=== PATIENT | male | born 1975 | race Caucasian/White ===

== ENCOUNTER 2020-12-29 18:45 | Inpatient (IN) | payer MEDICAID, SELFPAY ==
[2020-12-29 18:46] VITALS: BP 142/94; PULSE 93; RESP 18; TEMP 36.3; O2SAT 100; BMI 36.1
--- NOTE | 2020-12-29 20:24 | CT_ITS ---
INDICATION: abdominal pain, inguinal hernias EXAMINATION: CT ABDOMEN AND PELVIS WITH CONTRAST - CT Abdomen And Pelvis W/ Contrast Injection TECHNIQUE: Helically acquired images were obtained of the abdomen and pelvis following IV contrast. A radiation dose optimization technique was used for this scan. IV Contrast dosage and agent: 100 cc of [id number] Oral contrast: None. COMPARISON: Chest x-ray 07/30/2014. FINDINGS: LOWER CHEST: Several scattered focal pulmonary lucencies roughly 1 cm in size or smaller. There is mild bibasilar atelectasis. No pleural effusion. No nodule or mass. No cardiomegaly or pericardial effusion. LIVER: Microlobulated contour of the liver, significant intraabdominal ascites and splenomegaly suggesting cirrhosis. No visible mass lesion exemplified. GALLBLADDER AND BILIARY TREE: No calcified gallstones. No gallbladder distension or wall edema. No intra- or extrahepatic biliary ductal dilation. PANCREAS: No focal cystic or solid mass. SPLEEN: Enlarged. ADRENAL GLANDS: No nodules. KIDNEYS AND URETERS: Normal renal size and position. No hydronephrosis. PERITONEUM: Significant volume of intra-abdominal ascites with bilateral inguinal hernias distended with fluid. There is moderate subcutaneous edema also consistent with anasarca. BOWEL: No evidence of acute appendicitis. No stomach or bowel distension. No focal inflammatory change. LYMPH NODES: No enlarged mesenteric or retroperitoneal lymph nodes. VESSELS: Aorta is non-dilated. URINARY BLADDER: Unremarkable. REPRODUCTIVE ORGANS: No pelvic masses. ABDOMINAL WALL: No discrete abdominal or pelvic wall hernia. BONES: No lytic or blastic abnormality. Degenerative endplate changes lower lumbar spine, most notably involving the L4 endplates. CT/Abdomen/Pelvis W IV Cont ONLY IMPRESSION: Significant intra-abdominal ascites, splenomegaly and micronodular contour of the liver suggestive of cirrhosis. Multiple, scattered subcentimeter pulmonary lucencies of uncertain etiology. Paraseptal emphysema is considered. Electronically Signed: Raul Saravia DO at 21:51 EDT Tel , Service support ,
--- NOTE | 2020-12-29 20:34 | EX.ED.DYSGE1 ---
HPI History of Present Illness Chief Complaint: Complaint Informant: patient and parent Narrative Narrative: Patient is a 45-year-old male with history of alcohol abuse, alcoholic liver disease, jaundice and cirrhosis of the liver presenting with increased abdominal distention, swelling of his testicles and difficulty urinating. Patient states he currently drinks 6-8 beers a day. For the past 2 weeks has had increased swelling of his abdomen and his testicles. Has had a hard time urinating. He is intermittently had blood in his urine describes it as either dark or light pink. He notes he did draw blood about 3 days ago. Patient states he was supposed to have a hernia surgery about 2 weeks [address] performed [address] Dr. Amor but it was not done because he needed to have clearance for his heart and his liver. He has an appointment in a month to see GI through [facility]. He states he is having worsening pain difficulty urinating attributed to his hernias which is why he came to the emergency room. Denies any history of paracentesis. No other complaints at this time. [facility] Medical History Alcohol abuse Anxiety HTN (hypertension) Liver disease Substance abuse Home Medications atenolol 50 mg PO DAILY 07/30/14 [History Last Taken Unknown] lisinopril 20 mg PO DAILY 07/30/14 [History Last Taken Unknown] paroxetine HCl [Paxil] 40 mg PO DAILY 07/30/14 [History Last Taken Unknown] lorazepam 1 mg PO Q4H PRN PRN #20 tablet 07/31/14 [Rx Last Taken Unknown] cyclobenzaprine [Flexeril] 5 mg PO QHS PRN 12/29/20 [History Last Taken Unknown] Allergy/AdvReac Type Severity Reaction Status Date / Time Sulfa (Sulfonamide Allergy Unknown Verified 12/29/20 18:45 Antibiotics) Social History Smoking Status: Current every day smoker tobacco type: cigarettes ROS ROS ED Constitutional Constitutional ED: Denies chills or fever(s) Eyes Eyes: Reports other Details: Scleral icterus ; Denies change in vision ENT ENT ED: Denies ear pain or rhinorrhea Cardiovascular Cardiovascular: Denies chest pain Respiratory/Chest Respiratory/Chest: Denies cough or dyspnea Gastrointestinal Gastrointestinal: Reports abdominal pain and constipation; Denies melena, nausea or vomiting Genitourinary Genitourinary ED: Reports hematuria and other Details: Difficulty urinating Musculoskeletal Musculoskeletal: Denies arthralgias or myalgias Integumentary Reports other Details: Jaundice ; Denies rash Neurologic Neurologic: Denies headache(s), paresthesias or weakness Psychiatric Psychiatric: Reports anxiety; Denies depression EXAM Physical Exam Const Vital Signs: 12/29/20 18:46 12/29/20 22:42 Temperature 97.4 F L 98.0 F Temperature Source Temporal Temporal Pulse Rate 93 78 Respiratory Rate 18 18 Blood Pressure 142/94 H 139/89 H Blood Pressure Mean 110 105 Pulse Ox 100 99 Oxygen Delivery Method Room Air Room Air General Appearance ED: NAD and other Chronically ill-appearing HEENT Reports moist mucous membranes Eyes PERRL and EOMs intact bilaterally General Eye ED: Yes scleral icterus Neck supple and no JVD Chest Wall inspection of chest normal Resp clear to auscultation bilaterally Resp Narrative: Mild increased respiratory effort in the room Auscultation: Negative for rhonchi or wheezes Cardio regular rate, regular rhythm and no murmurs GI GI Narrative: Pitting to the abdominal wall as well as a questionable fluid wave of the abdomen. Diffuse tenderness to palpation most pronounced in the periumbilical and suprapubic region. Significantly distended abdomen. Inspection: abdominal distention Palpation: guarding Narrative: Significant edema of the bilateral scrotum, painful to palpation Extremity General Extremety ED: Yes edema; Negative for tenderness General Extremity: edema Neuro oriented x3 and CN's II-XII intact bilaterally Sensorium / Orientation: alert Psych mental status grossly normal Skin no rashes or lesions noted General Skin Exam: jaundice MDM MDM MDM Narrative Medical decision making narrative: Patient evaluate for increased abdominal swelling, difficulty urinating and testicular pain. He is concerned he has a hernia that is causing his problems. On exam patient of appears jaundiced, has anasarca and ascites. He is never really had a full GI work-up for his presumed liver failure. He states he had one televisit about a year and a half ago with Dr. Sadler who is no longer with the [facility]. His work-up shows an elevated lactate, urinary tract infection and is consistent with liver failure. CT does not show any incarcerated hernia but does show significant ascites. Patient is quite tender in his abdomen in the differential does also include SBP. Patient will be started on Rocephin. Discussed with GI on-call who feels that patient would benefit from admission for paracentesis tomorrow and further evaluation. Lab Data Labs: Laboratory Results - last 24 hr 12/29/20 12/29/20 12/29/20 19:45 19:45 19:45 WBC 5.0 RBC 3.41 L Hgb 12.3 L Hct 35.5 L MCV 104.1 H MCH 36.1 H MCHC 34.6 RDW Std Deviation 56.0 H RDW Coeff of Andrei 14.6 Plt Count 88 L MPV 10.0 Immature Gran % (Auto) 0.200 Neut % (Auto) 52.3 Lymph % (Auto) 28.3 [place] % (Auto) 16.4 H Eos % (Auto) 2.2 Baso % (Auto) 0.6 Absolute Neuts (auto) 2.6 Absolute Lymphs (auto) 1.40 Nucleated RBC % 0 Differential Comment SCANNED PT INR Sodium 133 L Potassium 3.3 L Chloride 101 Carbon Dioxide 27.0 Anion Gap 5 BUN 12 Creatinine 0.66 L Estim Creat Clear Calc 139.85 Est GFR (MDRD) Af Amer 165 Est GFR (MDRD) Non-Af 136 BUN/Creatinine Ratio 18.0 Glucose 95 Lactic Acid Calcium 8.1 L Total Bilirubin 4.90 H Direct Bilirubin 2.33 H AST 52 H ALT 22 Alkaline Phosphatase 177 H B-Natriuretic Peptide Total Protein 7.6 Albumin 2.0 L Globulin 5.6 H Urine Color Brenda Urine Clarity Clear Urine pH 6.0 Ur Specific [place] 1.025 Urine Protein 30 H Urine Glucose (UA) Normal Urine Ketones 15 H Urine Occult Blood 10 H Urine Nitrite Positive H Urine Bilirubin 3 H Urine Urobilinogen 12 H Ur Leukocyte Esterase 100 H Urine RBC 0 SEEN Urine WBC 0-5 SEEN Ur Squamous Epith Cells 0-5 SEEN Calcium Oxalate Crystal 2+ Urine Bacteria 0 SEEN Urine Mucus 0 SEEN 12/29/20 12/29/20 12/29/20 19:45 19:45 20:30 WBC RBC Hgb Hct MCV MCH MCHC RDW Std Deviation RDW Coeff of Andrei Plt Count MPV Immature Gran % (Auto) Neut % (Auto) Lymph % (Auto) [place] % (Auto) Eos % (Auto) Baso % (Auto) Absolute Neuts (auto) Absolute Lymphs (auto) Nucleated RBC % Differential Comment PT 19.8 H INR 1.8 Sodium Potassium Chloride Carbon Dioxide Anion Gap BUN Creatinine Estim Creat Clear Calc Est GFR (MDRD) Af Amer Est GFR (MDRD) Non-Af BUN/Creatinine Ratio Glucose Lactic Acid 2.0 Calcium Total Bilirubin Direct Bilirubin AST ALT Alkaline Phosphatase B-Natriuretic Peptide 127.4 H Total Protein Albumin Globulin Urine Color Urine Clarity Urine pH Ur Specific [place] Urine Protein Urine Glucose (UA) Urine Ketones Urine Occult Blood Urine Nitrite Urine Bilirubin Urine Urobilinogen Ur Leukocyte Esterase Urine RBC Urine WBC Ur Squamous Epith Cells Calcium Oxalate Crystal Urine Bacteria Urine Mucus Radiography Diagnostic Testing: Clinical Impression(s) from Imaging Studies Abdomen/Pelvis CT 12/29/20 20:24 IMPRESSION: Significant intra-abdominal ascites, splenomegaly and micronodular contour of the liver suggestive of cirrhosis. Multiple, scattered subcentimeter pulmonary lucencies of uncertain etiology. Paraseptal emphysema is considered. Electronically Signed: Raul Saravia DO at 21:51 EDT Tel , Service support , Discharge Plan Triage Chief Complaint: Complaint ED Provider: Joselin Baldwin Dx/Rx/DC Orders Clinical Impression: Alcohol abuse, Ascites, Anasarca, Cirrhosis of liver Prescriptions: No Action lisinopril 20 MG tablet 20 mg PO DAILY RF: 0 paroxetine HCl [Paxil] 40 MG tablet 40 mg PO DAILY RF: 0 atenolol 50 MG tablet 50 mg PO DAILY RF: 0 lorazepam 1 MG tablet 1 mg PO Q4H PRN PRN (Reason: ANXIETY) Qty: 20 RF: 0 cyclobenzaprine [Flexeril] 5 mg Tablet 5 mg PO QHS PRN (Reason: Pain) RF: 0 Primary Care Provider: Elio Ojeda Referrals: Elio Ojeda MD [Primary Care Provider] - Disposition Disposition: Acute Care Hospital [facility]
[2020-12-29 20:36] LABS: Bacteria 0 SEEN /hpf (None Seen); Mucous, Urine 0 SEEN /hpf (<or=2+); Red Blood Cells-Urine 0 SEEN /hpf (0-5)
[2020-12-29 20:40] LABS: Color, Urine Amber (Yellow); Glucose, Dipstick Normal (Normal); Ketone-Dipstick 15 mg/dl (Negative); Leukocyte Esterase-Dipstick 100 /ul (Negative); Nitrite-Dipstick Positive (Negative); Occult Blood-Urine 10 /ul (Negative); Protein-Dipstick 30 mg/dl (Negative); Specific Gravity, Urine 1.025 (1.002-1.030); Urine Clarity Clear (Clear); Urine Urobilinogen 12 mg/dl (Normal)
[2020-12-29 20:41] LABS: Urine Bilirubin Dipstick 3 mg/dL (Negative)
[2020-12-29 20:42] LABS: Absolute Neutrophil Count 2.6 X10^3/uL (2.0-7.7); Basophil# 0.03 X10^3/uL; Basophil% 0.6 % (0-1); Eosinophil# 0.11 X10^3/uL; Eosinophils% 2.2 % (0-5); Hematocrit 35.5 % (40-54); Hemoglobin 12.3 g/dL (13.0-16.5); Lymphocyte % 28.3 % (19-41); Mean Corp Hgb Conc 34.6 g/dL (32-36); Mean Corpuscular Hgb 36.1 pg (27.0-32.0); Mean Corpuscular Volume 104.1 fL (80-94); Monocyte# 0.81 X10^3/uL; Monocyte% 16.4 % (0-10); NRBC Flagged by Analyzer 0 % (0-5); Neutrophil # 2.59 X10^3/uL (2.7-7.7); Neutrophil % 52.3 % (47-70); POSITIVE COUNT YES; Platelet Count 88 K/mm3 (150-450); RBC Distribution Width CV 14.6 % (11.6-14.6); Red Blood Count 3.41 M/mm3 (4.6-6.2)
[2020-12-29] MEDS: fentaNYL 100 MCG/2 ML Ampul 50 MCG IV (20:45)
[2020-12-29 20:50] LABS: Calcium Oxalate Crystals Ur 2+ /hpf (<or=2+)
[2020-12-29 20:53] LABS: Squamous Epithelial Cells - UA 0-5 SEEN /hpf (0-5); White Blood Cells 0-5 SEEN /hpf (0-5)
[2020-12-29 20:58] LABS: Differential Indicated SCAN CRITERIA MET
[2020-12-29 21:04] LABS: International Normalized Ratio 1.8; Prothrombin Time (Protime)PT. 19.8 SECONDS (11.7-14.9)
[2020-12-29 21:07] LABS: AST(SGOT) 52 U/L (15-37); Alanine Aminotransfer ALT/SGPT 22 U/L (16-61); Alkaline Phosphatase 177 U/L (45-117); Anion Gap 5 (5-15); BUN 12 mg/dL (7-18); Bilirubin, Direct 2.33 mg/dL (0.00-0.30); Calcium,Total 8.1 mg/dL (8.5-10.1); Chloride 101 mmol/L (98-107); Creatinine, Serum 0.66 mg/dL (0.70-1.30); EST Glomerular Filtration Rate 136 mL/min (>60); Est Glom Filt Rate - Afr Amer 165 mL/min (>60); Estimated Creatinine Clearance 139.85 ml/min; Globulin 5.6 g/dL (2.2-4.2); Glucose 95 mg/dL (74-106); Potassium 3.3 mmol/L (3.5-5.1); Protein, Total 7.6 g/dL (6.4-8.2); Sodium Level 133 mmol/L (136-145)
[2020-12-29 21:14] LABS: Differential Comment SCANNED
[2020-12-29] MEDS: Ceftriaxone 1 GM/50 ML BAG IV (22:40)
[2020-12-29 22:42] VITALS: BP 139/89; PULSE 78; RESP 18; TEMP 36.7; O2SAT 99
[2020-12-29 22:42] LABS: BNP,B-Type NATRIURETIC PEPTIDE 127.4 pg/mL (0-100)
--- NOTE | 2020-12-29 23:17 | HP.PCM.HOS_ITS ---
HPI - General General Date of Admission: 12/29/20 Date of Service: 12/29/20 Chief Complaint: abdominal pain HPI Narrative MAX ODONNELL, is a 45 M who presents worsening abdominal pain. Patient has known history of cirrhosis and 2 years ago was told that he had 6 months to a year to live. He has had abdominal distention for a long period of time but has progressively gotten worse. He presented to the emergency room with a distended abdomen. CAT scan performed in the emergency room showed massive ascites and liver contour suggestive of cirrhosis. He received fentanyl for pain and ceftriaxone from the ER is interpretation of him having a urinary tract infection. He does endorse that he has difficulty urinating because of his massive swelling as well as scrotal edema. [facility] Medical History Alcohol abuse Anxiety Cirrhosis, alcoholic HTN (hypertension) Liver disease Substance abuse Home Medications atenolol 50 mg PO DAILY 07/30/14 [History Last Taken Unknown] lisinopril 20 mg PO DAILY 07/30/14 [History Last Taken Unknown] paroxetine HCl [Paxil] 40 mg PO DAILY 07/30/14 [History Last Taken Unknown] lorazepam 1 mg PO Q4H PRN PRN #20 tablet 07/31/14 [Rx Last Taken Unknown] cyclobenzaprine [Flexeril] 5 mg PO QHS PRN 12/29/20 [History Last Taken Unknown] Allergy/AdvReac Type Severity Reaction Status Date / Time Sulfa (Sulfonamide Allergy Unknown Verified 12/29/20 18:45 Antibiotics) Social History (Updated 12/29/20 @ 23:[address] Edwin Medina DO) Smoking Status: Heavy Smoker (>10/day) alcohol intake: current alcohol intake frequency: 3 or more drinks per day Alcohol type: beer substance use type: amphetamines ROS ROS Narrative Lower extremity edema. All review of systems were negative except as mentioned above in the history of present illness and the other review of systems. Vital Signs Vital Signs Vital Signs: 12/29/20 18:46 12/29/20 22:42 Temperature 36.3 C L 36.7 C Temperature Source Temporal Temporal Pulse Rate 93 78 Respiratory Rate 18 18 Blood Pressure 142/94 H 139/89 H Blood Pressure Mean 110 105 Pulse Ox 100 99 Oxygen Delivery Method Room Air Room Air Weight Weight: 111.13 kg Body Mass Index (BMI) 36.1 Physical Exam Const alert General Appearance: cooperative HEENT normocephalic Eyes Eyes Narrative: Icterus Neck no lymphadenopathy Resp normal respiratory effort, no retractions, no use of accessory muscles and clear to auscultation bilaterally Cardio regular rate, regular rhythm, S1 normal heart sound and S2 normal heart sound GI GI Narrative: Distended. Mild tenderness throughout. Taut. Scrotal edema Extremity Extremity Narrative: Bilateral lower extremity edema Neuro no focal motor deficits Sensorium / Orientation: awake and alert Results Lab / Micro Data Attestation: I reviewed the patient's lab results. Result Diagrams: 12/29/20 19:45 12/29/20 19:45 Labs: Laboratory Results - last 24 hr 12/29/20 19:45: WBC 5.0, RBC 3.41 L, Hgb 12.3 L, Hct 35.5 L, MCV 104.1 H, MCH 36.1 H, MCHC 34.6, RDW Std Deviation 56.0 H, RDW Coeff of Andrei 14.6, Plt Count 88 L, MPV 10.0, Immature Gran % (Auto) 0.200, Neut % (Auto) 52.3, Lymph % (Auto) 28.3, [place] % (Auto) 16.4 H, Eos % (Auto) 2.2, Baso % (Auto) 0.6, Absolute Neuts (auto) 2.6, Absolute Lymphs (auto) 1.40, Nucleated RBC % 0, Differential Comment SCANNED 12/29/20 19:45: Sodium 133 L, Potassium 3.3 L, Chloride 101, Carbon Dioxide 27.0, Anion Gap 5, BUN 12, Creatinine 0.66 L, Estim Creat Clear Calc 139.85, Est GFR (MDRD) Af Amer 165, Est GFR (MDRD) Non-Af 136, BUN/Creatinine Ratio 18.0, Glucose 95, Calcium 8.1 L, Total Bilirubin 4.90 H, Direct Bilirubin 2.33 H, AST 52 H, ALT 22, Alkaline Phosphatase 177 H, Total Protein 7.6, Albumin 2.0 L, Globulin 5.6 H 12/29/20 19:45: Urine Color Brenda, Urine Clarity Clear, Urine pH 6.0, Ur Specific [place] 1.025, Urine Protein 30 H, Urine Glucose (UA) Normal, Urine Ketones 15 H, Urine Occult Blood 10 H, Urine Nitrite Positive H, Urine Bilirubin 3 H, Urine Urobilinogen 12 H, Ur Leukocyte Esterase 100 H, Urine RBC 0 SEEN, U rine WBC 0-5 SEEN, Ur Squamous Epith Cells 0-5 SEEN, Calcium Oxalate Crystal 2+, Urine Bacteria 0 SEEN, Urine Mucus 0 SEEN 12/29/20 19:45: PT 19.8 H, INR 1.8 12/29/20 19:45: B-Natriuretic Peptide 127.4 H 12/29/20 20:30: Lactic Acid 2.0 Radiology Impression Abdomen/Pelvis CT 12/29/20 20:24 IMPRESSION: Significant intra-abdominal ascites, splenomegaly and micronodular contour of the liver suggestive of cirrhosis. Multiple, scattered subcentimeter pulmonary lucencies of uncertain etiology. Paraseptal emphysema is considered. Electronically Signed: Raul Saravia DO at 21:51 EDT Tel , Service support , Assessment & Plan Assessment/Plan (1) Ascites: QUALIFIERS: Ascites type: due to alcoholic cirrhosis Qualified Code(s): K70.31 - Alcoholic cirrhosis of liver with ascites (2) Alcohol abuse: (3) Anasarca: PLAN: 1. Massive ascites * Secondary to cirrhosis from alcohol * Has progressively gotten worse over period of time to the point where it is intolerable * ER discussed with gastroenterology who recommend paracentesis * Plan is for paracentesis the fourth. INR is 1.8 so we will give him vitamin K. * Ascites albumin labs not available so cannot check SAAG * If patient has removed more than 5 L and he will need albumin replacement * Will start the patient on furosemide as well spironolactone 2. Cirrhosis, secondary to alcohol * This is been known for period time patient given poor prognosis a couple years ago * He still continues to drink which complicates the situation * Gastroenterology consult for further recommendations * Patient not a candidate for transplant as he is still actively drinking 3. Alcohol abuse * Ongoing * Drinks 6-8 beers per day * Has never been through alcohol withdrawal or delirium tremens but states that he has quit before when he was incarcerated. He stated his symptoms began about 3 days. * He is not interested in speaking with anyone but he would be interested in receiving some information to follow-up * Start thiamine and folate * This provider is concerned that the patient will not abstain from alcohol when he is discharged. 4. Anasarca * Secondary to cirrhosis * Diuretics * Fluid restriction 5. Coagulopathy * INR 1.8 * Secondary to cirrhosis * Will give 5 mg of vitamin K 6. VTE prophylaxis: Avoiding chemical prophylaxis given his coagulopathy. We will add SCDs. Discussed with the patient's mother at bedside Charges/Coding Visit Charges Inpatient E&M: 17553 Init Hosp L3
[2020-12-29 23:53] VITALS: BMI 35.9
[2020-12-29 23:58] VITALS: BP 126/85; PULSE 78; RESP 18; TEMP 36.8; O2SAT 98
[2020-12-30] VITALS (10 sets, daily range): BP systolic 106–139; BP diastolic 56–89; PULSE 64–89; RESP 16–20; TEMP 36.5–36.7; O2SAT 95–99; BMI 37.4
--- NOTE | 2020-12-30 | FLU_PTH ---
PATIENT: MAX ODONNELL III LOC: MS2 U#:[id number] AGE/SX: 45/M ROOM: [id number] RE12/29/[address]: Dr. Herminia Tipton MD : 1975 BED: 1 DIS: 01/01/2021 SPEC #: [id number] RECD: 12/31/20 09:00 STATUS: FRANCES ALONSO #: [id number] ALCIRA: 12/30/20 00:[address]: Herminia Tipton DEPT: CYTOLOGY RECD BY: Shahid Davis ENTERED: 12/31/20 09:01 SP TYPE: Fluid OTHR DR: DO Dr. Elio Cao MD Tissues: PARACENTESIS FLUID Procedures: Special Stain Group II Surgery Specimen Level IV Cytospin Fluid HEADER OPERATION: Paracentesis PRE-OP DIAGNOSIS: Ascites TISSUE SUBMITTED: Paracentesis fluid for cytology DIAGNOSIS CYTOLOGY Paracentesis fluid for cytology (cytospin and cell block): Negative for malignant cells. See comment. SJ:chintan 01/03/2021 COMMENT Clinical correlation and appropriate follow up are necessary. CYTOLOGY STUDY Slides are reviewed. CYTOLOGY GROSS Received is 80 ml of yellow cloudy fluid labeled with the patient's name and and designated per the requisition as paracentesis. Submitted for cytology preparation including cell block. / chintan 12/31/2020 TC:5 CPT: 29014, 71438
[2020-12-30 00:36] LABS: Reflex Lactate? Y
[2020-12-30] MEDS: Furosemide 40 MG Tablet PO ×2 (00:50→17:00)
[2020-12-30] MEDS: Spironolactone 50 MG Tablet PO ×2 (00:50→16:59)
[2020-12-30] MEDS: oxyCODONE 5 MG Tablet 10 MG PO (00:51)
--- NOTE | 2020-12-30 01:10 | PCS.PANDOC ---
PANDEMIC DOCUMENTATION INITIATED: Date: 12/30/20 Time: 29
[2020-12-30 01:13] LABS: Lactic Acid 1.1 mmol/L (0.4-1.9)
[2020-12-30] MEDS: Phytonadione (Vit K1) 5 MG TABLET PO (01:44)
[2020-12-30 06:12] LABS: International Normalized Ratio 1.7; Prothrombin Time (Protime)PT. 19.2 SECONDS (11.7-14.9)
[2020-12-30 06:23] LABS: ALB/GLOB Ratio 0.4 RATIO (0.9-2.4); AST(SGOT) 52 U/L (15-37); Alanine Aminotransfer ALT/SGPT 23 U/L (16-61); Albumin, Serum 1.8 g/dL (3.2-5.0); Alkaline Phosphatase 147 U/L (45-117); Anion Gap 7 (5-15); BUN 10 mg/dL (7-18); BUN/Creat Ratio 18.7 RATIO (10-20); Calcium,Total 7.8 mg/dL (8.5-10.1); Chloride 102 mmol/L (98-107); Creatinine, Serum 0.53 mg/dL (0.70-1.30); EST Glomerular Filtration Rate 176 mL/min (>60); Est Glom Filt Rate - Afr Amer 213 mL/min (>60); Estimated Creatinine Clearance 168.49 ml/min; Globulin 5.1 g/dL (2.2-4.2); Glucose 90 mg/dL (74-106); Potassium 2.9 mmol/L (3.5-5.1); Protein, Total 6.9 g/dL (6.4-8.2); Sodium Level 135 mmol/L (136-145)
--- NOTE | 2020-12-30 11:00 | CASEMGMT ---
RN MARIO INDUSTRIAL TECH INSTRUCTOR CM to room to meet with patient for initial transition planning/care coordination assessment. RN MARIO introduced self and role at [facility]. Pt voices understanding and consents to assessment at this time. Pt resting in bed in no distress at this time. Pt's mother, aCroline, @ bedside and pt agreeable to her being present during assessment. Pt is A/O at this time and answers all questions appropriately. Care providers, pharmacy, and demographics verified/updated at this time. PCP: Dr Ojeda Specialists: Dr Amor-surgeon, Homemaking Rehabilitation Consultant @ either [facility] or [place] (pt unsure). Pt to see assistant professor of music @ [facility] in February as a new pt. Preferred Pharmacy: [facility] Insurance: [employer] Prescription Benefit: Yes Living Will/HPOA: Pt does not currently have LW/HCPOA and declines info at this time. He states his sister is taking care of all of that for me. Pt made aware that he can contact as an out-pt and make appt in the future if he decides he would like to talk with someone about this or would like to utilize [facility] social work for advanced directive completion. LNOK: Mother, Caroline. Niece, Dianelys Lucia. Pt states he has 4 adult children. Living Arrangements: Lives w/his niece, Dianelys Lucia, and her family ( and 3 children) in a downstairs studio apartment in their home. Pt is independent w/ADL's and IADL's. Transportation: Mom or niece DME: Denies using any DME and denies needs. HHC/SNF: No history of either. Denies need for HHC. Pt wishes to return home and states has no concerns with going home at time of discharge. CM to follow for any discharge planning/needs. Pt voices no concerns/needs at this time. Advised pt to ask for CM if any questions/concerns/needs arise. Voices understanding. PLAN: Home w/family support and discharge plans in place. Dave MANZO RN, CM
--- NOTE | 2020-12-30 11:17 | EKG12_ITS ---
Test Reason : PRE-PROCEDURE Blood Pressure : / mmHG Vent. Rate : 070 BPM Atrial Rate : 070 BPM P-R Int : 196 ms QRS Dur : 114 ms QT Int : 444 ms P-R-T Axes : -03 -32 -02 degrees QTc Int : 479 ms Normal sinus rhythm Left axis deviation Abnormal ECG Confirmed by ALVIN SILVERMAN, JONES ([id number]), online editor JERRI VAZQUEZ ([id number]) on 01/04/2021 8:28:09 AM Referred By: FRANCY Confirmed By:JONES ESQUIVEL MD
--- NOTE | 2020-12-30 11:50 | PN.HOSP_ITS ---
Subjective Subjective Patient seen and examined. He complains of abdominal pain and distension. He has no other complaints. He is due for paracentesis today. He has remained hemodynamically stable. Objective Data Objective Data Vital Signs: Vital Signs Temp Pulse Resp BP Pulse Ox 97.8 F 74 20 H 122/84 H 95 12/30/20 10:00 12/30/20 10:00 12/30/20 10:00 12/30/20 10:00 12/30/20 10:00 Oxygen Delivery Method Room Air Weight: 242 lb 8.136 oz Body Mass Index (BMI) 35.9 Intake & Output: Intake and Output for Last 24 Hours 12/28/20 12/29/20 12/30/20 23:59 23:59 23:59 Intake Total 50 / 50 50 / 50 Output Total 2200 / 2200 Balance 50 / 50 -2150 / -2150 Lab / Micro Data Result Diagrams: 12/29/20 19:45 12/30/20 05:30 Labs: Laboratory Results - last 24 hr 12/29/20 19:45: WBC 5.0, RBC 3.41 L, Hgb 12.3 L, Hct 35.5 L, MCV 104.1 H, MCH 36.1 H, MCHC 34.6, RDW Std Deviation 56.0 H, RDW Coeff of Andrei 14.6, Plt Count 88 L, MPV 10.0, Immature Gran % (Auto) 0.200, Neut % (Auto) 52.3, Lymph % (Auto) 28.3, [place] % (Auto) 16.4 H, Eos % (Auto) 2.2, Baso % (Auto) 0.6, Absolute Neuts (auto) 2.6, Absolute Lymphs (auto) 1.40, Nucleated RBC % 0, Differential Comment SCANNED 12/29/20 19:45: Sodium 133 L, Potassium 3.3 L, Chloride 101, Carbon Dioxide 27.0, Anion Gap 5, BUN 12, Creatinine 0.66 L, Estim Creat Clear Calc 139.85, Est GFR (MDRD) Af Amer 165, Est GFR (MDRD) Non-Af 136, BUN/Creatinine Ratio 18.0, Glucose 95, Calcium 8.1 L, Total Bilirubin 4.90 H, Direct Bilirubin 2.33 H, AST 52 H, ALT 22, Alkaline Phosphatase 177 H, Total Protein 7.6, Albumin 2.0 L, Globulin 5.6 H 12/29/20 19:45: Urine Color Brenda, Urine Clarity Clear, Urine pH 6.0, Ur Specific [place] 1.025, Urine Protein 30 H, Urine Glucose (UA) Normal, Urine Ketones 15 H, Urine Occult Blood 10 H, Urine Nitrite Positive H, Urine Bilirubin 3 H, Urine Urobilinogen 12 H, Ur Leukocyte Esterase 100 H, Urine RBC 0 SEEN, Urine WBC 0-5 SEEN, Ur Squamous Epith Cells 0-5 SEEN, Calcium Oxalate Crystal 2+, Urine Bacteria 0 SEEN, Urine Mucus 0 SEEN 12/29/20 19:45: PT 19.8 H, INR 1.8 12/29/20 19:45: B-Natriuretic Peptide 127.4 H 12/29/20 20:30: Lactic Acid 2.0 12/30/20 00:42: Lactic Acid 1.1 12/30/20 05:30: PT 19.2 H, INR 1.7 12/30/20 05:30: Sodium 135 L, Potassium 2.9 L, Chloride 102, Carbon Dioxide 26.0, Anion Gap 7, BUN 10, Creatinine 0.53 L, Estim Creat Clear Calc 168.49, Est GFR (MDRD) Af Amer 213, Est GFR (MDRD) Non-Af 176, BUN/Creatinine Ratio 18.7, Glucose 90, Calcium 7.8 L, Total Bilirubin 5.20 H, AST 52 H, ALT 23, Alkaline Phosphatase 147 H, Total Protein 6.9, Albumin 1.8 L, Globulin 5.1 H, Albumin/Globulin Ratio 0.4 L Radiography Diagnostic Testing: Radiology Impression Abdomen/Pelvis CT 12/29/20 20:24 IMPRESSION: Significant intra-abdominal ascites, splenomegaly and micronodular contour of the liver suggestive of cirrhosis. Multiple, scattered subcentimeter pulmonary lucencies of uncertain etiology. Paraseptal emphysema is considered. Electronically Signed: Raul Saravia DO at 21:51 EDT Tel , Service support , Physical Exam Const alert, oriented x3 and no apparent distress Exam Limitations: no limitations HEENT moist oral mucous membranes Head and Scalp: normocephalic Eyes EOMs intact bilaterally and conjunctivae normal Neck no lymphadenopathy Resp normal respiratory effort, no retractions, no use of accessory muscles and clear to auscultation bilaterally Cardio regular rate, regular rhythm, S1 normal heart sound, S2 normal heart sound and no murmurs GI GI Narrative: abdomen markedly distended, mild generalised tenderness. No guarding or rebound tenderness. positive fluid thrill. Extremity Extremity Narrative: moderate LE edema bilaterally, no tenderness. Peripheral Pulses: Yes pulses 2+ throughout Skin no rashes or lesions noted Neuro oriented x3, CN's II-XII intact bilaterally and moves all extremities Sensorium / Orientation: awake Psych affect normal Assessment & Plan Assessment/Plan (1) Alcoholic liver disease: (2) Ascites: QUALIFIERS: Ascites type: due to alcoholic cirrhosis Qualified Code(s): K70.31 - Alcoholic cirrhosis of liver with ascites (3) Cirrhosis of liver: (4) Anasarca: PLAN: #Massive ascites due to alcoholic liver cirrhosis * for paracentesis today. * INR was 1.8, so was given vitamin K * started on furosemide and spironolactone. * will need albumin if he has large amounts of ascites removed. * #Alcoholic liver cirrhosis * diagnosed ~ 2 years ago. Continues to drink * GI consulted. * not a candidate for transplant as he continues to drink. * #ALcohol abuse * drinks ~ 6-8 beers daily. * denies ever going into alcohol withdrawal or delirium tremens. * on thiamine and multivites as well as folate. * #THrombocytopenia * platelets are 88. Likely due to chronic alcohol abuse. WIll monitor * #Coagulopathy, due to alcoholic liver cirrhosis * INR was 1.8 on admission. INR is now 1.7, after he was given vitamin K * #Hypokalemia: K is 2.9. Will replace and trend. * DVT prophylaxis: SCDs Charges/Coding Visit Charges Inpatient E&M: 55367 Subs Hosp L3
--- NOTE | 2020-12-30 12:00 | US_ITS ---
PROCEDURE: Ultrasound guided paracentesis. DATE OF EXAMINATION: 12/30/2020. INDICATION: Male, 45 years old. Ascites. PHYSICIAN: Raciel Wills M.D. TECHNIQUE: The risks, benefits, and alternatives to the procedure were explained to the patient. The specific risks of bleeding, infection, and damage to bowel were detailed and accepted. Witnessed informed consent was obtained. The abdomen was ultrasonographically surveyed. An appropriate pocket of fluid was identified at the right lower quadrant. The skin were cleaned and prepped in the usual sterile fashion. Using ultrasound guidance, the peritoneal cavity was accessed with a 5-Jamaican paracentesis needle/catheter system. The trocar was removed. A total of 8200 ml of casie color fluid were removed from the peritoneal cavity. A 100 mL sample was sent to the laboratory. The catheter was removed and a sterile dressing was applied. The procedure was well tolerated. US/Paracentesis with US IMPRESSION: Ultrasound guided paracentesis. Electronically Signed: Raciel Wills MD at 14:52 EDT , Service support ,
--- NOTE | 2020-12-30 12:22 | CASEMGMT ---
DAVID MARTIN NOTE: Pt qualifies for a Palliative referral per the [facility] palliative screening tool at this time. Dr Tipton aware but is not agreeable to Palliative referral at this time. Dave MANZO RN CM
[2020-12-30] MEDS: Lidocaine 2% (20 ml mdv) 20 ML Vial INFILT (13:45)
--- NOTE | 2020-12-30 14:13 | NURSING ---
pt off unit at 1300
[2020-12-30 14:58] LABS: Body Fluid Mononuclear WBC # 0.116 10^3/uL; Body Fluid Mononuclear WBC % 87.8 %; Body Fluid Polynuclear WBC # 0.016 10^3/uL; Body Fluid Polynuclear WBC % 12.2 %; Body Fluid Total Cells Counted 0.162 10^3/ul; White Blood Count/Body Fluid 0.132 10^3/uL
[2020-12-30 15:10] LABS: Glucose, Body Fluid 97 mg/dL (40-70)
[2020-12-30 15:33] LABS: Appearance/Body Fluid CLEAR; Auto B Fluid Analyzer BKGD Ct COUNTS W/IN LIMITS (W/IN LIMITS); Color/Body Fluid YELLOW; Source- Body Fluid OTHER
[2020-12-30 15:34] LABS: Red Cell Count/Body Fluid < 0 /mm3
[2020-12-30 15:52] LABS: Lymphocytes 62 %; Macrophages 26 %; Monocytes 6 %; Neutrophil (Segs) 6 %
[2020-12-30 15:57] LABS: Body Fluid QC Type(s) BF1Q,BF2Q
[2020-12-30] MEDS: Paroxetine 20 MG Tablet 40 MG PO (17:00)
[2020-12-30] MEDS: Atenolol 50 MG Tablet PO (17:00)
[2020-12-30] MEDS: Lisinopril 20 MG Tablet PO (17:01)
[2020-12-30] MEDS: Albumin Human 25% (100 mL) 25 GM/100 ML BAG IV (17:01)
--- NOTE | 2020-12-30 19:02 | CON.PCM.GI_ITS ---
HPI Consult Data Date of Consult: 12/30/20 HPI Narrative HPI Narrative: MAX ODONNELL, 45 M with history of alcohol abuse, alcoholic cirrhosis of the liver presenting with increased abdominal distention, swelling of his testicles and diffic He also has a history of possible chronic hepatitis C. he drinks approximately 60 to 80 g of alcohol per day and has been knowing that the last 20 years. He presents to the emergency room after inability to drink for 24 hours secondary to worsening abdominal distention. His labs were consistent with alcoholic hepatitis and a MADRE score of 32. He was not given steroids due to the fact did not have any encephalopathy. His INR was 1.7 , platelet count 88 and hemoglobin of 12.6. There is no problem with his kidney function as his BUN/creatinine ratio was 20/1. 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 The CT scan of his abdomen and pelvis had shown a microlobulated contour of the liver, significant intraabdominal ascites and splenomegaly suggesting cirrhosis. No visible mass lesion exemplified. [facility] Medical History (Updated 12/30/20 @ 19:[address] Leland Back, DO) Alcohol abuse Anxiety Cirrhosis, alcoholic Depression HTN (hypertension) Irregular heart beat Liver disease Smoker Substance abuse Thrombocytopenia Home Medications atenolol 50 mg PO DAILY 07/30/14 [History Last Taken Unknown] lisinopril 20 mg PO DAILY 07/30/14 [History Last Taken Unknown] paroxetine HCl [Paxil] 40 mg PO DAILY 07/30/14 [History Last Taken Unknown] cyclobenzaprine [Flexeril] 5 mg PO TID 12/29/20 [History Last Taken Unknown] Allergy/AdvReac Type Severity Reaction Status Date / Time Sulfa (Sulfonamide Allergy Unknown Verified 12/29/20 18:45 Antibiotics) Social History (Updated 12/29/20 @ 23:[address] Edwin Medina, DO) Smoking Status: Heavy Smoker (>10/day) alcohol intake: current alcohol intake frequency: 3 or more drinks per day Alcohol type: beer substance use type: amphetamines ROS Review of Systems ROS Unobtainable: other Constitutional Constitutional: Denies fatigue, fever(s), poor appetite, weight gain or weight loss ENT HEENT: Denies mouth lesions Cardiovascular Cardiovascular: Denies abdominal bloating, abdominal edema or abdominal pain Respiratory/Chest Respiratory/Chest: Denies change in mental status, change in phlegm color, chest congestion or chest tightness Gastrointestinal Gastrointestinal: Denies belching, bloating, change in bowel habits, change in stool character, chewing difficulty, coffee ground emesis, constipation, cramping, diarrhea, dyspepsia, dysphagia, early satiety, excessive flatus, fecal incontinence, heartburn, hematemesis, hematochezia, hemorrhoids, loose stools, melena, nausea, odynophagia, rectal bleeding, tenesmus, vomiting or weight changes Genitourinary Genitourinary: Denies abdominal discomfort, burning urination or itching Musculoskeletal Musculoskeletal: Reports as per HPI; Denies muscle weakness or myalgias Integumentary Integumentary: Denies jaundice Neurologic Neurologic: Denies lack of coordination or weakness Psychiatric Psychiatric: Denies confusion, depression, memory loss, mood swings, paranoia or suicidal ideation Endocrine Endocrinology: Denies systems reviewed and no addt'l complaints, except as documented Hematologic/Lymphatic Hematologic/Lymphatic: Denies anemia, easy bleeding, easy bruising or lymp hadenopathy Allergic/Immunologic Allergic/Immunologic: Denies systems reviewed and no addt'l complaints, except as documented Physical Exam Const alert General Appearance: cooperative Orientation / Consciousness: oriented to person HEENT hearing grossly normal bilaterally Head and Scalp: normal to inspection Face and Sinus: face symmetric Nose: external nose normal Mouth: oral and palatal mucosa normal Eyes conjunctivae normal General Eye: normal appearance of both eyes Neck full ROM General: normal visual inspection Lymph Lymphatic: no lymphadenopathy noted Chest inspection of chest normal and palpation of chest normal Chest: symmetrical chest wall rise Resp normal respiratory effort Effort and Inspection: able to speak in complete sentences Cardio regular rate GI non-distended Percussion: normal to percussion Rectal Exam: deferred Neuro Speech: speech normal Gait (Neuro): normal gait Lab / Micro Data Result Diagrams: 12/29/20 19:45 12/30/20 05:30 Labs: Laboratory Results - last 24 hr 12/29/20 19:45: WBC 5.0, RBC 3.41 L, Hgb 12.3 L, Hct 35.5 L, MCV 104.1 H, MCH 36.1 H, MCHC 34.6, RDW Std Deviation 56.0 H, RDW Coeff of Andrei 14.6, Plt Count 88 L, MPV 10.0, Immature Gran % (Auto) 0.200, Neut % (Auto) 52.3, Lymph % (Auto) 28.3, [place] % (Auto) 16.4 H, Eos % (Auto) 2.2, Baso % (Auto) 0.6, Absolute Neuts (auto) 2.6, Absolute Lymphs (auto) 1.40, Nucleated RBC % 0, Differential Comment SCANNED 12/29/20 19:45: Sodium 133 L, Potassium 3.3 L, Chloride 101, Carbon Dioxide 27.0, Anion Gap 5, BUN 12, Creatinine 0.66 L, Estim Creat Clear Calc 139.85, Est GFR (MDRD) Af Amer 165, Est GFR (MDRD) Non-Af 136, BUN/Creatinine Ratio 18.0, Glucose 95, Calcium 8.1 L, Total Bilirubin 4.90 H, Direct Bilirubin 2.33 H, AST 52 H, ALT 22, Alkaline Phosphatase 177 H, Total Protein 7.6, Albumin 2.0 L, Globulin 5.6 H 12/29/20 19:45: Urine Color Brenda, Urine Clarity Clear, Urine pH 6.0, Ur Specific [place] 1.025, Urine Protein 30 H, Urine Glucose (UA) Normal, Urine Ketones 15 H, Urine Occult Blood 10 H, Urine Nitrite Positive H, Urine Bilirubin 3 H, Urine Urobilinogen 12 H, Ur Leukocyte Esterase 100 H, Urine RBC 0 SEEN, Urine WBC 0-5 SEEN, Ur Squamous Epith Cells 0-5 SEEN, Calcium Oxalate Crystal 2+, Urine Bacteria 0 SEEN, Urine Mucus 0 SEEN 12/29/20 19:45: PT 19.8 H, INR 1.8 12/29/20 19:45: B-Natriuretic Peptide 127.4 H 12/29/20 20:30: Lactic Acid 2.0 12/30/20 00:42: Lactic Acid 1.1 12/30/20 05:30: PT 19.2 H, INR 1.7 12/30/20 05:30: Sodium 135 L, Potassium 2.9 L, Chloride 102, Carbon Dioxide 26.0, Anion Gap 7, BUN 10, Creatinine 0.53 L, Estim Creat Clear Calc 168.49, Est GFR (MDRD) Af Amer 213, Est GFR (MDRD) Non-Af 176, BUN/Creatinine Ratio 18.7, Glucose 90, Calcium 7.8 L, Total Bilirubin 5.20 H, AST 52 H, ALT 23, Alkaline Phosphatase 147 H, Total Protein 6.9, Albumin 1.8 L, Globulin 5.1 H, Albumin/Globulin Ratio 0.4 L 12/30/20 13:40: Fluid Glucose 97 H 12/30/20 13:40: Fluid Source OTHER, Fluid Color YELLOW, Fluid Appearance CLEAR, Fluid WBC 0.132, Fluid RBC < 0, Fluid Tot Cell Count 0.162, Fld Polynuclear WBCs # 0.016, Fld Polynuclear WBCs % 12.2, Fluid Mononuclear WBCs 0.116, Fld Mononuclear WBCs % 87.8, Fluid Neutrophils 6, Fluid Lymphocytes 62, Fluid Monocytes 6, Fluid Macrophages 26, Fl Pathologist Comment May follow, Fluid Comment 2 Not Reportable Radiology Impression Abdomen/Pelvis CT 12/29/20 20:24 IMPRESSION: Significant intra-abdominal ascites, splenomegaly and micronodular contour of the liver suggestive of cirrhosis. Multiple, scattered subcentimeter pulmonary lucencies of uncertain etiology. Paraseptal emphysema is considered. Electronically Signed: Raul Saravia DO at 21:51 EDT Tel , Service support , Paracentesis Ultrasound 12/30/20 12:00 IMPRESSION: Ultrasound guided paracentesis. Electronically Signed: Raciel Wills MD at 14:52 EDT , Service support , Assessment & Plan Assessment/Plan (1) Cirrhosis of liver: PLAN: He has alcoholic cirrhosis of the liver. I will order a biochemical work-up including AFP, LDH, CA 19-9, CEA, work-up for chronic viral hepatitis, autoimmune hepatitis, B12, folic acid. His meld at this time is 18 and currently he would be a candidate for liver transplant if he did not currently drink alcohol. At this time he is an alcoholic hepatitis but is not exhibiting any signs of encephalopathy. (2) Ascites: QUALIFIERS: Ascites type: due to alcoholic cirrhosis Qualified Code(s): K70.31 - Alcoholic cirrhosis of liver with ascites PLAN: He underwent large-volume paracentesis of 8 L and received 25 g albumin. He will need to have a SAAG gradient, echocardiogram and he needs to be on at least Lasix 40 mg twice daily and Aldactone 50 to 100 g daily. Patient will be scheduled to get weekly paracentesis. He is not a candidate for TIPS at this time. (3) Thrombocytopenia: PLAN: Secondary to cirrhosis. Charges/Coding Visit Charges Inpatient E&M: 94496 Init Hosp L3
[2020-12-30] MEDS: LORazepam 1 MG Tablet PO ×2 (19:18→23:01)
[2020-12-31 03:00] VITALS: BP 105/62; PULSE 62; RESP 16; TEMP 36.6; O2SAT 95
[2020-12-31] MEDS: LORazepam 1 MG Tablet PO ×3 (03:04→21:59)
[2020-12-31 05:44] LABS: Absolute Lymphocyte Count 1.09 X10^3/uL (0.83-4.51); Absolute Neutrophil Count 2.1 X10^3/uL (2.0-7.7); Basophil# 0.02 X10^3/uL; Basophil% 0.5 % (0-1); Eosinophil# 0.09 X10^3/uL; Eosinophils% 2.3 % (0-5); Hematocrit 31.1 % (40-54); Lymphocyte # 1.09 X10^3/ul (0.83-4.51); Lymphocyte % 28.4 % (19-41); Mean Corp Hgb Conc 35.4 g/dL (32-36); Mean Corpuscular Hgb 36.1 pg (27.0-32.0); Mean Platelet Vol. 10.2 fl (6.2-12.0); Monocyte# 0.51 X10^3/uL; Monocyte% 13.3 % (0-10); NRBC Flagged by Analyzer 0 % (0-5); Neutrophil # 2.12 X10^3/uL (2.7-7.7); Neutrophil % 55.2 % (47-70); POSITIVE COUNT YES; Platelet Count 71 K/mm3 (150-450); RBC Distribution Width CV 14.4 % (11.6-14.6); RBC Distribution Width SD 53.6 fl (35.1-43.9); Red Blood Count 3.05 M/mm3 (4.6-6.2); White Blood Count 3.8 K/mm3 (4.4-11.0)
[2020-12-31 06:11] LABS: ALB/GLOB Ratio 0.4 RATIO (0.9-2.4); AST(SGOT) 35 U/L (15-37); Alanine Aminotransfer ALT/SGPT 17 U/L (16-61); Albumin, Serum 1.6 g/dL (3.2-5.0); Alkaline Phosphatase 107 U/L (45-117); Anion Gap 4 (5-15); BUN 9 mg/dL (7-18); BUN/Creat Ratio 17.6 RATIO (10-20); Calcium,Total 7.9 mg/dL (8.5-10.1); Chloride 104 mmol/L (98-107); Creatinine, Serum 0.51 mg/dL (0.70-1.30); EST Glomerular Filtration Rate 185 mL/min (>60); Est Glom Filt Rate - Afr Amer 224 mL/min (>60); Estimated Creatinine Clearance 180.99 ml/min; Globulin 4.1 g/dL (2.2-4.2); Glucose 80 mg/dL (74-106); Potassium 3.1 mmol/L (3.5-5.1); Protein, Total 5.7 g/dL (6.4-8.2); Sodium Level 138 mmol/L (136-145)
[2020-12-31 08:50] VITALS: BP 108/60; PULSE 68; RESP 18; TEMP 36.5; O2SAT 95
[2020-12-31] MEDS: Thiamine Hydrochloride 100 MG Tablet PO (09:00)
[2020-12-31] MEDS: Folic Acid 1 MG Tablet PO (09:00)
[2020-12-31] MEDS: Furosemide 40 MG Tablet PO (09:00)
[2020-12-31] MEDS: Paroxetine 20 MG Tablet 40 MG PO (09:01)
[2020-12-31] MEDS: Lisinopril 20 MG Tablet PO (09:01)
[2020-12-31] MEDS: Atenolol 50 MG Tablet PO (09:01)
[2020-12-31] MEDS: Potassium Chloride Oral Tablet 20 MEQ 60 MEQ PO (09:05)
--- NOTE | 2020-12-31 10:08 | CASEMGMT ---
Addendum entered by Brii South 12/31/20 13:44: Spoke w/Ghazala in Radiology. Pt is scheduled for paracentesis w/Dr Wills SundayJanuary 04 @ 9:30 AM. Pt to arrive @ 9:15. Appt added to Discharge plan. DAVID MARTIN to room to notify pt and pt's mom who is at bedside. Pt in bed w/eyes closed. Groggy. Opens eyes briefly but then closes them again. Pt's mom provided w/paracentesis appt information and reviewed w/her. She states, I'll make sure he gets there. Original Note: DAVID MARTIN NOTE: Dr Tipton made aware pt is interested in Palliative referral. Order received for same at this time. TC to Palliative Care to inform them of referral. Palliative screening tool and demographics page faxed to Palliative Care at this time. Standing order for OP weekly paracentesis from Dr Back faxed to radiology department at this time. TC to DAVID Vivar, re: pt needing scheduled for OP paracentesis. Dave MANZO RN CM
--- NOTE | 2020-12-31 11:55 | DS.PCM_ITS ---
Providers Date of Admission: 12/29/20 Primary Care Physician: Dr. Elio Ojeda MD Consultations 12/29/20 23:53 Consult: Gastroenterology Routine Consulting Provider: [facility] Reason for Consult: ascites. cirrhosis EMERGENT Consult: No MD Notified: Yes Date Notified: 12/29/20 Time Notified: 23:16 Method of Notification: Verbal Reason For Visit: ASCITIES, ABDOMINAL PAIN Diagnosis Discharge Diagnosis (1) Cirrhosis of liver: Status: Acute Code(s): K74.60 - Unspecified cirrhosis of liver (2) Ascites: Status: Acute Code(s): R18.8 - Other ascites Qualifiers: Ascites type: due to alcoholic cirrhosis Qualified Code(s): K70.31 - Alcoholic cirrhosis of liver with ascites (3) Thrombocytopenia: Status: Acute Code(s): D69.6 - Thrombocytopenia, unspecified Medications at Discharge Home Medications atenolol 50 mg PO DAILY 07/30/14 lisinopril 20 mg PO DAILY 07/30/14 paroxetine HCl [Paxil] 40 mg PO DAILY 07/30/14 cyclobenzaprine 5 mg PO TID 12/29/20 furosemide 40 mg PO DAILY #30 tab 12/31/20 spironolactone 50 mg PO DAILY #30 tab 12/31/20 Hospital Course Operations None Procedures Paracentesis Summary of Care Provided Minutes Spent on Discharge: 45 Hospital Course: Lasix 40 mg twice daily and Aldactone onHe was started on and was recommended to have weeklyPatient is a 45 y/o male with an extensive PMH as outlined including alcoholic liver cirrhosis, hypertension, substance abuse and polysubstance abuse as well as anxiety. He was diagnosed with cirrhosis about 2 years ago. He has had abdominal distension which had progressively worsened. CT of the abdomen done showed massive ascites and cirrhosis of the liver. Urinalysis also showed evidence of UTI. He was admitted and managed for ascites due to liver cirrhosis. Gastroenterology was consulted. He was started on IV ceftriaxone for UTI. He had paracentesis on 12/30/2020 with removal of 8.2L of fluid. Per gastroenterology, He had a MADDREY score of 32. INR was 1.7, so he was given vitamin K. URine cultured mixed gram positive organisms. He received albumin after fluid was removed. Patient remained stable after and was dischar [facility] home on 12/31/2020. He is to follow up with gastroenterology on outpatient basis, and he was counseled to quit drinking. He was discharged on PO lasix 40mg daily and PO spironolactone 50mg daily. 2D echo was ordered and results were pending at time of discharge. Patient seen and examined prior to discharge. He felt well and had no complaints. He was ready to be discharged. Review of systems otherwise negative. Labs and vitals reviewed. Medication reviewed and reconciled. Physical Exam Const alert, oriented x3 and no apparent distress General Appearance: cooperative and comfortable Exam Limitations: no limitations HEENT normocephalic and moist oral mucous membranes Eyes PERRL, EOMs intact bilaterally and conjunctivae normal Eyes Narrative: Icterus Neck no lymphadenopathy Resp normal respiratory effort, no retractions, no use of accessory muscles and clear to auscultation bilaterally Cardio regular rate, regular rhythm, S1 normal heart sound, S2 normal heart sound and no murmurs GI GI Narrative: abdominal distension has improved significantly. Non tender, no organomegaly. Still has some shifting dullness. Extremity Extremity Narrative: moderate LE edema bilaterally, no tenderness. Skin no rashes or lesions noted Neuro oriented x3, CN's II-XII intact bilaterally, moves all extremities and no focal motor deficits Sensorium / Orientation: awake and alert Psych affect normal Weight / BMI Weight Weight: 252 lb 3.341 oz Body Mass Index (BMI) 37.4 ABG / Lab / Microbiology Data Result Diagrams: 12/31/20 05:28 12/31/20 05:28 Laboratory: Laboratory Results - last 24 hr 12/30/20 13:40: Fluid Glucose 97 H 12/30/20 13:40: Fluid Source OTHER, Fluid Color YELLOW, Fluid Appearance CLEAR, Fluid WBC 0.132, Fluid RBC < 0, Fluid Tot Cell Count 0.162, Fld Polynuclear WBCs # 0.016, Fld Polynuclear WBCs % 12.2, Fluid Mononuclear WBCs 0.116, Fld Mononuclear WBCs % 87.8, Fluid Neutrophils 6, Fluid Lymphocytes 62, Fluid Monocytes 6, Fluid Macrophages 26, Fl Pathologist Comment May follow, Fluid Comment 2 Not Reportable 12/31/20 05:28: WBC 3.8 L, RBC 3.05 L, Hgb 11.0 L, Hct 31.1 L, MCV 102.0 H, MCH 36.1 H, MCHC 35.4, RDW Std Deviation 53.6 H, RDW Coeff of Andrei 14.4, Plt Count 71 L, MPV 10.2, Immature Gran % (Auto) 0.300, Neut % (Auto) 55.2, Lymph % (Auto) 28.4, [place] % (Auto) 13.3 H, Eos % (Auto) 2.3, Baso % (Auto) 0.5, Absolute Neuts (auto) 2.1, Absolute Lymphs (auto) 1.09, Nucleated RBC % 0 12/31/20 05:28: Sodium 138, Potassium 3.1 L, Chloride 104, Carbon Dioxide 30.0, Anion Gap 4 L, BUN 9, Creatinine 0.51 L, Estim Creat Clear Calc 180.99, Est GFR (MDRD) Af Amer 224, Est GFR (MDRD) Non-Af 185, BUN/Creatinine Ratio 17.6, Glucose 80, Calcium 7.9 L, Total Bilirubin 4.70 H, AST 35, ALT 17, Alkaline Phosphatase 107, Total Protein 5.7 L, Albumin 1.6 L, Globulin 4.1, Albumin/Globulin Ratio 0.4 L Microbiology: Microbiology 12/29/20 19:45 Urine, Clean Catch Urine Culture - Final Mixed Gram Positive Organisms Radiography Diagnostic Testing: Radiology Impression Paracentesis Ultrasound 12/30/20 12:00 IMPRESSION: Ultrasound guided paracentesis. Electronically Signed: Raciel Wills MD at 14:52 EDT , Service support , D/C Instructions Discharge Diet: Low fat / Low cholesterol and 2000 mg Sodium Diet Discharge Activity: Return to Normal Activity Weight Bearing Status: Weight bearing as tolerated Call your doctor if you observe: Fever of 101 or Higher, Shortness of breath, Dizziness and Swelling in the ankles Meaningful Use Info Meaningful Use Diagnoses (Choose all that apply): None applicable Discharge Plan Admission Admit Date/Time: 12/29/20 23:13 Primary Reason for Your Visit: ascites due to alcoholic liver disease Attending Provider: Herminia Tipton Primary Care Provider: Elio Ojeda Instructions Patient Instructions: Paracentesis Discharge Orders/Prescriptions Prescriptions: New furosemide 40 mg tablet 40 mg PO DAILY Qty: 30 RF: 1 spironolactone 50 mg tablet 50 mg PO DAILY Qty: 30 RF: 1 Continued lisinopril 20 MG tablet 20 mg PO DAILY RF: 0 paroxetine HCl [Paxil] 40 MG tablet 40 mg PO DAILY RF: 0 atenolol 50 MG tablet 50 mg PO DAILY RF: 0 cyclobenzaprine 5 mg Tablet 5 mg PO TID RF: 0 Referrals / Follow Up: Elio Ojeda MD [Primary Care Provider] - Within 2 Weeks Leland Back DO [STAFF PHYSICIAN] - Within 2 Weeks Disposition Disposition (needs filled in before D/C Order can be placed): Home, Self Care Charges/Coding Visit Charges Inpatient E&M: 11608 Disch Hosp
--- NOTE | 2020-12-31 12:07 | ECHOD_ITS ---
Reason For Study: other Procedure This was a 2D Doppler, Color Flow transthoracic echocardiogram. Technically difficult study, patient scanned supine. I attempted to wake the patient many times but he would not wake enough to follow commands, only toss and turn like he was agitated. The study was technically difficult. Exam performed portable in patient room. Left Ventricle Normal LV size. Moderate concentric left ventricular hypertrophy. Left ventricular systolic function is normal. The estimated ejection fraction is 70 %. Diastolic function is indeterminate. No regional wall motion abnormalities noted. Right Ventricle Normal RV size. Normal systolic function. Atria Normal left atrium. Normal right atrium. No doppler evidence for ASD. Mitral Valve There is mild mitral annular calcification. Mild diffuse mitral valve thickening. Chordal systolic anterior motion of the mitral valve. Mild (1+) eccentric mitral valve insufficiency. Tricuspid Valve Normal tricuspid valve. Mild tricuspid valve insufficiency. Unable to estimate RV systolic pressure/pulmonary artery pressure due to technically difficult study. Aortic Valve Trisinus/trileaflet aortic valve. Normal aortic valve. Pulmonic Valve The pulmonic valve is not well visualized. Great Vessels Normal sized aortic root. Pericardium/Pleural No pericardial effusion. Echo lucency compatible with a pleural effusion. MMode/2D Measurements & Calculations LVIDd: 4.0 cm IVSd: 1.8 cm LA dimension: 5.1 cm LVIDs: 2.6 cm LVPWd: 1.5 cm FS: 36.2 % Time Measurements MV dec time: 0.33 sec Doppler Measurements & Calculations MV E max yvon: 69.5 cm/sec Lat Peak E' Yvon: 7.5 cm/sec Med Peak E' Yvon: 4.7 cm/sec MV A max yvon: 94.9 cm/sec E/E' lat: 9.3 E/E' med: 14.7 MV E/A: 0.73 ECHO/Echo Complete Interpretation Summary The study was technically difficult. Left ventricular systolic function is normal. The estimated ejection fraction is 70 %. Moderate concentric left ventricular hypertrophy. There is mild mitral annular calcification. Mild diffuse mitral valve thickening. Chordal systolic anterior motion of the mitral valve. Mild (1+) eccentric mitral valve insufficiency. Mild tricuspid valve insufficiency. Echo lucency compatible with a pleural effusion Echo lucency compatible with ascites Unable to estimate RV systolic pressure/pulmonary artery pressure due to techni corey difficult study. Diastolic function is indeterminate. Ordering Physician: Herminia Tipton Referring Physician: MD Lynette Elio Performed By: Omar Zacarias RCS
[2020-12-31] MEDS: Spironolactone 50 MG Tablet PO (12:17)
--- NOTE | 2020-12-31 12:25 | CASEMGMT ---
Social Work SW met with pt to discuss alcohol use and desire for treatment. Pt stating that he realizes that he needs to stop drinking or that he will and states he will not drink when he returns home. VIVIENNE discussed treatment options with pt including inpatient rehabilitation, outpt counseling at [facility] or at other organizations. Pt denies all help with alcohol cessation. Pt stating that he has the will power to stop SW inquired if the alcohol has been removed for his neices home, where pt plans to discharge to, and pt states he will not ask them to remove the alcohol as it is their right to drink if they want to. SW reiterated the importance of cessation due to health issues and need for help to stop an addiction. Pt again states he is aware on need to stop and again denies any inpatient facilities or counselors or programs of any type. Pt mother in the room and with pt permission, discussion was with mother present. Pt mother reinforces that pt does not need a program to stop drinking. Pt accepted no resources. VIVIENNE then spoke with pt regarding advance directives and pt requesting to complete. VIVIENNE assisted pt in completing Living will and health care POA which he named his mother Caroline Tobar and his sister Shayla Shields. Copy placed on the chart and orginals given to pt. VIVIENNE will remain available should other needs arise. YASMINE Huggins
[2020-12-31 13:33] LABS: Pathologist Comment/Body Fluid Reviewed
--- NOTE | 2020-12-31 15:03 | CON.PCM.PA_ITS ---
Assessment & Plan Assessment/Plan (1) Ascites: QUALIFIERS: Ascites type: due to alcoholic cirrhosis Qualified Code(s): K70.31 - Alcoholic cirrhosis of liver with ascites (2) Alcohol abuse: (3) Cirrhosis of liver: QUALIFIERS: Ascites presence: with ascites Hepatic cirrhosis type: alcoholic cirrhosis Qualified Code(s): K70.31 - Alcoholic cirrhosis of liver with ascites (4) Thrombocytopenia: (5) Hypertension: QUALIFIERS: Hypertension type: unspecified Qualified Code(s): I10 - Essential (primary) hypertension (6) Alcoholic liver disease: (7) Anasarca: (8) Depression: QUALIFIERS: Depression Type: unspecified Qualified Code(s): F32.A - Depression, unspecified (9) Anxiety: PLAN: 45-year-old male with history of alcohol and polysubstance abuse, admitted to [facility] for management of progressive ascites, requiring paracentesis. Seen today for palliative consultation for supportive management when he is discharged home. 1. Weakness and debility: Related to his alcoholism and liver cirrhosis/anasarca. He is currently lethargic. Unable to get up to the bathroom. I suspect his discharge will be on hold. We will follow-up as an outpatient 2. Alcoholic cirrhosis/polysubstance abuse/ascites: Patient has stated he will quit on his own. History of DTs. He has declined any assistance with programs as an outpatient. He has been placed on Lasix and Aldactone to assist with fluid management. He will also have routine paracentesis. He was advised that if he fails to quit drinking completely, his disease process will progress and his prognosis is very poor. 3. Depression and anxiety: Currently on Paxil 40 mg daily and lorazepam 2 mg every 4 hours scheduled (withdrawal protocol). He is somewhat lethargic, nurse has held all doses of lorazepam since 0900. He is going to be potentially discharged later this afternoon after his echocardiogram, pending if he is still lethargic. I would avoid any benzodiazepines as an outpatient, patient has a history of overdose on them, as well as several other medications and substances. 4. Anasarca/hypertension/thrombocytopenia: Complicates overall care management. He is to follow-up with GI as an outpatient. Upcoming cardiology consult at [facility]? However, his mother reports he is going to be seeing Dr. Herr here in [place]. Thank you for the opportunity to participate in this patient's care, please do not hesitate to contact [facility] with any further questions or concerns. Palliative direct line is [phone]. We will follow up after discharge and will discuss palliative services further at that time. Greater than 50% of F2F visit dedicated to education and counseling of palliative care services, medications, comorbid conditions and potential assistance with management, and plan of care moving forward. I did also speak with patient's sister, Shayla while in the patient's room and updated her with the plan of care. Start time: 1455 End time: 1555 HPI Consult Data Date of Consult: 12/31/20 HPI Narrative HPI Narrative: MAX ODONNELL, is a 45 M who presented to [facility] 12/29/2020 with increased abdominal distention and pain, testicle edema, and difficulties urinating over the past 2 weeks. Also some intermittent hematuria. Patient has a history of alcohol abuse and alcoholic liver disease. Reported current alcohol intake 6-8 beers a day. Also history of polysubstance abuse and multiple overdoses. Patient supposed to have hernia surgery a few weeks ago by Dr. Amor, however this was put on hold as he needed clear cardiac and hepatology clearance. Apparently has an appointment with [facility] in about a month. He was admitted for evaluation and management of his ascites. Palliative consulted for supportive care when discharged home. Patient was started on Lasix 40 mg twice daily and Aldactone to help control the swelling. He was seen by Dr. Back, gastroenterology, who recommended the diuretics and obtaining an echocardiogram. Noted patient was not a candidate for TIPS procedure. Patient did receive some albumin and vitamin K. Patient had a paracentesis 12/30 with 8.2 L of fluid removed. He has another paracentesis scheduled for January 04. He does have a standing order for paracenteses. Nursing reports patient is somewhat lethargic today. He has a history of DTs and has been receiving Ativan routinely. It is unclear if he is becoming encephalopathic or if his lethargy is related to medications. He has refused treatment for his alcoholism and declines assistance by [facility] or any other organization. Lives with his niece, Dianelys Lucia and her family (, 3 children) in a studio apartment. Patient has 4 children, but apparently they are estranged. His sister Shayla Shields assist with general management as well as taking to appointments, etc. He uses [facility] entry for pharmacy. He also has a consult with a blood bank laboratory professional at [facility] in February. Patient is lethargic and not able to answer most questions. Patient states he has some pain in the abdomen, mild at this time. He is still having difficulty urinating. Anasarca/edema extends to feet. Denies any shortness of breath or chest pain. No fever or chills. We did discuss palliative services and limitations. His mother, Caroline is at the bedside during my evaluation. She voices concern about his discharge home today, however if the patient remains lethargic, that will likely not happen. Caroline is very tearful throughout my visit. She understands the severity of his disease and potential outcomes if he continues to drink. States he has never been completely sober, if he cuts back, it is typically 2-3 beers a day. Patient's mother is interested in palliative services at this time, we will arrange for consent signing as an outpatient. [facility] Medical History (Updated 12/31/20 @ 15:15 by SALEEM Richardson) Alcohol abuse Anxiety Cirrhosis, alcoholic Depression HTN (hypertension) Irregular heart beat Liver disease Smoker Substance abuse Thrombocytopenia Home Medications atenolol 50 mg PO DAILY 07/30/14 [History Last Taken Unknown] lisinopril 20 mg PO DAILY 07/30/14 [History Last Taken Unknown] paroxetine HCl [Paxil] 40 mg PO DAILY 07/30/14 [History Last Taken Unknown] cyclobenzaprine 5 mg PO TID 12/29/20 [History Last Taken Unknown] furosemide 40 mg PO DAILY #30 tab 12/31/20 [Rx Last Taken Unknown] spironolactone 50 mg PO DAILY #30 tab 12/31/20 [Rx Last Taken Unknown] Allergy/AdvReac Type Severity Reaction Status Date / Time Sulfa (Sulfonamide Allergy Unknown Verified 12/29/20 18:45 Antibiotics) Social History Smoking Status: Heavy Smoker (>10/day) alcohol intake: current alcohol intake frequency: 3 or more drinks per day Alcohol type: beer substance use type: amphetamines ROS ROS Narrative Review of systems otherwise negative from a constitutional, HEENT, respiratory, cardiovascular, GI, genitourinary, musculoskeletal, skin, neurologic, psychiatric and hematologic system unless stated above.
[2020-12-31 15:50] VITALS: BP 100/53; PULSE 66; RESP 18; TEMP 36.6; O2SAT 95
--- NOTE | 2020-12-31 16:17 | PN.HOSP_ITS ---
Subjective Subjective Patient seen and examined. He had no complaints and felt well this morning. Plan was to discharge patient today. However, he became more lethargic during the day, so discharge was cancelled. Ammonia was checked and it is elevated at 40. Objective Data Objective Data Vital Signs: Vital Signs Temp Pulse Resp BP Pulse Ox 97.9 F 66 18 100/53 L 95 12/31/20 15:50 12/31/20 15:50 12/31/20 15:50 12/31/20 15:50 12/31/20 15:50 Oxygen Delivery Method [4] Room Air Oxygen Delivery Method [3] Room Air Oxygen Delivery Method [2] Room Air Oxygen Delivery Method [1 ( Room Air Initial Baseline)] Oxygen Delivery Method Room Air Weight: 252 lb 3.341 oz Body Mass Index (BMI) 37.4 Intake & Output: Intake and Output for Last 24 Hours 12/29/20 12/30/20 12/31/20 23:59 23:59 23:59 Intake Total 50 / 50 550 / 550 Output Total 25020 / 92567 Balance 50 / 50 -65464 / -77270 Lab / Micro Data Result Diagrams: 12/31/20 05:28 12/31/20 05:28 Labs: Laboratory Results - last 24 hr 12/30/20 13:40: Fl Pathologist Comment Reviewed 12/31/20 05:28: WBC 3.8 L, RBC 3.05 L, Hgb 11.0 L, Hct 31.1 L, MCV 102.0 H, MCH 36.1 H, MCHC 35.4, RDW Std Deviation 53.6 H, RDW Coeff of Andrei 14.4, Plt Count 71 L, MPV 10.2, Immature Gran % (Auto) 0.300, Neut % (Auto) 55.2, Lymph % (Auto) 28.4, [place] % (Auto) 13.3 H, Eos % (Auto) 2.3, Baso % (Auto) 0.5, Absolute Neuts (auto) 2.1, Absolute Lymphs (auto) 1.09, Nucleated RBC % 0 12/31/20 05:28: Sodium 138, Potassium 3.1 L, Chloride 104, Carbon Dioxide 30.0, Anion Gap 4 L, BUN 9, Creatinine 0.51 L, Estim Creat Clear Calc 180.99, Est GFR (MDRD) Af Amer 224, Est GFR (MDRD) Non-Af 185, BUN/Creatinine Ratio 17.6, Glucose 80, Calcium 7.9 L, Total Bilirubin 4.70 H, AST 35, ALT 17, Alkaline Phosphatase 107, Total Protein 5.7 L, Albumin 1.6 L, Globulin 4.1, Albumin/Globulin Ratio 0.4 L 12/31/20 13:55: Ammonia 40.0 H Micro: Microbiology 12/29/20 19:45 Urine, Clean Catch Urine Culture - Final Mixed Gram Positive Organisms Physical Exam Const alert, oriented x3 and no apparent distress General Appearance: cooperative and comfortable Exam Limitations: no limitations HEENT normocephalic, head/scalp atraumatic and moist oral mucous membranes Head and Scalp: normocephalic Eyes PERRL, EOMs intact bilaterally and conjunctivae normal Eyes Narrative: Icterus Neck no lymphadenopathy Resp normal respiratory effort, no retractions, no use of accessory muscles and clear to auscultation bilaterally Cardio regular rate, regular rhythm, S1 normal heart sound, S2 normal heart sound and n o murmurs GI normal to inspection, nondistended, normoactive bowel sounds GI Narrative: abdominal distension has improved significantly. Non tender, no organomegaly. Still has some shifting dullness. Extremity Extremity Narrative: moderate LE edema bilaterally, no tenderness. Peripheral Pulses: Yes pulses 2+ throughout Skin no rashes or lesions noted Neuro Neuro Narrative: Patient initially alert and responsive, but subsequently became lethargic. Assessment & Plan Assessment/Plan (1) Cirrhosis of liver: QUALIFIERS: Hepatic cirrhosis type: alcoholic cirrhosis Ascites presence: with ascites Qualified Code(s): K70.31 - Alcoholic cirrhosis of liver with ascites (2) Ascites: QUALIFIERS: Ascites type: due to alcoholic cirrhosis Qualified Code(s): K70.31 - Alcoholic cirrhosis of liver with ascites (3) Thrombocytopenia: PLAN: #Massive ascites due to alcoholic liver cirrhosis * s/p paracentesis with removal of 8.2L of fluid. * received albumin after removal of fluid * on furosemide and spironolactone * gastroenterology on board * will need weekly paracentesis * #Acute hepatic encephalopathy * patient became much more drowsy later in the day * ammonia is elevated at 40 * will start on lactulose, to aim for 2-3 loose stools daily * #Alcoholic liver cirrhosis * diagnosed ~ 2 years ago. Continues to drink * GI on board * not a candidate for transplant as he continues to drink. * #ALcohol abuse * drinks ~ 6-8 beers daily. * denies ever going into alcohol withdrawal or delirium tremens. * on thiamine and multivites as well as folate. * #THrombocytopenia * platelets are down to 71 today. Likely due to chronic alcohol abuse. WIll monitor * #Coagulopathy, due to alcoholic liver cirrhosis * INR was 1.8 on admission. INR came down to 1.7 after he was given vitamin K * #Hypokalemia: K is 3.1 today. Will replace and trend. * DVT prophylaxis: SCDs Charges/Coding Visit Charges Inpatient E&M: 28103 Subs Hosp L3
[2020-12-31] MEDS: Lactulose 20 GM/30 ML UDC PO ×2 (16:55→21:59)
[2020-12-31 21:00] VITALS: BP 109/60; PULSE 62; RESP 15; TEMP 36.7; O2SAT 94
[2021-01-01 02:00] VITALS: RESP 15
[2021-01-01] MEDS: LORazepam 1 MG Tablet PO ×3 (03:02→10:41)
[2021-01-01 05:00] VITALS: BP 115/70; PULSE 68; PULSE 70; RESP 16; TEMP 36.6; O2SAT 93; O2SAT 95
[2021-01-01] MEDS: Lactulose 20 GM/30 ML UDC PO (06:39)
[2021-01-01 07:42] LABS: Absolute Lymphocyte Count 1.37 X10^3/uL (0.83-4.51); Absolute Neutrophil Count 2.2 X10^3/uL (2.0-7.7); Basophil# 0.03 X10^3/uL; Basophil% 0.7 % (0-1); Eosinophil# 0.13 X10^3/uL; Eosinophils% 2.9 % (0-5); Hematocrit 31.2 % (40-54); Lymphocyte # 1.37 X10^3/ul (0.83-4.51); Lymphocyte % 31.1 % (19-41); Mean Corp Hgb Conc 35.3 g/dL (32-36); Mean Corpuscular Hgb 36.8 pg (27.0-32.0); Mean Corpuscular Volume 104.3 fL (80-94); Mean Platelet Vol. 9.9 fl (6.2-12.0); Monocyte# 0.64 X10^3/uL; Monocyte% 14.5 % (0-10); NRBC Flagged by Analyzer 0 % (0-5); Neutrophil # 2.23 X10^3/uL (2.7-7.7); Neutrophil % 50.6 % (47-70); POSITIVE COUNT YES; Platelet Count 81 K/mm3 (150-450); RBC Distribution Width CV 14.8 % (11.6-14.6); RBC Distribution Width SD 56.2 fl (35.1-43.9); Red Blood Count 2.99 M/mm3 (4.6-6.2); White Blood Count 4.4 K/mm3 (4.4-11.0)
[2021-01-01 08:00] VITALS: RESP 18
[2021-01-01 08:13] LABS: ALB/GLOB Ratio 0.4 RATIO (0.9-2.4); AST(SGOT) 34 U/L (15-37); Alanine Aminotransfer ALT/SGPT 18 U/L (16-61); Albumin, Serum 1.7 g/dL (3.2-5.0); Alkaline Phosphatase 132 U/L (45-117); Anion Gap 5 (5-15); BUN 12 mg/dL (7-18); BUN/Creat Ratio 22.1 RATIO (10-20); Calcium,Total 7.6 mg/dL (8.5-10.1); Chloride 105 mmol/L (98-107); Creatinine, Serum 0.54 mg/dL (0.70-1.30); EST Glomerular Filtration Rate 172 mL/min (>60); Est Glom Filt Rate - Afr Amer 208 mL/min (>60); Estimated Creatinine Clearance 170.93 ml/min; Globulin 4.2 g/dL (2.2-4.2); Glucose 95 mg/dL (74-106); Potassium 3.4 mmol/L (3.5-5.1); Protein, Total 5.9 g/dL (6.4-8.2); Sodium Level 137 mmol/L (136-145)
[2021-01-01] MEDS: Furosemide 40 MG Tablet PO (09:35)
[2021-01-01] MEDS: Folic Acid 1 MG Tablet PO (09:35)
[2021-01-01] MEDS: Atenolol 50 MG Tablet PO (09:36)
[2021-01-01] MEDS: Lisinopril 20 MG Tablet PO (09:36)
[2021-01-01] MEDS: Spironolactone 50 MG Tablet PO (09:36)
[2021-01-01] MEDS: Paroxetine 20 MG Tablet 40 MG PO (09:37)
[2021-01-01] MEDS: Thiamine Hydrochloride 100 MG Tablet PO (09:38)
--- NOTE | 2021-01-01 10:25 | PCM.DC.SUM ---
Providers Date of Admission: 12/29/20 Primary Care Physician: Dr. Elio Ojeda MD Consultations 12/29/20 23:53 Consult: Gastroenterology Routine Consulting Provider: Vernon Segal Reason for Consult: ascites. cirrhosis EMERGENT Consult: No MD Notified: Yes Date Notified: 12/29/20 Time Notified: 23:16 Method of Notification: Verbal Reason For Visit: ASCITIES, ABDOMINAL PAIN Diagnosis Discharge Diagnosis (1) Cirrhosis of liver: Status: Acute Code(s): K74.60 - Unspecified cirrhosis of liver Qualifiers: Hepatic cirrhosis type: alcoholic cirrhosis Ascites presence: with ascites Qualified Code(s): K70.31 - Alcoholic cirrhosis of liver with ascites (2) Ascites: Status: Acute Code(s): R18.8 - Other ascites Qualifiers: Ascites type: due to alcoholic cirrhosis Qualified Code(s): K70.31 - Alcoholic cirrhosis of liver with ascites (3) Thrombocytopenia: Status: Acute Code(s): D69.6 - Thrombocytopenia, unspecified Medications at Discharge Home Medications atenolol 50 mg PO DAILY 07/30/14 lisinopril 20 mg PO DAILY 07/30/14 paroxetine HCl [Paxil] 40 mg PO DAILY 07/30/14 cyclobenzaprine 5 mg PO TID 12/29/20 furosemide 40 mg PO DAILY #30 tab 12/31/20 spironolactone 50 mg PO DAILY #30 tab 12/31/20 lactulose 20 g PO TID #1500 ml 01/01/21 Hospital Course Operations None Procedures Paracentesis Summary of Care Provided Minutes Spent on Discharge: 45 Hospital Course: Patient is a 45 y/o male with an extensive PMH as outlined including alcoholic liver cirrhosis, hypertension, substance abuse and polysubstance abuse as well as anxiety. He was diagnosed with cirrhosis about 2 years ago. He has had abdominal distension which had progressively worsened. CT of the abdomen done showed massive ascites and cirrhosis of the liver. Urinalysis also showed evidence of UTI. He was admitted and managed for ascites due to liver cirrhosis. Gastroenterology was consulted. He was started on IV ceftriaxone for UTI. He had paracentesis on 12/30/2020 with removal of 8.2L of fluid. Per gastroenterology, He had a MADDREY score of 32. INR was 1.7, so he was given vitamin K. URine cultured mixed gram positive organisms. He received albumin after fluid was removed. Patient remained stable after and was discharged home on 01/01/2021. Plan was to discharge patient home on 12/31/2020, but he became encephalopathic and so discharge was canceled. Ammonia level was elevated at 40, and so he was started on lactulose. Encephalopathy subsequently resolved and he felt much better. He was dicharged home on 01/01/2021. He is to follow up with gastroenterology on outpatient basis, and he was counseled to quit drinking. He was discharged on PO lasix 40mg daily and PO spironolactone 50mg daily as well as lactulose, to aim for 2-3 loose stools daily. 2D echo done showed EF of 70%, and moderate LV concentric hypertrophy, as well as normal LVSF. He had echolucency compatible with ascites and pleural effusion and diastolic function was indeterminate. Patient seen and examined prior to discharge. He felt well and had no complaints. He was ready to be discharged. Review of systems otherwise negative. Labs and vitals reviewed. Medication reviewed and reconciled. Physical Exam Const alert, oriented x3 and no apparent distress General Appearance: cooperative and comfortable Orientation / Consciousness: awake Exam Limitations: no limitations HEENT normocephalic, head/scalp atraumatic and moist oral mucous membranes Eyes PERRL, EOMs intact bilaterally and conjunctivae normal Eyes Narrative: Icterus Neck no lymphadenopathy Resp normal respiratory effort, no retractions, no use of accessory muscles and clear to auscultation bilaterally Cardio regular rate, regular rhythm, S1 normal heart sound, S2 normal heart sound and no murmurs GI normal to inspection, nondistended, normoactive bowel sounds GI Narrative: abdominal distension has improved significantly, though he still has significant distension. Non tender, no organomegaly. Still has some shifting dullness. Extremity Extremity Narrative: moderate LE edema bilaterally, no tenderness. Skin no rashes or lesions noted Neuro oriented x3, CN's II-XII intact bilaterally, moves all extremities and no focal motor deficits Sensorium / Orientation: awake and alert Psych affect normal Weight / BMI Weight Weight: 251 lb 1.704 oz Body Mass Index (BMI) 37.4 ABG / Lab / Microbiology Data Result Diagrams: 01/01/21 07:23 01/01/21 07:23 Laboratory: Laboratory Results - last 24 hr 12/30/20 13:40: Fl Pathologist Comment Reviewed 12/31/20 13:55: Ammonia 40.0 H 01/01/21 07:23: WBC 4.4, RBC 2.99 L, Hgb 11.0 L, Hct 31.2 L, MCV 104.3 H, MCH 36.8 H, MCHC 35.3, RDW Std Deviation 56.2 H, RDW Coeff of Andrei 14.8 H, Plt Count 81 L, MPV 9.9, Immature Gran % (Auto) 0.200, Neut % (Auto) 50.6, Lymph % (Auto) 31.1, [place] % (Auto) 14.5 H, Eos % (Auto) 2.9, Baso % (Auto) 0.7, Absolute Neuts (auto) 2.2, Absolute Lymphs (auto) 1.37, Nucleated RBC % 0 01/01/21 07:23: Sodium 137, Potassium 3.4 L, Chloride 105, Carbon Dioxide 27.0, Anion Gap 5, BUN 12, Creatinine 0.54 L, Estim Creat Clear Calc 170.93, Est GFR (MDRD) Af Amer 208, Est GFR (MDRD) Non-Af 172, BUN/Creatinine Ratio 22.1 H, Glucose 95, Calcium 7.6 L, Total Bilirubin 3.60 H, AST 34, ALT 18, Alkaline Phosphatase 132 H, Total Protein 5.9 L, Albumin 1.7 L, Globulin 4.2, Albumin/Globulin Ratio 0.4 L Microbiology: Microbiology 12/29/20 19:45 Urine, Clean Catch Urine Culture - Final Mixed Gram Positive Organisms Radiography Diagnostic Testing: Radiology Impression Echocardiogram 12/31/20 12:07 Interpretation Summary The study was technically difficult. Left ventricular systolic function is normal. The estimated ejection fraction is 70 %. Moderate concentric left ventricular hypertrophy. There is mild mitral annular calcification. Mild diffuse mitral valve thickening. Chordal systolic anterior motion of the mitral valve. Mild (1+) eccentric mitral valve insufficiency. Mild tricuspid valve insufficiency. Echo lucency compatible with a pleural effusion Echo lucency compatible with ascites Unable to estimate RV systolic pressure/pulmonary artery pressure due to technically difficult study. Diastolic function is indeterminate. Ordering Physician: Herminia Tipton Referring Physician: MD Elio Ojeda Performed By: Omar Zacarias RCS D/C Instructions Discharge Diet: Low fat / Low cholesterol and 2000 mg Sodium Diet Weight Bearing Status: Weight bearing as tolerated Call your doctor if you observe: Fever of 101 or Higher, Shortness of breath, Dizziness and Swelling in the ankles Meaningful Use Info Meaningful Use Diagnoses (Choose all that apply): None applicable Discharge Plan Admission Admit Date/Time: 12/29/20 23:13 Primary Reason for Your Visit: ascites due to alcoholic liver disease Attending Provider: Herminia Tipton Primary Care Provider: Elio Ojeda Instructions Patient Instructions: Paracentesis Discharge Orders/Prescriptions Prescriptions: New furosemide 40 mg tablet 40 mg PO DAILY Qty: 30 RF: 1 spironolactone 50 mg tablet 50 mg PO DAILY Qty: 30 RF: 1 lactulose 20 gram/30 mL solution 20 g PO TID Qty: 1500 RF: 1 Continued lisinopril 20 MG tablet 20 mg PO DAILY RF: 0 paroxetine HCl [Paxil] 40 MG tablet 40 mg PO DAILY RF: 0 atenolol 50 MG tablet 50 mg PO DAILY RF: 0 cyclobenzaprine 5 mg Tablet 5 mg PO TID RF: 0 Referrals / Follow Up: Raciel Wills MD [STAFF PHYSICIAN] - (Paracentesis @ [facility] w/Dr Wills jay January 04 @ 9:30 AM. Please arrive @ 9:15 @ [facility] to check-in. ) Elio Ojeda MD [Primary Care Provider] - Within 2 Weeks FriendLeland DO [STAFF PHYSICIAN] - Within 2 Weeks Disposition Disposition (needs filled in before D/C Order can be placed): Home, Self Care Charges/Coding Visit Charges Inpatient E&M: 13480 Disch Hosp
[2021-01-01 13:19] VITALS: BP 93/55; PULSE 65; RESP 18; TEMP 37.2; O2SAT 95
== END 2021-01-01 13:05 | disposition home or self-care (01) | DRG 280 ==
LOC: ED 22:48 → MS2 23:22
PROVIDERS: Emergency Provider Emergency Medicine; PCP Family Medicine; Visit Provider Student in an Organized Health Care Education/Training Program
DX: K70.31 Alcoholic cirrhosis of liver with ascites (principal); K70.11 Alcoholic hepatitis with ascites; F10.10 Alcohol abuse, uncomplicated; Y90.9 Presence of alcohol in blood, level not specified; E87.6 Hypokalemia; D68.4 Acquired coagulation factor deficiency; D69.59 Other secondary thrombocytopenia; K72.00 Acute and subacute hepatic failure without coma; I10 Essential (primary) hypertension; N39.0 Urinary tract infection, site not specified; F32.A Depression, unspecified; F41.9 Anxiety disorder, unspecified; Z23 Encounter for immunization; Z79.899 Other long term (current) drug therapy; F17.210 Nicotine dependence, cigarettes, uncomplicated
CPT/HCPCS: 36415; 49083; 74177; 80048; 80053; 80076; 81001; 82140; 82945; 83605; 83880; 85025; 85610; 87086; 87088; 88108; 88305; 88313; 89050; 93005; 93306; 99285; 99406; J7050; P9047; Q9957; Q9967; 90686; A4216; J3490

== ENCOUNTER 2021-01-01 19:43 | Inpatient (IN) | payer MEDICAID, SELFPAY ==
[2021-01-01 19:44] VITALS: BP 102/63; PULSE 76; RESP 18; TEMP 36.4; O2SAT 99; BMI 34.6
--- NOTE | 2021-01-01 19:57 | EDS_ITS ---
HPI History of Present Illness Chief Complaint: General Illness Detail of Chief Complaint: Decreased level of consciousness, shortness of breath Informant: patient and other Limited: other Onset/Context/Timing Onset: Today Context: - (Unknown) Timing: Continuous (Presumed) Quality: Sister called Dr. Back because of decreased level consciousness Location: Per nursing staff sister stated he was not to be discharged Current Severity: Per HPI Maximum Severity: Unknown Worsened by: Unknown Relieved by: Nothing Associated Symptoms Associated Symptoms: Limited history because of decreased level consciousness Narrative Narrative: Patient is a middle-age male who with liver failure due to alcohol abuse. He has ascites and jaundice. Review of prior records indicates he has thrombocytopenia and coagulopathy with an elevated PT/INR. Patient endorses cough. He attributes it to smoking. He states he is not have an alcoholic beverage for 3 days. He denies headache, blurred vision, change in vision or double vision. He denies ringing his ears decreased hearing. He denies rhinorrhea, congestion or postnasal drainage. He denies sore throat. He does endorse nonproductive cough. He does acknowledge that he is short of breath. He denies chest discomfort. Denies abdominal pain. He states his abdomen is no bigger than it was a day or 2 ago. He does endorse dark-colored urine. He states he has been told he is has jaundice. He denies paresthesia, anesthesia or motor weakness. Prior similar symptoms: Yes Recent Illness/Hospitalization: Yes [facility] Medical History Alcohol abuse Anxiety Cirrhosis, alcoholic Depression HTN (hypertension) Irregular heart beat Liver disease Smoker Substance abuse Thrombocytopenia Home Medications atenolol 50 mg PO DAILY 07/30/14 [History Last Taken Unknown] lisinopril 20 mg PO DAILY 07/30/14 [History Last Taken Unknown] paroxetine HCl [Paxil] 40 mg PO DAILY 07/30/14 [History Last Taken Unknown] cyclobenzaprine 5 mg PO TID 12/29/20 [History Last Taken Unknown] furosemide 40 mg PO DAILY #30 tab 12/31/20 [Rx Last Taken Unknown] spironolactone 50 mg PO DAILY #30 tab 12/31/20 [Rx Last Taken Unknown] lactulose 20 g PO TID #1500 ml 01/01/21 [Rx Last Taken Unknown] Allergy/AdvReac Type Severity Reaction Status Date / Time Sulfa (Sulfonamide Allergy Unknown Verified 01/01/21 19:50 Antibiotics) Social History (Updated 01/01/21 @ 20:[address] Blake Melchor MD) Smoking Status: Heavy Smoker (>10/day) alcohol intake: former details: Patient states has not had a drink in 3 days substance use type: amphetamines ROS ROS ED Constitutional Constitutional ED: Denies chills, fever(s), subjective, sweats or weight loss Eyes Eyes: Denies blurry vision, change in vision or diplopia ENT ENT ED: Denies ear pain, rhinorrhea or sore throat Cardiovascular Cardiovascular: Denies chest pain, orthopnea, palpitations, paroxysmal nocturnal dyspnea or racing heartbeat Respiratory/Chest Respiratory/Chest: Reports cough, dyspnea and dyspnea on exertion; Denies orthopnea, paroxysmal nocturnal dyspnea or sputum Gastrointestinal Gastrointestinal: Denies abdominal pain, diarrhea, melena, nausea or vomiting Genitourinary Genitourinary ED: Denies dysuria, hematuria or urinary frequency Musculoskeletal Musculoskeletal: Denies arthralgias, myalgias or neck pain Integumentary Denies rash Neurologic Neurologic: Reports weakness; Denies headache(s) or paresthesias Psychiatric Psychiatric: Reports depression; Denies anxiety Hematologic/Lymphatic Hematologic/Lymphatic: Reports easy bruising EXAM Physical Exam Const Vital Signs: 01/01/21 19:44 Temperature 97.6 F L Temperature Source Temporal Pulse Rate 76 Respiratory Rate 18 Blood Pressure 102/63 Blood Pressure Mean 76 Pulse Ox 99 Oxygen Delivery Method Room Air Positive well developed; Negative for well nourished General Appearance ED: well developed and other Patient appears mottled. He does not appear well. Slow psychomotor skills. ; Negative for cyanotic, diaphoretic or pallor HEENT Reports TM's clear and dry mucous membranes Negative for trauma or tenderness Tympanic Membrane ED: Yes TM's clear Mouth ED: Yes dry mucous membranes Mouth: dry mucous membranes Eyes PERRL and EOMs intact bilaterally General Eye ED: Yes pale conjunctiva and scleral icterus Neck no lymphadenopathy, supple and no JVD Chest Wall palpation of chest normal Resp No normal respiratory effort and No clear to auscultation bilaterally Effort and Inspection: other Adventitial breath sounds bilaterally Auscultation: diminished lung sounds Cardio regular rate, regular rhythm, S1 normal heart sound, S2 normal heart sound and no murmurs GI non-tender and no masses; Negative for non-distended GI Narrative: Patient has a fluid wave. Inspection: abdominal distention Auscultation: hypoactive bowel sounds Palpation: soft; Negative for tender, guarding or rebound tenderness present Back/Spine no CVA tenderness Extremity Negative for normal to inspection General Extremety ED: Yes edema; Negative for tenderness General Extremity: edema Neuro oriented x3 and CN's II-XII intact bilaterally Sensorium / Orientation: Negative for alert Motor Exam: strength 5/5 throughout Psych Psych Narrative: Patient is slow. Skin no wounds Skin Narrative: Lenticular rash with delayed capillary refill of 4 to 5 seconds General Skin Exam: jaundice; Negative for pallor MDM MDM MDM Narrative Medical decision making narrative: Patient with altered mental status. Need to rule out infectious versus metabolic cause and specifically hepatic encephalopathy. Patient's urine was positive for leukoesterase and nitrites however there was no bacteria noted. He did have white cells noted and was a good specimen. Clinically there is no evidence of spontaneous bacterial peritonitis. With depressed level conscious mottling VBG was obtained assess acid-base status and specifically CO2 since he has longstanding history of smoking. Chest x-ray was obtained because of the cough and adventitial breath sounds rule out pneumonia. Lab Data Attestation: I reviewed the patient's lab results. Lab results narrative: CBC and differential are normal. Comprehensive metabolic panel is unremarkable. Ammonia is normal. Hypoalbuminemia noted. Urine is positive for ketones. And patient does have jaundice. Labs: Laboratory Results - last 24 hr 01/01/21 01/01/21 01/01/21 20:03 20:03 20:03 WBC 5.0 RBC 3.51 L Hgb 12.6 L Hct 37.1 L MCV 105.7 H MCH 35.9 H MCHC 34.0 RDW Std Deviation 58.2 H RDW Coeff of Andrei 15.0 H Plt Count 99 L MPV 9.9 Immature Gran % (Auto) 0.400 Neut % (Auto) 51.7 Lymph % (Auto) 29.4 [place] % (Auto) 15.1 H Eos % (Auto) 2.8 Baso % (Auto) 0.6 Absolute Neuts (auto) 2.6 Absolute Lymphs (auto) 1.48 Nucleated RBC % 0 Sodium 138 Potassium 3.3 L Chloride 104 Carbon Dioxide 28.0 Anion Gap 6 BUN 12 Creatinine 0.71 Estim Creat Clear Calc 130.00 Est GFR (MDRD) Af Amer 153 Est GFR (MDRD) Non-Af 127 BUN/Creatinine Ratio 16.9 Glucose 116 H Lactic Acid Calcium 8.1 L Total Bilirubin 3.80 H AST 39 H ALT 21 Alkaline Phosphatase 149 H Ammonia 20.0 Total Protein 6.9 Albumin 1.9 L Globulin 5.0 H Albumin/Globulin Ratio 0.4 L Urine Color Urine Clarity Urine pH Ur Specific [place] Urine Protein Urine Glucose (UA) Urine Ketones Urine Occult Blood Urine Nitrite Urine Bilirubin Urine Urobilinogen Ur Leukocyte Esterase Urine RBC Urine WBC Ur Squamous Epith Cells Urine Bacteria Urine Mucus POC Glucose 01/01/21 01/01/21 01/01/21 20:03 20:16 20:20 WBC RBC Hgb Hct MCV MCH MCHC RDW Std Deviation RDW Coeff of Andrei Plt Count MPV Immature Gran % (Auto) Neut % (Auto) Lymph % (Auto) [place] % (Auto) Eos % (Auto) Baso % (Auto) Absolute Neuts (auto) Absolute Lymphs (auto) Nucleated RBC % Sodium Potassium Chloride Carbon Dioxide Anion Gap BUN Creatinine Estim Creat Clear Calc Est GFR (MDRD) Af Amer Est GFR (MDRD) Non-Af BUN/Creatinine Ratio Glucose Lactic Acid 1.6 Calcium Total Bilirubin AST ALT Alkaline Phosphatase Ammonia Total Protein Albumin Globulin Albumin/Globulin Ratio Urine Color Brenda Urine Clarity Clear Urine pH 6.0 Ur Specific [place] 1.020 Urine Protein 30 H Urine Glucose (UA) Normal Urine Ketones 15 H Urine Occult Blood 10 H Urine Nitrite Negative Urine Bilirubin 3 H Urine Urobilinogen 8 H Ur Leukocyte Esterase 25 H Urine RBC 0-5 SEEN Urine WBC 0 SEEN Ur Squamous Epith Cells 0-5 SEEN Urine Bacteria 0 SEEN Urine Mucus 1+ POC Glucose 110 ABG Data ABG results: ABG 01/01/21 20:39 Specimen Type ART Sample Site L Radial pH 7.44 Bicarbonate Actual 23.4 Total CO2 24 Base Excess -1 O2 Saturation 96 O2 % 21 ABG pCO2 34.7 L ABG pO2 75 Reuben Test Positive O2 Delivery Device Room Air Radiography Chest X-Ray - ED: 1 View, Read by ED Physician (Interpreted by me at 2027.), Unchanged, Heart, Lungs (There is elevation of the right hemidiaphragm. Limited inspiratory volume.), Mediastinum, Bony Structures and No Acute Disease Diagnostic Testing: Clinical Impression(s) from Imaging Studies Chest X-Ray 01/01/21 20:15 IMPRESSION: Low pulmonary volumes. Artifact of imaging versus minimal pulmonary edema. Consider definitive imaging with CT chest. Electronically Signed: Jacky Dee MD at 20:37 EDT Tel , Service support , Discharge Plan Triage Chief Complaint: General Illness ED Provider: Blake Melchor Dx/Rx/DC Orders Clinical Impression: Adult failure to thrive, Alcoholic liver disease, Ascites, Anasarca, Thrombocytopenia, Jaundice Prescriptions: No Action lisinopril 20 MG tablet 20 mg PO DAILY RF: 0 paroxetine HCl [Paxil] 40 MG tablet 40 mg PO DAILY RF: 0 atenolol 50 MG tablet 50 mg PO DAILY RF: 0 cyclobenzaprine 5 mg Tablet 5 mg PO TID RF: 0 furosemide 40 mg tablet 40 mg PO DAILY Qty: 30 RF: 1 spironolactone 50 mg tablet 50 mg PO DAILY Qty: 30 RF: 1 lactulose 20 gram/30 mL solution 20 g PO TID Qty: 1500 RF: 1 Primary Care Provider: Leland Back Referrals: Leland Back DO [Primary Care Provider] - Disposition Disposition: Acute Care Hospital [facility]
--- NOTE | 2021-01-01 20:15 | RAD_ITS ---
STUDY: X-RAY CHEST REASON FOR EXAM: Male, 45 years old. Dyspnea and tachypnea TECHNIQUE: Frontal portable view of the chest COMPARISON: 30 July 2014 FINDINGS: Inspiratory volumes are low. There is possibly mild pulmonary edema versus atelectatic appearance of the lung interstitium. There is no pneumothorax, cardiomegaly or pleural effusions. RAD/Chest 1 View (Portable) IMPRESSION: Low pulmonary volumes. Artifact of imaging versus minimal pulmonary edema. Consider definitive imaging with CT chest. Electronically Signed: Jacky Dee MD at 20:37 EDT Tel , Service support ,
[2021-01-01 20:16] LABS: Absolute Lymphocyte Count 1.48 X10^3/uL (0.83-4.51); Absolute Neutrophil Count 2.6 X10^3/uL (2.0-7.7); Basophil# 0.03 X10^3/uL; Basophil% 0.6 % (0-1); Eosinophil# 0.14 X10^3/uL; Eosinophils% 2.8 % (0-5); Hematocrit 37.1 % (40-54); Hemoglobin 12.6 g/dL (13.0-16.5); Lymphocyte # 1.48 X10^3/ul (0.83-4.51); Lymphocyte % 29.4 % (19-41); Mean Corpuscular Hgb 35.9 pg (27.0-32.0); Mean Corpuscular Volume 105.7 fL (80-94); Mean Platelet Vol. 9.9 fl (6.2-12.0); Monocyte# 0.76 X10^3/uL; Monocyte% 15.1 % (0-10); NRBC Flagged by Analyzer 0 % (0-5); Neutrophil # 2.61 X10^3/uL (2.7-7.7); Neutrophil % 51.7 % (47-70); POSITIVE COUNT YES; Platelet Count 99 K/mm3 (150-450); RBC Distribution Width SD 58.2 fl (35.1-43.9); Red Blood Count 3.51 M/mm3 (4.6-6.2)
[2021-01-01 20:20] LABS: Bacteria 0 SEEN /hpf (None Seen); White Blood Cells 0 SEEN /hpf (0-5)
[2021-01-01 20:21] LABS: Color, Urine Amber (Yellow); Glucose, Dipstick Normal (Normal); Ketone-Dipstick 15 mg/dl (Negative); Leukocyte Esterase-Dipstick 25 /ul (Negative); Nitrite-Dipstick Negative (Negative); Occult Blood-Urine 10 /ul (Negative); Protein-Dipstick 30 mg/dl (Negative); Urine Bilirubin Dipstick 3 mg/dL (Negative); Urine Clarity Clear (Clear); Urine Urobilinogen 8 mg/dl (Normal)
[2021-01-01 20:26] LABS: Bedside Glucose 110 mg/dL (70-110)
[2021-01-01 20:34] LABS: ALB/GLOB Ratio 0.4 RATIO (0.9-2.4); AST(SGOT) 39 U/L (15-37); Alanine Aminotransfer ALT/SGPT 21 U/L (16-61); Albumin, Serum 1.9 g/dL (3.2-5.0); Alkaline Phosphatase 149 U/L (45-117); Anion Gap 6 (5-15); BUN 12 mg/dL (7-18); BUN/Creat Ratio 16.9 RATIO (10-20); Calcium,Total 8.1 mg/dL (8.5-10.1); Chloride 104 mmol/L (98-107); Creatinine, Serum 0.71 mg/dL (0.70-1.30); EST Glomerular Filtration Rate 127 mL/min (>60); Est Glom Filt Rate - Afr Amer 153 mL/min (>60); Glucose 116 mg/dL (74-106); Potassium 3.3 mmol/L (3.5-5.1); Protein, Total 6.9 g/dL (6.4-8.2); Sodium Level 138 mmol/L (136-145)
[2021-01-01 20:37] LABS: Mucous, Urine 1+ /hpf (<or=2+); Squamous Epithelial Cells - UA 0-5 SEEN /hpf (0-5)
[2021-01-01 20:38] LABS: Red Blood Cells-Urine 0-5 SEEN /hpf (0-5)
[2021-01-01 20:40] LABS: Lactic Acid 1.6 mmol/L (0.4-1.9)
[2021-01-01 20:45] LABS: Allen Test Positive; Base Excess -1 mmol/L (-2 to +2); Bicarbonate 23.4 mmol/L (22-26); Blood Gas Specimen Type ART; FI02 21; O2 Delivery Device Room Air; PO2 75 mmHG (75-100); SITE L Radial; SO2 96 % (95-99); Total Carbon Dioxide 24 mmol/L; pCO2 34.7 mmHg (35-45); pH 7.44 (7.35-7.45)
[2021-01-01 22:07] VITALS: BP 120/75; PULSE 71; RESP 20; TEMP 36.6; O2SAT 98
--- NOTE | 2021-01-01 22:26 | HP.PCM.HOS_ITS ---
HPI - General General Date of Admission: 01/01/21 Date of Service: 01/01/21 Chief Complaint: confusion HPI Narrative MAX ODONNELL, is a 45 M who presents with confusion. Patient was just discharged today with being treated for ascites. After returning home, patient was just notably more confused. Family reached out to his primary care doctor as well as the brake repairer bus advised patient come into the emergency room. Patient ammonia level was only 20. Patient is confused. History is obtained through the emergency room physician as well as the patient's sister who is at bedside. Patient is too confused to provide any history. Patient's last drink was anywhere from 3 to 5 days ago. [facility] Medical History Alcohol abuse Anxiety Cirrhosis, alcoholic Depression HTN (hypertension) Irregular heart beat Liver disease Smoker Substance abuse Thrombocytopenia Home Medications atenolol 50 mg PO DAILY 07/30/14 [History Last Taken Unknown] lisinopril 20 mg PO DAILY 07/30/14 [History Last Taken Unknown] paroxetine HCl [Paxil] 40 mg PO DAILY 07/30/14 [History Last Taken Unknown] cyclobenzaprine 5 mg PO TID 12/29/20 [History Last Taken Unknown] furosemide 40 mg PO DAILY #30 tab 12/31/20 [Rx Last Taken Unknown] spironolactone 50 mg PO DAILY #30 tab 12/31/20 [Rx Last Taken Unknown] lactulose 20 g PO TID #1500 ml 01/01/21 [Rx Last Taken Unknown] Allergy/AdvReac Type Severity Reaction Status Date / Time Sulfa (Sulfonamide Allergy Unknown Verified 01/01/21 19:50 Antibiotics) Social History Smoking Status: Heavy Smoker (>10/day) alcohol intake: former details: Patient states has not had a drink in 3 days substance use type: amphetamines ROS Review of Systems ROS Unobtainable: due to encephalopathy Vital Signs Vital Signs Vital Signs: 01/01/21 19:44 01/01/21 22:07 Temperature 36.4 C L 36.6 C Temperature Source Temporal Temporal Pulse Rate 76 71 Respiratory Rate 18 20 H Blood Pressure 102/63 120/75 Blood Pressure Mean 76 90 Pulse Ox 99 98 Oxygen Delivery Method Room Air Room Air Weight Weight: 106.3 kg Body Mass Index (BMI) 34.6 Physical Exam Const no apparent distress Orientation / Consciousness: confused HEENT normocephalic Resp normal respiratory effort, no retractions, no use of accessory muscles and clear to auscultation bilaterally Cardio regular rate, regular rhythm, S1 normal heart sound and S2 normal heart sound GI non-tender GI Narrative: Distended but softer than it was before the paracentesis. Extremity Extremity Narrative: Bilateral lower extremity edema Skin Skin Narrative: No palmar erythema Neuro moves all extremities Neuro Narrative: No asterixis Results Lab / Micro Data Attestation: I reviewed the patient's lab results. Result Diagrams: 01/01/21 20:03 01/01/21 20:03 Labs: Laboratory Results - last 24 hr 01/01/21 20:03: WBC 5.0, RBC 3.51 L, Hgb 12.6 L, Hct 37.1 L, MCV 105.7 H, MCH 35.9 H, MCHC 34.0, RDW Std Deviation 58.2 H, RDW Coeff of Andrei 15.0 H, Plt Count 99 L, MPV 9.9, Immature Gran % (Auto) 0.400, Neut % (Auto) 51.7, Lymph % (Auto) 29.4, [place] % (Auto) 15.1 H, Eos % (Auto) 2.8, Baso % (Auto) 0.6, Absolute Neuts (auto) 2.6, Absolute Lymphs (auto) 1.48, Nucleated RBC % 0 01/01/21 20:03: Sodium 138, Potassium 3.3 L, Chloride 104, Carbon Dioxide 28.0, Anion Gap 6, BUN 12, Creatinine 0.71, Estim Creat Clear Calc 130.00, Est GFR (MDRD) Af Amer 153, Est GFR (MDRD) Non-Af 127, BUN/Creatinine Ratio 16.9, Glucose 116 H, Calcium 8.1 L, Total Bilirubin 3.80 H, AST 39 H, ALT 21, Alkaline Phosphatase 149 H, Total Protein 6.9, Albumin 1.9 L, Globulin 5.0 H, Albumin/Annetta bulin Ratio 0.4 L 01/01/21 20:03: Ammonia 20.0 01/01/21 20:03: Lactic Acid 1.6 01/01/21 20:16: Urine Color Brenda, Urine Clarity Clear, Urine pH 6.0, Ur Specific [place] 1.020, Urine Protein 30 H, Urine Glucose (UA) Normal, Urine Ketones 15 H, Urine Occult Blood 10 H, Urine Nitrite Negative, Urine Bilirubin 3 H, Urine Urobilinogen 8 H, Ur Leukocyte Esterase 25 H, Urine RBC 0-5 SEEN, Urine WBC 0 SEEN, Ur Squamous Epith Cells 0-5 SEEN, Urine Bacteria 0 SEEN, Urine Mucus 1+ 01/01/21 20:20: POC Glucose 110 ABG Data ABG results: ABG 01/01/21 20:39 Specimen Type ART Sample Site L Radial pH 7.44 Bicarbonate Actual 23.4 Total CO2 24 Base Excess -1 O2 Saturation 96 O2 % 21 ABG pCO2 34.7 L ABG pO2 75 Reuben Test Positive O2 Delivery Device Room Air Radiology Impression Chest X-Ray 01/01/21 20:15 IMPRESSION: Low pulmonary volumes. Artifact of imaging versus minimal pulmonary edema. Consider definitive imaging with CT chest. Electronically Signed: Jacky Dee MD at 20:37 EDT Tel , Service support , Assessment & Plan Assessment/Plan (1) Encephalopathy, metabolic: (2) Alcohol withdrawal: QUALIFIERS: Complication of substance-induced condition: with delirium Qualified Code(s): F10.231 - Alcohol dependence with withdrawal delirium (3) Adult failure to thrive: PLAN: 1. Acute metabolic encephalopathy * Given his. Normal ammonia level, I do not feel that this is hepatic encephalopathy. Patient had a higher ammonia level yesterday. * Continue with the lactulose but I feel the main thing for this is patient may likely be going through acute alcohol withdrawal. 2. Acute alcohol withdrawal with delirium * Last drink was anywhere from 3 to 5 days ago * Cannot use phenobarbital given his cirrhosis so we will use an Ativan taper * Given his confusion we will hold off on gabapentin * Thiamine and folate * Previously patient expressed no desire to speak with anyone from addiction 3. Failure to thrive: * Secondary to his underlying medical disease but also his confusion * Consider PT OT evaluate and treat when patient is more alert 4. Cirrhosis * Secondary to alcohol * Follow-up with gastroenterology as outpatient 5. Ascites * Secondary to cirrhosis * Patient had 8 L removed last admission * Continue with furosemide and spironolactone 6. VTE prophylaxis with SCDs Charges/Coding Visit Charges Inpatient E&M: 29698 Init Hosp L3
--- NOTE | 2021-01-01 22:51 | PCS.PANDOC ---
PANDEMIC DOCUMENTATION INITIATED: Date: 01/01/2021 Time: 2300
[2021-01-01 23:09] VITALS: BMI 30.9
[2021-01-01 23:10] VITALS: BP 117/71; PULSE 69; RESP 16; TEMP 36.4; O2SAT 97
[2021-01-01] MEDS: LORazepam 1 MG Tablet PO (23:32)
--- NOTE | 2021-01-02 00:05 | CT_ITS ---
STUDY: CT BRAIN WITHOUT CONTRAST REASON FOR EXAM: Male, 45 years old. confusion RADIATION DOSAGE (If Supplied By Facility): CTDIvol = ( 44.99 ) mGy, DLP = ( 829.85 ) mGycm TECHNIQUE: Transaxial CT imaging of the brain was performed without administration of intravenous contrast material. Individualized dose optimization techniques were used for this CT. COMPARISON: 07/30/2014. FINDINGS: Normal soft tissue structures. Normal calvarium. Normal size ventricles and extra-axial spaces for the patient''s age. Normal white matter tracts of the cerebral hemispheres. Normal basal ganglia and thalami. Normal brainstem. Normal cerebellum. There is no intracranial hemorrhage. There are no findings of an acute ischemic infarction. Mild mucosal thickening involving the right maxillary sinus, remainder of the paranasal sinuses and mastoids are clear. CT/Brain/Head without Contrast IMPRESSION: Normal CT brain for age. Electronically Signed: Cindy Ross MD at 0:40 EDT , Service support ,
[2021-01-02] MEDS: LORazepam 1 MG Tablet PO ×5 (03:27→20:30)
[2021-01-02] MEDS: Lactulose 20 GM/30 ML UDC PO ×3 (06:45→22:09)
[2021-01-02] MEDS: Thiamine Hydrochloride 100 MG Tablet PO (08:44)
[2021-01-02] MEDS: Paroxetine 20 MG Tablet 40 MG PO (08:44)
[2021-01-02] MEDS: Spironolactone 50 MG Tablet PO (08:44)
[2021-01-02] MEDS: Folic Acid 1 MG Tablet PO (08:44)
[2021-01-02] MEDS: Furosemide 40 MG Tablet PO (08:45)
[2021-01-02] MEDS: Atenolol 50 MG Tablet PO (08:45)
[2021-01-02 08:57] VITALS: BP 112/77; PULSE 76; RESP 20; TEMP 36.7; O2SAT 97
--- NOTE | 2021-01-02 12:43 | PN.HOSP_ITS ---
Subjective Subjective Patient seen and examined. Patient was discharged just yesterday after being admitted and managed for ascites due to alcoholic liver cirrhosis for which he required paracentesis. Post paracentesis course was complicated by hepatic encephalopathy which resolved after he was started on lactulose. Patient was discharged yesterday in the morning in good health, completely alert and oriented. Apparently when patient went home he became more confused so he was brought back and is being managed for acute alcohol withdrawal. Patient tells me today that he is not exactly clear why he is here as he does not remember being confused and feels completely fine. He denies any symptoms of withdrawal and denies any tremors, increased sweating or any confusion. According to his nurse, patient has been completely alert and oriented since he was admitted yesterday. He has remained hemodynamically stable. Objective Data Objective Data Vital Signs: Vital Signs Temp Pulse Resp BP Pulse Ox 98.1 F 76 20 H 112/77 97 01/02/21 08:57 01/02/21 08:57 01/02/21 08:57 01/02/21 08:57 01/02/21 08:57 Oxygen Delivery Method Room Air Weight: 209 lb 3 oz Body Mass Index (BMI) 30.9 Intake & Output: Intake and Output for Last 24 Hours 12/31/20 01/01/21 01/02/21 23:59 23:59 22:59 Intake Total 500 / 500 Balance 500 / 500 Lab / Micro Data Result Diagrams: 01/01/21 20:03 01/01/21 20:03 Labs: Laboratory Results - last 24 hr 01/01/21 20:03: WBC 5.0, RBC 3.51 L, Hgb 12.6 L, Hct 37.1 L, MCV 105.7 H, MCH 35.9 H, MCHC 34.0, RDW Std Deviation 58.2 H, RDW Coeff of Andrei 15.0 H, Plt Count 99 L, MPV 9.9, Immature Gran % (Auto) 0.400, Neut % (Auto) 51.7, Lymph % (Auto) 29.4, [place] % (Auto) 15.1 H, Eos % (Auto) 2.8, Baso % (Auto) 0.6, Absolute Neuts (auto) 2.6, Absolute Lymphs (auto) 1.48, Nucleated RBC % 0 01/01/21 20:03: Sodium 138, Potassium 3.3 L, Chloride 104, Carbon Dioxide 28.0, Anion Gap 6, BUN 12, Creatinine 0.71, Estim Creat Clear Calc 130.00, Est GFR (MDRD) Af Amer 153, Est GFR (MDRD) Non-Af 127, BUN/Creatinine Ratio 16.9, Glucose 116 H, Calcium 8.1 L, Total Bilirubin 3.80 H, AST 39 H, ALT 21, Alkaline Phosphatase 149 H, Total Protein 6.9, Albumin 1.9 L, Globulin 5.0 H, Albumin/Globulin Ratio 0.4 L 01/01/21 20:03: Ammonia 20.0 01/01/21 20:03: Lactic Acid 1.6 01/01/21 20:16: Urine Color Brenda, Urine Clarity Clear, Urine pH 6.0, Ur Specific [place] 1.020, Urine Protein 30 H, Urine Glucose (UA) Normal, Urine Ket ones 15 H, Urine Occult Blood 10 H, Urine Nitrite Negative, Urine Bilirubin 3 H, Urine Urobilinogen 8 H, Ur Leukocyte Esterase 25 H, Urine RBC 0-5 SEEN, Urine WBC 0 SEEN, Ur Squamous Epith Cells 0-5 SEEN, Urine Bacteria 0 SEEN, Urine Mucus 1+ 01/01/21 20:20: POC Glucose 110 ABG Data ABG results: ABG 01/01/21 20:39 Specimen Type ART Sample Site L Radial pH 7.44 Bicarbonate Actual 23.4 Total CO2 24 Base Excess -1 O2 Saturation 96 O2 % 21 ABG pCO2 34.7 L ABG pO2 75 Reuben Test Positive O2 Delivery Device Room Air Radiography Diagnostic Testing: Radiology Impression Chest X-Ray 01/01/21 20:15 IMPRESSION: Low pulmonary volumes. Artifact of imaging versus minimal pulmonary edema. Consider definitive imaging with CT chest. Electronically Signed: Jacky Dee MD at 20:37 EDT Tel , Service support , Brain CT 01/02/21 00:05 IMPRESSION: Normal CT brain for age. Electronically Signed: Cindy Ross MD at 0:40 EDT , Service support , Physical Exam Const alert, oriented x3 and no apparent distress Orientation / Consciousness: confused Exam Limitations: no limitations HEENT normocephalic, head/scalp atraumatic and moist oral mucous membranes Head and Scalp: normocephalic Eyes PERRL and EOMs intact bilaterally Neck no lymphadenopathy Resp normal respiratory effort, no retractions, no use of accessory muscles and clear to auscultation bilaterally Cardio regular rate, regular rhythm, S1 normal heart sound and S2 normal heart sound GI non-tender GI Narrative: moderate distension. Extremity Extremity Narrative: Bilateral lower extremity edema Peripheral Pulses: Yes pulses 2+ throughout Skin no rashes or lesions noted Skin Narrative: No palmar erythema Neuro oriented x3, CN's II-XII intact bilaterally and moves all extremities Neuro Narrative: No asterixis Sensorium / Orientation: awake and alert Psych affect normal Assessment & Plan Assessment/Plan (1) Encephalopathy, metabolic: (2) Alcohol withdrawal: QUALIFIERS: Complication of substance-induced condition: with delirium Qualified Code(s): F10.231 - Alcohol dependence with withdrawal delirium (3) Adult failure to thrive: PLAN: #Acute metabolic encephalopathy * patient is very alert today, and is alert and oriented. * on lactulose. Patient says he is unclear why he was here himself as he felt fine when he went home * will continue lactulose. * on alcohol withdrawal protocol with ativan; unable to use phenobarbital in light of his liver disease * monitor CIWA score. * #Hypokalemia: K is 3.3. Replaced. Will trend. #Acute alcohol withdrawal: as above #Alcoholic liver cirrhosis with ascites * Was recently admitted and discharged just yesterday for ascites and had paracentesis with removal of 8.2 L of fluid. * Received albumin afterwards. * On Lasix and spironolactone * to follow up with GI on outpatient basis * #Failure to thrive due to chronic alcohol abuse * consult nutrition for recommendations about dietary support. * PT/OT consult. DVT prophylaxis: SCDs Charges/Coding Visit Charges Inpatient E&M: 35773 Subs Hosp L2
[2021-01-02 15:00] VITALS: BP 123/72; PULSE 81; RESP 16; TEMP 36.6; O2SAT 97
[2021-01-02 21:00] VITALS: BP 102/56; PULSE 65; RESP 18; TEMP 36.8; O2SAT 96
[2021-01-03] MEDS: LORazepam 1 MG Tablet PO ×6 (00:20→22:58)
[2021-01-03 03:00] VITALS: BP 105/59; PULSE 65; RESP 14; TEMP 36.8; O2SAT 94
[2021-01-03] MEDS: Lactulose 20 GM/30 ML UDC PO ×2 (06:01→21:46)
[2021-01-03 06:13] LABS: Absolute Lymphocyte Count 1.45 X10^3/uL (0.83-4.51); Absolute Neutrophil Count 2.4 X10^3/uL (2.0-7.7); Basophil# 0.03 X10^3/uL; Basophil% 0.6 % (0-1); Eosinophil# 0.19 X10^3/uL; Hematocrit 33.3 % (40-54); Hemoglobin 11.6 g/dL (13.0-16.5); Lymphocyte # 1.45 X10^3/ul (0.83-4.51); Lymphocyte % 30.2 % (19-41); Mean Corp Hgb Conc 34.8 g/dL (32-36); Mean Corpuscular Hgb 36.8 pg (27.0-32.0); Mean Corpuscular Volume 105.7 fL (80-94); Monocyte# 0.69 X10^3/uL; Monocyte% 14.4 % (0-10); NRBC Flagged by Analyzer 0 % (0-5); Neutrophil # 2.43 X10^3/uL (2.7-7.7); Neutrophil % 50.6 % (47-70); POSITIVE COUNT YES; Platelet Count 83 K/mm3 (150-450); RBC Distribution Width CV 14.7 % (11.6-14.6); RBC Distribution Width SD 57.1 fl (35.1-43.9); Red Blood Count 3.15 M/mm3 (4.6-6.2); White Blood Count 4.8 K/mm3 (4.4-11.0)
[2021-01-03 06:40] LABS: ALB/GLOB Ratio 0.3 RATIO (0.9-2.4); AST(SGOT) 40 U/L (15-37); Alanine Aminotransfer ALT/SGPT 20 U/L (16-61); Albumin, Serum 1.5 g/dL (3.2-5.0); Alkaline Phosphatase 115 U/L (45-117); Anion Gap 4 (5-15); BUN 15 mg/dL (7-18); BUN/Creat Ratio 29.2 RATIO (10-20); Calcium,Total 7.7 mg/dL (8.5-10.1); Chloride 106 mmol/L (98-107); Creatinine, Serum 0.51 mg/dL (0.70-1.30); EST Glomerular Filtration Rate 184 mL/min (>60); Est Glom Filt Rate - Afr Amer 222 mL/min (>60); Estimated Creatinine Clearance 180.99 ml/min; Globulin 4.5 g/dL (2.2-4.2); Glucose 73 mg/dL (74-106); Sodium Level 137 mmol/L (136-145)
[2021-01-03] MEDS: Thiamine Hydrochloride 100 MG Tablet PO (07:35)
[2021-01-03] MEDS: Folic Acid 1 MG Tablet PO (07:36)
[2021-01-03 09:00] VITALS: BP 119/85; PULSE 79; RESP 16; TEMP 36.6; O2SAT 97
[2021-01-03] MEDS: Furosemide 40 MG Tablet PO (09:12)
[2021-01-03] MEDS: Paroxetine 20 MG Tablet 40 MG PO (09:12)
[2021-01-03] MEDS: Atenolol 50 MG Tablet PO (09:12)
[2021-01-03] MEDS: Spironolactone 50 MG Tablet PO (09:13)
[2021-01-03] MEDS: hydrOXYzine PAM 25 MG Capsule 50 MG PO (14:19)
[2021-01-03 15:00] VITALS: BP 106/67; PULSE 60; RESP 16; TEMP 36.6; O2SAT 97
--- NOTE | 2021-01-03 15:27 | PN.HOSP_ITS ---
Subjective Subjective Patient is sleeping upon my arrival but awakens and although slightly groggy was alert and oriented x3. Does not remember coming in. States his last drink was last Sunday and he did not drink at all upon discharge. Objective Data Objective Data Vital Signs: Vital Signs Temp Pulse Resp BP Pulse Ox 97.9 F 79 16 119/85 H 97 01/03/21 09:00 01/03/21 09:00 01/03/21 09:00 01/03/21 09:00 01/03/21 09:00 Oxygen Delivery Method Room Air Weight: 94.886 kg Body Mass Index (BMI) 30.9 Intake & Output: Intake and Output for Last 24 Hours 01/02/21 01/02/21 01/03/21 00:59 23:59 23:59 Intake Total 425 / 425 Output Total 0 / 0 Balance 425 / 425 Lab / Micro Data Result Diagrams: 01/03/21 05:50 01/03/21 05:50 Labs: Laboratory Results - last 24 hr 01/03/21 05:50: WBC 4.8, RBC 3.15 L, Hgb 11.6 L, Hct 33.3 L, MCV 105.7 H, MCH 36.8 H, MCHC 34.8, RDW Std Deviation 57.1 H, RDW Coeff of Andrei 14.7 H, Plt Count 83 L, MPV 10.0, Immature Gran % (Auto) 0.200, Neut % (Auto) 50.6, Lymph % (Auto) 30.2, [place] % (Auto) 14.4 H, Eos % (Auto) 4.0, Baso % (Auto) 0.6, Absolute Neuts (auto) 2.4, Absolute Lymphs (auto) 1.45, Nucleated RBC % 0 01/03/21 05:50: Sodium 137, Potassium 4.0, Chloride 106, Carbon Dioxide 27.0, Anion Gap 4 L, BUN 15, Creatinine 0.51 L, Estim Creat Clear Calc 180.99, Est GFR (MDRD) Af Amer 222, Est GFR (MDRD) Non-Af 184, BUN/Creatinine Ratio 29.2 H, Glucose 73 L, Calcium 7.7 L, Total Bilirubin 3.40 H, AST 40 H, ALT 20, Alkaline Phosphatase 115, Total Protein 6.0 L, Albumin 1.5 L, Globulin 4.5 H, Albumin/Globulin Ratio 0.3 L Physical Exam Const alert, oriented x3 and no apparent distress Constitutional Narrative: Overweight white male lying in bed sleeping, slightly groggy when he wakes but is alert and oriented x3 Exam Limitations: no limitations HEENT head/scalp atraumatic, moist oral mucous membranes and oropharynx normal HEENT Narrative: Poor dentition, Mallampati 2, no thrush Head and Scalp: normocephalic Eyes PERRL, EOMs intact bilaterally and conjunctivae normal Eyes Narrative: Slight scleral icterus Neck no lymphadenopathy, supple and no JVD Neck Narrative: Trachea midline, no thyroid enlargement Resp normal respiratory effort, no retractions and no use of accessory muscles Resp Narrative: Diminished at bilateral bases but no adventitious sounds Auscultation: Negative for crackles, rales, rhonchi or wheezes Cardio regular rate, regular rhythm, S1 normal heart sound, S2 normal heart sound, no murmurs, no rub, no gallops, no clicks and no JVD GI soft to palpation, non-tender and non-distended GI Narrative: Marked ascites with positive fluid wave Extremity no clubbing, cyanosis or edema Peripheral Pulses: Yes pulses 2+ throughout Skin no wounds, skin turgor normal, no petechiae and no mottling Skin Narrative: Mild jaundice, scattered telangiectasias Neuro oriented x3, CN's II-XII intact bilaterally, moves all extremities and no focal motor deficits Sensorium / Orientation: awake and alert Speech: speech normal Psych Psych Narrative: Affect is flat and mood seems depressed Assessment & Plan Assessment/Plan (1) Encephalopathy, metabolic: (2) Adult failure to thrive: (3) Alcoholic liver disease: (4) Ascites: QUALIFIERS: Ascites type: due to alcoholic cirrhosis Qualified Code(s): K70.31 - Alcoholic cirrhosis of liver with ascites PLAN: Acute metabolic encephalopathy -It appears that the patient has improved -He remains alert and oriented x3 -Continue home lactulose dose -It was felt that he possibly is withdrawing from alcohol although his last dose of alcohol was a week ago so I doubt that this was related to acute alcohol withdrawal -We will consult GI given his liver cirrhosis with ascite to see if they feel that he needs any further work-up or lactulose -Ammonia on admission was 20 Hypokalemia -Resolved Acute alcohol withdrawal -Doubt this is the etiology of his confusion -Last drink was a week ago tomorrow -She has no signs of withdrawal at this time -We will discontinue Ativan taper and place him on Ativan 1 mg 3 times daily to avoid acute Ativan withdrawal -Taper slowly -Continue thiamine and folate Alcoholic liver cirrhosis and ascites -Paracentesis was to be performed as an outpatient tomorrow -Ordered for tomorrow here -Suspect will be large volume and will need post procedure albumin -Continue Lasix and Aldactone -Continue lactulose as above -Continue beta-carol -Consult GI as I do not believe that his acute metabolic encephalopathy was related to alcohol withdrawal Failure to thrive -Continue PT OT Chronic macrocytic anemia secondary to liver disease -Counts are stable -Continue to monitor Chronic thrombocytopenia -Secondary to liver disease -Counts are stable -Continue to monitor Hyperbilirubinemia -Appears to be chronically elevated -Related to his chronic liver disease -GI consulted Hypertension -Continue lisinopril -Continue atenolol Depression -Continue paroxetine 40 mg daily DVT prophylaxis -SCDs while in bed Charges/Coding Visit Charges Inpatient E&M: 58482 Subs Hosp L2
[2021-01-03 21:30] VITALS: BP 103/65; PULSE 65; RESP 16; TEMP 36.6; O2SAT 98
[2021-01-04 04:00] VITALS: BP 113/65; PULSE 65; RESP 18; TEMP 36.4; O2SAT 96
[2021-01-04 05:26] LABS: Absolute Lymphocyte Count 1.38 X10^3/uL (0.83-4.51); Absolute Neutrophil Count 2.1 X10^3/uL (2.0-7.7); Basophil# 0.03 X10^3/uL; Basophil% 0.7 % (0-1); Eosinophil# 0.21 X10^3/uL; Eosinophils% 4.8 % (0-5); Hematocrit 34.2 % (40-54); Hemoglobin 11.7 g/dL (13.0-16.5); Lymphocyte # 1.38 X10^3/ul (0.83-4.51); Lymphocyte % 31.4 % (19-41); Mean Corp Hgb Conc 34.2 g/dL (32-36); Mean Corpuscular Hgb 36.3 pg (27.0-32.0); Mean Corpuscular Volume 106.2 fL (80-94); Mean Platelet Vol. 9.8 fl (6.2-12.0); Monocyte# 0.63 X10^3/uL; Monocyte% 14.3 % (0-10); NRBC Flagged by Analyzer 0 % (0-5); Neutrophil # 2.14 X10^3/uL (2.7-7.7); Neutrophil % 48.6 % (47-70); POSITIVE COUNT YES; Platelet Count 84 K/mm3 (150-450); RBC Distribution Width CV 14.6 % (11.6-14.6); RBC Distribution Width SD 56.6 fl (35.1-43.9); Red Blood Count 3.22 M/mm3 (4.6-6.2); White Blood Count 4.4 K/mm3 (4.4-11.0)
[2021-01-04 05:48] LABS: Anion Gap 3 (5-15); BUN 15 mg/dL (7-18); BUN/Creat Ratio 22.5 RATIO (10-20); Chloride 103 mmol/L (98-107); Creatinine, Serum 0.67 mg/dL (0.70-1.30); EST Glomerular Filtration Rate 136 mL/min (>60); Est Glom Filt Rate - Afr Amer 164 mL/min (>60); Estimated Creatinine Clearance 137.77 ml/min; Glucose 73 mg/dL (74-106); Potassium 4.3 mmol/L (3.5-5.1); Sodium Level 135 mmol/L (136-145)
[2021-01-04] MEDS: Lactulose 20 GM/30 ML UDC PO ×3 (06:07→21:48)
[2021-01-04] MEDS: LORazepam 1 MG Tablet PO ×2 (06:55→21:47)
[2021-01-04] MEDS: Lidocaine 2% (20 ml mdv) 20 ML Vial INFILT (09:30)
--- NOTE | 2021-01-04 09:30 | US_ITS ---
PROCEDURE: Ultrasound guided paracentesis. DATE OF EXAMINATION: 01/04/2021. INDICATION: Male, 45 years old. Ascites. PHYSICIAN: Raciel Wills M.D. TECHNIQUE: The risks, benefits, and alternatives to the procedure were explained to the patient. The specific risks of bleeding, infection, and damage to bowel were detailed and accepted. Witnessed informed consent was obtained. The abdomen was ultrasonographically surveyed. An appropriate pocket of fluid was identified at the right lower quadrant. The skin were cleaned and prepped in the usual sterile fashion. Using ultrasound guidance, the peritoneal cavity was accessed with a 5-Swiss paracentesis needle/catheter system. The trocar was removed. A total of 8950 ml of casie-colored fluid were removed from the peritoneal cavity. The catheter was removed and a sterile dressing was applied. The procedure was well tolerated. US/Paracentesis with US IMPRESSION: Ultrasound guided paracentesis. Electronically Signed: Raciel Wills MD at 10:42 EST , Service support ,
[2021-01-04 09:46] VITALS: BP 102/64; BP 118/72; PULSE 72; PULSE 73; RESP 16; RESP 18; TEMP 36.2; O2SAT 95; O2SAT 97
--- NOTE | 2021-01-04 10:49 | CASEMGMT ---
SW informed by physician that pt may need [place] [facility] [place] placement. SW met w/pt's mother in the room, pt is sleeping at present. SW spoke w/pt's mother. She is in agreement with pt going to a [place] [facility] [place] facility, she states pt may not agree. She states he is very weak, and she cannot help him. Pt will want to go to the niece's home, but states that they will drink if he goes there. SW explained that therapy has been ordered, so we can see how pt is moving, and this may help pt understand that [place] [facility] [place] for rehab is needed. SW provided a list of halfway facilities to pt's mother, complete with quality and resource use data, in pt's insurance network, and in pt's preferred geographic area. SW let pt's mother know when pt wakes up to let us know, SW will come back in to speak w/pt. SW also spoke w/pt's mother about palliative care, educated her on the difference between palliative and hospice. Pt's mother states is familiar w/hospice as her was on hospice 5 years ago. SW will continue to follow, will speak w/pt once he wakes up. WILLIE Landeros
[2021-01-04] MEDS: Folic Acid 1 MG Tablet PO (11:03)
[2021-01-04] MEDS: Paroxetine 20 MG Tablet 40 MG PO (11:04)
[2021-01-04] MEDS: Spironolactone 50 MG Tablet PO (11:04)
[2021-01-04] MEDS: Atenolol 50 MG Tablet PO (11:04)
[2021-01-04] MEDS: Furosemide 40 MG Tablet PO (11:04)
[2021-01-04] MEDS: Thiamine Hydrochloride 100 MG Tablet PO (11:05)
--- NOTE | 2021-01-04 13:13 | PN.HOSP_ITS ---
Subjective Subjective Patient's mother is at the bedside. She indicates that he may be a little bit more confused but it seems to ebb and flow. He is feeding himself and eating breakfast independently and appears to be very disinterested in our conversation. He is somewhat agreeable to placement prior to going home for some rehab. We did make it very evident that if he does not quit drinking he will very likely end up dying from his liver disease. Objective Data Objective Data Vital Signs: Vital Signs Temp Pulse Resp BP Pulse Ox 97.1 F L 72 16 118/72 96 01/04/21 09:46 01/04/21 09:46 01/04/21 09:46 01/04/21 09:46 01/04/21 04:00 Oxygen Delivery Method [3] Room Air Oxygen Delivery Method [2] Room Air Oxygen Delivery Method [1 ( Room Air Initial Baseline)] Oxygen Delivery Method Room Air Weight: 94.886 kg Body Mass Index (BMI) 30.9 Intake & Output: Intake and Output for Last 24 Hours 01/02/21 01/03/21 01/04/21 23:59 23:59 23:59 Intake Total 425 / 825 500 / 500 Output Total 0 / 0 8950 / 8950 Balance 425 / 825 -8450 / -8450 Lab / Micro Data Result Diagrams: 01/04/21 05:12 01/04/21 05:12 Labs: Laboratory Results - last 24 hr 01/04/21 05:12: WBC 4.4, RBC 3.22 L, Hgb 11.7 L, Hct 34.2 L, MCV 106.2 H, MCH 36.3 H, MCHC 34.2, RDW Std Deviation 56.6 H, RDW Coeff of Andrei 14.6, Plt Count 84 L, MPV 9.8, Immature Gran % (Auto) 0.200, Neut % (Auto) 48.6, Lymph % (Auto) 31.4, [place] % (Auto) 14.3 H, Eos % (Auto) 4.8, Baso % (Auto) 0.7, Absolute Neuts (auto) 2.1, Absolute Lymphs (auto) 1.38, Nucleated RBC % 0 01/04/21 05:12: Sodium 135 L, Potassium 4.3, Chloride 103, Carbon Dioxide 29.0, Anion Gap 3 L, BUN 15, Creatinine 0.67 L, Estim Creat Clear Calc 137.77, Est GFR (MDRD) Af Amer 164, Est GFR (MDRD) Non-Af 136, BUN/Creatinine Ratio 22.5 H, Glucose 73 L, Calcium 8.0 L 01/04/21 12:28: Ammonia 81.0 H Radiography Diagnostic Testing: Radiology Impression Paracentesis Ultrasound 01/04/21 09:30 IMPRESSION: Ultrasound guided paracentesis. Electronically Signed: Raciel Wills MD at 10:42 EST , Service support , Physical Exam Const alert, oriented x3 and no apparent distress Constitutional Narrative: Overweight white male lying in bed eating breakfast, mother at the bedside, more awake today but remains confused Orientation / Consciousness: confused Exam Limitations: no limitations HEENT normocephalic, head/scalp atraumatic, moist oral mucous membranes and oropharynx normal Head and Scalp: normocephalic Eyes PERRL, EOMs intact bilaterally and conjunctivae normal Eyes Narrative: Slight scleral icterus Resp normal respiratory effort, no retractions, no use of accessory muscles and clear to auscultation bilaterally Resp Narrative: Diminished at bilateral bases but no adventitious sounds Auscultation: Negative for crackles, rales, rhonchi or wheezes Cardio regular rate, regular rhythm, S1 normal heart sound, S2 normal heart sound, no murmurs, no rub, no gallops, no clicks and no JVD GI soft to palpation, non-tender and non-distended GI Narrative: Marked ascites with positive fluid wave Extremity no clubbing, cyanosis or edema Extremity Narrative: Bilateral lower extremity edema Peripheral Pulses: Yes pulses 2+ throughout Skin no rashes or lesions noted, no wounds, skin turgor normal, no petechiae and no mottling Skin Narrative: Mild jaundice, scattered telangiectasias Neuro CN's II-XII intact bilaterally, moves all extremities and no focal motor deficits Neuro Narrative: No asterixis, confused Sensorium / Orientation: awake and alert Assessment & Plan Assessment/Plan (1) Encephalopathy, metabolic: (2) Adult failure to thrive: (3) Alcoholic liver disease: (4) Ascites: QUALIFIERS: Ascites type: due to alcoholic cirrhosis Qualified Code(s): K70.31 - Alcoholic cirrhosis of liver with ascites (5) Hyperammonemia: PLAN: Acute metabolic encephalopathy secondary to hyperammonemia -Ammonia on admission was 20 but is now 81 -Continue home lactulose dose but increase to 20 mg 4 times a day -Was held by nursing for diarrhea--> discussed with nursing the importance of ED having diarrhea and 2-4 stools daily -Rifaximin added -It was felt that he possibly is withdrawing from alcohol although his last dose of alcohol was a week ago so I doubt that this was related to acute alcohol withdrawal -GI is following and I discussed the case with him -Doubt acute alcohol withdrawal and therefore Ativan taper was discontinued -Wean Ativan Alcoholic liver cirrhosis and ascites -Paracentesis done today for approximately 9 L -Albumin given 25 g post procedure -Monitor renal function -Continue Lasix and Aldactone -Continue lactulose as above -Continue beta-carol -GI following Failure to thrive -Continue PT OT Chronic macrocytic anemia secondary to liver disease -Counts are stable -Continue to monitor Chronic thrombocytopenia -Secondary to liver disease -Counts are stable -Continue to monitor Hyperbilirubinemia -Appears to be chronically elevated -Related to his chronic liver disease -GI consulted Hypertension -Continue lisinopril -Continue atenolol Depression -Continue paroxetine 40 mg daily DVT prophylaxis -SCDs while in bed Disposition--> patient is somewhat willing to go to of facility for rehab prior to discharge home Charges/Coding Visit Charges Inpatient E&M: 35635 Subs Hosp L2
[2021-01-04 14:07] VITALS: BP 132/75; PULSE 80; RESP 18; TEMP 36.6; O2SAT 94
--- NOTE | 2021-01-04 15:12 | CASEMGMT ---
Addendum entered by Nora Boles 01/04/21 16:30: Bambi from [facility] called, she states they may not take pt due to alcohol abuse history, but she will let SW know for certain tomorrow. WILLIE Landeros Addendum entered by Nora Boles 01/04/21 16:15: SW spoke w/pt's mother again, pt is sleeping. SW let her know the initial referral was sent to [facility], and SW will follow up w/Jonathan Pelayo tomorrow. Pt's mother said that if [facility] cannot take pt, [facility] would be her second choice. SW will continue to follow. WILLIE Landeros Original Note: Pt is awake now, and just participated in therapy. SW spoke w/pt and pt's mother in the room again in regard to long-term placement. SW asked pt how it went with therapy, he states okay. We spoke about pt going for rehab in a long-term short term to get stronger. SW explained that his mother may not be able to care for him right now, as he needs more help than she can give him. Pt asked, where would I have to go? Pt's mother had suggested [facility] as his sister Shayla Shields works there. SW explained will make a referral and let them know about availability. SW let pt and mother know that if [facility] cannot take pt, they will need to pick a second choice. VIVIENNE called [facility], message left, and initial referral faxed. SW will fax PT/OT once completed. SW will continue to follow. WILLIE Landeros
[2021-01-04] MEDS: 0.9% Saline Lock 10 ML Syringe IV (15:19)
[2021-01-04] MEDS: Albumin Human 25% (100 mL) 25 GM/100 ML BAG IV (15:19)
--- NOTE | 2021-01-04 15:28 | CASEMGMT ---
DAVID MARTIN chart review: Patient was admitted 12/29-01/01/21 for ascites and abdominal pain. Patient had paracentesis on 12/30/20 with 8200ml removed. See DAVID CM assessment completed 12/30/20. Patient had palliative consult on 12/31/20 and was to follow-up with palliative after discharge. Patient had outpatient paracentesis scheduled for 01/04/21. Patient returned to [facility] ED on 01/01/21 for increased confusion. Family requesting SNF placement, SW assisting. CM to continue to follow patient and plan for a safe discharge.
--- NOTE | 2021-01-04 17:03 | EX.PCM.CON.G ---
HPI Consult Data Date of Consult: 01/04/21 HPI Narrative HPI Narrative: MAX ODONNELL, is a 45 M who presents back to the hospital after being discharged with fatigue weakness and altered mental status. As per his mother he did not have any more drinks when he went home. However he was found to be hypotensive and very lethargic. When he came to the ED, he was found to be mildly encephalopathic. He was started on lactulose therapy. When he left the hospital he was feeling fine and eating well. As per his mother he did not take any street drugs and did not drink any alcohol. Today he was discovered to have elevated ammonia level of 81. He is not having any signs of bleeding at this time. He has been afebrile. His labs are still consistent with alcoholic hepatitis, transaminitis, jaundice, bicytopenia and hypoalbuminemia secondary to cirrhotic liver disease. [facility] Medical History Alcohol abuse Anxiety Cirrhosis, alcoholic Depression HTN (hypertension) Irregular heart beat Liver disease Smoker Substance abuse Thrombocytopenia Home Medications atenolol 50 mg PO DAILY 07/30/14 [History Last Taken Unknown] lisinopril 20 mg PO DAILY 07/30/14 [History Last Taken Unknown] paroxetine HCl [Paxil] 40 mg PO DAILY 07/30/14 [History Last Taken Unknown] cyclobenzaprine 5 mg PO TID 12/29/20 [History Last Taken Unknown] furosemide 40 mg PO DAILY #30 tab 12/31/20 [Rx Last Taken Unknown] spironolactone 50 mg PO DAILY #30 tab 12/31/20 [Rx Last Taken Unknown] lactulose 20 g PO TID #1500 ml 01/01/21 [Rx Last Taken Unknown] Allergy/AdvReac Type Severity Reaction Status Date / Time Sulfa (Sulfonamide Allergy Unknown Verified 01/01/21 19:50 Antibiotics) Social History Smoking Status: Heavy Smoker (>10/day) alcohol intake: former details: Patient states has not had a drink in 3 days substance use type: amphetamines ROS Review of Systems ROS Unobtainable: other Constitutional Constitutional: Denies fatigue, fever(s), poor appetite, weight gain or weight loss ENT HEENT: Denies mouth lesions Cardiovascular Cardiovascular: Denies abdominal bloating, abdominal edema or abdominal pain Respiratory/Chest Respiratory/Chest: Denies change in mental status, change in phlegm color, chest congestion or chest tightness Gastrointestinal Gastrointestinal: Denies belching, bloating, change in bowel habits, change in stool character, chewing difficulty, coffee ground emesis, constipation, cramping, diarrhea, dyspepsia, dysphagia, early satiety, excessive flatus, fecal incontinence, heartburn, hematemesis, hematochezia, hemorrhoids, loose stools, melena, nausea, odynophagia, rectal bleeding, tenesmus, vomiting or weight changes Genitourinary Genitourinary: Denies abdominal discomfort, burning urination or itching Musculoskeletal Musculoskeletal: Reports as per HPI; Denies muscle weakness or myalgias Integumentary Integumentary: Denies jaundice Neurologic Neurologic: Denies lack of coordination or weakness Psychiatric Psychiatric: Denies confusion, depression, memory loss, mood swings, paranoia or suicidal ideation Endocrine Endocrinology: Denies systems reviewed and no addt'l complaints, except as documented Hematologic/Lymphatic Hematologic/Lymphatic: Denies anemia, easy bleeding, easy bruising or lymphadenopathy Allergic/Immunologic Allergic/Immunologic: Denies systems reviewed and no addt'l complaints, except as documented Physical Exam Const alert General Appearance: cooperative Orientation / Consciousness: oriented to person HEENT hearing grossly normal bilaterally Head and Scalp: normal to inspection Face and Sinus: face symmetric Nose: external nose normal Mouth: oral and palatal mucosa normal Eyes conjunctivae normal General Eye: normal appearance of both eyes Neck full ROM General: normal visual inspection Lymph Lymphatic: no lymphadenopathy noted Chest inspection of chest normal and palpation of chest normal Chest: symmetrical chest wall rise Resp normal respiratory effort Effort and Inspection: able to speak in complete sentences Cardio regular rate GI non-distended Percussion: normal to percussion Rectal Exam: deferred Neuro Speech: speech normal Gait (Neuro): normal gait Lab / Micro Data Result Diagrams: 01/04/21 05:12 01/04/21 05:12 Labs: Laboratory Results - last 24 hr 01/04/21 05:12: WBC 4.4, RBC 3.22 L, Hgb 11.7 L, Hct 34.2 L, MCV 106.2 H, MCH 36.3 H, MCHC 34.2, RDW Std Deviation 56.6 H, RDW Coeff of Andrei 14.6, Plt Count 84 L, MPV 9.8, Immature Gran % (Auto) 0.200, Neut % (Auto) 48.6, Lymph % (Auto) 31.4, [place] % (Auto) 14.3 H, Eos % (Auto) 4.8, Baso % (Auto) 0.7, Absolute Neuts (auto) 2.1, Absolute Lymphs (auto) 1.38, Nucleated RBC % 0 01/04/21 05:12: Sodium 135 L, Potassium 4.3, Chloride 103, Carbon Dioxide 29.0, Anion Gap 3 L, BUN 15, Creatinine 0.67 L, Estim Creat Clear Calc 137.77, Est GFR (MDRD) Af Amer 164, Est GFR (MDRD) Non-Af 136, BUN/Creatinine Ratio 22.5 H, Glucose 73 L, Calcium 8.0 L 01/04/21 12:28: Ammonia 81.0 H Radiology Impression Paracentesis Ultrasound 01/04/21 09:30 IMPRESSION: Ultrasound guided paracentesis. Electronically Signed: Raciel Wills MD at 10:42 EST , Service support , Assessment & Plan Assessment/Plan (1) Hyperammonemia: PLAN: Patient should be on 20 to 30 mL of lactulose every 4 hours. Titrate to 3-4 bowel movements per day. He is also on Xifaxan. Recommend to check magnesium and phosphate. I do not see any signs of GI bleeding at this time however he should get an EGD to screen for varices due to his thrombocytopenia and coagulopathy from cirrhosis. If he does not improve with having his lactulose at 20 to 30 mL every 4 hours plus Xifaxan then we will have to add neomycin 500 mg twice a day. (2) Jaundice: PLAN: His jaundice is secondary to cirrhosis in setting of alcoholic hepatitis. I would not start him on steroids or pentoxifylline at this time. If he does become more encephalopathic and his Madre score changes from 28, then I may consider steroids. (3) Alcoholic liver disease: PLAN: Patient knows that he is not eligible for transplant until he is not had any alcohol for 6 months. His current meld is 18+2 more for his ascites, which makes 20. He will be listed at 14 however because of his alcohol usage and the fact that he is not getting significantly worse he is not a candidate for transplant. (4) Cirrhosis of liver: QUALIFIERS: Hepatic cirrhosis type: alcoholic cirrhosis Ascites presence: with ascites Qualified Code(s): K70.31 - Alcoholic cirrhosis of liver with ascites PLAN: Cirrhosis secondary to alcohol. He will need other biochemical work-up for chronic viral hepatitis and other autoimmune disease that may affect the liver. Charges/Coding Visit Charges Inpatient E&M: 78516 Init Hosp L3
[2021-01-04 17:29] VITALS: BP 129/69; PULSE 66; RESP 16; TEMP 36.5; O2SAT 94
[2021-01-04 20:00] VITALS: BP 103/50; PULSE 70; RESP 18; TEMP 36.5; O2SAT 97
[2021-01-04] MEDS: rifAXIMin 550 MG Tablet PO (21:47)
[2021-01-05] VITALS (7 sets, daily range): BP systolic 99–112; BP diastolic 58–67; PULSE 67–73; RESP 16–18; TEMP 36.2–36.7; O2SAT 95–99
[2021-01-05 07:16] LABS: Absolute Lymphocyte Count 1.38 X10^3/uL (0.83-4.51); Absolute Neutrophil Count 2.2 X10^3/uL (2.0-7.7); Basophil# 0.02 X10^3/uL; Basophil% 0.5 % (0-1); Eosinophil# 0.15 X10^3/uL; Eosinophils% 3.5 % (0-5); Hematocrit 34.6 % (40-54); Hemoglobin 11.8 g/dL (13.0-16.5); Lymphocyte # 1.38 X10^3/ul (0.83-4.51); Lymphocyte % 32.4 % (19-41); Mean Corp Hgb Conc 34.1 g/dL (32-36); Mean Corpuscular Hgb 35.8 pg (27.0-32.0); Mean Corpuscular Volume 104.8 fL (80-94); Mean Platelet Vol. 9.9 fl (6.2-12.0); Monocyte# 0.54 X10^3/uL; Monocyte% 12.7 % (0-10); NRBC Flagged by Analyzer 0 % (0-5); Neutrophil # 2.15 X10^3/uL (2.7-7.7); Neutrophil % 50.4 % (47-70); POSITIVE COUNT YES; Platelet Count 77 K/mm3 (150-450); RBC Distribution Width CV 14.3 % (11.6-14.6); RBC Distribution Width SD 55.8 fl (35.1-43.9); White Blood Count 4.3 K/mm3 (4.4-11.0)
[2021-01-05 07:41] LABS: Anion Gap 3 (5-15); BUN 13 mg/dL (7-18); BUN/Creat Ratio 27.5 RATIO (10-20); Calcium,Total 7.7 mg/dL (8.5-10.1); Chloride 109 mmol/L (98-107); Creatinine, Serum 0.47 mg/dL (0.70-1.30); EST Glomerular Filtration Rate 203 mL/min (>60); Est Glom Filt Rate - Afr Amer 245 mL/min (>60); Estimated Creatinine Clearance 196.39 ml/min; Glucose 68 mg/dL (74-106); Potassium 4.1 mmol/L (3.5-5.1); Sodium Level 136 mmol/L (136-145)
[2021-01-05] MEDS: Folic Acid 1 MG Tablet PO (09:44)
[2021-01-05] MEDS: Thiamine Hydrochloride 100 MG Tablet PO (09:44)
[2021-01-05] MEDS: Spironolactone 50 MG Tablet PO (09:45)
[2021-01-05] MEDS: Furosemide 40 MG Tablet PO (09:45)
[2021-01-05] MEDS: Atenolol 50 MG Tablet PO (09:45)
[2021-01-05] MEDS: Lactulose 20 GM/30 ML UDC PO ×4 (09:45→21:08)
[2021-01-05] MEDS: Paroxetine 20 MG Tablet 40 MG PO (09:45)
[2021-01-05] MEDS: rifAXIMin 550 MG Tablet PO ×2 (09:46→21:08)
[2021-01-05] MEDS: LORazepam 1 MG Tablet PO ×3 (09:50→22:23)
--- NOTE | 2021-01-05 09:59 | CASEMGMT ---
SW received a message from [facility], they are not able to accept this pt. WILLIE Landeros
--- NOTE | 2021-01-05 11:07 | CASEMGMT ---
Social Work SW met with pt and mother in room. Pt sleeping soundly and did not wake for conversation. SW informed pt mother that [facility] is not able to accept pt. Mother now requesting [facility]. Phone call to Nena at [facility] and they do have beds available. Referral faxed, SW will await determination if they can accept pt. YASMINE Huggins
--- NOTE | 2021-01-05 11:32 | CASEMGMT ---
RN MARIO NOTE: TC received from Mercedes, Nurse CM from [facility]. She was notified current d/c plan is SNF. She states, if any issues arise w/discharge planning, to contact her @ [phone]. Dave MANZO RN CM
--- NOTE | 2021-01-05 14:35 | CASEMGMT ---
Social Work SW spoke with [facility] and they are able to accept pt tomorrow. However, they cannot provide transportation for paracentesis. SW spoke with pt and mother in room and informed that [facility] if pt mother can provide transportation. Mother states she can do this. SW spoke with pt and pt very groggy but does open eyes and agrees to go to SNF. SW then spoke with [facility] who states pt will be in quarantine for 14 days and pt mother cannot visit other than for transportation and window visits. Phone call to pt mother and informed of this. She is concerned and does not think pt will agree to this. SW inquired about d/c plan if he does not go to SNF and pt mother states she can take him home and care for him. SW met with pt in room and woke pt up. Pt is alert and is willing to talk to SW. SW informed of visitation restrictions and pt stating he is not sure he will go to SNF now. Pt feels he can care for himself at home and his mother will not have to assist. Pt states he will speak with his mother and make a decision regarding home vs. SNF. SW will followup. Plan: [facility] vs. home YASMINE Huggins
--- NOTE | 2021-01-05 15:02 | PCM.PN.HOSP ---
Subjective Subjective Patient is much more alert and oriented today. Is still willing to go to rehab facility upon my evaluation but apparently per the notes there is concern now as he will require quarantine for 14 days due to Covid. He will discuss this with his mother and then they will come up with a solution whether will be admission or discharge home. Objective Data Objective Data Vital Signs: Vital Signs Temp Pulse Resp BP Pulse Ox 97.2 F L 69 18 112/67 97 01/05/21 14:47 01/05/21 14:47 01/05/21 14:47 01/05/21 14:47 01/05/21 14:47 Oxygen Delivery Method [3] Room Air Oxygen Delivery Method [2] Room Air Oxygen Delivery Method [1 ( Room Air Initial Baseline)] Oxygen Delivery Method Room Air Weight: 94.886 kg Body Mass Index (BMI) 30.9 Intake & Output: Intake and Output for Last 24 Hours 01/03/21 01/04/21 01/05/21 23:59 23:59 23:59 Intake Total 425 / 825 800 / 800 100 / 100 Output Total 0 / 0 03137 / 49201 0 / 0 Balance 425 / 825 -52446 / -36107 100 / 100 Lab / Micro Data Result Diagrams: 01/05/21 06:36 01/05/21 06:36 Labs: Laboratory Results - last 24 hr 01/05/21 06:36: WBC 4.3 L, RBC 3.30 L, Hgb 11.8 L, Hct 34.6 L, MCV 104.8 H, MCH 35.8 H, MCHC 34.1, RDW Std Deviation 55.8 H, RDW Coeff of Andrei 14.3, Plt Count 77 L, MPV 9.9, Immature Gran % (Auto) 0.500, Neut % (Auto) 50.4, Lymph % (Auto) 32.4, [place] % (Auto) 12.7 H, Eos % (Auto) 3.5, Baso % (Auto) 0.5, Absolute Neuts (auto) 2.2, Absolute Lymphs (auto) 1.38, Nucleated RBC % 0 01/05/21 06:36: Sodium 136, Potassium 4.1, Chloride 109 H, Carbon Dioxide 24.0, Anion Gap 3 L, BUN 13, Creatinine 0.47 L, Estim Creat Clear Calc 196.39, Est GFR (MDRD) Af Amer 245, Est GFR (MDRD) Non-Af 203, BUN/Creatinine Ratio 27.5 H, Glucose 68 L, Calcium 7.7 L Physical Exam Const alert, oriented x3 and no apparent distress Constitutional Narrative: Overweight white male lying in bed but awakens easily, appears comfortable, nontoxic, alert and oriented x3 today Orientation / Consciousness: confused Exam Limitations: no limitations Nutritional Appearance: overweight HEENT normocephalic, head/scalp atraumatic, moist oral mucous membranes and oropharynx normal Head and Scalp: normocephalic Resp normal respiratory effort, no retractions, no use of accessory muscles and clear to auscultation bilaterally Resp Narrative: Diminished at bilateral bases but no adventitious sounds Auscultation: Negative for crackles, rales, rhonchi or wheezes Cardio regular rate, regular rhythm, S1 normal heart sound, S2 normal heart sound, no murmurs, no rub, no gallops, no clicks and no JVD GI soft to palpation, non-tender and non-distended GI Narrative: Marked ascites with positive fluid wave-improved since thoracentesis was performed yesterday for 9 L Extremity no clubbing, cyanosis or edema Extremity Narrative: Bilateral lower extremity edema Peripheral Pulses: Yes pulses 2+ throughout Skin no wounds, skin turgor normal, no petechiae and no mottling Skin Narrative: Mild jaundice, scattered telangiectasias Neuro CN's II-XII intact bilaterally, moves all extremities and no focal motor deficits Neuro Narrative: No asterixis, confused Sensorium / Orientation: awake and alert Speech: speech normal Assessment & Plan Assessment/Plan (1) Encephalopathy, metabolic: (2) Adult failure to thrive: (3) Alcoholic liver disease: (4) Ascites: QUALIFIERS: Ascites type: due to alcoholic cirrhosis Qualified Code(s): K70.31 - Alcoholic cirrhosis of liver with ascites (5) Hyperammonemia: PLAN: Acute metabolic encephalopathy secondary to hyperammonemia -Ammonia on admission was 20 but increased to 81 on 01/04/2021 -Patient is much improved today -Continue home lactulose dose but increase to 20 mg 4 times a day -Was held by nursing for diarrhea--> discussed with nursing the importance of ED having diarrhea and 2-4 stools daily -Patient with stools x2 yesterday -Continue rifaximin -It was felt that he possibly is withdrawing from alcohol although his last dose of alcohol was a week ago so I doubt that this was related to acute alcohol withdrawal -Appreciate GI input -Doubt acute alcohol withdrawal and therefore Ativan taper was discontinued -Wean Ativan Alcoholic liver cirrhosis and ascites -Paracentesis done 01/04/2021 for approximately 9 L -Albumin given after paracentesis 01/04/2021 and renal function is stable -Continue Lasix and Aldactone -Continue lactulose as above -Continue beta-carol -GI following-appreciate input Failure to thrive -Continue PT OT Chronic macrocytic anemia secondary to liver disease -Counts are stable -Continue to monitor Chronic thrombocytopenia -Secondary to liver disease -Counts are stable -Continue to monitor Hyperbilirubinemia -Appears to be chronically elevated -Related to his chronic liver disease -GI consulted Hypertension -Continue lisinopril -Continue atenolol Depression -Continue paroxetine 40 mg daily DVT prophylaxis -SCDs while in bed Disposition--> home versus a facility depending on decisions made by family and patient today--> discharge likely tomorrow -Overall prognosis is poor as I do not anticipate the patient will be able to stop drinking without assistance and he is refusing any type of alcohol rehab or programming at this point--> I discussed with him that his continued drinking will likely result in and he voices understanding(mother is at the bedside for this conversation) Charges/Coding Visit Charges Inpatient E&M: 25619 Subs Hosp L2
[2021-01-06 03:42] VITALS: BP 88/58; PULSE 71; RESP 18; TEMP 36.4; O2SAT 99
[2021-01-06 05:45] LABS: Absolute Lymphocyte Count 1.16 X10^3/uL (0.83-4.51); Absolute Neutrophil Count 2.8 X10^3/uL (2.0-7.7); Basophil# 0.02 X10^3/uL; Basophil% 0.4 % (0-1); Eosinophil# 0.15 X10^3/uL; Hematocrit 34.3 % (40-54); Hemoglobin 11.8 g/dL (13.0-16.5); Lymphocyte # 1.16 X10^3/ul (0.83-4.51); Lymphocyte % 23.5 % (19-41); Mean Corp Hgb Conc 34.4 g/dL (32-36); Mean Corpuscular Hgb 35.9 pg (27.0-32.0); Mean Corpuscular Volume 104.3 fL (80-94); Mean Platelet Vol. 10.1 fl (6.2-12.0); Monocyte# 0.78 X10^3/uL; Monocyte% 15.8 % (0-10); NRBC Flagged by Analyzer 0 % (0-5); Neutrophil # 2.82 X10^3/uL (2.7-7.7); Neutrophil % 57.1 % (47-70); POSITIVE COUNT YES; Platelet Count 80 K/mm3 (150-450); RBC Distribution Width CV 14.1 % (11.6-14.6); RBC Distribution Width SD 54.8 fl (35.1-43.9); Red Blood Count 3.29 M/mm3 (4.6-6.2); White Blood Count 4.9 K/mm3 (4.4-11.0)
[2021-01-06 05:57] LABS: Anion Gap 4 (5-15); BUN 14 mg/dL (7-18); BUN/Creat Ratio 29.4 RATIO (10-20); Chloride 112 mmol/L (98-107); Creatinine, Serum 0.48 mg/dL (0.70-1.30); EST Glomerular Filtration Rate 201 mL/min (>60); Est Glom Filt Rate - Afr Amer 243 mL/min (>60); Glucose 96 mg/dL (74-106); Potassium 4.2 mmol/L (3.5-5.1); Sodium Level 138 mmol/L (136-145)
[2021-01-06] MEDS: LORazepam 1 MG Tablet PO (05:59)
[2021-01-06 08:43] VITALS: BP 123/64; PULSE 78; RESP 14; TEMP 36.7; O2SAT 96
[2021-01-06] MEDS: Folic Acid 1 MG Tablet PO (08:54)
[2021-01-06] MEDS: Thiamine Hydrochloride 100 MG Tablet PO (08:55)
[2021-01-06] MEDS: Spironolactone 50 MG Tablet PO (08:55)
[2021-01-06] MEDS: Furosemide 40 MG Tablet PO (08:56)
[2021-01-06] MEDS: Lactulose 20 GM/30 ML UDC PO (08:56)
[2021-01-06] MEDS: rifAXIMin 550 MG Tablet PO (08:57)
[2021-01-06] MEDS: Atenolol 50 MG Tablet PO (08:57)
[2021-01-06] MEDS: Paroxetine 20 MG Tablet 40 MG PO (08:57)
--- NOTE | 2021-01-06 09:57 | CASEMGMT ---
DAVID MARTIN called imagining services here at [facility] for outpatient paracentesis appts. Patient is scheduled for outpatient paracentesis on 01/13/21 @ 1230, 01/19/21 @ 1000, and 01/25/21 @1230. DAVID MARTIN updated discharge plan and included appts.
--- NOTE | 2021-01-06 10:58 | CASEMGMT ---
Social Work SW met with pt and with his mother Caroline to discuss discharge plans. SW presented options of [facility] vs. home. Pt is frustrated with SW, angry over information that has been provided by physician and nursing that pt is hospice appropriate if he does not want to comply with medical directives as he will not get better. SW spoke with pt regarding hospice vs palliative options and pt goals of care. Pt not making eye contact with SW and only answering questions when prodded. Pts mother states pt cannot go to his nieces home upon discharge as there is alcohol and drinking there, but pt can come to her home. there is no first floor bathroom, pt and mother agreeable to order 3 in 1 commode and wheeled walker and would like to use [employer]. SW spoke about [facility] services and pt and mother agreeable to have a sales representative livestock from [facility] meet with them at home to discuss palliative vs hospice options. SW explained home health services and provided a list of home health companies including quality and resource use data. Pt is agreeable to home health SN/PT/OT and mother states preferred provider is the one with the most stars. Pt and mother informed paracentesis appointments have been made and will be listed on discharge instructions. Phone call to [facility] and 3 in 1 commode and walker referral made with request to deliver to mother's home. Orders faxed to [email or web address]. VIVIENNE spoke with KAYLEE Rosado with [facility] and discussed pt. She will ask office staff to reach out to pt mother to make an appointment to meet later this afternoon. ARNEL Bass updated on pt wish for home health and requested services arranged. Phone call to [facility] and referral cancelled. Plan: Home with mother, home health referral and palliative referral YASMINE Huggins
--- NOTE | 2021-01-06 12:08 | PCM.DC.SUM ---
Providers Date of Admission: 01/01/21 Primary Care Physician: Dr. Ha Friend, DO Consultations 01/03/21 15:25 Consult: Gastroenterology Routine Consulting Provider: [facility] Reason for Consult: encephlopathy/Cirrhosis EMERGENT Consult: No MD Notified: Yes Date Notified: 01/03/21 Time Notified: 18:51 Method of Notification: Text Reason For Visit: ENCEPHALOPATHY Diagnosis Discharge Diagnosis (1) Encephalopathy, metabolic: Status: Acute Code(s): G93.41 - Metabolic encephalopathy (2) Adult failure to thrive: Status: Acute Code(s): R62.7 - Adult failure to thrive (3) Alcoholic liver disease: Status: Chronic Code(s): K70.9 - Alcoholic liver disease, unspecified (4) Ascites: Status: Acute Code(s): R18.8 - Other ascites Qualifiers: Ascites type: due to alcoholic cirrhosis Qualified Code(s): K70.31 - Alcoholic cirrhosis of liver with ascites (5) Hyperammonemia: Status: Acute Code(s): E72.20 - Disorder of urea cycle metabolism, unspecified Medications at Discharge Home Medications atenolol 50 mg PO DAILY 07/30/14 lisinopril 20 mg PO DAILY 07/30/14 paroxetine HCl [Paxil] 40 mg PO DAILY 07/30/14 cyclobenzaprine 5 mg PO TID 12/29/20 furosemide 40 mg PO DAILY #30 tab 12/31/20 spironolactone 50 mg PO DAILY #30 tab 12/31/20 lactulose 20 g PO TID #1500 ml 01/01/21 rifaximin [Xifaxan] 550 mg PO BID #60 tab 01/06/21 Hospital Course Operations None Procedures Paracentesis Summary of Care Provided Minutes Spent on Discharge: 41 Hospital Course: Mr. Tobar is a 45-year-old white male who presented to the emergency department at [facility] on 01/01/2021 with increased confusion. The patient had been discharged earlier that day after neuro hospitalization for alcoholic induced liver disease. Upon returning home after that admission he was found to be more confused and the family reached out to his primary care doctor as well as the video systems engineer and they advised him to come the emergency department. Upon presentation and ammonia level was obtained and it was only found to be 20. And the patient was too confused to provide any history at that time. The patient's last drink prior to presentation was 12/28/2020. Placing him at 5 days since his last drink upon presentation. Initially there was some concern that he might be going through alcohol withdrawal and he was placed on an Ativan taper given his liver disease and phenobarbital was not used for this reason. He was maintained on his home lactulose, Lasix, and Aldactone throughout his course. His confusion seem to worsen and we did find that his lactulose had been held secondary to diarrhea. A repeat ammonia level was obtained and found to be elevated at 81. His lactulose was reinitiated with instructions not to hold for diarrhea and increase to 4 times daily. The patient has indicated multiple times that he does not like the way it tastes and we discussed the ramifications of not regularly taking his lactulose prior to discharge. He states he will try to be compliant. By the day of discharge 01/06/2021 the patient's mentation and function was back to his baseline. We did recommend skilled placement at discharge given his instability and his medical issues but he refused placement. I did discuss with him that my concerns were that he would return to the hospital very shortly after being discharged if he was discharged home and not to a facility but he felt he had everything under control and wanted to go home. He is going to be discharged home to live with his mother. Prescriptions for a walker and a bedside commode were given. We also started him on rifaximin during his hospitalization and if it is affordable he is to initiate this at home. Again, we discussed the very very important role of his lactulose and maintaining normal mentation. We did mention hospice to him and he was dismissive of that at this time and wanted to proceed with the current plan. We had multiple discussions with regards to his alcohol intake and he denied the need for any evaluation by addiction medicine and states that he will quit and plans on drinking no further. I am hesitant to believe this as his support system seems to be somewhat lacking and his interest seems to be somewhat lacking as well. He was discharged with normal mentation and in stable condition on 01/06/2021. He is set up for periodic paracentesis on a weekly basis. He was to have a paracentesis on 01/04/2021 as an outpatient but given the fact that he was here as an inpatient it was performed while he was in the hospital. Approximately 9 L was removed and he was repleted with albumin at 8 g/L removal. He was also evaluated by GI during his course and outpatient follow-up will be pursued after discharge. He is at high risk for readmission. Discharge diagnoses: Hepatic encephalopathy Hyperammonemia Alcoholic liver cirrhosis Chronic ascites Failure to thrive Chronic macrocytic anemia secondary to liver disease Chronic thrombocytopenia secondary to liver disease Hyperbilirubinemia Hypertension Depression Alcohol abuse Tobacco abuse Physical Exam Const alert, oriented x3 and no apparent distress Constitutional Narrative: Overweight white male lying in bed but awakens easily, appears comfortable, nontoxic, alert and oriented x3 General Appearance: cooperative, comfortable, well kempt and well developed Orientation / Consciousness: awake and confused Exam Limitations: no limitations Nutritional Appearance: overweight HEENT normocephalic, head/scalp atraumatic, hearing grossly normal bilaterally, moist oral mucous membranes and oropharynx normal HEENT Narrative: Dentition is fair, Mallampati is 2 Eyes PERRL, EOMs intact bilaterally and conjunctivae normal Eyes Narrative: Slight scleral icterus Neck no lymphadenopathy, supple and no JVD Neck Narrative: Trachea midline, no thyroid enlargement Resp normal respiratory effort, no retractions, no use of accessory muscles and clear to auscultation bilaterally Resp Narrative: Diminished at bilateral bases but no adventitious sounds Auscultation: Negative for crackles, rales, rhonchi or wheezes Cardio regular rate, regular rhythm, S1 normal heart sound, S2 normal heart sound, no murmurs, no rub, no gallops, no clicks and no JVD GI soft to palpation, non-tender and non-distended GI Narrative: ascites with positive fluid wave-improved since admission with paracentesis being performed during hospitalization Extremity Extremity Narrative: Bilateral lower extremity edema-trace to 1+, no cyanosis or clubbing Skin no wounds, skin turgor normal, no petechiae and no mottling Skin Narrative: Mild jaundice, scattered telangiectasias Neuro oriented x3, CN's II-XII intact bilaterally, moves all extremities and no focal motor deficits Neuro Narrative: No asterixis, alertness and attentiveness has improved and patient with appropriate conversation Sensorium / Orientation: awake and alert Speech: speech normal Psych affect normal Psych Narrative: Affect is flat and mood seems depressed Weight / BMI Weight Weight: 94.886 kg Body Mass Index (BMI) 30.9 ABG / Lab / Microbiology Data Result Diagrams: 01/06/21 05:30 01/06/21 05:30 Laboratory: Laboratory Results - last 24 hr 01/06/21 05:30: WBC 4.9, RBC 3.29 L, Hgb 11.8 L, Hct 34.3 L, MCV 104.3 H, MCH 35.9 H, MCHC 34.4, RDW Std Deviation 54.8 H, RDW Coeff of Andrei 14.1, Plt Count 80 L, MPV 10.1, Immature Gran % (Auto) 0.200, Neut % (Auto) 57.1, Lymph % (Auto) 23.5, [place] % (Auto) 15.8 H, Eos % (Auto) 3.0, Baso % (Auto) 0.4, Absolute Neuts (auto) 2.8, Absolute Lymphs (auto) 1.16, Nucleated RBC % 0 01/06/21 05:30: Sodium 138, Potassium 4.2, Chloride 112 H, Carbon Dioxide 22.0, Anion Gap 4 L, BUN 14, Creatinine 0.48 L, Estim Creat Clear Calc 192.30, Est GFR (MDRD) Af Amer 243, Est GFR (MDRD) Non-Af 201, BUN/Creatinine Ratio 29.4 H, Glucose 96, Calcium 8.0 L D/C Instructions Discharge Diet: 8 Cup Fluid Restriction and 2000 mg Sodium Diet Discharge Activity: Return to Normal Activity Meaningful Use Info Meaningful Use Diagnoses (Choose all that apply): None applicable Discharge Plan Admission Admit Date/Time: 01/01/21 22:22 Primary Reason for Your Visit: Hepatic encephalopathy Attending Provider: Fany Nelson Primary Care Provider: Leland Back Discharge Orders/Prescriptions Prescriptions: New Xifaxan 550 mg Tablet 550 mg PO BID Qty: 60 RF: 0 Continued lisinopril 20 MG tablet 20 mg PO DAILY RF: 0 paroxetine HCl [Paxil] 40 MG tablet 40 mg PO DAILY RF: 0 atenolol 50 MG tablet 50 mg PO DAILY RF: 0 cyclobenzaprine 5 mg Tablet 5 mg PO TID RF: 0 furosemide 40 mg tablet 40 mg PO DAILY Qty: 30 RF: 1 spironolactone 50 mg tablet 50 mg PO DAILY Qty: 30 RF: 1 lactulose 20 gram/30 mL solution 20 g PO TID Qty: 1500 RF: 1 Referrals / Follow Up: Outpatient Radiology at [facility] [Other] - 01/13/21 12:30 pm (Paracentesis) Outpatient Radiology at [facility] [Other] - 01/19/21 10:00 am (Paracentesis) Outpatient Radiology [Other] - 01/25/21 12:30 pm (Paracentesis) Friend,DO Leland [Primary Care Provider] - Within 2 Weeks Disposition Disposition (needs filled in before D/C Order can be placed): Home, Self Care Charges/Coding Visit Charges Inpatient E&M: 23323 Disch Hosp
[2021-01-06 12:10] VITALS: BP 123/64; PULSE 78; RESP 14; TEMP 36.7; O2SAT 96
--- NOTE | 2021-01-06 12:15 | CASEMGMT ---
DAVID MARTIN updated that patient and mother would like [facility]. Referrals made to [facility], [facility], [facility], [facility], [facility], and [facility] and they were not able to accept patient due to either not taking insurance or no staffing. Referral sent to [facility] and they are reviewing referral. CM will continue to work on setting up C for patient.
--- NOTE | 2021-01-06 15:04 | CASEMGMT ---
Addendum entered by Shelia Duarte 01/07/21 09:09: Received message from [facility] and they are not able to accept the patient. RN CM called [facility] and they could possibly take patient but only for usp. RN CM sent referral to [facility] awaiting call back for acceptance. CM will continue to follow this patient and plan for a safe discharge. Addendum entered by Shelia Duarte 01/06/21 15:07: RN MARIO received call back that [facility] is unable to accept patient due to staffing. RN CM called [facility] and they do not service the patient's area. RN MARIO called [facility] again to inquire when they might have an opening for patient, awaiting call back. Original Note: RN CM called and left message with [facility] to inquire if they are able to accept the patient. CM will continue to setup HHC for patient.
--- NOTE | 2021-01-07 19:06 | CASEMGMT ---
DAVID MARTIN NOTE: Discharge Date: 01/06/21 Adm Dx: Encephalopathy TC received from pt's mom, Caroline, stating she has not been able to pepper picker new prescription for rifaximin d/t prior auth is required. TC to [facility] department @ and spoke w/Jocelin. PA received for rifaximin. Jocelin states it will be approved for one month and then provider will need to f/u for further authorization. Jocelin provided w/Dr Ojeda and Dr Back contact info. PA #: [id number]. TC placed to [facility] pharmacy and notified PA received. She ran medication again and confirmed it went through and states she will fill script now and it will be ready any time for pepper picker. TC placed back to pt's mom, Caroline. She was notified PA obtained and medication will be ready for pepper picker now. She voices appreciation. Caroline states she has not received a call from Palliative yet and was inquiring when she may hear from them. TC placed to Ruma @ [facility] and she was made aware pt is home and mom inquiring about them. She states she will contact Caroline this evening. Caroline states BSC from [employer] was delivered yesterday but Walker has not arrived yet. She states thinks it will still be coming today. Caroline provided w/Sandip's contact info. Caroline denies having any questions about the discharge instructions. She is aware of the next 3 scheduled paracentesis. She has not made f/u appts w/Dr Back or Dr Ojeda, but she is aware to do so. She denies having questions about the discharge instructions or medications. She states, I think I'm on top of things. She thanked DAVID MARTIN for assistance. Dave BANSAL CM
== END 2021-01-06 12:25 | disposition home or self-care (01) | DRG 280 ==
LOC: ED 22:11 → MS2 23:06
PROVIDERS: Nurse Practitioner Family; Student in an Organized Health Care Education/Training Program; Emergency Provider Emergency Medicine; PCP Internal Medicine Gastroenterology; Visit Provider Internal Medicine
DX: K70.31 Alcoholic cirrhosis of liver with ascites (principal); G93.41 Metabolic encephalopathy; K70.40 Alcoholic hepatic failure without coma; K70.11 Alcoholic hepatitis with ascites; Y90.9 Presence of alcohol in blood, level not specified; F10.231 Alcohol dependence with withdrawal delirium; E87.6 Hypokalemia; F32.A Depression, unspecified; F41.9 Anxiety disorder, unspecified; E72.20 Disorder of urea cycle metabolism, unspecified; D69.59 Other secondary thrombocytopenia; I10 Essential (primary) hypertension; D53.9 Nutritional anemia, unspecified; E88.09 Other disorders of plasma-protein metabolism, not elsewhere classified; E66.3 Overweight; R62.7 Adult failure to thrive; Z68.34 Body mass index [BMI] 34.0-34.9, adult; Z79.899 Other long term (current) drug therapy; F17.200 Nicotine dependence, unspecified, uncomplicated
CPT/HCPCS: 36415; 36600; 49083; 70450; 71045; 80048; 80053; 81001; 82140; 82803; 82962; 83605; 85025; 97162; 97166; 97530; 97535; 97802; 99285; J7030; P9047; A4216

== ENCOUNTER → 2021-01-04 15:21 | Outpatient (CLI) | payer MEDICAID, SELFPAY | PROVIDERS: PCP Internal Medicine Gastroenterology | DX: K74.60 Unspecified cirrhosis of liver (principal) ==

== ENCOUNTER → 2021-01-13 12:42 | Outpatient (CLI) | payer MEDICAID, SELFPAY ==
--- NOTE | 2021-01-13 12:44 | US_ITS ---
PROCEDURE: Ultrasound guided paracentesis. DATE OF EXAMINATION: 01/13/2021. INDICATION: Male, 45 years old. Ascites. PHYSICIAN: Raciel Wills M.D. TECHNIQUE: The risks, benefits, and alternatives to the procedure were explained to the patient. The specific risks of bleeding, infection, and damage to bowel were detailed and accepted. Witnessed informed consent was obtained. The abdomen was ultrasonographically surveyed. An appropriate pocket of fluid was identified at the right lower quadrant. The skin were cleaned and prepped in the usual sterile fashion. Using ultrasound guidance, the peritoneal cavity was accessed with a 5-Vietnamese paracentesis needle/catheter system. The trocar was removed. A total of 5450 ml of casie-colored fluid were removed from the peritoneal cavity. The catheter was removed and a sterile dressing was applied. The procedure was well tolerated. US/Paracentesis with US IMPRESSION: Ultrasound guided paracentesis. Electronically Signed: Raciel Wills MD at 14:02 EST , Service support ,
[2021-01-13] MEDS: Lidocaine 2% (20 ml mdv) 20 ML Vial INFILT (12:50)
[2021-01-13 12:55] VITALS: BP 104/58; BP 92/50; BP 96/49; PULSE 70; PULSE 81; PULSE 83; PULSE 84; RESP 16; RESP 18; O2SAT 100; O2SAT 99
[2021-01-13 13:41] VITALS: BP 97/51; PULSE 72; RESP 16; TEMP 35.9; O2SAT 100
[2021-01-13] MEDS: Albumin Human 25% (100 mL) 25 GM/100 ML BAG IV (14:06)
[2021-01-13] MEDS: Albumin Human 25% (50 mL) 12.5 GM/50 ML IV.SOLN IV (15:29)
[2021-01-13 16:27] VITALS: BP 109/45; PULSE 68; RESP 16; TEMP 36.3
== END ==
PROVIDERS: PCP Internal Medicine Gastroenterology; Referring Provider Internal Medicine Gastroenterology; Visit Provider Internal Medicine Gastroenterology
DX: K74.60 Unspecified cirrhosis of liver (principal)
CPT/HCPCS: 96365; 96366 ×2; 49083; P9047

== ENCOUNTER → 2021-01-19 09:58 | Outpatient (CLI) | payer MEDICAID, SELFPAY ==
--- NOTE | 2021-01-19 10:02 | US_ITS ---
PROCEDURE: Ultrasound guided paracentesis. DATE OF EXAMINATION: 01/13/2021. INDICATION: Male, 45 years old. Ascites. PHYSICIAN: Zeke Valencia DO TECHNIQUE: The risks, benefits, and alternatives to the procedure were explained to the patient. The specific risks of bleeding, infection, and damage to bowel were detailed and accepted. Witnessed informed consent was obtained. The abdomen was ultrasonographically surveyed. An appropriate pocket of fluid was identified at the right lower quadrant. The skin were cleaned and prepped in the usual sterile fashion. Using ultrasound guidance, the peritoneal cavity was accessed with a 5-Peruvian paracentesis needle/catheter system. The trocar was removed. A total of 1800 ml of clear yellow ascites fluid were removed from the peritoneal cavity. The catheter was removed and a sterile dressing was applied. The procedure was well tolerated. US/Paracentesis with US IMPRESSION: Ultrasound guided paracentesis with removal of 1800 cc of clear yellow ascites fluid. Electronically Signed: Zeke Valencia MD at 12:25 EST Tel , Service support ,
[2021-01-19 10:10] VITALS: BP 109/60; BP 124/72; PULSE 71; PULSE 75; PULSE 76; RESP 16; O2SAT 97; O2SAT 98; O2SAT 99
[2021-01-19] MEDS: Lidocaine 2% (20 ml mdv) 20 ML Vial INFILT (10:15)
== END ==
PROVIDERS: PCP Internal Medicine Gastroenterology; Referring Provider Internal Medicine Gastroenterology; Visit Provider Internal Medicine Gastroenterology
DX: K74.60 Unspecified cirrhosis of liver (principal)
CPT/HCPCS: 49083; A4216

== ENCOUNTER → 2021-01-25 12:32 | Outpatient (CLI) | payer MEDICAID, SELFPAY ==
--- NOTE | 2021-01-25 12:37 | US_ITS ---
PROCEDURE: Ultrasound guided paracentesis. DATE OF EXAMINATION: 01/25/2021.. INDICATION: Male, 45 years old. Ascites. PHYSICIAN: Raciel Wills M.D. TECHNIQUE: The risks, benefits, and alternatives to the procedure were explained to the patient. The specific risks of bleeding, infection, and damage to bowel were detailed and accepted. Witnessed informed consent was obtained. The abdomen was ultrasonographically surveyed. An appropriate pocket of fluid was identified at the right lower quadrant. The skin were cleaned and prepped in the usual sterile fashion. Using ultrasound guidance, the peritoneal cavity was accessed with a 5-Upper Sor[place] paracentesis needle/catheter system. The trocar was removed. A total of 4000 ml of casie-colored fluid were removed from the peritoneal cavity. The catheter was removed and a sterile dressing was applied. The procedure was well tolerated. US/Paracentesis with US IMPRESSION: Ultrasound guided paracentesis. Electronically Signed: Raciel Wills MD at 13:33 EST , Service support ,
[2021-01-25 12:41] VITALS: BP 102/54; BP 106/59; BP 89/56; PULSE 79; PULSE 83; PULSE 84; RESP 16; TEMP 36.6; O2SAT 100
[2021-01-25] MEDS: Lidocaine 2% (20 ml mdv) 20 ML Vial INFILT (12:45)
== END ==
PROVIDERS: PCP Internal Medicine Gastroenterology; Referring Provider Internal Medicine Gastroenterology; Visit Provider Internal Medicine Gastroenterology
DX: K74.60 Unspecified cirrhosis of liver (principal)
CPT/HCPCS: 49083

== ENCOUNTER 2021-02-01 19:52 | Emergency (ER) | payer MEDICAID, SELFPAY ==
[2021-02-01 19:57] VITALS: BP 88/54; PULSE 83; RESP 15; TEMP 36.4; O2SAT 100; BMI 27.1
[2021-02-01 20:01] VITALS: BP 88/54; PULSE 83; RESP 15; TEMP 36.4; O2SAT 100
--- NOTE | 2021-02-01 20:05 | RAD_ITS ---
STUDY: X-RAY CHEST REASON FOR EXAM: Male, 45 years old. SOB TECHNIQUE: Frontal view COMPARISON: None. FINDINGS: The lungs are expanded. Bilateral basilar infiltrates are noted. Normal size heart. Normal mediastinum and arturo. Normal visualized pulmonary arteries. Normal visualized aortic arch and descending thoracic aorta. Normal visualized thoracic spine. Normal visualized ribs, clavicles, and shoulders. There is no demonstrated abnormality of the visualized soft tissue structures of the upper abdomen. RAD/Chest 1 View IMPRESSION: Bilateral basilar infiltrates. Electronically Signed: Ronnie Maya DO at 20:44 EST Tel [phone], Service support ,
[2021-02-01 21:01] VITALS: BP 88/55; PULSE 67
[2021-02-01 21:35] LABS: Basophil# 0.04 X10^3/uL; Basophil% 0.5 % (0-1); Eosinophil# 0.29 X10^3/uL; Eosinophils% 3.3 % (0-5); Hematocrit 30.7 % (40-54); Hemoglobin 10.7 g/dL (13.0-16.5); Lymphocyte % 16.1 % (19-41); Mean Corp Hgb Conc 34.9 g/dL (32-36); Mean Corpuscular Hgb 36.9 pg (27.0-32.0); Mean Corpuscular Volume 105.9 fL (80-94); Mean Platelet Vol. 9.7 fl (6.2-12.0); Monocyte# 0.98 X10^3/uL; Monocyte% 11.3 % (0-10); NRBC Flagged by Analyzer 0 % (0-5); Neutrophil # 5.96 X10^3/uL (2.7-7.7); Neutrophil % 68.5 % (47-70); POSITIVE COUNT YES; Platelet Count 89 K/mm3 (150-450); RBC Distribution Width CV 15.7 % (11.6-14.6); RBC Distribution Width SD 60.4 fl (35.1-43.9); White Blood Count 8.7 K/mm3 (4.4-11.0)
[2021-02-01 21:36] LABS: Differential Indicated SCAN CRITERIA MET
[2021-02-01 21:52] LABS: ALB/GLOB Ratio 0.4 RATIO (0.9-2.4); AST(SGOT) 35 U/L (15-37); Alanine Aminotransfer ALT/SGPT 18 U/L (16-61); Albumin, Serum 1.9 g/dL (3.2-5.0); Alkaline Phosphatase 197 U/L (45-117); Anion Gap 5 (5-15); BUN 12 mg/dL (7-18); BUN/Creat Ratio 16.7 RATIO (10-20); Calcium,Total 8.2 mg/dL (8.5-10.1); Chloride 103 mmol/L (98-107); Creatinine, Serum 0.72 mg/dL (0.70-1.30); EST Glomerular Filtration Rate 125 mL/min (>60); Est Glom Filt Rate - Afr Amer 151 mL/min (>60); Estimated Creatinine Clearance 132.37 ml/min; Globulin 5.1 g/dL (2.2-4.2); Glucose 114 mg/dL (74-106); Potassium 3.4 mmol/L (3.5-5.1); Sodium Level 136 mmol/L (136-145)
--- NOTE | 2021-02-01 21:55 | EX.ED.DYSGE1 ---
HPI History of Present Illness Chief Complaint: Weakness Informant: patient Onset/Context/Timing Onset: Days (3 days) Context: Gradual Onset Narrative Narrative: Patient presents secondary to weakness and lightheadedness over the past 3 days, much worse today. He states his blood pressure was low tonight. They called Dr. Back, his GI doctor who requested he come in for evaluation to ensure he does not have infection or is bleeding internally. Patient has a history of cirrhosis and undergoes paracentesis approximately every 10 days. His last tap was on January 19. He does report chills but no fever. He denies chest pain or shortness of breath. He reports some abdominal pain but nothing out of the ordinary for him. [facility] Medical History Alcohol abuse Alcoholic liver disease Anasarca Anxiety Ascites Cirrhosis of liver Cirrhosis, alcoholic Depression HTN (hypertension) Irregular heart beat Liver disease Smoker Substance abuse Thrombocytopenia Home Medications atenolol 50 mg PO DAILY 07/30/14 [History Last Taken Unknown] lisinopril 20 mg PO DAILY 07/30/14 [History Last Taken Unknown] paroxetine HCl [Paxil] 40 mg PO DAILY 07/30/14 [History Last Taken Unknown] cyclobenzaprine 5 mg PO TID 12/29/20 [History Last Taken Unknown] furosemide 40 mg PO DAILY #30 tab 12/31/20 [Rx Last Taken Unknown] spironolactone 50 mg PO DAILY #30 tab 12/31/20 [Rx Last Taken Unknown] lactulose 20 g PO TID #1500 ml 01/01/21 [Rx Last Taken Unknown] rifaximin [Xifaxan] 550 mg PO BID #60 tab 01/06/21 [Rx Last Taken Unknown] furosemide 40 mg tablet 40 mg PO BID #60 tab 01/13/21 [Rx Last Taken Unknown] spironolactone 50 mg tablet 50 mg PO BID #60 tab 01/13/21 [Rx Last Taken Unknown] midodrine 5 mg tablet See Rx Instructions .ROUTE .COMPLEX #90 tab 01/26/21 [Rx Last Taken Unknown] Allergy/AdvReac Type Severity Reaction Status Date / Time Sulfa (Sulfonamide Allergy Unknown Verified 01/01/21 19:50 Antibiotics) Social History Smoking Status: Heavy Smoker (>10/day) alcohol intake: former details: Patient states has not had a drink in 3 days substance use type: amphetamines ROS ROS ED Constitutional Constitutional ED: Reports chills; Denies fever(s) Eyes Eyes: Denies change in vision ENT ENT ED: Denies sore throat Cardiovascular Cardiovascular: Denies chest pain Respiratory/Chest Respiratory/Chest: Denies cough or dyspnea Gastrointestinal Gastrointestinal: Reports abdominal pain; Denies diarrhea, nausea or vomiting Genitourinary Genitourinary ED: Denies dysuria Musculoskeletal Musculoskeletal: Denies back pain Integumentary Denies rash Neurologic Neurologic: Reports weakness; Denies headache(s) Allergic/Immunologic Allergic/Immunologic ED: Denies urticaria EXAM Physical Exam Const Vital Signs: 02/01/21 19:57 02/01/21 20:01 02/01/21 21:01 Temperature 97.6 F L 97.6 F L Temperature Source Temporal Temporal Pulse Rate 83 83 Pulse Rate [Lying] 67 Pulse Rate [Sitting] Pulse Rate [Standing] Respiratory Rate 15 15 Respiratory Effort Respiratory Pattern Blood Pressure 88/54 L 88/54 L Blood Pressure [Lying] 88/55 L Blood Pressure [Sitting] Blood Pressure [Standing] Blood Pressure Mean 65 65 Blood Pressure Mean [Lying] 66 Blood Pressure Mean [Sitting] Blood Pressure Mean [Standing] Pulse Ox 100 100 Oxygen Delivery Method Room Air Room Air 02/01/21 21:31 02/02/21 00:00 02/02/21 00:21 Temperature Temperature Source Pulse Rate 70 Pulse Rate [Lying] 67 Pulse Rate [Sitting] 69 Pulse Rate [Standing] 72 Respiratory Rate 16 Respiratory Effort Normal Non-Labored Respiratory Pattern Normal Blood Pressure 100/60 Blood Pressure [Lying] 88/55 L Blood Pressure [Sitting] 92/60 Blood Pressure [Standing] 83/60 L Blood Pressure Mean 73 Blood Pressure Mean [Lying] 66 Blood Pressure Mean [Sitting] 70 Blood Pressure Mean [Standing] 67 Pulse Ox 98 Oxygen Delivery Method Room Air Positive well nourished and well developed General Appearance ED: well developed HEENT Reports normocephalic and head/scalp atraumatic Eyes PERRL and EOMs intact bilaterally Neck supple Chest Wall inspection of chest normal and palpation of chest normal Resp normal respiratory effort and clear to auscultation bilaterally Cardio regular rate and regular rhythm Heart Sounds: murmur GI non-tender Auscultation: hypoactive bowel sounds Palpation: soft Extremity normal to inspection Neuro oriented x3 Neuro Narrative: No focal neurologic deficits. Sensorium / Orientation: alert Psych mental status grossly normal Skin no rashes or lesions noted MDM MDM MDM Narrative Medical decision making narrative: Lab work obtained. Patient given a liter IV fluids. Lab Data Labs: Laboratory Results - last 24 hr 02/01/21 02/01/21 02/01/21 21:25 21:25 21:50 WBC 8.7 RBC 2.90 L Hgb 10.7 L Hct 30.7 L MCV 105.9 H MCH 36.9 H MCHC 34.9 RDW Std Deviation 60.4 H RDW Coeff of Andrei 15.7 H Plt Count 89 L MPV 9.7 Immature Gran % (Auto) 0.300 Neut % (Auto) 68.5 Lymph % (Auto) 16.1 L [place] % (Auto) 11.3 H Eos % (Auto) 3.3 Baso % (Auto) 0.5 Absolute Neuts (auto) 6.0 Absolute Lymphs (auto) 1.40 Nucleated RBC % 0 Differential Comment SCANNED PT 21.0 H INR 1.9 APTT 37.4 H Sodium 136 Potassium 3.4 L Chloride 103 Carbon Dioxide 28.0 Anion Gap 5 BUN 12 Creatinine 0.72 Estim Creat Clear Calc 132.37 Est GFR (MDRD) Af Amer 151 Est GFR (MDRD) Non-Af 125 BUN/Creatinine Ratio 16.7 Glucose 114 H Calcium 8.2 L Total Bilirubin 4.00 H AST 35 ALT 18 Alkaline Phosphatase 197 H Total Protein 7.0 Albumin 1.9 L Globulin 5.1 H Albumin/Globulin Ratio 0.4 L Radiography Chest X-Ray - ED: 1 View, Read by ED Physician and Chronic Changes Diagnostic Testing: Clinical Impression(s) from Imaging Studies Chest X-Ray 02/01/21 20:05 IMPRESSION: Bilateral basilar infiltrates. Electronically Signed: Ronnie aMya DO at 20:44 EST Tel [phone], Service support , Abdomen/Pelvis CT 02/01/21 22:57 IMPRESSION: Cirrhosis. Splenomegaly. Significant ascites. Bilateral inguinal hernias containing fluid. Small containing ventral hernia. Small left renal cyst. Mild small bowel ileus. Electronically Signed: Ronnie Maya DO at 23:39 EST Tel [phone], Service support , Treatment and Re-Evaluation Comments:: After 1 L IV fluids blood pressure still in the upper 80s systolic. Second liter of IV fluid given. Patient sent for CT abdomen pelvis. This does reveal cirrhosis with ascites. No acute findings. No evidence of bleed. At this time patient has had 2 L of IV fluid. Orthostatic vital signs did show a slight drop in blood pressure, but heart rate did not significant change. When I discussed this with the patient he stated he did not have significant symptoms. We did review his medication list. He was recently started on midodrine, 5 mg 3 times daily. He did not take his evening dose tonight. I will give him 10 mg p.o. now. Patient is also currently on 50 mg of atenolol. I asked him to cut this in half and keep track of his blood pressures at home. I do want him to stay on his furosemide and spironolactone. Although lisinopril is on his medication list he states he stopped this several weeks ago. Return instructions are provided. Patient is to follow-up closely with his primary care physician as well as his GI doctor. Discharge Plan Triage Chief Complaint: Weakness ED Provider: Ruma Gates Dx/Rx/DC Orders Clinical Impression: Hypotension Instructions: ED Low Blood Pressure, All Causes Prescriptions: No Action spironolactone 50 mg tablet 50 mg PO BID Qty: 60 RF: 0 furosemide 40 mg tablet 40 mg PO BID Qty: 60 RF: 0 lisinopril 20 MG tablet 20 mg PO DAILY RF: 0 paroxetine HCl [Paxil] 40 MG tablet 40 mg PO DAILY RF: 0 atenolol 50 MG tablet 50 mg PO DAILY RF: 0 cyclobenzaprine 5 mg Tablet 5 mg PO TID RF: 0 furosemide 40 mg tablet 40 mg PO DAILY Qty: 30 RF: 1 spironolactone 50 mg tablet 50 mg PO DAILY Qty: 30 RF: 1 lactulose 20 gram/30 mL solution 20 g PO TID Qty: 1500 RF: 1 Xifaxan 550 mg Tablet 550 mg PO BID Qty: 60 RF: 0 midodrine 5 mg tablet See Rx Instructions .ROUTE .COMPLEX Qty: 90 RF: 3 Primary Care Provider: Elio Ojeda Referrals: Elio Ojeda MD [Primary Care Provider] - 1 Week if not improving Activity Restrictions/Additional Instructions: As discussed, please be sure to take your midodrine 3 times a day. Please cut your atenolol dose in half to 25 mg daily. Keep track of your blood pressures at home and follow-up with your physician within 1 week. Disposition Disposition: Home, Self Care
[2021-02-01 22:09] LABS: Differential Comment SCANNED
[2021-02-01 22:12] LABS: International Normalized Ratio 1.9; Partial Thromboplast Time 37.4 Seconds (24.1-36.2)
--- NOTE | 2021-02-01 22:57 | CT_ITS ---
STUDY: CT ABDOMEN AND PELVIS WITH CONTRAST REASON FOR EXAM: Male, 45 years old. Abd pain RADIATION DOSAGE (If Supplied By Facility): CTDIvol = ( 17.22 ) mGy, DLP = ( 1274.37 ) mGycm TECHNIQUE: Transaxial images were obtained from the dome of the diaphragm to the symphysis pubis without oral contrast. IV 100mL Isovue-300 was administered. Sagittal and coronal images were reconstructed. Individualized dose optimization techniques were used for this CT. COMPARISON: 12/29/2020. FINDINGS: The visualized lung bases are unremarkable. The visualized portions of the heart are within normal limits. Cirrhotic changes of the liver. Normal gallbladder and extrahepatic biliary system. Enlarged spleen. Normal pancreas. Significant ascites with mesenteric thickening. Normal bilateral adrenal glands. Normal right kidney. 1.8 cm lower pole cyst in the left kidney. Normal visualized stomach. Ileus of the small intestine. Normal colon. The appendix is visualized and appears normal. Normal abdominal aorta. Normal inferior vena cava. Normal retroperitoneum. Normal urinary bladder. Bilateral inguinal hernias containing fluid. Small fluid containing ventral hernia. Normal osseous structures. CT/Abdomen/Pelvis W IV Cont ONLY IMPRESSION: Cirrhosis. Splenomegaly. Significant ascites. Bilateral inguinal hernias containing fluid. Small containing ventral hernia. Small left renal cyst. Mild small bowel ileus. Electronically Signed: Ronnie Maya DO at 23:39 EST Tel [phone], Service support ,
[2021-02-01] MEDS: 0.9% Normal Saline 1,000 ML 999 ML IV (23:02)
[2021-02-02] VITALS: BP 100/60; PULSE 70; RESP 16; O2SAT 98
[2021-02-02 00:21] VITALS: BP 83/60; BP 88/55; BP 92/60; PULSE 67; PULSE 69; PULSE 72
[2021-02-02 00:43] VITALS: BP 94/57; PULSE 62; RESP 15; O2SAT 97
== END 2021-02-02 00:43 | disposition home or self-care (01) ==
PROVIDERS: Emergency Provider Emergency Medicine; PCP Family Medicine
DX: I95.9 Hypotension, unspecified (principal); K70.31 Alcoholic cirrhosis of liver with ascites; I10 Essential (primary) hypertension; F32.A Depression, unspecified; F41.9 Anxiety disorder, unspecified; Z86.2 Personal history of diseases of the blood and blood-forming organs and certain disorders involving the immune mechanism; Z79.899 Other long term (current) drug therapy; F17.200 Nicotine dependence, unspecified, uncomplicated
CPT/HCPCS: 71045; 74177; 80053; 85025; 85610; 85730; 96360; 96361; 99284; J7030; Q9967; A4216

== ENCOUNTER → 2021-02-04 08:29 | Outpatient (CLI) | payer MEDICAID, SELFPAY ==
--- NOTE | 2021-02-04 08:32 | US_ITS ---
PROCEDURE: Ultrasound guided paracentesis. DATE OF EXAMINATION: 02/04/2021. INDICATION: Male, 45 years old. Ascites. PHYSICIAN: Raciel Wills M.D. TECHNIQUE: The risks, benefits, and alternatives to the procedure were explained to the patient. The specific risks of bleeding, infection, and damage to bowel were detailed and accepted. Witnessed informed consent was obtained. The abdomen was ultrasonographically surveyed. An appropriate pocket of fluid was identified at the right lower quadrant. The skin were cleaned and prepped in the usual sterile fashion. Using ultrasound guidance, the peritoneal cavity was accessed with a 5-Croatian paracentesis needle/catheter system. The trocar was removed. A total of 3750 ml of casie-colored fluid were removed from the peritoneal cavity. The catheter was removed and a sterile dressing was applied. The procedure was well tolerated. US/Paracentesis with US IMPRESSION: Ultrasound guided paracentesis. Electronically Signed: Raciel Wills MD at 9:28 EST , Service support ,
[2021-02-04 08:44] VITALS: BP 111/77; BP 123/73; PULSE 67; PULSE 71; PULSE 72; RESP 18; RESP 20; TEMP 36.5; O2SAT 100; O2SAT 99
[2021-02-04] MEDS: Lidocaine 2% (20 ml mdv) 20 ML Vial INFILT (08:45)
== END ==
PROVIDERS: PCP Family Medicine; Referring Provider Internal Medicine Gastroenterology; Visit Provider Internal Medicine Gastroenterology
DX: K74.60 Unspecified cirrhosis of liver (principal)
CPT/HCPCS: 49083

== ENCOUNTER → 2021-02-16 09:00 | Outpatient (CLI) | payer MEDICAID, SELFPAY ==
--- NOTE | 2021-02-16 09:03 | US_ITS ---
PROCEDURE: Ultrasound guided paracentesis. DATE OF EXAMINATION: 02/16/2021. INDICATION: Male, 45 years old. Ascites. PHYSICIAN: Raciel Wills M.D. TECHNIQUE: The risks, benefits, and alternatives to the procedure were explained to the patient. The specific risks of bleeding, infection, and damage to bowel were detailed and accepted. Witnessed informed consent was obtained. The abdomen was ultrasonographically surveyed. An appropriate pocket of fluid was identified at the right lower quadrant. The skin were cleaned and prepped in the usual sterile fashion. Using ultrasound guidance, the peritoneal cavity was accessed with a 5-Vietnamese paracentesis needle/catheter system. The trocar was removed. A total of 6100 ml of casie-colored fluid were removed from the peritoneal cavity. The catheter was removed and a sterile dressing was applied. The procedure was well tolerated. US/Paracentesis with US IMPRESSION: Ultrasound guided paracentesis. Electronically Signed: Raciel Wills MD at 10:41 EST , Service support ,
[2021-02-16] MEDS: Lidocaine 2% (20 ml mdv) 20 ML Vial (09:15)
[2021-02-16 09:21] VITALS: BP 102/64; BP 106/65; BP 111/64; PULSE 68; PULSE 69; PULSE 77; RESP 16; O2SAT 97; O2SAT 99
[2021-02-16] MEDS: 0.9% Saline Lock 10 ML Syringe IV (09:50)
[2021-02-16] MEDS: Albumin Human 25% (100 mL) 25 GM/100 ML BAG IV ×2 (10:23→11:49)
[2021-02-16 10:25] VITALS: BP 104/64; PULSE 66; RESP 16; TEMP 36.3; O2SAT 100
[2021-02-16 13:43] VITALS: BP 108/55; PULSE 70; RESP 16; O2SAT 100
== END | disposition home or self-care (01) ==
LOC: US 09:02 → MEDOUTP 10:02
PROVIDERS: PCP Family Medicine
DX: K74.60 Unspecified cirrhosis of liver (principal)
CPT/HCPCS: 96365; 96366 ×3; 49083; P9047; A4216

== ENCOUNTER → 2021-02-24 08:21 | Outpatient (CLI) | payer MEDICAID, SELFPAY ==
--- NOTE | 2021-02-24 08:22 | US_ITS ---
PROCEDURE: ULTRASOUND GUIDED PARACENTESIS CLINICAL HISTORY: Male, 45 years old. CIRRHOSIS PHYSICIAN: Ollie Verduzco MD INFORMED CONSENT: The risks, benefits, and alternatives to the procedure were explained to the patient. The specific risks of bleeding, infection, and damage to bowel were detailed and accepted. Witnessed informed consent was obtained. SEDATION: LIDOCAINE 2% local anesthesia. TECHNIQUES: The abdomen was ultrasonographically surveyed. An appropriate pocket of fluid was identified at the right lower quadrant. A timeout for the procedure was called. The skin was cleaned and prepped in the usual sterile fashion. Using ultrasound guidance, the peritoneal cavity was accessed with a 5-Yoruba paracentesis needle/catheter system. The trocar was removed. A total of 3800 ml of straw-colored ascitic fluid was removed from the peritoneal cavity. The catheter was removed and a sterile dressing was applied. The procedure was well tolerated. The patient did receive albumin during the procedure. # of Images: 7 US/Paracentesis with US IMPRESSION: Ultrasound guided paracentesis. Electronically Signed: Leland Verduzco MD at 15:04 EST Tel , Service support ,
[2021-02-24 08:47] VITALS: BP 105/66; BP 108/69; BP 110/66; PULSE 85; PULSE 86; PULSE 96; RESP 16; TEMP 36.6; O2SAT 97; O2SAT 98
[2021-02-24] MEDS: Lidocaine 2% (20 ml mdv) 20 ML Vial INFILT (08:53)
== END ==
PROVIDERS: PCP Family Medicine; Visit Provider Internal Medicine Gastroenterology
DX: K74.60 Unspecified cirrhosis of liver (principal)
CPT/HCPCS: 49083

== ENCOUNTER 2021-03-04 10:27 | Emergency (ER) | payer MEDICAID, SELFPAY ==
[2021-03-04 10:28] VITALS: BP 152/92; PULSE 70; RESP 18; TEMP 35.3; O2SAT 98; BMI 27.4
[2021-03-04 10:39] VITALS: BP 152/92; PULSE 70; RESP 18; TEMP 35.3; O2SAT 98
--- NOTE | 2021-03-04 10:43 | CT_ITS ---
STUDY: CT ABDOMEN AND PELVIS WITH CONTRAST REASON FOR EXAM: Male, 45 years old. Abd pain -- IV PO Contrast. History of cirrhosis. RADIATION DOSAGE (If Supplied By Facility): CTDIvol = ( 13.55 ) mGy, DLP = ( 1409.32 ) mGycm TECHNIQUE: Transaxial images were obtained from the dome of the diaphragm to the symphysis pubis with oral contrast. Oral and amp; IV Gastrografin and amp; 100mL Isovue-300 was administered. Sagittal and coronal images were reconstructed. Individualized dose optimization techniques were used for this CT. COMPARISON: Comparison is made with prior study dated 02/01/2021. FINDINGS: Mild degree of bibasilar atelectasis. Tiny bullous formation in the lower lobes. Coronary artery calcification. There is a diffuse contour abnormality of the liver consistent with cirrhotic changes. Normal gallbladder and extrahepatic biliary system. There is moderate splenomegaly. Normal pancreas. Diffuse ascites. Normal bilateral adrenal glands. Normal right kidney. Normal left kidney. Normal visualized stomach. Normal small intestine. Normal colon. The appendix is visualized and appears normal. There is scattered atherosclerotic calcification of the abdominal aorta, without a demonstrated aneurysm. Normal inferior vena cava. There is borderline retroperitoneal lymphadenopathy with enlarged nodes no greater than 10mm in the short axis diameter. Normal urinary bladder. Large bilateral hydroceles worse on the right side. Normal abdominal wall. Normal osseous structures. CT/Abdomen/Pelvis WITH Contrast IMPRESSION: Splenomegaly. Findings suggestive of early cirrhosis of the liver. Diffuse ascites. Electronically Signed: Raciel Wills MD at 12:49 EST , Service support ,
--- NOTE | 2021-03-04 10:44 | EDS_ITS ---
HPI History of Present Illness Chief Complaint: Abd Pain Informant: patient Onset/Context/Timing Onset: Weeks (1 week) Timing: Waxes and wanes Current Severity: Moderate Maximum Severity: Moderate Narrative Narrative: Patient presents with right-sided abdominal pain. He has a history of cirrhosis and gets regularly scheduled paracentesis. He was last drained on February 24. He states at that time they showed him a lump on the right side of his abdomen from the Novocain. They told him to keep a close eye on this. He reports pain to this area for the past week. He denies fever. No vomiting. He does report some mild constipation admits to forgetting to take his lactulose last evening. [facility] Medical History Alcohol abuse Alcoholic liver disease Anasarca Anxiety Ascites Cirrhosis of liver Cirrhosis, alcoholic Depression HTN (hypertension) Irregular heart beat Liver disease Smoker Substance abuse Thrombocytopenia Home Medications atenolol 50 mg PO DAILY 07/30/14 [History Last Taken Unknown] lisinopril 20 mg PO DAILY 07/30/14 [History Last Taken Unknown] paroxetine HCl [Paxil] 40 mg PO DAILY 07/30/14 [History Last Taken Unknown] cyclobenzaprine 5 mg PO TID 12/29/20 [History Last Taken Unknown] furosemide 40 mg PO DAILY #30 tab 12/31/20 [Rx Last Taken Unknown] spironolactone 50 mg PO DAILY #30 tab 12/31/20 [Rx Last Taken Unknown] lactulose 20 g PO TID #1500 ml 01/01/21 [Rx Last Taken Unknown] rifaximin [Xifaxan] 550 mg PO BID #60 tab 01/06/21 [Rx Last Taken Unknown] midodrine 5 mg tablet See Rx Instructions .ROUTE .COMPLEX #90 tab 01/26/21 [Rx Last Taken Unknown] spironolactone 50 mg tablet See Rx Instructions .ROUTE .COMPLEX #60 tab 02/04/21 [Rx Last Taken Unknown] furosemide 40 mg tablet See Rx Instructions .ROUTE .COMPLEX #60 tab 02/08/21 [Rx Last Taken Unknown] oxycodone 5 mg PO BID PRN 5 Days #10 tab 03/04/21 [Rx Last Taken Unknown] Allergy/AdvReac Type Severity Reaction Status Date / Time Sulfa (Sulfonamide Allergy Unknown Verified 03/04/21 10:33 Antibiotics) Social History Smoking Status: Heavy Smoker (>10/day) alcohol intake: former details: Patient states has not had a drink in 3 days substance use type: amphetamines ROS ROS ED Constitutional Constitutional ED: Reports chills; Denies fever(s) Eyes Eyes: Denies change in vision ENT ENT ED: Denies sore throat Cardiovascular Cardiovascular: Denies chest pain Respiratory/Chest Respiratory/Chest: Denies cough or dyspnea Gastrointestinal Gastrointestinal: Reports abdominal pain and constipation; Denies diarrhea, nausea or vomiting Genitourinary Genitourinary ED: Denies dysuria Musculoskeletal Musculoskeletal: Denies back pain Integumentary Denies rash Neurologic Neurologic: Denies headache(s) or weakness Allergic/Immunologic Allergic/Immunologic ED: Denies urticaria EXAM Physical Exam Const Vital Signs: 03/04/21 10:28 03/04/21 10:39 Temperature 95.6 F L 95.6 F L Temperature Source Temporal Temporal Pulse Rate 70 70 Respiratory Rate 18 18 Blood Pressure 152/92 H 152/92 H Blood Pressure Mean 112 112 Pulse Ox 98 98 Oxygen Delivery Method Room Air Room Air Positive well nourished and well developed General Appearance ED: well developed HEENT Reports moist mucous membranes Eyes PERRL and EOMs intact bilaterally Neck supple Chest Wall inspection of chest normal and palpation of chest normal Resp normal respiratory effort and clear to auscultation bilaterally Cardio regular rate and regular rhythm GI GI Narrative: Mild tenderness to the right abdomen. No guarding or rebound. Area of ecchymosis noted on the right anterolateral abdominal wall. Palpation: soft Extremity normal to inspection Neuro oriented x3 Sensorium / Orientation: alert Psych mental status grossly normal Skin no rashes or lesions noted MDM MDM MDM Narrative Medical decision making narrative: Patient was given 1 tab of oxycodone for pain. Lab work and CT scan obtained. Lab Data Attestation: I reviewed the patient's lab results. Labs: Laboratory Results - last 24 hr 03/04/21 03/04/21 03/04/21 10:53 10:53 10:53 WBC 7.7 RBC 3.24 L Hgb 11.5 L Hct 32.7 L MCV 100.9 H MCH 35.5 H MCHC 35.2 RDW Std Deviation 52.7 H RDW Coeff of Andrei 14.3 Plt Count 86 L MPV 10.0 Immature Gran % (Auto) 0.800 Neut % (Auto) 74.2 H Lymph % (Auto) 10.7 L [place] % (Auto) 12.2 H Eos % (Auto) 1.7 Baso % (Auto) 0.4 Absolute Neuts (auto) 5.7 Absolute Lymphs (auto) 0.82 L Nucleated RBC % 0 PT Cancelled INR Cancelled APTT Cancelled Sodium 136 Potassium 3.5 Chloride 107 Carbon Dioxide 23.0 Anion Gap 6 BUN 26 H Creatinine 1.05 Estim Creat Clear Calc 87.91 Est GFR (MDRD) Af Amer 97 Est GFR (MDRD) Non-Af 81 BUN/Creatinine Ratio 24.8 H Glucose 133 H Calcium 8.7 Total Bilirubin 3.50 H Direct Bilirubin 1.30 H AST 51 H ALT 23 Alkaline Phosphatase 292 H Total Protein 7.7 Albumin 2.2 L Globulin 5.5 H 03/04/21 11:20 WBC RBC Hgb Hct MCV MCH MCHC RDW Std Deviation RDW Coeff of Andrei Plt Count MPV Immature Gran % (Auto) Neut % (Auto) Lymph % (Auto) [place] % (Auto) Eos % (Auto) Baso % (Auto) Absolute Neuts (auto) Absolute Lymphs (auto) Nucleated RBC % PT 18.7 H INR 1.6 APTT 37.3 H Sodium Potassium Chloride Carbon Dioxide Anion Gap BUN Creatinine Estim Creat Clear Calc Est GFR (MDRD) Af Amer Est GFR (MDRD) Non-Af BUN/Creatinine Ratio Glucose Calcium Total Bilirubin Direct Bilirubin AST ALT Alkaline Phosphatase Total Protein Albumin Globulin Radiography Diagnostic Testing: Clinical Impression(s) from Imaging Studies Abdomen/Pelvis CT 03/04/21 10:43 IMPRESSION: Splenomegaly. Findings suggestive of early cirrhosis of the liver. Diffuse ascites. Electronically Signed: Raciel Wills MD at 12:49 EST , Service support , Treatment and Re-Evaluation Comments:: Lab work reveals stable hemoglobin and platelet count. Chronic changes in LFTs. CT scan shows findings consistent with cirrhosis and ascites, but no acute findings from his recent paracentesis. On repeat evaluation he reports his pain is significantly improved. He is reassured with these findings. I will write him a prescription for 10 tabs of oxycodone. His next paracentesis is scheduled on the . Discharge Plan Triage Chief Complaint: Abd Pain ED Provider: Ruma Gates Dx/Rx/DC Orders Clinical Impression: Abdominal pain Instructions: ED Abdominal Pain Unkn Cause Male... Prescriptions: New oxycodone 5 mg tablet 5 mg PO BID PRN (Reason: pain) 5 Days Qty: 10 RF: 0 No Action lisinopril 20 MG tablet 20 mg PO DAILY RF: 0 paroxetine HCl [Paxil] 40 MG tablet 40 mg PO DAILY RF: 0 atenolol 50 MG tablet 50 mg PO DAILY RF: 0 cyclobenzaprine 5 mg Tablet 5 mg PO TID RF: 0 furosemide 40 mg tablet 40 mg PO DAILY Qty: 30 RF: 1 spironolactone 50 mg tablet 50 mg PO DAILY Qty: 30 RF: 1 lactulose 20 gram/30 mL solution 20 g PO TID Qty: 1500 RF: 1 Xifaxan 550 mg Tablet 550 mg PO BID Qty: 60 RF: 0 midodrine 5 mg tablet See Rx Instructions .ROUTE .COMPLEX Qty: 90 RF: 3 spironolactone 50 mg tablet See Rx Instructions .ROUTE .COMPLEX Qty: 60 RF: 4 furosemide 40 mg tablet See Rx Instructions .ROUTE .COMPLEX Qty: 60 RF: 2 Primary Care Provider: Elio Ojeda Referrals: Elio Ojeda MD [Primary Care Provider] - Friend,DO Leland [STAFF PHYSICIAN] - 1 Week if not improving Disposition Disposition: Home, Self Care
[2021-03-04] MEDS: oxyCODONE 5 MG Tablet PO (10:52)
[2021-03-04 11:05] LABS: Absolute Lymphocyte Count 0.82 X10^3/uL (0.83-4.51); Absolute Neutrophil Count 5.7 X10^3/uL (2.0-7.7); Basophil# 0.03 X10^3/uL; Basophil% 0.4 % (0-1); Eosinophil# 0.13 X10^3/uL; Eosinophils% 1.7 % (0-5); Hematocrit 32.7 % (40-54); Hemoglobin 11.5 g/dL (13.0-16.5); Lymphocyte # 0.82 X10^3/ul (0.83-4.51); Lymphocyte % 10.7 % (19-41); Mean Corp Hgb Conc 35.2 g/dL (32-36); Mean Corpuscular Hgb 35.5 pg (27.0-32.0); Mean Corpuscular Volume 100.9 fL (80-94); Monocyte# 0.94 X10^3/uL; Monocyte% 12.2 % (0-10); NRBC Flagged by Analyzer 0 % (0-5); Neutrophil # 5.71 X10^3/uL (2.7-7.7); Neutrophil % 74.2 % (47-70); POSITIVE COUNT YES; Platelet Count 86 K/mm3 (150-450); RBC Distribution Width CV 14.3 % (11.6-14.6); RBC Distribution Width SD 52.7 fl (35.1-43.9); Red Blood Count 3.24 M/mm3 (4.6-6.2); White Blood Count 7.7 K/mm3 (4.4-11.0)
[2021-03-04 11:16] LABS: AST(SGOT) 51 U/L (15-37); Alanine Aminotransfer ALT/SGPT 23 U/L (16-61); Albumin, Serum 2.2 g/dL (3.2-5.0); Alkaline Phosphatase 292 U/L (45-117); Anion Gap 6 (5-15); BUN 26 mg/dL (7-18); BUN/Creat Ratio 24.8 RATIO (10-20); Calcium,Total 8.7 mg/dL (8.5-10.1); Chloride 107 mmol/L (98-107); Creatinine, Serum 1.05 mg/dL (0.70-1.30); EST Glomerular Filtration Rate 81 mL/min (>60); Est Glom Filt Rate - Afr Amer 97 mL/min (>60); Estimated Creatinine Clearance 87.91 ml/min; Globulin 5.5 g/dL (2.2-4.2); Glucose 133 mg/dL (74-106); Potassium 3.5 mmol/L (3.5-5.1); Protein, Total 7.7 g/dL (6.4-8.2); Sodium Level 136 mmol/L (136-145)
[2021-03-04 11:27] LABS: Differential Indicated SCAN CRITERIA MET
[2021-03-04 11:38] LABS: International Normalized Ratio 1.6; Prothrombin Time (Protime)PT. 18.7 SECONDS (11.7-14.9)
[2021-03-04 11:40] LABS: Partial Thromboplast Time 37.3 Seconds (24.1-36.2)
[2021-03-04 13:25] VITALS: BP 145/76; PULSE 98; RESP 14; O2SAT 97
== END 2021-03-04 13:38 | disposition home or self-care (01) ==
PROVIDERS: Emergency Provider Emergency Medicine; PCP Family Medicine; Visit Provider Emergency Medicine
DX: R10.9 Unspecified abdominal pain (principal); F17.200 Nicotine dependence, unspecified, uncomplicated; I10 Essential (primary) hypertension; F41.9 Anxiety disorder, unspecified; F32.A Depression, unspecified; Z79.899 Other long term (current) drug therapy
CPT/HCPCS: 74177; 80048; 80076; 85025; 85610; 85730; 99283; Q9967; A4216

== ENCOUNTER 2021-03-10 09:04 | Outpatient (CLI) | payer MEDICAID, SELFPAY ==
--- NOTE | 2021-03-10 09:07 | US_ITS ---
PROCEDURE: Ultrasound guided paracentesis. DATE OF EXAMINATION: 03/10/2021. INDICATION: Male, 45 years old. Ascites. PHYSICIAN: Raciel Wills M.D. TECHNIQUE: The risks, benefits, and alternatives to the procedure were explained to the patient. The specific risks of bleeding, infection, and damage to bowel were detailed and accepted. Witnessed informed consent was obtained. The abdomen was ultrasonographically surveyed. An appropriate pocket of fluid was identified at the right lower quadrant. The skin were cleaned and prepped in the usual sterile fashion. Using ultrasound guidance, the peritoneal cavity was accessed with a 5-Fijian paracentesis needle/catheter system. The trocar was removed. A total of 4000 ml of casie-colored fluid were removed from the peritoneal cavity. The catheter was removed and a sterile dressing was applied. The procedure was well tolerated. US/Paracentesis with US IMPRESSION: Ultrasound guided paracentesis. Electronically Signed: Raicel Wills MD at 10:23 EST , Service support ,
[2021-03-10 09:12] VITALS: BP 116/66; BP 132/72; BP 134/76; PULSE 72; PULSE 83; RESP 16; TEMP 36.6; O2SAT 98; O2SAT 99
== END 2021-03-10 23:59 | disposition short-term general hospital (02) ==
PROVIDERS: PCP Family Medicine; Referring Provider Internal Medicine Gastroenterology; Visit Provider Internal Medicine Gastroenterology
DX: K74.60 Unspecified cirrhosis of liver (principal)
CPT/HCPCS: 49083

== ENCOUNTER 2021-03-29 09:22 | Emergency (ER) | payer MEDICAID, SELFPAY ==
[2021-03-29 09:22] VITALS: BP 123/80; PULSE 87; RESP 18; TEMP 36.6; O2SAT 100; BMI 27.3
[2021-03-29 09:30] VITALS: BP 123/80; PULSE 87; RESP 18; TEMP 36.6; O2SAT 100
--- NOTE | 2021-03-29 09:38 | EDS_ITS ---
HPI History of Present Illness Chief Complaint: Abd Pain Informant: patient and family Narrative Narrative: 46-year-old male presenting to the emergency department with ascites. He has a history of cirrhosis of the liver and was supposed to have a paracentesis on 10 March. He states that his mother got Covid and he was unable to secure transportation to the hospital. He states his next appointment is not until March but he is having significant abdominal distention. He also notes a rash on his right leg that is painful. He denies any trauma to the leg he notes that he has bleeding along his gums and coughs up blood most days. He follows with Dr. Back from gastroenterology. [facility] Medical History Alcohol abuse Alcoholic liver disease Anasarca Anxiety Ascites Cirrhosis of liver Cirrhosis, alcoholic Depression HTN (hypertension) Irregular heart beat Liver disease Smoker Substance abuse Thrombocytopenia Home Medications atenolol 50 mg PO DAILY 07/30/14 [History Last Taken Unknown] lisinopril 20 mg PO DAILY 07/30/14 [History Last Taken Unknown] paroxetine HCl [Paxil] 40 mg PO DAILY 07/30/14 [History Last Taken Unknown] cyclobenzaprine 5 mg PO TID 12/29/20 [History Last Taken Unknown] furosemide 40 mg PO DAILY #30 tab 12/31/20 [Rx Last Taken Unknown] spironolactone 50 mg PO DAILY #30 tab 12/31/20 [Rx Last Taken Unknown] lactulose 20 g PO TID #1500 ml 01/01/21 [Rx Last Taken Unknown] rifaximin [Xifaxan] 550 mg PO BID #60 tab 01/06/21 [Rx Last Taken Unknown] midodrine 5 mg tablet See Rx Instructions .ROUTE .COMPLEX #90 tab 01/26/21 [Rx Last Taken Unknown] spironolactone 50 mg tablet See Rx Instructions .ROUTE .COMPLEX #60 tab 02/04/21 [Rx Last Taken Unknown] furosemide 40 mg tablet See Rx Instructions .ROUTE .COMPLEX #60 tab 02/08/21 [Rx Last Taken Unknown] oxycodone 5 mg PO BID PRN 5 Days #10 tab 03/04/21 [Rx Last Taken Unknown] potassium chloride 20 meq PO BID #14 tab 03/29/21 [Rx Last Taken Unknown] Allergy/AdvReac Type Severity Reaction Status Date / Time Sulfa (Sulfonamide Allergy Unknown Verified 03/29/21 09:25 Antibiotics) Social History Smoking Status: Heavy Smoker (>10/day) alcohol intake: former details: Patient states has not had a drink in 3 days substance use type: amphetamines ROS ROS ED Constitutional Constitutional ED: Denies chills, fever(s) or weight loss Eyes Eyes: Denies change in vision or diplopia ENT ENT ED: Reports other Details: Bleeding from gums ; Denies ear pain, rhinorrhea or sore throat Cardiovascular Cardiovascular: Denies chest pain, orthopnea, palpitations or racing heartbeat Respiratory/Chest Respiratory/Chest: Denies cough, dyspnea or orthopnea Gastrointestinal Gastrointestinal: Reports abdominal pain; Denies diarrhea, nausea or vomiting Genitourinary Genitourinary ED: Denies dysuria, hematuria or urinary frequency Musculoskeletal Musculoskeletal: Denies arthralgias or myalgias Integumentary Denies abscess or rash Neurologic Neurologic: Denies headache(s) or weakness Psychiatric Psychiatric: Denies anxiety, depression, suicidal ideation or suicidal thoughts Endocrine Endocrinology: Denies polydipsia, polyphagia or polyuria Allergic/Immunologic Allergic/Immunologic ED: Denies mouth swelling, tongue swelling or urticaria EXAM Physical Exam Const Vital Signs: 03/29/21 09:22 03/29/21 09:30 Temperature 98 F 98 F Temperature Source Temporal Temporal Pulse Rate 87 87 Respiratory Rate 18 18 Blood Pressure 123/80 H 123/80 H Blood Pressure Mean 94 94 Pulse Ox 100 100 Oxygen Delivery Method Room Air Room Air Positive well nourished and well developed General Appearance ED: well developed HEENT Reports normocephalic, head/scalp atraumatic, TM's clear and moist mucous membranes HEENT Narrative: Wound along the gumlines Negative for trauma Tympanic Membrane ED: Yes TM's clear Eyes PERRL and EOMs intact bilaterally Neck no lymphadenopathy, supple and no JVD Resp normal respiratory effort and clear to auscultation bilaterally Cardio regular rate, regular rhythm and no murmurs GI GI Narrative: Positive ascites/fluid wave Inspection: abdominal distention Palpation: soft and tender Back/Spine no CVA tenderness and normal ROM Extremity normal to inspection General Extremety ED: Negative for edema General Extremity: Negative for edema Neuro oriented x3 and CN's II-XII intact bilaterally Sensorium / Orientation: alert Motor Exam: strength 5/5 throughout Psych mental status grossly normal Mood & Affect: Negative for depressed or tearful Skin no wounds Skin Narrative: Right medial thigh is an area that is about 11 cm round of petechiae tender to palpation MDM MDM MDM Narrative Medical decision making narrative: Labs showed a hemoglobin 10.6 white count 4.4. Thrombocytopenic chronically and his platelet count today 62. INR 1.5 PTT 35.2. He has a potassium of 2.8 which I will write for potassium prescription. I spoke with radiology and they have the availability to do a paracentesis on him at 1400 hrs. Patient is electing to be discharged and do this as an outpatient instead of waiting several hours in the emergency department. Lab Data Attestation: I reviewed the patient's lab results. Labs: Laboratory Results - last 24 hr 03/29/21 03/29/21 03/29/21 09:40 09:40 09:40 WBC 4.4 RBC 2.96 L Hgb 10.6 L Hct 30.0 L MCV 101.4 H MCH 35.8 H MCHC 35.3 RDW Std Deviation 53.1 H RDW Coeff of Andrei 14.4 Plt Count 62 L MPV 10.7 Immature Gran % (Auto) 0.200 Neut % (Auto) 76.1 H Lymph % (Auto) 16.3 L Morris % (Auto) 7.0 Eos % (Auto) 0.2 Baso % (Auto) 0.2 Absolute Neuts (auto) 3.4 Absolute Lymphs (auto) 0.72 L Nucleated RBC % 0 Macrocytosis 1+ PT 17.2 H INR 1.5 APTT 35.2 Sodium 135 L Potassium 2.8 L Chloride 103 Carbon Dioxide 25.0 Anion Gap 7 BUN 10 Creatinine 0.87 Estim Creat Clear Calc 104.97 Est GFR (MDRD) Af Amer 120 Est GFR (MDRD) Non-Af 99 BUN/Creatinine Ratio 11.4 Glucose 124 H Calcium 7.3 L Total Bilirubin 3.70 H Direct Bilirubin 1.26 H AST 48 H ALT 21 Alkaline Phosphatase 146 H Total Protein 6.8 Albumin 2.0 L Globulin 4.8 H Discharge Plan Triage Chief Complaint: Abd Pain ED Provider: Evaristo Crouch Dx/Rx/DC Orders Clinical Impression: Cirrhosis of liver, Ascites, Coagulopathy, Acute hypokalemia Instructions: ED Ascites, ED Hypokalemia Prescriptions: New potassium chloride 20 mEq tablet,ER particles/crystals 20 meq PO BID Qty: 14 RF: 0 No Action lisinopril 20 MG tablet 20 mg PO DAILY RF: 0 paroxetine HCl [Paxil] 40 MG tablet 40 mg PO DAILY RF: 0 atenolol 50 MG tablet 50 mg PO DAILY RF: 0 cyclobenzaprine 5 mg Tablet 5 mg PO TID RF: 0 furosemide 40 mg tablet 40 mg PO DAILY Qty: 30 RF: 1 spironolactone 50 mg tablet 50 mg PO DAILY Qty: 30 RF: 1 lactulose 20 gram/30 mL solution 20 g PO TID Qty: 1500 RF: 1 Xifaxan 550 mg Tablet 550 mg PO BID Qty: 60 RF: 0 oxycodone 5 mg tablet 5 mg PO BID PRN (Reason: pain) 5 Days Qty: 10 RF: 0 midodrine 5 mg tablet See Rx Instructions .ROUTE .COMPLEX Qty: 90 RF: 3 spironolactone 50 mg tablet See Rx Instructions .ROUTE .COMPLEX Qty: 60 RF: 4 furosemide 40 mg tablet See Rx Instructions .ROUTE .COMPLEX Qty: 60 RF: 2 Other Ambulatory Orders: Paracentesis with US (Routine) Facility: [facility] - Location: [facility] Ordered By: Dr. Evaristo Crouch Primary Care Provider: Elio Ojeda Referrals: Elio Ojeda MD [Primary Care Provider] - Leland Back DO [STAFF PHYSICIAN] - Keep Tony appointment Disposition Disposition: Home, Self Care
[2021-03-29 09:58] LABS: Absolute Lymphocyte Count 0.72 X10^3/uL (0.83-4.51); Absolute Neutrophil Count 3.4 X10^3/uL (2.0-7.7); Basophil# 0.01 X10^3/uL; Basophil% 0.2 % (0-1); Eosinophil# 0.01 X10^3/uL; Eosinophils% 0.2 % (0-5); Hemoglobin 10.6 g/dL (13.0-16.5); Lymphocyte # 0.72 X10^3/ul (0.83-4.51); Lymphocyte % 16.3 % (19-41); Mean Corp Hgb Conc 35.3 g/dL (32-36); Mean Corpuscular Hgb 35.8 pg (27.0-32.0); Mean Corpuscular Volume 101.4 fL (80-94); Mean Platelet Vol. 10.7 fl (6.2-12.0); Monocyte# 0.31 X10^3/uL; NRBC Flagged by Analyzer 0 % (0-5); Neutrophil # 3.37 X10^3/uL (2.7-7.7); Neutrophil % 76.1 % (47-70); POSITIVE COUNT YES; Platelet Count 62 K/mm3 (150-450); RBC Distribution Width CV 14.4 % (11.6-14.6); RBC Distribution Width SD 53.1 fl (35.1-43.9); Red Blood Count 2.96 M/mm3 (4.6-6.2); White Blood Count 4.4 K/mm3 (4.4-11.0)
[2021-03-29 10:05] LABS: International Normalized Ratio 1.5; Prothrombin Time (Protime)PT. 17.2 SECONDS (11.7-14.9)
[2021-03-29 10:06] LABS: Partial Thromboplast Time 35.2 Seconds (24.1-36.2)
[2021-03-29 10:12] LABS: AST(SGOT) 48 U/L (15-37); Alanine Aminotransfer ALT/SGPT 21 U/L (16-61); Alkaline Phosphatase 146 U/L (45-117); Anion Gap 7 (5-15); BUN 10 mg/dL (7-18); BUN/Creat Ratio 11.4 RATIO (10-20); Bilirubin, Direct 1.26 mg/dL (0.00-0.30); Calcium,Total 7.3 mg/dL (8.5-10.1); Chloride 103 mmol/L (98-107); Creatinine, Serum 0.87 mg/dL (0.70-1.30); EST Glomerular Filtration Rate 99 mL/min (>60); Est Glom Filt Rate - Afr Amer 120 mL/min (>60); Estimated Creatinine Clearance 104.97 ml/min; Globulin 4.8 g/dL (2.2-4.2); Glucose 124 mg/dL (74-106); Potassium 2.8 mmol/L (3.5-5.1); Protein, Total 6.8 g/dL (6.4-8.2); Sodium Level 135 mmol/L (136-145)
[2021-03-29 10:25] LABS: Differential Indicated SCAN CRITERIA MET
[2021-03-29 10:26] LABS: Macrocytosis 1+
[2021-03-29] MEDS: Morphine 4 MG/ML Syringe IV (11:06)
[2021-03-29 11:28] VITALS: BP 139/88; PULSE 87; RESP 16; O2SAT 95
== END 2021-03-29 11:29 | disposition home or self-care (01) ==
PROVIDERS: Emergency Provider Emergency Medicine; PCP Family Medicine; Visit Provider Emergency Medicine
DX: K70.31 Alcoholic cirrhosis of liver with ascites (principal); D68.9 Coagulation defect, unspecified; D69.6 Thrombocytopenia, unspecified; E87.6 Hypokalemia; I10 Essential (primary) hypertension; R18.8 Other ascites; F10.10 Alcohol abuse, uncomplicated; F41.9 Anxiety disorder, unspecified; F32.A Depression, unspecified; Z79.899 Other long term (current) drug therapy; F17.200 Nicotine dependence, unspecified, uncomplicated
CPT/HCPCS: 49083; 80048; 80076; 85025; 85610; 85730; 96365; 96366; 96374; 99283; P9047; A4216

== ENCOUNTER 2021-03-29 14:02 | Outpatient (CLI) | payer MEDICAID, SELFPAY ==
--- NOTE | 2021-03-29 14:04 | US_ITS ---
PROCEDURE: Ultrasound guided paracentesis. DATE OF EXAMINATION: 03/29/2021. INDICATION: Male, 46 years old. Ascites. PHYSICIAN: Raciel Wills M.D. TECHNIQUE: The risks, benefits, and alternatives to the procedure were explained to the patient. The specific risks of bleeding, infection, and damage to bowel were detailed and accepted. Witnessed informed consent was obtained. The abdomen was ultrasonographically surveyed. An appropriate pocket of fluid was identified at the right lower quadrant. The skin were cleaned and prepped in the usual sterile fashion. Using ultrasound guidance, the peritoneal cavity was accessed with a 5-Citizen Of [place] paracentesis needle/catheter system. The trocar was removed. A total of 5350 ml of casie-colored fluid were removed from the peritoneal cavity. The catheter was removed and a sterile dressing was applied. The procedure was well tolerated. US/Paracentesis with US IMPRESSION: Ultrasound guided paracentesis. Electronically Signed: Raciel Wills MD at 15:17 EST ,
[2021-03-29 14:19] VITALS: BP 117/82; BP 120/63; BP 122/67; PULSE 73; PULSE 74; PULSE 83; RESP 17; RESP 18; TEMP 36.9; O2SAT 100; O2SAT 95; O2SAT 98
[2021-03-29] MEDS: Lidocaine 2% (20 ml mdv) 20 ML Vial (14:20)
[2021-03-29] MEDS: Albumin Human 25% (100 mL) 25 GM/100 ML BAG IV ×2 (15:34→17:03)
[2021-03-29 15:38] VITALS: BP 105/61; PULSE 75; RESP 16; TEMP 36.8; O2SAT 96
--- NOTE | 2021-03-29 18:53 | NURSING ---
infusion complete and pt discharged at this time
== END 2021-03-29 23:59 | disposition home or self-care (01) ==
LOC: US 14:04 → MEDOUTP 15:02 → PCU 16:44
PROVIDERS: PCP Family Medicine; Referring Provider Emergency Medicine; Visit Provider Emergency Medicine
DX: K74.60 Unspecified cirrhosis of liver (principal)
CPT/HCPCS: 96365; 96366 ×2; P9047; 49083

== ENCOUNTER 2021-03-30 17:46 | Emergency (ER) | payer MEDICAID, SELFPAY ==
[2021-03-30 17:47] VITALS: BP 110/61; PULSE 75; RESP 16; TEMP 36.1; O2SAT 100; BMI 28.0
--- NOTE | 2021-03-30 18:26 | ED.VIS.GI ---
HPI HPI - GI History of Present Illness Chief Complaint: GI Bleed Narrative Narrative: Patient presents with multiple somatic complaints. He has past medical history of cirrhosis of the liver secondary to alcohol use. He states he has also had ascites and was told by gastroenterology, Dr. Back's office, that he should come back to the emergency department because he may be having upper GI bleeding. He states he sometimes bleeds from his mouth and gums, and sometimes from hemorrhoids. He states that his stool is sometimes black. He was here in the emergency department yesterday because he needed a paracentesis. He had a generalized work-up, and had been discharged to have special procedures performed the paracentesis that he was unable to have done for weeks. He denies taking any blood thinners. He states he was told to come here for reevaluation because Dr. Back's office called him [address] [facility] Medical History Alcohol abuse Alcoholic liver disease Anasarca Anxiety Ascites Cirrhosis of liver Cirrhosis, alcoholic Depression HTN (hypertension) Irregular heart beat Liver disease Smoker Substance abuse Thrombocytopenia Home Medications atenolol 50 mg PO DAILY 07/30/14 [History Last Taken Unknown] lisinopril 20 mg PO DAILY 07/30/14 [History Last Taken Unknown] paroxetine HCl [Paxil] 40 mg PO DAILY 07/30/14 [History Last Taken Unknown] cyclobenzaprine 5 mg PO TID 12/29/20 [History Last Taken Unknown] furosemide 40 mg PO DAILY #30 tab 12/31/20 [Rx Last Taken Unknown] spironolactone 50 mg PO DAILY #30 tab 12/31/20 [Rx Last Taken Unknown] rifaximin [Xifaxan] 550 mg PO BID #60 tab 01/06/21 [Rx Last Taken Unknown] midodrine 5 mg tablet See Rx Instructions .ROUTE .COMPLEX #90 tab 01/26/21 [Rx Last Taken Unknown] spironolactone 50 mg tablet See Rx Instructions .ROUTE .COMPLEX #60 tab 02/04/21 [Rx Last Taken Unknown] furosemide 40 mg tablet See Rx Instructions .ROUTE .COMPLEX #60 tab 02/08/21 [Rx Last Taken Unknown] oxycodone 5 mg PO BID PRN 5 Days #10 tab 03/04/21 [Rx Last Taken Unknown] potassium chloride 20 meq PO BID #14 tab 03/29/21 [Rx Last Taken Unknown] lactulose 20 gram/30 mL oral solution 20 g PO BID #1500 ml 03/30/21 [Rx Last Taken Unknown] Allergy/AdvReac Type Severity Reaction Status Date / Time Sulfa (Sulfonamide Allergy Unknown Verified 03/30/21 17:51 Antibiotics) Social History Smoking Status: Heavy Smoker (>10/day) alcohol intake: former details: Patient states has not had a drink in 3 days substance use type: amphetamines ROS ROS ED ROS Narrative Constitutional: No fever, no chills. HEENT: No sore throat. No neck pain. No loss of vision. No rhinorrhea. Occasional bleeding from mouth and gums. Occasionally spits up blood. Cardiovascular: No chest pain. No palpitations. No pedal edema. Respiratory: No cough, no shortness of breath. Abdominal: No abdominal pain. No nausea. No vomiting. Positive abdominal distention secondary to ascites. Genitourinary: No dysuria. No hematuria. Musculoskeletal: No myalgias. No arthralgias. Neurologic: No headaches. No dizziness. No lightheadedness. Skin: No rash. No change in color. Psychiatric: No depression. No anxiety. EXAM Physical Exam Narrative Exam Narrative: Afebrile. Vital signs noted. HEENT: Normocephalic. Atraumatic. PERRL, EOMI. Neck soft and supple. No point tenderness or step off. Poor dentition. No active bleeding from mouth. Cardiovascular: Regular rate and rhythm. No murmurs, rubs, or gallops appreciated. Respiratory: No tachypnea. Lungs clear to auscultation bilaterally. Gastrointestinal: Abdomen soft, nontender, with normoactive bowel sounds. Positive ascites/abdominal distention. No rebound or guarding. Neurological: Awake. Alert. Nonfocal, nonlateralizing. Skin: Right thigh rash. Ecchymotic. Normal color. No pallor. Musculoskeletal: No pedal edema. Full range of motion extremities. Const Vital Signs: 03/30/21 17:47 03/30/21 19:59 Temperature 97.0 F L Temperature Source Temporal Pulse Rate 75 66 Respiratory Rate 16 16 Blood Pressure 110/61 104/55 L Blood Pressure Mean 77 71 Pulse Ox 100 95 Oxygen Delivery Method Room Air Room Air MDM MDM MDM Narrative Medical decision making narrative: I reviewed his prior records from yesterday. His hemoglobin was 10. He had this rash on his leg that was evaluated. It appears mildly swollen and appears to be more ecchymotic. He may have a hematoma of his right leg from spontaneous bleeding as he has had coagulopathy in the past from his liver failure. White blood cell count normal at 5.6, hemoglobin stable at 9.3, he has chronic anemia. Platelet count is low at 46, but he also has a chronic thrombocytopenia. PT slightly elevated 21 with an INR of 1.9, normal. He has slightly low sodium of 135 with potassium 3.3, creatinine low at 0.6. LFTs are within normal limits. Lipase normal at 116. He has not had any gross hemoptysis or hematemesis here in the emergency department. Pulse ox is 100% on room air. He is hemodynamically stable. I discussed the patient with Dr. Back, his sole leveling machine operator. He states that they received a call from his family to his nurse practitioner that said that he was having hemoptysis. Once again, there has been no evidence of this. He has past medical history of COPD so he has a chronic cough. He was given 2 mg of morphine for analgesia for his leg pain. Additionally, his ultrasound is negative for DVT. At this point in time, I do feel that he is stable for discharge. He will follow up with Dr. Back. Return instructions to the emergency department were reviewed. Disposition is discharged home in stable condition. Lab Data Attestation: I reviewed the patient's lab results. Labs: Laboratory Results - last 24 hr 03/30/21 03/30/21 03/30/21 19:18 19:18 19:18 WBC 5.6 RBC 2.56 L Hgb 9.3 L Hct 26.2 L MCV 102.3 H MCH 36.3 H MCHC 35.5 RDW Std Deviation 52.5 H RDW Coeff of Andrei 14.0 Plt Count 46 L* MPV 10.9 Immature Gran % (Auto) 0.400 Neut % (Auto) 70.1 H Lymph % (Auto) 16.5 L Culberson % (Auto) 12.6 H Eos % (Auto) 0.2 Baso % (Auto) 0.2 Absolute Neuts (auto) 3.9 Absolute Lymphs (auto) 0.92 Nucleated RBC % 0 PT 21.0 H INR 1.9 APTT 42.6 H Sodium 135 L Potassium 3.3 L Chloride 103 Carbon Dioxide 26.0 Anion Gap 6 BUN 12 Creatinine 0.69 L Estim Creat Clear Calc 132.35 Est GFR (MDRD) Af Amer 157 Est GFR (MDRD) Non-Af 130 BUN/Creatinine Ratio 17.3 Glucose 87 Calcium 7.6 L Total Bilirubin 4.30 H AST 27 ALT 16 Alkaline Phosphatase 101 Total Protein 6.2 L Albumin 2.2 L Globulin 4.0 Albumin/Globulin Ratio 0.6 L Lipase 116 Discharge Plan Triage Chief Complaint: GI Bleed ED Provider: Asad Harkins Dx/Rx/DC Orders Clinical Impression: Hemoptysis, Cirrhosis, Thrombocytopenia, Acute leg pain Instructions: ED Cirrhosis, ED Hemoptysis, ED Pain, Acute, Uncertain Cause Prescriptions: No Action lisinopril 20 MG tablet 20 mg PO DAILY RF: 0 paroxetine HCl [Paxil] 40 MG tablet 40 mg PO DAILY RF: 0 atenolol 50 MG tablet 50 mg PO DAILY RF: 0 cyclobenzaprine 5 mg Tablet 5 mg PO TID RF: 0 furosemide 40 mg tablet 40 mg PO DAILY Qty: 30 RF: 1 spironolactone 50 mg tablet 50 mg PO DAILY Qty: 30 RF: 1 Xifaxan 550 mg Tablet 550 mg PO BID Qty: 60 RF: 0 oxycodone 5 mg tablet 5 mg PO BID PRN (Reason: pain) 5 Days Qty: 10 RF: 0 potassium chloride 20 mEq tablet,ER particles/crystals 20 meq PO BID Qty: 14 RF: 0 midodrine 5 mg tablet See Rx Instructions .ROUTE .COMPLEX Qty: 90 RF: 3 spironolactone 50 mg tablet See Rx Instructions .ROUTE .COMPLEX Qty: 60 RF: 4 furosemide 40 mg tablet See Rx Instructions .ROUTE .COMPLEX Qty: 60 RF: 2 lactulose 20 gram/30 mL solution 20 g PO BID Qty: 1500 RF: 1 Primary Care Provider: Elio Ojeda Referrals: Elio Ojeda MD [Primary Care Provider] - 1-2 Days if not improving Disposition Disposition: Home, Self Care
--- NOTE | 2021-03-30 18:27 | US_ITS ---
INDICATION: undefined -- PAIN EXAMINATION: Ultrasound US Venous Duplex LE Unilat / Limited TECHNIQUE: Zaragoza scale, pulse wave, and color flow Doppler imaging was performed of the lower extremity venous system. The right common femoral, femoral, popliteal veins tibial peroneal trunk and proximal peroneal vein were interrogated. Contralateral left common femoral vein also interrogated with grayscale imaging. COMPARISON: None. FINDINGS: There is normal compression, augmentation, and signal throughout the visualized deep lower extremity veins. No mass or fluid collection. Normal appearing lymph nodes are seen right inguinal region. US/Venous Duplex Imag/Limited/Uni IMPRESSION: No sonographic evidence of deep venous thrombosis. Electronically Signed: Raul Saravia DO at 21:33 EST ,
[2021-03-30 19:40] LABS: Absolute Lymphocyte Count 0.92 X10^3/uL (0.83-4.51); Absolute Neutrophil Count 3.9 X10^3/uL (2.0-7.7); Basophil# 0.01 X10^3/uL; Basophil% 0.2 % (0-1); Eosinophil# 0.01 X10^3/uL; Eosinophils% 0.2 % (0-5); Hematocrit 26.2 % (40-54); Hemoglobin 9.3 g/dL (13.0-16.5); Lymphocyte # 0.92 X10^3/ul (0.83-4.51); Lymphocyte % 16.5 % (19-41); Mean Corp Hgb Conc 35.5 g/dL (32-36); Mean Corpuscular Hgb 36.3 pg (27.0-32.0); Mean Corpuscular Volume 102.3 fL (80-94); Mean Platelet Vol. 10.9 fl (6.2-12.0); Monocyte% 12.6 % (0-10); NRBC Flagged by Analyzer 0 % (0-5); Neutrophil % 70.1 % (47-70); POSITIVE COUNT YES; RBC Distribution Width SD 52.5 fl (35.1-43.9); Red Blood Count 2.56 M/mm3 (4.6-6.2); White Blood Count 5.6 K/mm3 (4.4-11.0)
[2021-03-30 19:45] LABS: International Normalized Ratio 1.9
[2021-03-30 19:46] LABS: Partial Thromboplast Time 42.6 Seconds (24.1-36.2)
[2021-03-30 19:52] LABS: Differential Indicated SCAN CRITERIA MET; Platelet Count 46 K/mm3 (150-450)
[2021-03-30 19:59] VITALS: BP 104/55; PULSE 66; RESP 16; O2SAT 95
[2021-03-30 19:59] LABS: ALB/GLOB Ratio 0.6 RATIO (0.9-2.4); AST(SGOT) 27 U/L (15-37); Alanine Aminotransfer ALT/SGPT 16 U/L (16-61); Albumin, Serum 2.2 g/dL (3.2-5.0); Alkaline Phosphatase 101 U/L (45-117); Anion Gap 6 (5-15); BUN 12 mg/dL (7-18); BUN/Creat Ratio 17.3 RATIO (10-20); Calcium,Total 7.6 mg/dL (8.5-10.1); Chloride 103 mmol/L (98-107); Creatinine, Serum 0.69 mg/dL (0.70-1.30); EST Glomerular Filtration Rate 130 mL/min (>60); Est Glom Filt Rate - Afr Amer 157 mL/min (>60); Estimated Creatinine Clearance 132.35 ml/min; Glucose 87 mg/dL (74-106); Lipase 116 U/L (73-393); Potassium 3.3 mmol/L (3.5-5.1); Protein, Total 6.2 g/dL (6.4-8.2); Sodium Level 135 mmol/L (136-145)
[2021-03-30] MEDS: Morphine 2 MG/ML Syringe IV (20:31)
[2021-03-30 20:33] VITALS: BP 110/64; PULSE 66; RESP 16; O2SAT 100
[2021-03-30 20:33] LABS: Differential Comment SCANNED
[2021-03-31 14:00] LABS: Pathologist Review Reviewed
== END 2021-03-30 20:58 | disposition home or self-care (01) ==
PROVIDERS: Emergency Provider Emergency Medicine; PCP Family Medicine; Visit Provider Emergency Medicine
DX: R04.2 Hemoptysis (principal); K70.30 Alcoholic cirrhosis of liver without ascites; J44.9 Chronic obstructive pulmonary disease, unspecified; D69.6 Thrombocytopenia, unspecified; D64.9 Anemia, unspecified; I10 Essential (primary) hypertension; M79.606 Pain in leg, unspecified; F17.200 Nicotine dependence, unspecified, uncomplicated; Z79.899 Other long term (current) drug therapy
CPT/HCPCS: 80053; 83690; 85025; 85610; 85730; 93971; 96374; 99283; A4216

== ENCOUNTER 2021-04-07 08:57 | Outpatient (CLI) | payer MEDICAID, SELFPAY ==
--- NOTE | 2021-04-07 08:59 | US_ITS ---
PROCEDURE: Ultrasound guided paracentesis. DATE OF EXAMINATION: 04/07/2021. INDICATION: Male, 46 years old. Ascites. PHYSICIAN: Raciel Wills M.D. TECHNIQUE: The risks, benefits, and alternatives to the procedure were explained to the patient. The specific risks of bleeding, infection, and damage to bowel were detailed and accepted. Witnessed informed consent was obtained. The abdomen was ultrasonographically surveyed. An appropriate pocket of fluid was identified at the right lower quadrant. The skin were cleaned and prepped in the usual sterile fashion. Using ultrasound guidance, the peritoneal cavity was accessed with a 5-[place] paracentesis needle/catheter system. The trocar was removed. A total of 3850 ml of casie-colored fluid were removed from the peritoneal cavity. The catheter was removed and a sterile dressing was applied. The procedure was well tolerated. US/Paracentesis with US IMPRESSION: Ultrasound guided paracentesis. Electronically Signed: Raciel Wills MD at 10:41 EST ,
[2021-04-07 09:15] VITALS: BP 109/65; BP 115/69; BP 130/73; PULSE 65; PULSE 66; PULSE 67; RESP 14; RESP 18; TEMP 36.8; O2SAT 100
[2021-04-07] MEDS: Lidocaine 2% (20 ml mdv) 20 ML Vial INFILT (10:56)
== END 2021-04-07 23:59 | disposition home or self-care (01) ==
PROVIDERS: PCP Family Medicine; Referring Provider Internal Medicine Gastroenterology; Visit Provider Internal Medicine Gastroenterology
DX: K74.60 Unspecified cirrhosis of liver (principal)
CPT/HCPCS: 49083

== ENCOUNTER 2021-04-11 09:46 | Day surgery (SDC) | payer MEDICAID, SELFPAY ==
--- NOTE | 2021-04-11 | IMM_PTH ---
PATIENT: MAX ODONNELL III LOC: EN U#:[id number] AGE/SX: 46/M ROOM: RE04/11/[address]: Dr. Leland Back DO : 1975 BED: DIS: 04/11/2021 SPEC #: [id number] RECD: 04/12/21 14:59 STATUS: FRANCES ALONSO #: [id number] ALCIRA: 04/11/21 00:[address]: Leland Back DEPT: IMMUNOHISTOCHEMISTRY RECD BY: Stacey Velásquez ENTERED: 04/12/21 15:00 SP TYPE: IMMUNO OTHR DR: Dr. Elio Ojeda MD Tissues: Stomach, NOS Procedures: H Pylori (initial) PHYSICIAN & INSTITUTION [place] [id number] SPECIMEN INFORMATION: Tissue Source: Gastric antrum ulcer Clinical Info: Cirrhosis of liver, abdominal pain, ascites, hyperammonemia Specimen Number: [id number] CPT code: 38990 METHODOLOGY: Deparaffinized sections of prefer/formalin-fixed tissue or PAP/DQ stained slides are incubated with monoclonal/polyclonal antibodies/oligonucleotide probes. Localization is made via biotin free immunoperoxidase method. Appropriate controls are performed and reacted as expected. Results on target cell population are indicated in the following table: RESULTS: ANTIBODY / CLONE RESULT H Pylori (polyclonal) negative These tests were developed and their performance characteristics determined by [facility]. They may not have been cleared or approved by the U.S. Food and Drug Administration. The FDA has determined that such clearance or approval is not necessary. The above immunohistochemical/dualISH markers are ordered and reviewed by the Pathologist. INTERPRETATION: Gastric antrum, biopsy: Negative for Helicobacter pylori organisms. SJ:chintan 04/13/2021
--- NOTE | 2021-04-11 | GASB_PTH ---
PATIENT: MAX ODONNELL III LOC: EN U#:[id number] AGE/SX: 46/M ROOM: RE04/11/[address]: Dr. Leland Back DO : 1975 BED: DIS: 04/11/2021 SPEC #: [id number] RECD: 04/11/21 13:10 STATUS: FRANCES ALONSO #: [id number] ALCIRA: 04/11/21 00:[address]: Leland Back DEPT: SURGICAL PATHOLOGY RECD BY: Shahid Davis ENTERED: 04/11/21 13:11 SP TYPE: Gastric Bx OTHR DR: Dr. Elio Ojeda MD Tissues: Gastric mucous membrane Procedures: Surgery Specimen Level IV HEADER OPERATION: EGD ([facility] [place]) PRE-OP DIAGNOSIS: Cirrhosis of liver, abdominal pain, ascites, hyperammonemia TISSUE SUBMITTED: Gastric antrum ulcer MICROSCOPIC DIAGNOSIS Gastric antrum ulcer, biopsy: Focal ulceration, associated acute inflammation and reactive changes. Focal chronic inflammation. See comment. TOMMY:chintan 04/12/2021 COMMENT The results of immunohistochemistry for Helicobacter pylori will be reported separately ([id number]). MICROSCOPIC DESCRIPTION Slides are reviewed. GROSS DESCRIPTION Received in fixative is one container labeled with the patient's name and designated gastric antrum ulcer. The specimen consists of multiple irregular fragments of light pillai soft tissue that in aggregate measure 0.6 x 0.6 x 0.1 cm. The specimen is totally submitted in one cassette. / TOMMY:chintan 04/11/2021 TC:2 CPT: 49866
[2021-04-11 10:19] VITALS: BP 96/64; PULSE 70; RESP 16; TEMP 36.7; O2SAT 96; BMI 26.6
[2021-04-11] MEDS: Lactated Ringers 1,000 ML 15 ML IV (10:23)
--- NOTE | 2021-04-11 10:26 | HP.PCM_ITS ---
History and Physical Date of Admission: 04/11/21 Sunil is a very pleasant 45-year-old gentleman with past medical alcoholic cirrhosis complicated by ascites status post multiple paracentesis without SBP. Chronic renal insufficiency, chronic lower extremity edema, anemia, hepatic encephalopathy splenomegaly, and thrombocytopenia he recently underwent. Large- volume paracentesis and developed a hematoma in the right lower quadrant. He is scheduled for repeat paracentesis in approximately 5 days. He has not had an upper endoscopy for variceal screening. He is on midodrine and Lasix with Aldactone to decrease ascites. Patient says he has only had 3 alcoholic beverages over the last several weeks. She still continues to smoke cigarettes. His weight has been stable. He is not using any drugs. ROS Const Constitutional: No anorexia, fatigue, fever(s), weight change or sleep problems Eyes Eyes: No change in vision ENT ENT: No abnormal hearing, difficulty swallowing, mouth lesions, tongue swelling or throat swelling Resp Respiratory: No cough or shortness of breath Cardio Cardiology: No chest pain at rest, chest pain with exertion, shortness of breath or dyspnea on exertion Gastro GI: No difficulty swallowing Genitourinary Male: No difficulty urinating or burning urination Musc Musculoskeletal: No joint pain, joint swelling, muscle weakness or decreased muscle mass Skin Skin: No hair loss in leg, yellowing of the eye, itchy eyes, rash, skin ulcer or skin swelling Neuro Neurology: No abnormal hearing, abnormal movements, confusion, unsteady gait/balance or memory loss Psych Psychiatric: No anxiety, No confusion and No memory loss Endo Endocrine: No fatigue or weight change Aller/Imm Allergy/Immunologic: No itchy eyes, throat swelling or tongue swelling Ayaan/Lymp Hematologic/Lymphatic: No easy bleeding, easy bruising or enlarged lymph nodes Exam Const General: cooperative and comfortable Nutritional Appearance: average body habitus and well nourished [facility] Head: normal to inspection Ears: hearing grossly normal bilaterally Nose: external nose normal Face and sinus: normal facial exam Mouth: oral mucosae normal Throat: posterior oropharynx normal Eyes General: appearance normal, both eyes and all related structures Neck Neck: normal visual inspection Chest Chest palpation & inspection: normal inspection of the chest and normal palpation of entire chest wall Resp Effort & Inspection: normal respiratory effort Auscultation: Bilateral: Clear to Auscultation Cardio Palpation: normal PMI Rate: regular rate Rhythm: regular rhythm GI Inspection: normal to inspection Auscultation: normal bowel sounds Percussion: normal to percussion Palpation: no hepatosplenomegaly Skin General: no rashes or lesions noted Neuro General: patient alert Extrem General: normal to inspection Psych Affect: normal affect Quality Reporting Tobacco Screening ([facility] 138) Smoking Status: Heavy Smoker (>10/day) Assessment and Plan Assessment and Plan (1) Cirrhosis of liver: Status: Acute Qualifiers: Hepatic cirrhosis type: alcoholic cirrhosis Ascites presence: with ascites Qualified Code(s): K70.31 - Alcoholic cirrhosis of liver with ascites Orders: Orders: CRP Today Erythrocyte Sed Rate Today Haptoglobin Today HIV - [facility] Today Ferritin Today LDH Today Hemoglobin A1c Today Anti-Mitochondrial AB Today Angiotensin Convert Enzyme Today AFP, Tumor Marker Today ANCA Today Anti-Smooth Muscle ABS Today Copper, Serum or Plasma Today Miscellaneous Lab Procedure Today Comprehensive Metabolic Profil Today Prothrombin Time w/INR Today CBC W/Diff, Automated Today Hepatitis Panel Acute Today Plan - Dr. Leland Back, DO: Is mild score is currently 25. This is driven by his increased bilirubin and mildly elevated INR secondary to cirrhosis. We will have him draw labs to make sure that he does not have any other chronic disease. In particular hepatitis C. We will also check his alpha-fetoprotein and get a repeat image of his abdomen pelvis to screen for liver cancer. He will need to undergo endoscopy for variceal screening. (2) Abdominal pain: Status: Acute Plan - Dr. Leland Back, DO: His abdominal pain is at the paracentesis site. I will give him a short course of pain medicine for about 5 days as requested by the patient. (3) Ascites: Status: Acute Plan - Dr. Leland Back, DO: Patient will continue large volume paracentesis every week to every other week with the goal being no more than 7 L. I discussed TIPS procedure with him and he said that he wants to think about possibly having a TIPS. I explained to him the possible side effects would be encephalopathy and bleeding. (4) Hyperammonemia: Status: Acute Plan - Dr. Leland Back, DO: We will check his ammonia level. At this time he is taking lactulose once a day. I will not make any changes until his ammonia level was checked. I have re-examined the patient. There are no clinical changes since date of exam.
[2021-04-11 11:45] VITALS: BP 96/64; PULSE 67; RESP 20; TEMP 36.5; O2SAT 99
--- NOTE | 2021-04-11 11:49 | OP.EGD_ITS ---
Patient Name: Sunil Tobar Procedure Date: 04/11/2021 11:20 AM Date of : 1975 Age: 46 Procedure: Upper GI endoscopy Indications: Follow-up of esophageal varices Providers: Leland Back DO Referring MD: Elio Ojeda Medicines: See the Anesthesia note for documentation of the administered medications Patient Profile: This is a 46 year old male. Refer to note in patient chart for documentation of history and physical. Patient has symptoms. Complications: No immediate complications. Procedure: Pre-Anesthesia Assessment: - Prior to the procedure, a History and Physical was performed, and patient medications and allergies were reviewed. The patient is competent. The risks and benefits of the procedure and the sedation options and risks were discussed with the patient. All questions were answered and informed consent was obtained. Patient identification and proposed procedure were verified in the pre-procedure area. Mental Status Examination: alert and oriented. Airway Examination: normal oropharyngeal airway and neck mobility. Respiratory Examination: clear to auscultation. CV Examination: normal. Prophylactic Antibiotics: The patient does not require prophylactic antibiotics. Prior Anticoagulants: The patient has taken no previous anticoagulant or antiplatelet agents. ASA Grade Assessment: II - A patient with mild systemic disease. After reviewing the risks and benefits, the patient was deemed in satisfactory condition to undergo the procedure. The anesthesia plan was to use moderate sedation / analgesia (conscious sedation). Immediately prior to administration of medications, the patient was re-assessed for adequacy to receive sedatives. The heart rate, respiratory rate, oxygen saturations, blood pressure, adequacy of pulmonary ventilation, and response to care were monitored throughout the procedure. The physical status of the patient was re-assessed after the procedure. After obtaining informed consent, the endoscope was passed under direct vision. Throughout the procedure, the patient's blood pressure, pulse, and oxygen saturations were monitored continuously. The gastroscope was introduced through the mouth, and advanced to the second part of duodenum. The upper GI endoscopy was accomplished without difficulty. The patient tolerated the procedure well. Moderate Sedation: Moderate (conscious) sedation was administered by the endoscopy nurse and supervised by the endoscopist. The patient's oxygen saturation, heart rate, blood pressure and response to care were monitored. Total physician intraservice time was 15 minutes. Scope In: 11:30:55 AM Scope Out: 11:37:33 AM Total Procedure Duration Time 0 hours 6 minutes 38 seconds Findings: Grade I varices were found in the lower third of the esophagus. They were 5 mm in largest diameter. One non-bleeding cratered gastric ulcer with no stigmata of bleeding was found in the gastric antrum. The lesion was 10 mm in largest dimension. Biopsies were taken with a cold forceps for histology. Verification of patient identification for the specimen was done. Estimated blood loss was minimal. The second portion of the duodenum was normal. Impression: - Grade I esophageal varices. - Non-bleeding gastric ulcer with no stigmata of bleeding. Biopsied. - Normal second portion of the duodenum. Recommendation: - Discharge patient to home. - Resume previous diet. - No aspirin, ibuprofen, naproxen, or other non-steroidal anti-inflammatory drugs for 8 weeks. - Await pathology results. - Return to my office. - Use Protonix (pantoprazole) 40 mg PO BID for 6 months. - Use sucralfate tablets 1 gram PO QID. Procedure Code(s): --- Professional --- 71035, Esophagogastroduodenoscopy, flexible, transoral; with biopsy, single or multiple 44255, 59, Moderate sedation services provided by the same physician or other qualified health housekeeper caregiver performing the diagnostic or therapeutic service that the sedation supports, requiring the presence of an independent trained observer to assist in the monitoring of the patient's level of consciousness and physiological status; initial 15 minutes of intraservice time, patient age 5 years or older CPT copyright 2017 [employer]. All rights reserved. The codes documented in this report are preliminary and upon public health administrator review may be revised to meet current compliance requirements. Leland Back DO 04/11/2021 11:48:56 AM This report has been signed electronically. Number of Addenda: 1 Note Initiated On: 04/11/2021 11:20 AM Addendum Number: 1 Addendum Date: 11/14/2021 6:49:47 AM MAC was used for sedation during this procedure. Leland Back DO 11/14/2021 6:49:53 AM This report has been signed electronically.
[2021-04-11 11:50] VITALS: BP 93/66; BP 96/64; PULSE 69; RESP 20; O2SAT 99
--- NOTE | 2021-04-11 11:50 | OP.CCLET_ITS ---
11/14/2021 Elio Ojeda [address] [place] [address] Re : Upper GI endoscopy procedure for Sunil Tobar Dear Dr. Ojeda This procedure was performed on Sunday, April 11, 2021. My impressions and recommendations are as follows: Impressions : - Grade I esophageal varices. - Non-bleeding gastric ulcer with no stigmata of bleeding. Biopsied. - Normal second portion of the duodenum. Recommendations : - Discharge patient to home. - Resume previous diet. - No aspirin, ibuprofen, naproxen, or other non-steroidal anti-inflammatory drugs for 8 weeks. - Await pathology results. - Return to my office. - Use Protonix (pantoprazole) 40 mg PO BID for 6 months. - Use sucralfate tablets 1 gram PO QID. My findings are described in the full procedure note, which is enclosed. If I can be of further assistance, please feel free to contact me at . Sincerely, Leland Back, 04/11/2021 11:48:56 AM This report has been signed electronically.
[2021-04-11 11:55] VITALS: BP 89/61; BP 96/64; PULSE 72; RESP 18; O2SAT 98
[2021-04-11 12:00] VITALS: BP 86/64; BP 96/64; PULSE 70; RESP 16; TEMP 36.3; O2SAT 100
[2021-04-11 12:28] VITALS: BP 96/64
== END 2021-04-11 23:59 | disposition home or self-care (01) ==
LOC: EN 09:48 → AC 09:49
PROVIDERS: PCP Family Medicine; Referring Provider Family Medicine; Visit Provider Internal Medicine Gastroenterology
PROC: 0DJ08ZZ Inspection of Upper Intestinal Tract, Via Natural or Artificial Opening Endoscopic (ICD-10-PCS; CPT 43235; principal; 2021-04-11 10:40)
DX: K25.9 Gastric ulcer, unspecified as acute or chronic, without hemorrhage or perforation (principal); I85.00 Esophageal varices without bleeding; K70.31 Alcoholic cirrhosis of liver with ascites; E72.20 Disorder of urea cycle metabolism, unspecified; D69.6 Thrombocytopenia, unspecified; F17.200 Nicotine dependence, unspecified, uncomplicated; F41.9 Anxiety disorder, unspecified; F32.A Depression, unspecified; Z79.899 Other long term (current) drug therapy; K21.9 Gastro-esophageal reflux disease without esophagitis; I10 Essential (primary) hypertension
CPT/HCPCS: 43239; 87426; 88305; 88342; J7120; J2405

== ENCOUNTER 2021-04-16 23:52 | Inpatient (IN) | payer MEDICAID, SELFPAY ==
[2021-04-16 23:53] VITALS: BP 131/89; PULSE 81; RESP 20; TEMP 36.9; O2SAT 99; BMI 31.4
[2021-04-17] VITALS (8 sets, daily range): BP systolic 94–152; BP diastolic 74–100; PULSE 63–88; RESP 16–18; TEMP 36.5–36.9; O2SAT 98–100; BMI 28.8
--- NOTE | 2021-04-17 | CT_ITS ---
EXAM: CT HEAD WITHOUT INTRAVENOUS CONTRAST CLINICAL INDICATION: Acute change in mental status TECHNIQUE: Multiple axial images were obtained of the head without intravenous contrast. CTDIvol = ( 47.06 ) mGy, DLP = ( 1921.82 ) mGycm This CT exam was performed using one or more of the following dose reduction techniques: automated exposure control, adjustment of the mA and/or kV according to patient size, and/or use of iterative reconstruction technique. This report was created using [employer] report generation technology. COMPARISON: 01/02/2021. FINDINGS: BRAIN AND EXTRA-AXIAL SPACES: Unremarkable. No intra- or extra-axial hemorrhage. No evidence of acute infarct. No intracranial mass or mass effect. There is preservation of the colunga/white matter interface. Posterior fossa structures are unremarkable. Ventricles are appropriate for age. No hydrocephalus. Basal cisterns are patent. BONES/JOINTS: Unremarkable. No discrete lytic or blastic abnormalities. SINUSES: Unremarkable as visualized. Clear. MASTOID AIR CELLS: Unremarkable. Clear. ORBITS: Visualized globes, extraocular muscles, optic nerves and retrobulbar fat appear unremarkable. CT/Brain/Head without Contrast IMPRESSION: Negative head/brain CT without intravenous contrast. Electronically Signed: Jah Fairchild MD at 0:57 EST ,
[2021-04-17 00:20] LABS: Absolute Lymphocyte Count 1.52 X10^3/uL (0.83-4.51); Absolute Neutrophil Count 3.7 X10^3/uL (2.0-7.7); Basophil# 0.04 X10^3/uL; Basophil% 0.6 % (0-1); Eosinophil# 0.15 X10^3/uL; Eosinophils% 2.4 % (0-5); Hematocrit 30.2 % (40-54); Hemoglobin 10.7 g/dL (13.0-16.5); Lymphocyte # 1.52 X10^3/ul (0.83-4.51); Lymphocyte % 24.6 % (19-41); Mean Corp Hgb Conc 35.4 g/dL (32-36); Mean Corpuscular Hgb 36.9 pg (27.0-32.0); Mean Corpuscular Volume 104.1 fL (80-94); Mean Platelet Vol. 10.8 fl (6.2-12.0); Monocyte# 0.72 X10^3/uL; Monocyte% 11.7 % (0-10); NRBC Flagged by Analyzer 0 % (0-5); Neutrophil # 3.72 X10^3/uL (2.7-7.7); Neutrophil % 60.2 % (47-70); POSITIVE COUNT YES; Platelet Count 79 K/mm3 (150-450); RBC Distribution Width CV 16.6 % (11.6-14.6); RBC Distribution Width SD 62.7 fl (35.1-43.9); White Blood Count 6.2 K/mm3 (4.4-11.0)
[2021-04-17] MEDS: 0.9% Normal Saline 1,000 ML 250 ML IV (00:30)
[2021-04-17 00:33] LABS: International Normalized Ratio 1.6; Prothrombin Time (Protime)PT. 18.2 SECONDS (11.7-14.9)
[2021-04-17 00:40] LABS: Alcohol, Blood (Medical)-Serum < 3.0 mg/dL
[2021-04-17 00:46] LABS: ALB/GLOB Ratio 0.4 RATIO (0.9-2.4); AST(SGOT) 39 U/L (15-37); Alanine Aminotransfer ALT/SGPT 16 U/L (16-61); Albumin, Serum 2.1 g/dL (3.2-5.0); Alkaline Phosphatase 239 U/L (45-117); Anion Gap 6 (5-15); BUN 17 mg/dL (7-18); BUN/Creat Ratio 18.5 RATIO (10-20); Calcium,Total 7.9 mg/dL (8.5-10.1); Chloride 106 mmol/L (98-107); Creatinine, Serum 0.92 mg/dL (0.70-1.30); EST Glomerular Filtration Rate 94 mL/min (>60); Est Glom Filt Rate - Afr Amer 113 mL/min (>60); Estimated Creatinine Clearance 96.03 ml/min; Glucose 141 mg/dL (74-106); Potassium 3.5 mmol/L (3.5-5.1); Protein, Total 7.1 g/dL (6.4-8.2); Sodium Level 138 mmol/L (136-145)
--- NOTE | 2021-04-17 01:02 | EX.ED.DYSGE1 ---
HPI History of Present Illness Chief Complaint: Confusion Detail of Chief Complaint: Patient is uncertain who called paramedics or why paramedics were called Informant: patient and EMS Onset/Context/Timing Onset: Today (Uncertain) Context: - (Unknown) Timing: Continuous Quality: Confusion altered mental status Location: Home Current Severity: Moderate Maximum Severity: Moderate Worsened by: Unknown Relieved by: Unknown Associated Symptoms Associated Symptoms: Poor informant Narrative Narrative: Patient is a 46-year-old male who lives with his mother. He drinks 12+ cans of beer a day. He has been drinking for 30 years. He does endorse smoking 2 packs/day. He cannot tell me where he is at. He does not know the month. He does admit to drinking today. He is uncertain whether he has had hepatic encephalopathy in the past. Does endorse history of alcohol induced cirrhosis of the liver. He denies abdominal pain. He does endorse darker colored urine. Prior similar symptoms: Yes (Per review of old records) Recent Illness/Hospitalization: No PFSH PFS Medical History Alcohol abuse Alcohol use Alcoholic liver disease Anasarca Anxiety Ascites Back pain Cardiology follow-up encounter Cirrhosis of liver Cirrhosis, alcoholic Depression Gastric reflux History of abdominal paracentesis History of echocardiogram History of edema History of irregular heartbeat History of stress test HTN (hypertension) Irregular heart beat Liver disease Shortness of breath on exertion Smoker Smoker Substance abuse Thrombocytopenia Home Medications atenolol 50 mg PO DAILY 07/30/14 [History Last Taken Unknown] paroxetine HCl [Paxil] 40 mg PO DAILY 07/30/14 [History Last Taken Unknown] midodrine 5 mg tablet See Rx Instructions .ROUTE .COMPLEX #90 tab 01/26/21 [Rx Last Taken Unknown] sucralfate 100 mg/mL oral suspension 10 ml PO BID 30 Days #600 ml 04/11/21 [Rx Last Taken Unknown] omeprazole 40 mg capsule,delayed release 40 mg PO BID #60 cap 04/13/21 [Rx Last Taken Unknown] furosemide 40 mg PO BID 04/17/21 [History Last Taken Unknown] Allergy/AdvReac Type Severity Reaction Status Date / Time Sulfa (Sulfonamide Allergy Unknown Verified 04/17/21 00:20 Antibiotics) Surgical History History of tonsillectomy and adenoidectomy Social History (Updated 04/17/21 @ 01:[address] Blake Melchor MD) household members: family Smoking Status: Heavy Smoker (>10/day) alcohol intake: former details: Patient states has not had a drink in 3 days substance use type: amphetamines ROS ROS ED Review of Systems ROS Unobtainable: due to mental status and other Details: Patient essentially denies everything. However he is disoriented and not a good informant Constitutional Constitutional ED: Denies fever(s) or weight loss Eyes Eyes: Denies blurry vision, change in vision or diplopia ENT ENT ED: Denies ear pain, rhinorrhea or sore throat Cardiovascular Cardiovascular: Denies chest pain or palpitations Respiratory/Chest Respiratory/Chest: Reports cough; Denies dyspnea or dyspnea on exertion Gastrointestinal Gastrointestinal: Denies abdominal pain, diarrhea, nausea or vomiting Genitourinary Genitourinary ED: Denies dysuria, hematuria or urinary frequency Musculoskeletal Musculoskeletal: Denies arthralgias, myalgias or neck pain Integumentary Denies rash Neurologic Neurologic: Reports weakness; Denies headache(s) Allergic/Immunologic Allergic/Immunologic ED: Denies mouth swelling, tongue swelling or urticaria EXAM Physical Exam Const Vital Signs: 04/16/21 23:53 04/17/21 00:16 Temperature 98.4 F 98.4 F Temperature Source Oral Temporal Pulse Rate 81 79 Respiratory Rate 20 H 17 Blood Pressure 131/89 H 137/92 H Blood Pressure Mean 103 107 Pulse Ox 99 100 Oxygen Delivery Method Room Air Room Air Positive well nourished and well developed General Appearance ED: well developed and NAD; Negative for cyanotic, diaphoretic or pallor HEENT Reports TM's clear and moist mucous membranes HEENT Narrative: Bleeding from gums poor. Poor dentition. Negative for trauma or tenderness Tympanic Membrane ED: Yes TM's clear Eyes PERRL and EOMs intact bilaterally General Eye ED: Yes scleral icterus; Negative for pale conjunctiva Neck no lymphadenopathy, supple and no JVD Chest Wall inspection of chest normal and palpation of chest normal Resp normal respiratory effort and No clear to auscultation bilaterally Effort and Inspection: Negative for pain with movement Auscultation: rales bilateral base Cardio regular rate, regular rhythm, S1 normal heart sound and S2 normal heart sound; Negative for no murmurs Rate: other Other Details: Great 2/6 systolic murmur heard best at the left lower sternal border. GI normal to inspection, nondistended, normoactive bowel sounds, non-tender, non-distended and no masses; Negative for hepatosplenomegaly GI Narrative: Question of fluid wave. Auscultation: normoactive bowel sounds Palpation: soft; Negative for splenomegaly Back/Spine no CVA tenderness Cervical Spine: Negative for cervical spine tenderness Thoracic Spine / Upper Back: Negative for thoracic spinal tenderness or paraspinal muscle tenderness Lumbar Spine / Lower Back: Negative for lumbar spinal tenderness Extremity normal to inspection General Extremety ED: Negative for edema or tenderness General Extremity: Negative for edema Neuro No oriented x3 and CN's II-XII intact bilaterally Neuro Narrative: There is no clonus or Babinski sign. Sensorium / Orientation: Negative for alert Sensory Exam: sensory level loss detected Motor Exam: strength 5/5 throughout Psych Negative for mental status grossly normal Skin no rashes or lesions noted General Skin Exam: jaundice; Negative for pallor MDM MDM MDM Narrative Medical decision making narrative: With altered mental status need to evaluate for metabolic versus infectious cause. Because of bleeding from gums possible head trauma will obtain CT of the head as well as PT/INR. Ammonia level was obtained to evaluate for hepatic encephalopathy. EKG was sent by EMS prior to arrival. He has a demand pacer noted with a ventricular rate of 80. Patient received lactulose for his altered mental status due to hepatic encephalopathy Lab Data Attestation: I reviewed the patient's lab results. Labs: Laboratory Results - last 24 hr 04/17/21 04/17/21 04/17/21 00:10 00:10 00:10 WBC 6.2 RBC 2.90 L Hgb 10.7 L Hct 30.2 L MCV 104.1 H MCH 36.9 H MCHC 35.4 RDW Std Deviation 62.7 H RDW Coeff of Andrei 16.6 H Plt Count 79 L MPV 10.8 Immature Gran % (Auto) 0.500 Neut % (Auto) 60.2 Lymph % (Auto) 24.6 [place] % (Auto) 11.7 H Eos % (Auto) 2.4 Baso % (Auto) 0.6 Absolute Neuts (auto) 3.7 Absolute Lymphs (auto) 1.52 Nucleated RBC % 0 PT 18.2 H INR 1.6 Sodium 138 Potassium 3.5 Chloride 106 Carbon Dioxide 26.0 Anion Gap 6 BUN 17 Creatinine 0.92 Estim Creat Clear Calc 96.03 Est GFR (MDRD) Af Amer 113 Est GFR (MDRD) Non-Af 94 BUN/Creatinine Ratio 18.5 Glucose 141 H Lactic Acid Calcium 7.9 L Total Bilirubin 4.50 H AST 39 H ALT 16 Alkaline Phosphatase 239 H Ammonia Total Protein 7.1 Albumin 2.1 L Globulin 5.0 H Albumin/Globulin Ratio 0.4 L Ethyl Alcohol 04/17/21 04/17/21 04/17/21 00:10 00:10 00:10 WBC RBC Hgb Hct MCV MCH MCHC RDW Std Deviation RDW Coeff of Andrei Plt Count MPV Immature Gran % (Auto) Neut % (Auto) Lymph % (Auto) [place] % (Auto) Eos % (Auto) Baso % (Auto) Absolute Neuts (auto) Absolute Lymphs (auto) Nucleated RBC % PT INR Sodium Potassium Chloride Carbon Dioxide Anion Gap BUN Creatinine Estim Creat Clear Calc Est GFR (MDRD) Af Amer Est GFR (MDRD) Non-Af BUN/Creatinine Ratio Glucose Lactic Acid 3.0 H* Calcium Total Bilirubin AST ALT Alkaline Phosphatase Ammonia 92.0 H Total Protein Albumin Globulin Albumin/Globulin Ratio Ethyl Alcohol < 3.0 Radiography Diagnostic Testing: Clinical Impression(s) from Imaging Studies Brain CT 04/17/21 00:00 IMPRESSION: Negative head/brain CT without intravenous contrast. Electronically Signed: Jah Fairchild MD at 0:57 EST Reading Location ID and State: [facility] / [place] Tel , Service support , Rhythm Strip Rate: 80 Ectopy: - (Paced rhythm demand mode) Discharge Plan Triage Chief Complaint: Confusion ED Provider: Blake Melchor Dx/Rx/DC Orders Clinical Impression: Acute hepatic encephalopathy, Depression, Adult failure to thrive, Jaundice, Abdominal ascites, Thrombocytopenia, Anemia, macrocytic, Alcoholism Prescriptions: No Action paroxetine HCl [Paxil] 40 MG tablet 40 mg PO DAILY RF: 0 atenolol 50 MG tablet 50 mg PO DAILY RF: 0 furosemide 40 mg tablet 40 mg PO BID RF: 0 midodrine 5 mg tablet See Rx Instructions .ROUTE .COMPLEX Qty: 90 RF: 3 sucralfate 100 mg/mL suspension 10 ml PO BID 30 Days Qty: 600 RF: 0 omeprazole 40 mg capsule,delayed release(DR/EC) 40 mg PO BID Qty: 60 RF: 3 Primary Care Provider: Elio Ojeda Referrals: Elio Ojeda MD [Primary Care Provider] - Disposition Disposition: Acute Care Hospital [facility]
[2021-04-17] MEDS: Lactulose 20 GM/30 ML UDC PO (01:54)
--- NOTE | 2021-04-17 02:07 | HP.PCM.HOS_ITS ---
HPI - General General Date of Admission: 04/17/21 Date of Service: 04/17/21 Chief Complaint: Altered mental status - 1 day HPI Narrative MAX ODONNELL, is a 46 M who presents with the above. Patient has alcoholic liver cirrhosis complicated by ascites status post recurrent paracentesis, hepatic encephalopathy, splenomegaly, thrombocytopenia. He goes for weekly paracentesis. Last had paracentesis on 04/15/21. Patient lives at home with his mother. Patient told the ED doctor that he has been drinking. His mother however stated that he last drank in December last year. She stated, patient was in his usual state of health the day of admission when he was found to be confused. She stated that patient has been taking his medications. Patient is confused and is unable to give reliable history. No recent illness fever or chills. He had an EGD done on 03/29/21 that showed grade 1 esophageal varices, nonbleeding gastric ulcer with no stigmata of bleeding that was biopsied. Patient was discharged on PPI and sucralfate. His vitals in the ED were stable except for blood pressure 140/100. His WBC count is 6.2, hemoglobin is 10.7 which is close to his baseline, platelet count is 79 which is at his baseline. INR is 1.6. CMP is unremarkable. Lactic acid 3.0. AST is 39, AL T 16, ALP 239, ammonia is 92. Alcohol level less than 3 PFSH Medical History Alcohol abuse Alcohol use Alcoholic liver disease Anasarca Anxiety Ascites Back pain Cardiology follow-up encounter Cirrhosis of liver Cirrhosis, alcoholic Depression Gastric reflux History of abdominal paracentesis History of echocardiogram History of edema History of irregular heartbeat History of stress test HTN (hypertension) Irregular heart beat Liver disease Shortness of breath on exertion Smoker Smoker Substance abuse Thrombocytopenia Home Medications atenolol 50 mg PO DAILY 07/30/14 [History Last Taken Unknown] paroxetine HCl [Paxil] 40 mg PO DAILY 07/30/14 [History Last Taken Unknown] midodrine 5 mg tablet See Rx Instructions .ROUTE .COMPLEX #90 tab 01/26/21 [Rx Last Taken Unknown] sucralfate 100 mg/mL oral suspension 10 ml PO BID 30 Days #600 ml 04/11/21 [Rx Last Taken Unknown] omeprazole 40 mg capsule,delayed release 40 mg PO BID #60 cap 04/13/21 [Rx Last Taken Unknown] furosemide 40 mg PO BID 04/17/21 [History Last Taken Unknown] Allergy/AdvReac Type Severity Reaction Status Date / Time Sulfa (Sulfonamide Allergy Unknown Verified 04/17/21 00:20 Antibiotics) Surgical History History of tonsillectomy and adenoidectomy Social History household members: family Smoking Status: Heavy Smoker (>10/day) alcohol intake: former details: Patient states has not had a drink in 3 days substance use type: amphetamines ROS Review of Systems ROS Unobtainable: due to encephalopathy Vital Signs Vital Signs Vital Signs: 04/16/21 23:53 04/17/21 00:16 04/17/21 01:58 Temperature 98.4 F 98.4 F 98 F Temperature Source Oral Temporal Temporal Pulse Rate 81 79 65 Respiratory Rate 20 H 17 18 Blood Pressure 131/89 H 137/92 H 137/92 H Blood Pressure Mean 103 107 107 Pulse Ox 99 100 99 Oxygen Delivery Method Room Air Room Air Room Air Weight Weight: 93.7 kg Body Mass Index (BMI) 31.4 Physical Exam Narrative Physical exam: General: Alert, Oriented, lethargic, slightly jaundiced, mildly dehydrated HEENT: Atraumatic, dried blood on the lips Oral: Moist Mucosa Neck: Supple Lungs: Diminished to auscultation Cardiovascular: HS I+II, regular, no murmurs Abdomen: Distended abdomen, nontender, bowel Sounds Present, Soft Extremities: No edema Results Lab / Micro Data Result Diagrams: 04/17/21 00:10 04/17/21 00:10 Labs: Laboratory Results - last 24 hr 04/17/21 00:10: WBC 6.2, RBC 2.90 L, Hgb 10.7 L, Hct 30.2 L, MCV 104.1 H, MCH 36.9 H, MCHC 35.4, RDW Std Deviation 62.7 H, RDW Coeff of Andrei 16.6 H, Plt Count 79 L, MPV 10.8, Immature Gran % (Auto) 0.500, Neut % (Auto) 60.2, Lymph % (Auto) 24.6, [place] % (Auto) 11.7 H, Eos % (Auto) 2.4, Baso % (Auto) 0.6, Absolute Neuts (auto) 3.7, Absolute Lymphs (auto) 1.52, Nucleated RBC % 0 04/17/21 00:10: PT 18.2 H, INR 1.6 04/17/21 00:10: Sodium 138, Potassium 3.5, Chloride 106, Carbon Dioxide 26.0, Anion Gap 6, BUN 17, Creatinine 0.92, Estim Creat Clear Calc 96.03, Est GFR (MDRD) Af Amer 113, Est GFR (MDRD) Non-Af 94, BUN/Creatinine Ratio 18.5, Glucose 141 H, Calcium 7.9 L, Total Bilirubin 4.50 H, AST 39 H, ALT 16, Alkaline Phosphatase 239 H, Total Protein 7.1, Albumin 2.1 L, Globulin 5.0 H, Albumin/Globulin Ratio 0.4 L 04/17/21 00:10: Ethyl Alcohol < 3.0 04/17/21 00:10: Ammonia 92.0 H 04/17/21 00:10: Lactic Acid 3.0 H* Rhythm Strip Rate: 80 Ectopy: - (Paced rhythm demand mode) Radiology Impression Brain CT 04/17/21 00:00 IMPRESSION: Negative head/brain CT without intravenous contrast. Electronically Signed: Jah Fairchild MD at 0:57 EST Reading Location ID and State: [address] [place] [address] Tel , Service support , Assessment & Plan Assessment/Plan (1) Acute hepatic encephalopathy: PLAN: 1. Acute hepatic encephalopathy in a patient with cirrhosis of the liver/recurrent ascites/, thrombocytopenia/splenomegaly Patient's admitting ammonia is 92. CT of the brain is unremarkable Suspect noncompliance with medications; possibly patient is back to drinking alcohol Admit to MedSurg, lactulose, continue midodrine, Lasix Add rifaximin. Trend ammonia in a.m. Paracentesis planned for Sunday 2. Lactic acidosis likely secondary to #1 Gentle IV fluids, repeat lactic acid levels 3. Recent nonbleeding gastric ulcer, status post EGD on 04/11/2021 Continue on oral PPI twice daily as well as sucralfate 4. Chronic thrombocytopenia secondary to liver cirrhosis, stable, at baseline 5. Anxiety/depression, continue on Paxil 6. DVT prophylaxis?SCDs Charges/Coding Visit Charges Inpatient E&M: 36606 Init Hosp L3
[2021-04-17 04:16] LABS: Reflex Lactate? Y
--- NOTE | 2021-04-17 05:00 | RAD_ITS ---
STUDY: X-RAY - ABDOMEN/PELVIS REASON FOR EXAM: Male, 46 years old. Vomiting fecal content TECHNIQUE: 2 decubitus views of the abdomen and pelvis. COMPARISON: None. FINDINGS: Elevated left hemidiaphragm with possible splenomegaly. No evidence of obstruction. Bowel gas pattern is otherwise within normal limits. RAD/Abd Decub and/or Erect(Portabl IMPRESSION: Possible splenomegaly. No evidence of bowel obstruction. Bowel gas pattern appears within normal limits Electronically Signed: Leobardo Rose DO at 5:52 EST ,
--- NOTE | 2021-04-17 05:02 | RAD_ITS ---
STUDY: X-RAY - ABDOMEN/PELVIS REASON FOR EXAM: Male, 46 years old. vomiting stool TECHNIQUE: Two AP supine views of the abdomen and pelvis. COMPARISON: None. FINDINGS: Normal visualized lung bases. There is an unremarkable bowel gas pattern. There is no demonstrated free abdominal air. The visualized liver, spleen and kidneys are grossly normal in size and morphology. Normal soft tissue structures. Normal visualized osseous structures. RAD/Abdomen Single View (Portable) IMPRESSION: Normal x-ray examination of the abdomen and pelvis. Electronically Signed: Leobardo Rose DO at 5:50 EST ,
[2021-04-17 05:18] LABS: Lactic Acid 2.1 mmol/L (0.4-1.9)
[2021-04-17] MEDS: 0.9% Normal Saline 1,000 ML 150 ML IV ×3 (05:28→18:23)
--- NOTE | 2021-04-17 06:16 | NURSING ---
Patients mother who he lives with Caroline Tobar called, not able to leave voicemail requesting call back because mailbox was full.
[2021-04-17] MEDS: Midodrine HCl 5 MG Tablet 10 MG PO ×3 (09:39→16:26)
[2021-04-17] MEDS: rifAXIMin 550 MG Tablet PO ×2 (09:39→21:14)
[2021-04-17] MEDS: Pantoprazole Sodium 40 MG Tablet PO ×2 (09:40→21:14)
[2021-04-17] MEDS: Atenolol 50 MG Tablet PO (09:40)
[2021-04-17] MEDS: Paroxetine 20 MG Tablet 40 MG PO (09:40)
[2021-04-17] MEDS: Furosemide 40 MG Tablet PO ×2 (09:40→17:41)
--- NOTE | 2021-04-17 11:37 | PN.HOSP_ITS ---
Hospitalist Note Mr. Tobar is a 46-year-old male with a history of alcoholic liver disease and cirrhosis who undergoes regular paracenteses for large volumes and has a history of noncompliance with medications who presented to the emergency department early this morning with encephalopathy. On admission his mother stated that his last drink was in December 2020 however the patient told the ER physician that he had been sneaking alcohol. The patient reports that he has been taking his medications although there is suspicion that he has not been compliant with his lactulose. On admission his ammonia was markedly elevated. His INR was 1.6 and his liver functions were normal. His alcohol level was less than 3. He has been admitted to the medical floor and placed on his oral medications. He is more alert but remains confused. There could be a component of Wernicke's encephalopathy associated with this as well however will be better able to asc ertain this once his ammonia level has improved. He is oriented to self and place but not month or year. He did have an emesis this morning after he had a large bowel movement. KUB was performed and was negative for any signs of obstruction. We will leave patient n.p.o. for now and see how he tolerates p.o. medications with sips and chips today and advance if able. Its noted in the H&P the paracentesis was done on 04/15/2021 but there is no documentation here that a paracentesis was done at that time so I suspect that possibly his last paracentesis was on 04/07/2021 and I have therefore scheduled 1 to be done tomorrow.
[2021-04-17] MEDS: Sucralfate 1 GM Tablet PO (16:26)
[2021-04-17 20:27] LABS: Mucous, Urine 0 SEEN /hpf (<or=2+); Red Blood Cells-Urine 0 SEEN /hpf (0-5); White Blood Cells 0 SEEN /hpf (0-5)
[2021-04-17 20:35] LABS: Color, Urine Yellow (Yellow); Glucose, Dipstick Normal (Normal); Ketone-Dipstick Negative (Negative); Leukocyte Esterase-Dipstick Negative /ul (Negative); Nitrite-Dipstick Negative (Negative); Occult Blood-Urine Negative /ul (Negative); Protein-Dipstick Negative (Negative); Specific Gravity, Urine 1.015 (1.002-1.030); Urine Bilirubin Dipstick Negative (Negative); Urine Clarity Clear (Clear); Urine Urobilinogen 1 mg/dl (Normal)
[2021-04-17 20:42] LABS: Bacteria RARE /hpf (None Seen); Squamous Epithelial Cells - UA 0-5 SEEN /hpf (0-5)
[2021-04-18] VITALS (8 sets, daily range): BP systolic 97–120; BP diastolic 57–70; PULSE 63–75; RESP 18–20; TEMP 36.4–37.1; O2SAT 97–100
[2021-04-18] MEDS: 0.9% Normal Saline 1,000 ML 150 ML IV ×2 (00:28→06:29)
[2021-04-18] MEDS: Sucralfate 1 GM Tablet PO ×2 (04:21→16:52)
[2021-04-18] MEDS: 0.9% Saline Lock 10 ML Syringe IV (06:28)
[2021-04-18 06:59] LABS: Absolute Lymphocyte Count 1.22 X10^3/uL (0.83-4.51); Absolute Neutrophil Count 2.7 X10^3/uL (2.0-7.7); Basophil# 0.03 X10^3/uL; Basophil% 0.7 % (0-1); Eosinophil# 0.19 X10^3/uL; Eosinophils% 4.2 % (0-5); Hematocrit 27.3 % (40-54); Hemoglobin 9.4 g/dL (13.0-16.5); Lymphocyte # 1.22 X10^3/ul (0.83-4.51); Lymphocyte % 26.7 % (19-41); Mean Corp Hgb Conc 34.4 g/dL (32-36); Mean Corpuscular Hgb 35.7 pg (27.0-32.0); Mean Corpuscular Volume 103.8 fL (80-94); Mean Platelet Vol. 10.8 fl (6.2-12.0); Monocyte# 0.46 X10^3/uL; Monocyte% 10.1 % (0-10); NRBC Flagged by Analyzer 0 % (0-5); Neutrophil # 2.66 X10^3/uL (2.7-7.7); Neutrophil % 58.1 % (47-70); POSITIVE COUNT YES; Platelet Count 70 K/mm3 (150-450); RBC Distribution Width CV 16.4 % (11.6-14.6); Red Blood Count 2.63 M/mm3 (4.6-6.2); White Blood Count 4.6 K/mm3 (4.4-11.0)
[2021-04-18 07:18] LABS: International Normalized Ratio 1.7; Prothrombin Time (Protime)PT. 19.3 SECONDS (11.7-14.9)
[2021-04-18 07:26] LABS: ALB/GLOB Ratio 0.4 RATIO (0.9-2.4); AST(SGOT) 28 U/L (15-37); Alanine Aminotransfer ALT/SGPT 14 U/L (16-61); Albumin, Serum 1.7 g/dL (3.2-5.0); Alkaline Phosphatase 121 U/L (45-117); Anion Gap 6 (5-15); BUN 14 mg/dL (7-18); BUN/Creat Ratio 20.3 RATIO (10-20); Calcium,Total 7.5 mg/dL (8.5-10.1); Chloride 106 mmol/L (98-107); Creatinine, Serum 0.69 mg/dL (0.70-1.30); EST Glomerular Filtration Rate 131 mL/min (>60); Est Glom Filt Rate - Afr Amer 158 mL/min (>60); Estimated Creatinine Clearance 132.35 ml/min; Globulin 4.5 g/dL (2.2-4.2); Glucose 115 mg/dL (74-106); Potassium 3.1 mmol/L (3.5-5.1); Protein, Total 6.2 g/dL (6.4-8.2); Sodium Level 135 mmol/L (136-145)
[2021-04-18] MEDS: Midodrine HCl 5 MG Tablet 10 MG PO ×3 (07:30→16:52)
[2021-04-18] MEDS: Potassium Chloride Oral Tablet 20 MEQ 40 MEQ PO (08:04)
[2021-04-18] MEDS: Lidocaine 2% (20 ml mdv) 20 ML Vial INFILT (09:44)
--- NOTE | 2021-04-18 10:24 | CASEMGMT ---
DAVID CM in to pt room for assessment, pt currently off of the floor. Will check back and a later time.
[2021-04-18] MEDS: rifAXIMin 550 MG Tablet PO ×2 (10:42→21:07)
[2021-04-18] MEDS: Furosemide 40 MG Tablet PO ×2 (10:42→16:53)
[2021-04-18] MEDS: Pantoprazole Sodium 40 MG Tablet PO ×2 (10:42→21:07)
[2021-04-18] MEDS: Paroxetine 20 MG Tablet 40 MG PO (10:58)
--- NOTE | 2021-04-18 11:37 | CASEMGMT ---
Addendum entered by Denise Sims 04/18/21 12:26: Confirmed with [facility] that pt is a current pt. They are aware pt is at [facility]. . Original Note: DAVID MARTIN Assessment: Face to Face with pt for initial transition planning/care coordination assessment. DAVID MARTIN introduced self and role at [facility], pt voices understanding and consents to assessment. Pt is A/O x2, did not know the year and answers all questions appropriately at this time while looking at his mother, who is in the room, at times for answers as well. Care providers, pharmacy, and demographics verified/updated. Admitting Dx: acute hepatic encephalopathy PCP:Lynette Specialists: Friend, GI Preferred Pharmacy: [facility] Insurance: [employer] Prescription Benefit: yes LW/HPOA: Pt has LW/DPOA on file at [facility]. His DPOA is his mother Caroline Tobar. LNOK: Caroline Tobar, mother; Dianelys Lucia, niece Living Arrangements: Pt reports he is staying not living with his mother and niece and nephew in a two story house with 1 step to enter. Pt reports he is I in ADL's and denies concerns at home. Transportation: Pt does not drive. Pt mother provides transportation to medical appts. DME/HHC/SNF: Pt has a rollator, BSC and a cane at home. Pt is current with Palliative Care. He denies hx of HHC or SNF stays. Pt states no concerns with going home at time of dc. He does not feel he needs any homecare services upon dc. Pt has designated his mother to discuss dc plans with. He states I wouldn't be here today if it was not for her. Pt states no further concerns/needs. CM to follow. Advised pt to ask CM if any further question/concerns/needs arise, voices understanding. Pt Goal: Home Plan: Home
--- NOTE | 2021-04-18 11:37 | US_ITS ---
PROCEDURE: Ultrasound guided paracentesis. DATE OF EXAMINATION: 04/18/2021. INDICATION: Male, 46 years old. Ascites. PHYSICIAN: Raciel iWlls M.D. TECHNIQUE: The risks, benefits, and alternatives to the procedure were explained to the patient. The specific risks of bleeding, infection, and damage to bowel were detailed and accepted. Witnessed informed consent was obtained. The abdomen was ultrasonographically surveyed. An appropriate pocket of fluid was identified at the right lower quadrant. The skin were cleaned and prepped in the usual sterile fashion. Using ultrasound guidance, the peritoneal cavity was accessed with a 5-[place] paracentesis needle/catheter system. The trocar was removed. A total of 7950 ml of casie-colored fluid were removed from the peritoneal cavity. The catheter was removed and a sterile dressing was applied. The procedure was well tolerated. US/Paracentesis with US IMPRESSION: Ultrasound guided paracentesis. Electronically Signed: Raciel Wills MD at 12:53 EST ,
[2021-04-18] MEDS: Albumin Human 25% (100 mL) 25 GM/100 ML BAG IV (12:09)
--- NOTE | 2021-04-18 12:12 | PN.HOSP_ITS ---
Subjective Subjective Patient seen and examined. His mother was by his bedside. He had no active complaints. His mentation improved markedly. Review of systems otherwise negative. He is for paracentesis today. Objective Data Objective Data Vital Signs: Vital Signs Temp Pulse Resp BP Pulse Ox 98.5 F 67 18 109/62 98 04/18/21 10:40 04/18/21 10:40 04/18/21 10:40 04/18/21 10:40 04/18/21 10:40 Oxygen Delivery Method [3] Room Air Oxygen Delivery Method [2] Room Air Oxygen Delivery Method [1 ( Room Air Initial Baseline)] Oxygen Delivery Method Room Air Weight: 190 lb 14.725 oz Body Mass Index (BMI) 28.8 Intake & Output: Intake and Output for Last 24 Hours 04/16/21 04/17/21 04/18/21 23:59 23:59 23:59 Intake Total 3685 / 3685 2320.0 / 2320.0 Output Total 7950 / 7950 Balance 3685 / 3685 -5630.0 / -5630.0 Medical Nutrition Assessment Dietitian: Malnutrition Criteria Met Start: 04/17/21 11:19 Freq: Status: Active Protocol: Document 04/17/21 11:19 SLA (Rec: 04/17/21 11:19 SLA [id number]) Nutrition Malnutrition Evidence of Malnutrition Exists Yes Malnutrition (moderate): Acute Illness/Injury Evidenced By Suboptimal Energy Intake ( Moderate),Weight Loss ( Moderate) Clinical Problem Acute Disease or Injury Related Malnutrition Etiology related to issues w/ n/v and decreased appetite making it difficult to meet pt est nutritional needs Signs/Symptoms as evidenced by current NPO status, decreased appetite x several months and 7.6% wt loss x 3 mo Status Active Problem Recommendation Dietitian Recommendations/Changes As medically able, rec TAMIKA to Regular low sodium diet As medically able, give ONS w/ medpass tid (ensure compact) Lab / Micro Data Result Diagrams: 04/18/21 06:25 04/18/21 06:25 Labs: Laboratory Results - last 24 hr 04/17/21 20:15: Urine Color Yellow, Urine Clarity Clear, Urine pH 6.0, Ur Specific [place] 1.015, Urine Protein Negative, Urine Glucose (UA) Normal, Urine Ketones Negative, Urine Occult Blood Negative, Urine Nitrite Negative, Urine Bilirubin Negative, Urine Urobilinogen 1 H, Ur Leukocyte Esterase Negative, Urine RBC 0 SEEN, Urine WBC 0 SEEN, Ur Squamous Epith Cells 0-5 SEEN, Urine Bacteria RARE, Urine Mucus 0 SEEN 04/18/21 06:25: WBC 4.6, RBC 2.63 L, Hgb 9.4 L, Hct 27.3 L, MCV 103.8 H, MCH 35.7 H, MCHC 34.4, RDW Std Deviation 62.0 H, RDW Coeff of Andrei 16.4 H, Plt Count 70 L, MPV 10.8, Immature Gran % (Auto) 0.200, Neut % (Auto) 58.1, Lymph % (Auto) 26.7, [place] % (Auto) 10.1 H, Eos % (Auto) 4.2, Baso % (Auto) 0.7, Absolute Neuts (auto) 2.7, Absolute Lymphs (auto) 1.22, Nucleated RBC % 0 04/18/21 06:25: Sodium 135 L, Potassium 3.1 L, Chloride 106, Carbon Dioxide 23.0, Anion Gap 6, BUN 14, Creatinine 0.69 L, Estim Creat Clear Calc 132.35, Est GFR (MDRD) Af Amer 158, Est GFR (MDRD) Non-Af 131, BUN/Creatinine Ratio 20.3 H, Glucose 115 H, Calcium 7.5 L, Total Bilirubin 5.30 H, AST 28, ALT 14 L, Alkaline Phosphatase 121 H, Total Protein 6.2 L, Albumin 1.7 L, Globulin 4.5 H, Albumin/Globulin Ratio 0.4 L 04/18/21 06:25: PT 19.3 H, INR 1.7 Rhythm Strip Rate: 80 Ectopy: - (Paced rhythm demand mode) Physical Exam Const alert, oriented x3 and no apparent distress Exam Limitations: no limitations HEENT head/scalp atraumatic and moist oral mucous membranes Head and Scalp: normocephalic Mouth: dry mucous membranes Eyes PERRL, EOMs intact bilaterally and conjunctivae normal Neck no lymphadenopathy and supple Resp normal respiratory effort, no retractions, no use of accessory muscles and clear to auscultation bilaterally Cardio regular rate, regular rhythm, S1 normal heart sound, S2 normal heart sound and no murmurs GI GI Narrative: abdomen distended, positive fluid thrill. no tenderness on palpation. Extremity normal to inspection, full ROM and no clubbing, cyanosis or edema Peripheral Pulses: Yes pulses 2+ throughout Skin no rashes or lesions noted Neuro oriented x3, CN's II-XII intact bilaterally and moves all extremities Sensorium / Orientation: awake and alert Psych affect normal Assessment & Plan Assessment/Plan (1) Acute hepatic encephalopathy: (2) Ascites: PLAN: #Acute hepatic encephalopathy * in a patient with known liver cirrhosis * Has now resolved. His ammonia was 92. CT of the brain was negative. Patient alert and oriented today and able to carry on a conversation. * Continue lactulose and midodrine as well as Lasix. Also on rifaximin. * #Hypokalemia: Potassium is 3.1. Will replace and trend. #Ascites due to cirrhosis of the liver * For paracentesis today. Had paracentesis with removal of 7.95 L of fluid. * Will give albumin IV * #History of gastric ulcer s/p EGD * Had EGD on 04/11/2021. On oral Protonix 40 mg twice daily. Also on Carafate * #Chronic thrombocytopenia: Due to chronic liver disease. Will monitor. #Anxiety and depression: On Paxil DVT prophylaxis: SCDs Charges/Coding Visit Charges Inpatient E&M: 96851 Subs Hosp L2
--- NOTE | 2021-04-18 13:02 | CASEMGMT ---
Social Work SW met w/pt in room, pt's mother present also. SW inquired about alcohol use. Pt states he hasn't been drinking. SW inquired the last time he drank. Pt states February 11. He names his mother Caroline as a support. SW inquired if he is interested in any information for support, counseling. SW brought in information from [facility] and local counseling agencies, pt declined information. Pt states, I'm not going to counseling. Pt plans to continue to just manage on his own in his efforts to not drink. SW inquired if he has tried counseling before, pt states he has. SW asked pt's mother how pt has been doing. She states he has been doing great, other than getting a little confused when he needs the paracentesis done. SW let pt and pt's mother know SW remains available for support to pt and referrals if needed. WILLIE Landeros
[2021-04-19 02:43] VITALS: BP 123/76; PULSE 76; RESP 18; TEMP 36.8; O2SAT 100
[2021-04-19] MEDS: 0.9% Saline Lock 10 ML Syringe IV (05:06)
[2021-04-19] MEDS: Sucralfate 1 GM Tablet PO (05:06)
[2021-04-19 05:44] LABS: Absolute Lymphocyte Count 1.23 X10^3/uL (0.83-4.51); Absolute Neutrophil Count 3.1 X10^3/uL (2.0-7.7); Basophil# 0.03 X10^3/uL; Basophil% 0.6 % (0-1); Eosinophil# 0.18 X10^3/uL; Eosinophils% 3.6 % (0-5); Hematocrit 30.2 % (40-54); Hemoglobin 10.5 g/dL (13.0-16.5); Lymphocyte # 1.23 X10^3/ul (0.83-4.51); Lymphocyte % 24.5 % (19-41); Mean Corp Hgb Conc 34.8 g/dL (32-36); Mean Corpuscular Hgb 35.8 pg (27.0-32.0); Mean Corpuscular Volume 103.1 fL (80-94); Mean Platelet Vol. 10.1 fl (6.2-12.0); Monocyte# 0.47 X10^3/uL; Monocyte% 9.3 % (0-10); NRBC Flagged by Analyzer 0 % (0-5); Neutrophil % 61.6 % (47-70); POSITIVE COUNT YES; Platelet Count 61 K/mm3 (150-450); RBC Distribution Width CV 15.9 % (11.6-14.6); RBC Distribution Width SD 59.9 fl (35.1-43.9); Red Blood Count 2.93 M/mm3 (4.6-6.2)
[2021-04-19 06:06] LABS: Anion Gap 6 (5-15); BUN 12 mg/dL (7-18); BUN/Creat Ratio 19.3 RATIO (10-20); Calcium,Total 7.7 mg/dL (8.5-10.1); Chloride 102 mmol/L (98-107); Creatinine, Serum 0.62 mg/dL (0.70-1.30); EST Glomerular Filtration Rate 147 mL/min (>60); Est Glom Filt Rate - Afr Amer 178 mL/min (>60); Estimated Creatinine Clearance 147.29 ml/min; Glucose 81 mg/dL (74-106); Potassium 3.5 mmol/L (3.5-5.1); Sodium Level 134 mmol/L (136-145)
[2021-04-19 08:40] VITALS: BP 116/81; PULSE 97; RESP 18; TEMP 36.8; O2SAT 100
[2021-04-19] MEDS: Midodrine HCl 5 MG Tablet 10 MG PO ×2 (08:41→11:41)
[2021-04-19] MEDS: Paroxetine 20 MG Tablet 40 MG PO (10:06)
[2021-04-19] MEDS: Furosemide 40 MG Tablet PO (10:06)
[2021-04-19] MEDS: Pantoprazole Sodium 40 MG Tablet PO (10:06)
[2021-04-19] MEDS: rifAXIMin 550 MG Tablet PO (10:06)
[2021-04-19] MEDS: Atenolol 50 MG Tablet PO (10:06)
--- NOTE | 2021-04-19 11:02 | DS.PCM_ITS ---
Providers Date of Admission: 04/17/21 Primary Care Physician: Dr. Elio Ojeda MD Reason For Visit: ACUTE HEPATIIC ENCEPALOPATHY Diagnosis Discharge Diagnosis (1) Acute hepatic encephalopathy: Status: Acute Code(s): K72.00 - Acute and subacute hepatic failure without coma (2) Ascites: Status: Acute Code(s): R18.8 - Other ascites Medications at Discharge Home Medications atenolol 50 mg PO DAILY 07/30/14 paroxetine HCl [Paxil] 40 mg PO DAILY 07/30/14 midodrine 5 mg tablet See Rx Instructions .ROUTE .COMPLEX #90 tab 01/26/21 sucralfate 100 mg/mL oral suspension 10 ml PO BID 30 Days #600 ml 04/11/21 omeprazole 40 mg capsule,delayed release 40 mg PO BID #60 cap 04/13/21 furosemide 40 mg PO BID 04/17/21 lactulose 20 g PO TID #3000 ml 04/19/21 Hospital Course Operations None Procedures Paracentesis Summary of Care Provided Minutes Spent on Discharge: 45 Hospital Course: Patient is a 46-year-old male with a past medical history as outlined was admitted through the ED on 04/17/2021 with a complaint of confusion. He admitted to drinking recently prior to discharge. He has a history of alcoholic liver cirrhosis complicted by ascites with recurrent paracentesis and hepatic encephalopathy with splenomegaly and thrombocytopenia. his last paracentesis was 04/15/2021. He had an EGD on 03/29/2021 which showed grade 1 esophageal varices and nonbleeding gastric ulcer with no stigmata of bleeding that was biopsied, and was discharged on PPI and sucralfate. He was noted to be more confused and so was brought in. His ammonia level was 92 on admission and serum alcohol level was <3. He was admitted to be managed for acute hepatic encephalopathy. He was started on lactulose. He had therapeutic paracentesis on 04/18/2020 with removal of 7.95 L. He was given albumin after paracentesis. Patient felt much better and his mentation improved. He remained stable and was discharged on 04/19/2021. 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 Patient was counseled strongly to stop drinking. Patient seen and examined prior to discharge. He had no other complaints and felt well. Review of systems otherwise negative. Labs and Vitals reviewed. Home Medication reviewed and reconciled. Physical Exam Const alert, oriented x3 and no apparent distress General Appearance: cooperative and comfortable Exam Limitations: no limitations HEENT normocephalic, head/scalp atraumatic and moist oral mucous membranes Eyes PERRL, EOMs intact bilaterally and conjunctivae normal Neck no lymphadenopathy and supple Resp normal respiratory effort, no retractions, no use of accessory muscles and clear to auscultation bilaterally Cardio regular rate, regular rhythm, S1 normal heart sound, S2 normal heart sound and no murmurs GI GI Narrative: abdominal distension has improved markedly, positive fluid thrill. no tenderness on palpation. Extremity normal to inspection, full ROM and no clubbing, cyanosis or edema Skin no rashes or lesions noted Neuro oriented x3, CN's II-XII intact bilaterally and moves all extremities Sensorium / Orientation: awake and alert Psych affect normal Medical Records Data Medical Nutrition Assessment Dietitian: Malnutrition Criteria Met Start: 04/17/21 1 1:19 Freq: Status: Active Protocol: Document 04/17/21 11:19 [facility] (Rec: 04/17/21 11:19 [facility] [id number]) Nutrition Malnutrition Evidence of Malnutrition Exists Yes Malnutrition (moderate): Acute Illness/Injury Evidenced By Suboptimal Energy Intake ( Moderate),Weight Loss ( Moderate) Clinical Problem Acute Disease or Injury Related Malnutrition Etiology related to issues w/ n/v and decreased appetite making it difficult to meet pt est nutritional needs Signs/Symptoms as evidenced by current NPO status, decreased appetite x several months and 7.6% wt loss x 3 mo Status Active Problem Recommendation Dietitian Recommendations/Changes As medically able, rec TAMIKA to Regular low sodium diet As medically able, give ONS w/ medpass tid (ensure compact) Weight / BMI Weight Weight: 191 lb 9.307 oz Body Mass Index (BMI) 28.8 ABG / Lab / Microbiology Data Result Diagrams: 04/19/21 05:27 04/19/21 05:27 Laboratory: Laboratory Results - last 24 hr 04/19/21 05:27: WBC 5.0, RBC 2.93 L, Hgb 10.5 L, Hct 30.2 L, MCV 103.1 H, MCH 35.8 H, MCHC 34.8, RDW Std Deviation 59.9 H, RDW Coeff of Andrei 15.9 H, Plt Count 61 L, MPV 10.1, Immature Gran % (Auto) 0.400, Neut % (Auto) 61.6, Lymph % (Auto) 24.5, Lee % (Auto) 9.3, Eos % (Auto) 3.6, Baso % (Auto) 0.6, Absolute Neuts (auto) 3.1, Absolute Lymphs (auto) 1.23, Nucleated RBC % 0 04/19/21 05:27: Sodium 134 L, Potassium 3.5, Chloride 102, Carbon Dioxide 26.0, Anion Gap 6, BUN 12, Creatinine 0.62 L, Estim Creat Clear Calc 147.29, Est GFR (MDRD) Af Amer 178, Est GFR (MDRD) Non-Af 147, BUN/Creatinine Ratio 19.3, Glucose 81, Calcium 7.7 L Radiography Diagnostic Testing: Radiology Impression Paracentesis Ultrasound 04/18/21 11:37 IMPRESSION: Ultrasound guided paracentesis. Electronically Signed: Raciel Wills MD at 12:53 EST Reading Location ID and State: [facility] / [place] , Service support , D/C Instructions Discharge Diet: Low fat / Low cholesterol Discharge Activity: Return to Normal Activity Weight Bearing Status: Weight bearing as tolerated Call your doctor if you observe: Fever of 101 or Higher, Inability to have a bowel movement, Shortness of breath, Dizziness, Swelling in the ankles, Chest pain and Increased palpitations (irregular heartbeat) Meaningful Use Info Meaningful Use Diagnoses (Choose all that apply): None applicable Discharge Plan Admission Admit Date/Time: 04/17/21 02:04 Primary Reason for Your Visit: acute hepatic encephalopathy Attending Provider: Herminia Tipton Primary Care Provider: Elio Ojeda Instructions Patient Instructions: Paracentesis Dc Discharge Orders/Prescriptions Prescriptions: New lactulose 20 gram/30 mL solution 20 g PO TID Qty: 3000 RF: 1 Continued paroxetine HCl [Paxil] 40 MG tablet 40 mg PO DAILY RF: 0 atenolol 50 MG tablet 50 mg PO DAILY RF: 0 furosemide 40 mg tablet 40 mg PO BID RF: 0 midodrine 5 mg tablet See Rx Instructions .ROUTE .COMPLEX Qty: 90 RF: 3 sucralfate 100 mg/mL suspension 10 ml PO BID 30 Days Qty: 600 RF: 0 omeprazole 40 mg capsule,delayed release(DR/EC) 40 mg PO BID Qty: 60 RF: 3 Referrals / Follow Up: Elio Ojeda MD [Primary Care Provider] - Within 2 Weeks Leland Back DO [STAFF PHYSICIAN] - Within 2 Weeks Disposition Disposition (needs filled in before D/C Order can be placed): Home, Self Care Charges/Coding Visit Charges Inpatient E&M: 82795 Disch Hosp
[2021-04-19 11:47] VITALS: BP 96/63; PULSE 69; RESP 16; TEMP 36.9; O2SAT 98
== END 2021-04-19 11:53 | disposition home or self-care (01) | DRG 279 ==
LOC: ED 04-17 01:11 → MS3 04-17 02:28
PROVIDERS: Hospitalist; Internal Medicine; Admitting Provider Internal Medicine; Emergency Provider Emergency Medicine; PCP Family Medicine; Referring Provider Internal Medicine; Visit Provider Student in an Organized Health Care Education/Training Program
DX: K72.00 Acute and subacute hepatic failure without coma (principal); E44.0 Moderate protein-calorie malnutrition; I85.00 Esophageal varices without bleeding; E87.2 Acidosis; R62.7 Adult failure to thrive; K70.31 Alcoholic cirrhosis of liver with ascites; F10.20 Alcohol dependence, uncomplicated; F17.200 Nicotine dependence, unspecified, uncomplicated; D53.9 Nutritional anemia, unspecified; I10 Essential (primary) hypertension; E87.6 Hypokalemia; K21.9 Gastro-esophageal reflux disease without esophagitis; D69.59 Other secondary thrombocytopenia; F32.A Depression, unspecified; Z87.19 Personal history of other diseases of the digestive system; Z79.899 Other long term (current) drug therapy; Z91.14 Patient's other noncompliance with medication regimen; Z68.28 Body mass index [BMI] 28.0-28.9, adult
CPT/HCPCS: 36415; 49083; 70450; 74018; 74019; 80048; 80053; 81001; 82077; 82140; 83605; 85025; 85610; 97802; 99285; 99406; J7030; P9047; A4216

== ENCOUNTER → 2021-04-26 | Outpatient (CLI) | payer MEDICAID, SELFPAY ==
[2021-04-26 11:07] LABS: International Normalized Ratio 1.6; Prothrombin Time (Protime)PT. 18.4 SECONDS (11.7-14.9)
[2021-04-26 11:18] LABS: ALB/GLOB Ratio 0.4 RATIO (0.9-2.4); AST(SGOT) 34 U/L (15-37); Alanine Aminotransfer ALT/SGPT 16 U/L (16-61); Albumin, Serum 2.1 g/dL (3.2-5.0); Alkaline Phosphatase 187 U/L (45-117); Anion Gap 4 (5-15); BUN 12 mg/dL (7-18); BUN/Creat Ratio 14.3 RATIO (10-20); CRP 8.22 mg/L (0.0-3.0); Calcium,Total 8.3 mg/dL (8.5-10.1); Chloride 103 mmol/L (98-107); Creatinine, Serum 0.84 mg/dL (0.70-1.30); EST Glomerular Filtration Rate 104 mL/min (>60); Est Glom Filt Rate - Afr Amer 126 mL/min (>60); Ferritin 342 ng/mL (26-388); Globulin 5.2 g/dL (2.2-4.2); Glucose 96 mg/dL (74-106); LDH 294 U/L (87-241); Potassium 3.8 mmol/L (3.5-5.1); Protein, Total 7.3 g/dL (6.4-8.2); Sodium Level 134 mmol/L (136-145)
[2021-04-26 11:20] LABS: Absolute Lymphocyte Count 1.05 X10^3/uL (0.83-4.51); Absolute Neutrophil Count 4.4 X10^3/uL (2.0-7.7); Basophil# 0.03 X10^3/uL; Basophil% 0.5 % (0-1); Eosinophil# 0.15 X10^3/uL; Eosinophils% 2.4 % (0-5); Hematocrit 29.6 % (40-54); Hemoglobin 10.4 g/dL (13.0-16.5); Lymphocyte # 1.05 X10^3/ul (0.83-4.51); Lymphocyte % 16.5 % (19-41); Mean Corp Hgb Conc 35.1 g/dL (32-36); Mean Corpuscular Volume 105.3 fL (80-94); Mean Platelet Vol. 9.8 fl (6.2-12.0); Monocyte# 0.72 X10^3/uL; Monocyte% 11.3 % (0-10); NRBC Flagged by Analyzer 0 % (0-5); Neutrophil # 4.39 X10^3/uL (2.7-7.7); Neutrophil % 68.8 % (47-70); POSITIVE COUNT YES; Platelet Count 85 K/mm3 (150-450); RBC Distribution Width CV 16.8 % (11.6-14.6); RBC Distribution Width SD 64.8 fl (35.1-43.9); Red Blood Count 2.81 M/mm3 (4.6-6.2); White Blood Count 6.4 K/mm3 (4.4-11.0)
[2021-04-26 11:24] LABS: Hemoglobin A1c < 3.8 % (3.8-5.6)
[2021-04-26 11:25] LABS: Erythrocyte Sedimentation Rate 18 mm/hr (0-20)
[2021-04-26 11:54] LABS: HIV - WCH Nonreactive (Nonreactive)
[2021-04-27 16:10] LABS: Anti-Centromere B Ab <0.2 AI (0.0-0.9); Anti-Chromatin <0.2 AI (0.0-0.9); Anti-Jo <0.2 AI (0.0-0.9); Anti-Scleroderma-70 AB <0.2 AI (0.0-0.9); RNP Ab 1.3 AI (0.0-0.9); SJOGREN'S Anti-SS-A test < 0.2 AI (0.0-0.9); SJOGREN'S Anti-SS-B test < 0.2 AI (0.0-0.9); Smith Ab <0.2 AI (0.0-0.9)
[2021-04-27 17:52] LABS: Anti-Mitochondrial AB <20.0 Units (0.0-20.0); Anti-dsDNA Ab <1 IU/mL (0-9)
[2021-04-29 03:07] LABS: Angiotensin Convert Enzyme 210 U/L (14-82); HEPATITIS B SURFACE AG Negative (Negative); Hepatitis A IgM Antibody Negative (Negative); Hepatitis B Core AB IgM Negative (Negative)
[2021-04-29 15:22] LABS: AFP, Tumor Marker 1.5 ng/mL (0.0-8.3); Anti-Smooth Muscle ABS 22 Units (0-19); Copper, Serum or Plasma 85 ug/dL (69-132); Haptoglobin < 10 mg/dL (23-355); Hep C Antibodies 0.3 s/co ratio (0.0-0.9); Perinuclear Ab (P-ANCA) <1:20 titer (Neg:<1:20)
== END | disposition home or self-care (01) ==
PROVIDERS: PCP Family Medicine; Referring Provider Internal Medicine Gastroenterology; Visit Provider Internal Medicine Gastroenterology
DX: K70.31 Alcoholic cirrhosis of liver with ascites (principal)
CPT/HCPCS: 36415; 80053; 80074; 82105; 82140; 82164; 82525; 82728; 83010; 83036; 83516; 83615; 85025; 85610; 85652; 86140; 86225; 86235; 86256; 86703

== ENCOUNTER 2021-04-29 11:00 | Outpatient (CLI) | payer MEDICAID, SELFPAY ==
--- NOTE | 2021-04-29 11:02 | US_ITS ---
PROCEDURE: Ultrasound guided paracentesis. DATE OF EXAMINATION: 04/29/2021. INDICATION: Male, 46 years old. Ascites. PHYSICIAN: Raciel Wills M.D. TECHNIQUE: The risks, benefits, and alternatives to the procedure were explained to the patient. The specific risks of bleeding, infection, and damage to bowel were detailed and accepted. Witnessed informed consent was obtained. The abdomen was ultrasonographically surveyed. An appropriate pocket of fluid was identified at the right lower quadrant. The skin were cleaned and prepped in the usual sterile fashion. Using ultrasound guidance, the peritoneal cavity was accessed with a 5-German paracentesis needle/catheter system. The trocar was removed. A total of 7600 ml of casie-colored fluid were removed from the peritoneal cavity. The catheter was removed and a sterile dressing was applied. The procedure was well tolerated. US/Paracentesis with US IMPRESSION: Ultrasound guided paracentesis. Electronically Signed: Raciel Wills MD at 12:22 EST ,
[2021-04-29 11:20] VITALS: BP 116/73; BP 123/68; BP 124/65; PULSE 77; PULSE 80; PULSE 81; RESP 18; RESP 20; TEMP 37.1; O2SAT 100; O2SAT 97; O2SAT 98
[2021-04-29] MEDS: Lidocaine 2% (20 ml mdv) 20 ML Vial INFILT (11:25)
[2021-04-29 12:13] VITALS: BP 111/66; PULSE 74; RESP 16; TEMP 36.2; O2SAT 100
[2021-04-29] MEDS: Albumin Human 25% (100 mL) 25 GM/100 ML BAG IV ×2 (12:21→13:46)
[2021-04-29 15:41] VITALS: BP 105/56; PULSE 72; RESP 16; TEMP 35.9; O2SAT 100
== END 2021-04-29 23:59 | disposition home or self-care (01) ==
LOC: US 11:01
PROVIDERS: PCP Family Medicine; Referring Provider Internal Medicine Gastroenterology; Visit Provider Internal Medicine Gastroenterology
DX: K74.60 Unspecified cirrhosis of liver (principal)
CPT/HCPCS: 96365; 96366; 49083; J7050; P9047

== ENCOUNTER 2021-05-05 10:09 | Outpatient (CLI) | payer MEDICAID, SELFPAY ==
--- NOTE | 2021-05-05 10:11 | US_ITS ---
PROCEDURE: Ultrasound guided paracentesis. DATE OF EXAMINATION: 05/05/2021. INDICATION: Male, 46 years old. Ascites. PHYSICIAN: Raciel Wills M.D. TECHNIQUE: The risks, benefits, and alternatives to the procedure were explained to the patient. The specific risks of bleeding, infection, and damage to bowel were detailed and accepted. Witnessed informed consent was obtained. The abdomen was ultrasonographically surveyed. An appropriate pocket of fluid was identified at the right lower quadrant. The skin were cleaned and prepped in the usual sterile fashion. Using ultrasound guidance, the peritoneal cavity was accessed with a 5-Vietnamese paracentesis needle/catheter system. The trocar was removed. A total of 8450 ml of casie-colored fluid were removed from the peritoneal cavity. The catheter was removed and a sterile dressing was applied. The procedure was well tolerated. US/Paracentesis with US IMPRESSION: Ultrasound guided paracentesis. Electronically Signed: Raciel Wills MD at 11:55 EST ,
[2021-05-05 10:19] VITALS: BP 113/78; BP 115/77; BP 120/64; BP 122/75; BP 126/73; PULSE 18; PULSE 80; PULSE 83; PULSE 84; PULSE 85; RESP 18; TEMP 36.7; O2SAT 98; O2SAT 99
[2021-05-05] MEDS: Lidocaine 2% (20 ml mdv) 20 ML Vial (10:27)
[2021-05-05] MEDS: 0.9% NaCl Peripheral Flush Adult/Peds IV (10:50)
[2021-05-05 11:04] VITALS: BP 118/66; PULSE 72; RESP 16; TEMP 36.2; O2SAT 100; BMI 27.6
[2021-05-05] MEDS: Albumin Human 25% (100 mL) 25 GM/100 ML BAG IV ×2 (11:11→12:44)
[2021-05-05] MEDS: 0.9% Saline Lock 10 ML Syringe IV (11:11)
[2021-05-05] MEDS: Albumin Human 25% (50 mL) 12.5 GM/50 ML IV.SOLN IV (14:18)
[2021-05-05 15:18] VITALS: BP 113/56; PULSE 65; RESP 16; O2SAT 100
== END 2021-05-05 23:59 | disposition home or self-care (01) ==
LOC: US 10:19 → MEDOUTP 10:59
PROVIDERS: PCP Family Medicine; Referring Provider Internal Medicine Gastroenterology; Visit Provider Internal Medicine Gastroenterology
DX: K74.60 Unspecified cirrhosis of liver (principal)
CPT/HCPCS: 96365; 96366 ×3; 49083; P9047; A4216

== ENCOUNTER 2021-05-09 06:20 | Emergency (ER) | payer MEDICAID, SELFPAY ==
--- NOTE | 2021-05-09 | IMM_PTH ---
PATIENT: MAX ODONNELL III LOC: ED U#:[id number] AGE/SX: 46/M ROOM: RE05/09/[address]: Dr. Edwin Rodriguez DO : 1975 BED: DIS: 05/09/2021 SPEC #: [id number] RECD: 05/10/21 11:53 STATUS: FRANCES RENereyda #: [id number] ALCIRA: 05/09/21 00:[address]: Edwin Rodriguez DEPT: IMMUNOHISTOCHEMISTRY RECD BY: Stacey Velásquez ENTERED: 05/10/21 11:56 SP TYPE: IMMUNO OTHR DR: Dr. Elio Ojeda MD Tissues: PARACENTESIS FLUID Procedures: Hilton Ret (add) CK20 (add) CK5-6 (add) CK7 (add) P53 (add) Pankeratin (initial) P40 (add) PHYSICIAN & INSTITUTION [place] [id number] SPECIMEN INFORMATION: Tissue Source: Paracentesis fluid Clinical Info: Ascites Specimen Number: [id number] CPT code: 86906, 18774 x6 METHODOLOGY: Deparaffinized sections of prefer/formalin-fixed tissue or PAP/DQ stained slides are incubated with monoclonal/polyclonal antibodies/oligonucleotide probes. Localization is made via biotin free immunoperoxidase method. Appropriate controls are performed and reacted as expected. Results on target cell population are indicated in the following table: RESULTS: ANTIBODY / CLONE RESULT AE1-3 (AE1/AE3/PCK26) positive CK7 (OV-TL12/30) negative CK20 (KS20.8) negative CALRET (polyclonal) positive CK5-6 (D5 & 1684) positive, rare P40 (BC28) negative P53 (DO-7) negative These tests were developed and their performance characteristics determined by [facility]. They may not have been cleared or approved by the U.[place]. Food and Drug Administration. The FDA has determined that such clearance or approval is not necessary. The above immunohistochemical/dualISH markers are ordered and reviewed by the Pathologist. INTERPRETATION: Paracentesis fluid (cell block): No evidence of malignancy. AM:chintan 05/11/2021
--- NOTE | 2021-05-09 | FLU_PTH ---
PATIENT: MAX ODONNELL III LOC: ED U#:[id number] AGE/SX: 46/M ROOM: RE05/09/[address]: Dr. Edwin Rodriguez, : 1975 BED: DIS: 05/09/2021 SPEC #: [id number] RECD: 05/09/21 11:07 STATUS: FRANCES ALONSO #: [id number] ALCIRA: 05/09/21 00:[address]: Edwin Rodriguez DEPT: CYTOLOGY RECD BY: Phyllis Schwarz ENTERED: 05/09/21 13:27 SP TYPE: Fluid OTHR DR: Dr. Elio Ojeda MD Tissues: PARACENTESIS FLUID Procedures: Special Stain Group II Surgery Specimen Level IV Cytospin Fluid HEADER OPERATION: Ultrasound-guided right paracentesis PRE-OP DIAGNOSIS: Ascites TISSUE SUBMITTED: Paracentesis fluid for cytology DIAGNOSIS CYTOLOGY Paracentesis fluid for cytology (cytospin and cell block): Negative for malignant cells. See comment. AM:chintan 05/10/2021 COMMENT Immunohistochemistry ([id number]) supports the above diagnosis. CYTOLOGY STUDY Slides are reviewed. CYTOLOGY GROSS Received is 110 ml of yellow cloudy fluid labeled with the patient's name and and designated per the requisition as paracentesis. Submitted for cytology preparation including cell block. / chintan 05/09/2021 TC:5 CPT: 45665, 88951
[2021-05-09 06:21] VITALS: BP 92/65; PULSE 85; RESP 16; TEMP 37.2; O2SAT 95; BMI 29.5
--- NOTE | 2021-05-09 07:14 | EDS_ITS ---
HPI History of Present Illness Chief Complaint: General Illness Informant: patient Onset/Context/Timing Onset: Days (3) Context: Gradual Onset Timing: Continuous Quality: Cramping Location: Right side of abdomen Worsened by: Vomiting Relieved by: Tylenol Associated Symptoms Associated Symptoms: Occasional confusion Narrative Narrative: Patient presents with fever and abdominal pain that has been getting worse over the past 3 days. Patient has a history of cirrhosis. Patient had a paracentesis done 4 days ago. Patient states he was feeling fatigued 3 days ago. Patient states that he started developing a fever 2 days ago and has been constant since. Patient states it goes down with Tylenol. Patient admits to cramping pain over the right side of his abdomen. Patient admits to some nausea and vomiting. Patient denies any diarrhea. Patient denies any dysuria or hematuria. Patient also states that he gets confused at times. [facility] Medical History Abdominal ascites Adult failure to thrive Alcohol abuse Alcohol use Alcoholic liver disease Alcoholism Anasarca Anemia, macrocytic Anxiety Ascites Back pain Cardiology follow-up encounter Cirrhosis of liver Cirrhosis, alcoholic Depression Gastric reflux History of abdominal paracentesis History of echocardiogram History of edema History of irregular heartbeat History of stress test HTN (hypertension) Irregular heart beat Liver disease Shortness of breath on exertion Smoker Smoker Substance abuse Thrombocytopenia Thrombocytopenia Home Medications atenolol 50 mg PO DAILY 07/30/14 [History Last Taken Unknown] paroxetine HCl [Paxil] 40 mg PO DAILY 07/30/14 [History Last Taken Unknown] midodrine 5 mg tablet See Rx Instructions .ROUTE .COMPLEX #90 tab 01/26/21 [Rx Last Taken Unknown] omeprazole 40 mg capsule,delayed release 40 mg PO BID #60 cap 04/13/21 [Rx Last Taken Unknown] furosemide 40 mg PO BID 04/17/21 [History Last Taken Unknown] lactulose 20 g PO TID #3000 ml 04/19/21 [Rx Last Taken Unknown] ciprofloxacin HCl 500 mg PO BID #20 tablet 05/09/21 [Rx Last Taken Unknown] metronidazole 500 mg PO BID #20 tab 05/09/21 [Rx Last Taken Unknown] sucralfate 100 mg/mL oral suspension See Rx Instructions .ROUTE .COMPLEX #600 ml 05/09/21 [Rx Last Taken Unknown] Allergy/AdvReac Type Severity Reaction Status Date / Time Sulfa (Sulfonamide Allergy Unknown Verified 05/09/21 06:26 Antibiotics) Surgical History History of tonsillectomy and adenoidectomy Social History household members: family Smoking Status: Heavy Smoker (>10/day) alcohol intake: former details: Patient states has not had a drink in 3 days substance use type: amphetamines ROS ROS ED Constitutional Constitutional ED: Reports fever(s); Denies chills Eyes Eyes: Denies blurry vision or change in vision ENT ENT ED: Denies rhinorrhea or sore throat Cardiovascular Cardiovascular: Denies chest pain or palpitations Respiratory/Chest Respiratory/Chest: Denies cough or dyspnea Gastrointestinal Gastrointestinal: Reports abdominal pain, nausea and vomiting Genitourinary Genitourinary ED: Denies dysuria or hematuria Musculoskeletal Musculoskeletal: Denies back pain or neck pain Integumentary Denies abscess or rash Neurologic Neurologic: Denies headache(s) or weakness Allergic/Immunologic Allergic/Immunologic ED: Denies mouth swelling or urticaria EXAM Physical Exam Const Vital Signs: 05/09/21 06:21 05/09/21 08:02 05/09/21 08:06 Temperature 98.9 F Temperature [1 (Initial Baseline)] Temperature Source Oral Pulse Rate 85 77 Pulse Rate [1 (Initial Baseline)] Pulse Rate [2] Pulse Rate [3] Pulse Rate [4] Respiratory Rate 16 18 Respiratory Rate [1 (Initial Baseline)] Respiratory Rate [2] Respiratory Rate [3] Respiratory Rate [4] Respiratory Effort Normal Non-Labored Respiratory Pattern Normal Blood Pressure 92/65 92/61 Blood Pressure [1 (Initial Baseline)] Blood Pressure [2] Blood Pressure [3] Blood Pressure [4] Blood Pressure Mean 74 71 Pulse Ox 95 97 Oxygen Delivery Method Room Air Room Air Oxygen Delivery Method [1 (Initial Baseline)] Oxygen Delivery Method [2] Oxygen Delivery Method [3] Oxygen Delivery Method [4] 05/09/21 10:16 05/09/21 10:33 05/09/21 12:15 Temperature 97.8 F Temperature [1 (Initial Baseline)] 98 F Temperature Source Temporal Pulse Rate 73 67 Pulse Rate [1 (Initial Baseline)] 68 Pulse Rate [2] 69 Pulse Rate [3] 69 Pulse Rate [4] 65 Respiratory Rate 16 16 Respiratory Rate [1 (Initial Baseline)] 18 Respiratory Rate [2] 20 H Respiratory Rate [3] 20 H Respiratory Rate [4] 20 H Respiratory Effort Respiratory Pattern Blood Pressure 105/67 91/47 L Blood Pressure [1 (Initial Baseline)] 105/67 Blood Pressure [2] 97/61 Blood Pressure [3] 107/58 L Blood Pressure [4] 107/58 L Blood Pressure Mean 79 61 Pulse Ox 98 96 Oxygen Delivery Method Room Air Room Air Oxygen Delivery Method [1 (Initial Baseline)] Room Air Oxygen Delivery Method [2] Room Air Oxygen Delivery Method [3] Simple Mask Oxygen Delivery Method [4] Room Air Positive well nourished and well developed General Appearance ED: well developed and NAD Eyes EOMs intact bilaterally General Eye ED: Yes scleral icterus Neck supple and no JVD Resp normal respiratory effort and clear to auscultation bilaterally Cardio regular rate and regular rhythm Heart Sounds: murmur systolic II/ low-pitched holo GI Auscultation: normoactive bowel sounds Palpation: soft, tender RLQ and RUQ and ascites; Negative for guarding Neuro oriented x3, CN's II-XII intact bilaterally and no sensory deficits noted Sensorium / Orientation: alert Motor Exam: strength 5/5 throughout Psych mental status grossly normal MDM MDM MDM Narrative Medical decision making narrative: Patient was given IV fluids. Patient was given a dose of morphine and Zofran. CBC shows a leukocytosis of 13.7. Hemoglobin was 10.5 and hematocrit was 29.8. Platelets were 73. These were unchanged compared to previous results. Comprehensive metabolic profile showed a sodium of 130 and potassium of 3.2. Total bilirubin was elevated at 6.1. AST and ALT were normal. Alk phos was normal. Lipase was normal. Urinalysis shows positive nitrites with leukocyte esterase of 25. There were 10-25 white blood cells. There is 3+ bacteria. Urine culture was ordered. INR was 2.1. PTT was 38.1. Ammonia level was 58. This was improved compared to previous results. CT scan of the abdomen and pelvis was obtained. There is a large amount of ascites in the abdomen. There is a small left pleural effusion noted. This was interpreted by the radiologist and reviewed by myself. Due to the abdominal pain and fever, a paracentesis was ordered to rule out spontaneous bacterial peritonitis. This was performed in the radiology department under ultrasound by the radiologist. Patient had 6450 mL drained from his abdomen. This showed clear yellow fluid. White blood cell count was 0.112 with 0.10 polynuclear WBCs and 0.102 mononuclear WBCs. Glucose was normal. Protein is normal. LDH was normal. Case was discussed with Dr. Back. Patient normally gets infusion of albumin after paracentesis whenever he has more than 5 L drained off of his abdomen. Patient was ordered an infusion of albumin. Patient was given a dose of Zosyn here. Patient was given prescriptions for Cipro and Flagyl. Patient will be discharged to the infusion center for the albumin infusion. Patient and family understood and were agreeable with the plan. All questions were answered. Lab Data Attestation: I reviewed the patient's lab results. Labs: Laboratory Results - last 24 hr 05/09/21 05/09/21 05/09/21 07:32 07:50 07:50 WBC 13.7 H RBC 2.87 L Hgb 10.5 L Hct 29.8 L MCV 103.8 H MCH 36.6 H MCHC 35.2 RDW Std Deviation 56.3 H RDW Coeff of Andrei 14.6 Plt Count 73 L MPV 10.2 Immature Gran % (Auto) 0.400 Neut % (Auto) 85.8 H Lymph % (Auto) 5.0 L Avery % (Auto) 8.7 Eos % (Auto) 0.0 Baso % (Auto) 0.1 Absolute Neuts (auto) 11.7 H Absolute Lymphs (auto) 0.68 L Nucleated RBC % 0 PT INR APTT Sodium 130 L Potassium 3.2 L Chloride 98 Carbon Dioxide 23.0 Anion Gap 9 BUN 13 Creatinine 0.99 Estim Creat Clear Calc 92.24 Est GFR (MDRD) Af Amer 104 Est GFR (MDRD) Non-Af 86 BUN/Creatinine Ratio 13.2 Glucose 104 Calcium 8.1 L Total Bilirubin 6.10 H AST 28 ALT 13 L Alkaline Phosphatase 115 Ammonia Total Protein 6.8 Albumin 2.5 L Globulin 4.3 H Albumin/Globulin Ratio 0.6 L Lipase 99 Urine Color Yellow Urine Clarity Clear Urine pH 5.0 Ur Specific [place] 1.015 Urine Protein 30 H Urine Glucose (UA) Normal Urine Ketones 5 H Urine Occult Blood 10 H Urine Nitrite Positive H Urine Bilirubin 3 H Urine Urobilinogen 8 H Ur Leukocyte Esterase 25 H Urine RBC 0 SEEN Urine WBC 10-25 SEEN Ur Squamous Epith Cells 0-5 SEEN Urine Bacteria 3+ Urine Mucus 0 SEEN Fluid Source Fluid Color Fluid Appearance Fluid WBC Fluid RBC Fluid Tot Cell Count Fld Polynuclear WBCs # Fld Polynuclear WBCs % Fluid Mononuclear WBCs Fld Mononuclear WBCs % Fluid Neutrophils Fluid Lymphocytes Fluid Monocytes Fluid Other Cells Fl Pathologist Comment Fluid Glucose Fluid Total Protein Fluid LDH Fluid Comment 2 05/09/21 05/09/21 05/09/21 07:50 07:50 10:30 WBC RBC Hgb Hct MCV MCH MCHC RDW Std Deviation RDW Coeff of Andrei Plt Count MPV Immature Gran % (Auto) Neut % (Auto) Lymph % (Auto) Avery % (Auto) Eos % (Auto) Baso % (Auto) Absolute Neuts (auto) Absolute Lymphs (auto) Nucleated RBC % PT 22.6 H INR 2.1 APTT 38.1 H Sodium Potassium Chloride Carbon Dioxide Anion Gap BUN Creatinine Estim Creat Clear Calc Est GFR (MDRD) Af Amer Est GFR (MDRD) Non-Af BUN/Creatinine Ratio Glucose Calcium Total Bilirubin AST ALT Alkaline Phosphatase Ammonia 58.0 H Total Protein Albumin Globulin Albumin/Globulin Ratio Lipase Urine Color Urine Clarity Urine pH Ur Specific [place] Urine Protein Urine Glucose (UA) Urine Ketones Urine Occult Blood Urine Nitrite Urine Bilirubin Urine Urobilinogen Ur Leukocyte Esterase Urine RBC Urine WBC Ur Squamous Epith Cells Urine Bacteria Urine Mucus Fluid Source Fluid Color Fluid Appearance Fluid WBC Fluid RBC Fluid Tot Cell Count Fld Polynuclear WBCs # Fld Polynuclear WBCs % Fluid Mononuclear WBCs Fld Mononuclear WBCs % Fluid Neutrophils Fluid Lymphocytes Fluid Monocytes Fluid Other Cells Fl Pathologist Comment Fluid Glucose 106 H Fluid Total Protein 0.7 Fluid LDH 40 Fluid Comment 2 05/09/21 10:30 WBC RBC Hgb Hct MCV MCH MCHC RDW Std Deviation RDW Coeff of Andrei Plt Count MPV Immature Gran % (Auto) Neut % (Auto) Lymph % (Auto) A[place] % (Auto) Eos % (Auto) Baso % (Auto) Absolute Neuts (auto) Absolute Lymphs (auto) Nucleated RBC % PT INR APTT Sodium Potassium Chloride Carbon Dioxide Anion Gap BUN Creatinine Estim Creat Clear Calc Est GFR (MDRD) Af Amer Est GFR (MDRD) Non-Af BUN/Creatinine Ratio Glucose Calcium Total Bilirubin AST ALT Alkaline Phosphatase Ammonia Total Protein Albumin Globulin Albumin/Globulin Ratio Lipase Urine Color Urine Clarity Urine pH Ur Specific [place] Urine Protein Urine Glucose (UA) Urine Ketones Urine Occult Blood Urine Nitrite Urine Bilirubin Urine Urobilinogen Ur Leukocyte Esterase Urine RBC Urine WBC Ur Squamous Epith Cells Urine Bacteria Urine Mucus Fluid Source OTHER Fluid Color YELLOW Fluid Appearance CLEAR Fluid WBC 0.112 Fluid RBC 29 Fluid Tot Cell Count 0.158 Fld Polynuclear WBCs # 0.010 Fld Polynuclear WBCs % 9.0 Fluid Mononuclear WBCs 0.102 Fld Mononuclear WBCs % 91.0 Fluid Neutrophils 14 Fluid Lymphocytes 38 Fluid Monocytes 42 Fluid Other Cells 6 Fl Pathologist Comment May follow Fluid Glucose Fluid Total Protein Fluid LDH Fluid Comment 2 SEE COMMENT Radiography Diagnostic Testing: Clinical Impression(s) from Imaging Studies Abdomen/Pelvis CT 05/09/21 07:20 IMPRESSION: 1. Large volume ascites secondary to underlying liver cirrhosis and portal hypertension. 2. New small left pleural effusion and mild compression atelectasis of the left lower lobe. Individualized dose optimization techniques were used for this CT. at 1148 Reported and signed by: Norbert Negron MD Electronically Signed: Norbert Negron MD at 11:46 EDT , Paracentesis Ultrasound 05/09/21 09:50 IMPRESSION: Ultrasound guided paracentesis with 120 cc of ascites fluid aspirated and sent for labs. 6570 cc of ascites fluid was removed and discarded. Electronically Signed: Zeke Valencia, at 12:14 EDT , Discharge Plan Triage Chief Complaint: General Illness ED Provider: Edwin Rodriguez Dx/Rx/DC Orders Clinical Impression: Abdominal pain, Cirrhosis of liver Instructions: ED Cirrhosis, ED Pain, Acute, Uncertain Cause Prescriptions: New metronidazole [metronidazole] 500 MG tablet 500 mg PO BID Qty: 20 RF: 0 ciprofloxacin HCl [ciprofloxacin HCl] 500 MG tablet 500 mg PO BID Qty: 20 RF: 0 No Action paroxetine HCl [Paxil] 40 MG tablet 40 mg PO DAILY RF: 0 atenolol 50 MG tablet 50 mg PO DAILY RF: 0 furosemide 40 mg tablet 40 mg PO BID RF: 0 lactulose 20 gram/30 mL solution 20 g PO TID Qty: 3000 RF: 1 midodrine 5 mg tablet See Rx Instructions .ROUTE .COMPLEX Qty: 90 RF: 3 omeprazole 40 mg capsule,delayed release(DR/EC) 40 mg PO BID Qty: 60 RF: 3 sucralfate [Carafate] 100 mg/mL suspension See Rx Instructions .ROUTE .COMPLEX Qty: 600 RF: 0 Primary Care Provider: Elio Ojeda Referrals: Elio Ojeda MD [Primary Care Provider] - 3-5 Days Friend,DO Leland [STAFF PHYSICIAN] - 3-5 Days Disposition Disposition: Home, Self Care
--- NOTE | 2021-05-09 07:20 | CT_ITS ---
EXAM: CT ABDOMEN AND PELVIS WITH INTRAVENOUS CONTRAST : 1975 CLINICAL INDICATION: Abdominal pain -- IV PO Contrast TECHNIQUE: Helically acquired images were obtained of the abdomen and pelvis with intravenous contrast. This CT exam was performed using one or more of the following dose reduction techniques: automated exposure control, adjustment of the mA and/or kV according to patient size, and/or use of iterative reconstruction technique. This report was created using [employer] report generation technology. CONTRAST: Oral Tamp; IV Gastrografin Tamp; 100mL Isovue-300 COMPARISON: March 04, 2021 FINDINGS: LOWER THORAX: New small left pleural effusion noted with compression atelectasis of the left lower lobe. No cardiomegaly. ABDOMEN: LIVER: Liver cirrhosis and changes of portal hypertension again seen. Spleen remains enlarged measuring nearly 18 cm in cephalocaudad dimension. GALLBLADDER AND BILE DUCTS: Unremarkable. No calcified gallstones. No gallbladder distention or wall edema. No intra- or extrahepatic biliary ductal dilation. PANCREAS: Unremarkable. No focal cystic or solid mass. SPLEEN: Unremarkable. Normal size without focal cystic or solid mass. ADRENALS: Unremarkable. No nodules. KIDNEYS AND URETERS: Stable small cyst arising from the lower pole of the left kidney. No hydronephrosis. STOMACH AND BOWEL: Mild wall thickening of the cecum may represent hepatic colopathy. No stomach or bowel distention. PELVIS: APPENDIX: Appendix is normal in appearance. BLADDER: Unremarkable. REPRODUCTIVE: Unremarkable as visualized. No mass. ABDOMEN and PELVIS: INTRAPERITONEAL SPACE: Large volume ascites again seen. No free air. BONES/JOINTS: Unremarkable. No suspicious lytic or blastic abnormality. SOFT TISSUES: Ascites again extends into periumbilical and epigastric abdominal wall hernias and bilateral inguinal hernias. VASCULATURE: Unremarkable. Abdominal aorta is non-dilated. LYMPH NODES: Mildly enlarged lymph nodes along the hepatoduodenal ligament and at the celiac axis level unchanged from prior study. CT/Abdomen/Pelvis WITH Contrast IMPRESSION: 1. Large volume ascites secondary to underlying liver cirrhosis and portal hypertension. 2. New small left pleural effusion and mild compression atelectasis of the left lower lobe. Individualized dose optimization techniques were used for this CT. at 1148 Reported and signed by: Norbert Negron MD Electronically Signed: Norbert Negron MD at 11:46 EDT ,
[2021-05-09 07:37] LABS: Color, Urine Yellow (Yellow); Glucose, Dipstick Normal (Normal); Ketone-Dipstick 5 mg/dl (Negative); Leukocyte Esterase-Dipstick 25 /ul (Negative); Mucous, Urine 0 SEEN /hpf (<or=2+); Nitrite-Dipstick Positive (Negative); Occult Blood-Urine 10 /ul (Negative); Protein-Dipstick 30 mg/dl (Negative); Red Blood Cells-Urine 0 SEEN /hpf (0-5); Specific Gravity, Urine 1.015 (1.002-1.030); Urine Clarity Clear (Clear); Urine Urobilinogen 8 mg/dl (Normal)
[2021-05-09 07:42] LABS: Urine Bilirubin Dipstick 3 mg/dL (Negative)
[2021-05-09 07:43] LABS: Bacteria 3+ /hpf (None Seen); Squamous Epithelial Cells - UA 0-5 SEEN /hpf (0-5); White Blood Cells 10-25 SEEN /hpf (0-5)
[2021-05-09] MEDS: Morphine 4 MG/ML Syringe IV (08:03)
[2021-05-09] MEDS: 0.9% Normal Saline 1,000 ML 1000 ML IV ×2 (08:03→10:23)
[2021-05-09] MEDS: Ondansetron 4 MG/2 ML Vial IV (08:03)
[2021-05-09 08:06] VITALS: BP 92/61; PULSE 77; RESP 18; O2SAT 97
[2021-05-09 08:06] LABS: Absolute Lymphocyte Count 0.68 X10^3/uL (0.83-4.51); Absolute Neutrophil Count 11.7 X10^3/uL (2.0-7.7); Basophil# 0.02 X10^3/uL; Basophil% 0.1 % (0-1); Hematocrit 29.8 % (40-54); Hemoglobin 10.5 g/dL (13.0-16.5); Lymphocyte # 0.68 X10^3/ul (0.83-4.51); Mean Corp Hgb Conc 35.2 g/dL (32-36); Mean Corpuscular Hgb 36.6 pg (27.0-32.0); Mean Corpuscular Volume 103.8 fL (80-94); Mean Platelet Vol. 10.2 fl (6.2-12.0); Monocyte# 1.19 X10^3/uL; Monocyte% 8.7 % (0-10); NRBC Flagged by Analyzer 0 % (0-5); Neutrophil # 11.74 X10^3/uL (2.7-7.7); Neutrophil % 85.8 % (47-70); POSITIVE COUNT YES; Platelet Count 73 K/mm3 (150-450); RBC Distribution Width CV 14.6 % (11.6-14.6); RBC Distribution Width SD 56.3 fl (35.1-43.9); Red Blood Count 2.87 M/mm3 (4.6-6.2); White Blood Count 13.7 K/mm3 (4.4-11.0)
[2021-05-09 08:21] LABS: ALB/GLOB Ratio 0.6 RATIO (0.9-2.4); AST(SGOT) 28 U/L (15-37); Alanine Aminotransfer ALT/SGPT 13 U/L (16-61); Albumin, Serum 2.5 g/dL (3.2-5.0); Alkaline Phosphatase 115 U/L (45-117); Anion Gap 9 (5-15); BUN 13 mg/dL (7-18); BUN/Creat Ratio 13.2 RATIO (10-20); Calcium,Total 8.1 mg/dL (8.5-10.1); Chloride 98 mmol/L (98-107); Creatinine, Serum 0.99 mg/dL (0.70-1.30); EST Glomerular Filtration Rate 86 mL/min (>60); Est Glom Filt Rate - Afr Amer 104 mL/min (>60); Estimated Creatinine Clearance 92.24 ml/min; Globulin 4.3 g/dL (2.2-4.2); Glucose 104 mg/dL (74-106); Lipase 99 U/L (73-393); Potassium 3.2 mmol/L (3.5-5.1); Protein, Total 6.8 g/dL (6.4-8.2); Sodium Level 130 mmol/L (136-145)
[2021-05-09 08:43] LABS: International Normalized Ratio 2.1; Prothrombin Time (Protime)PT. 22.6 SECONDS (11.7-14.9)
[2021-05-09 08:44] LABS: Partial Thromboplast Time 38.1 Seconds (24.1-36.2)
--- NOTE | 2021-05-09 09:50 | US_ITS ---
PROCEDURE: Ultrasound guided paracentesis. DATE OF EXAMINATION: 05/09/2021. INDICATION: Male, 45 years old. Ascites. PHYSICIAN: Zeek Valencia DO TECHNIQUE: The risks, benefits, and alternatives to the procedure were explained to the patient. The specific risks of bleeding, infection, and damage to bowel were detailed and accepted. Witnessed informed consent was obtained. The abdomen was ultrasonographically surveyed. An appropriate pocket of fluid was identified at the right lower quadrant. The skin were cleaned and prepped in the usual sterile fashion. Using ultrasound guidance, the peritoneal cavity was accessed with a 5-Sudanese paracentesis needle/catheter system. The trocar was removed. 120 cc of clear yellow ascites fluid was aspirated and sent for labs. A total of 6570 ml of clear yellow ascites fluid were removed from the peritoneal cavity. The catheter was removed and a sterile dressing was applied. The procedure was well tolerated. US/Paracentesis with US IMPRESSION: Ultrasound guided paracentesis with 120 cc of ascites fluid aspirated and sent for labs. 6570 cc of ascites fluid was removed and discarded. Electronically Signed: Zeke Valencia, at 12:14 EDT ,
[2021-05-09 10:16] VITALS: BP 105/67; PULSE 73; RESP 16; TEMP 36.6; O2SAT 98
[2021-05-09 10:33] VITALS: BP 105/67; BP 107/58; BP 97/61; PULSE 65; PULSE 68; PULSE 69; RESP 18; RESP 20; TEMP 36.6; O2SAT 100; O2SAT 97; O2SAT 98; O2SAT 99
[2021-05-09] MEDS: Lidocaine 2% (20 ml mdv) 20 ML Vial INFILT (10:45)
[2021-05-09 11:42] LABS: Body Fluid Mononuclear WBC # 0.102 10^3/uL; Body Fluid Total Cells Counted 0.158 10^3/ul; Glucose, Body Fluid 106 mg/dL (40-70); LDH,Body Fluid 40 Units/l (Not Establ.); Protein, Body Fluid 0.7 g/dL (Not Establ.); White Blood Count/Body Fluid 0.112 10^3/uL
[2021-05-09 11:57] LABS: Auto B Fluid Analyzer BKGD Ct COUNTS W/IN LIMITS (W/IN LIMITS)
[2021-05-09 11:58] LABS: Appearance/Body Fluid CLEAR; Color/Body Fluid YELLOW; Source- Body Fluid OTHER
[2021-05-09 12:06] LABS: Lymphocytes 38 %; Monocytes 42 %; Neutrophil (Segs) 14 %; Other Cell Type/BF 6 %
[2021-05-09 12:07] LABS: Body Fluid QC Type(s) BF1Q; Red Cell Count/Body Fluid 29 /mm3
[2021-05-09 12:15] VITALS: BP 91/47; PULSE 67; RESP 16; O2SAT 96
[2021-05-09 13:45] VITALS: BP 101/78; PULSE 66; RESP 14; TEMP 36.9; O2SAT 98
--- NOTE | 2021-05-10 11:06 | CM.ED ---
Addendum entered by Shelia Aranda 05/10/21 12:02: Had paracentesis in ER 3.. with 6570ml output. 120ml sent to lab for test. ARNEL Zhong Original Note: ER ARNEL DC F/u call: Called patient listed number on demographics. Patient answered. This justowriter operator introduced self and role. Patient states that he is feeling fine and that he is supposed to f/u with Dr Friend in 3-5 days but he cannot see him for a couple weeks. States asked the office to call him if there is a cancellation, this justowriter operator advised patient to call every morning to check for any cancellations. Has a paracentesis scheduled for this Sunday and will call radiology department to check the time as this justowriter operator could not see time listed on ER [facility]. States that he was getting paracentesis once/week but recently needing it more frequently as he has been off his diet and plan to get back on his diet. No further questions, concerns, or questions at this time. ARNEL Zhong
[2021-05-11 10:08] LABS: Pathologist Comment/Body Fluid Reviewed
--- NOTE | 2021-05-11 14:32 | ED.RN ---
Attempted to contact patient at number listed regarding positive blood cultures. No answer and unable to leave a message due to inbox full.
--- NOTE | 2021-05-12 10:18 | ED.RN ---
Spoke with Dr Rodriguez on this day regarding blood culture results. Called patient at home and spoke with Caroline (mother) as patient was asleep. Informed her that a prescription was called to [facility] pharmacy in [place] for Levoquin 750mg to take orally once a day for 7 days. Instructed to stop Cipro and continue Flagyl. Caroline verbalized understanding and advised that she will make sure patient follows medication treatment plan as prescribed.
== END 2021-05-09 13:47 | disposition home or self-care (01) ==
PROVIDERS: Emergency Provider Emergency Medicine; PCP Family Medicine; Visit Provider Emergency Medicine
DX: K70.31 Alcoholic cirrhosis of liver with ascites (principal); K76.6 Portal hypertension; D69.6 Thrombocytopenia, unspecified; F17.200 Nicotine dependence, unspecified, uncomplicated; F10.10 Alcohol abuse, uncomplicated; F32.A Depression, unspecified; F41.9 Anxiety disorder, unspecified; K21.9 Gastro-esophageal reflux disease without esophagitis; I10 Essential (primary) hypertension; Z79.899 Other long term (current) drug therapy; J90 Pleural effusion, not elsewhere classified
CPT/HCPCS: 49083; 74177; 80053; 81001; 82140; 82945; 83615; 83690; 84157; 85025; 85610; 85730; 87040; 87070; 87075; 87077; 87086; 87186; 87205; 88108; 88305; 88313; 88341; 88342; 89050; 96361; 96365; 96366; 96368; 96375; 99282; J7030; P9047; Q9967; A4216; J2405

== ENCOUNTER 2021-05-09 13:40 | Outpatient (CLI) | payer MEDICAID, SELFPAY ==
[2021-05-09] MEDS: Albumin Human 25% (100 mL) 25 GM/100 ML BAG IV ×2 (14:07→15:35)
--- NOTE | 2021-05-09 16:35 | NURSING ---
pt. taken up to room 119 to finish infusion as outpt. infusion is done for the day.
--- NOTE | 2021-05-09 16:50 | NURSING ---
patient arrived from outpatient infusion center into [facility], albumin running into LFA IV, pt denies needs.
[2021-05-09 17:25] VITALS: BP 97/53; PULSE 66; RESP 16; TEMP 36.5; O2SAT 100
--- NOTE | 2021-05-09 17:32 | NURSING ---
albumin complete, IV D/C'd, vitals obtained, pt wheeled to main entrance via wheelchair and this RN.
== END 2021-05-09 17:23 | disposition home or self-care (01) ==
LOC: MEDOUTP 13:41 → PCU 17:06
PROVIDERS: PCP Family Medicine; Referring Provider Emergency Medicine; Visit Provider Emergency Medicine
DX: K74.60 Unspecified cirrhosis of liver (principal)
CPT/HCPCS: P9047; 96365; 96366 ×3

== ENCOUNTER 2021-05-13 11:55 | Outpatient (CLI) | payer MEDICAID, SELFPAY ==
--- NOTE | 2021-05-13 11:57 | US_ITS ---
PROCEDURE: Ultrasound guided paracentesis. DATE OF EXAMINATION: 05/13/2021. INDICATION: Male, 46 years old. Ascites. PHYSICIAN: Zeke Valencia DO TECHNIQUE: The risks, benefits, and alternatives to the procedure were explained to the patient. The specific risks of bleeding, infection, and damage to bowel were detailed and accepted. Witnessed informed consent was obtained. The abdomen was ultrasonographically surveyed. An appropriate pocket of fluid was identified at the right lower quadrant. The skin were cleaned and prepped in the usual sterile fashion. Using ultrasound guidance, the peritoneal cavity was accessed with a 5-Mauritian paracentesis needle/catheter system. The trocar was removed. A total of 6650 ml of clear yellow ascites fluid were removed from the peritoneal cavity. The catheter was removed and a sterile dressing was applied. The procedure was well tolerated. US/Paracentesis with US IMPRESSION: Successful ultrasound-guided therapeutic paracentesis. Electronically Signed: Zeke Valencia, at 13:53 EDT ,
[2021-05-13] MEDS: Lidocaine 2% (20 ml mdv) 20 ML Vial INFILT (12:50)
[2021-05-13 12:58] VITALS: BP 113/61; BP 97/61; PULSE 65; PULSE 70; RESP 16; RESP 18; O2SAT 100
--- NOTE | 2021-05-13 13:34 | NURSING ---
DERMABOND AND OPSITE APPLIED TO RLQ DRAINAGE SITE.
[2021-05-13 13:44] VITALS: BP 103/52; PULSE 58; RESP 18; TEMP 36.3; O2SAT 100
[2021-05-13] MEDS: Albumin Human 25% (100 mL) 25 GM/100 ML BAG IV ×2 (13:48→15:13)
--- NOTE | 2021-05-13 15:00 | CASEMGMT ---
DAVID MARTIN Care Coordination Note: DAVID MARTIN met w/pt, mom, and nephew in the Out-patient infusion bay, while pt receiving Albumin infusion, post paracentesis today. Pt had removal fo 6,650 ml today. DAVID MARTIN discussed LUCIEN/low sodium diet of 2 gm and fluid restriction of 2,000 ml w/pt and mom. Pt's mom inquiring if they could have meal-plan written out for what pt can have for his meals. Pt and mom were provided w/education material today by radiology. DAVID MARTIN reviewed this information w/pt and mom, in detail. Reviewed foods pt can have and what things to avoid. Discussed importance of checking food labels for Na+ content and serving sizes. Questions answered. Mom states, after reviewing this information and discussion, that she does not feel she needs specific menu plan, that she will just follow these lists. Discussed importance of monitoring fluid intake and that any food at room temperature should be included in this amt. Pt and mom both state they feel they have a good understanding of dietary and fluid restrictions and deny having further questions at this time. They were made aware hides soaker referral could be made and discussed self-pay rates, as liver failure is not a coverable diagnosis. They state they are not interested in this at this time. Pt states he has a good supply of medications and has been compliant w/taking medications as prescribed. Pt's mom states she helps to manage his medications on a daily basis. They deny having any questions re: medications. Pt has an appt w/ Friend next week. DAVID MARTIN encouraged them to discuss any further dietary or fluid restrictions w/him at that visit. Provided them w/this DAVID MARTIN contact # and Lucía Ware RN, CM production reproduction manager # to contact if they have further questions, concerns, or needs. They voice appreciation. Dave MANZO RN, CM
[2021-05-13 17:05] VITALS: BP 128/65; PULSE 74; RESP 16; O2SAT 99
== END 2021-05-13 23:59 | disposition home or self-care (01) ==
LOC: US 11:56 → MEDOUTP 13:40
PROVIDERS: PCP Family Medicine
DX: K74.60 Unspecified cirrhosis of liver (principal)
CPT/HCPCS: 96365; 96366 ×2; 49083; P9047; A4216

== ENCOUNTER 2021-05-19 10:06 | Outpatient (CLI) | payer MEDICAID, SELFPAY ==
--- NOTE | 2021-05-19 10:12 | US_ITS ---
PROCEDURE: Ultrasound guided paracentesis. DATE OF EXAMINATION: 05/19/2021. INDICATION: Male, 46 years old. Ascites. PHYSICIAN: aRciel Wills M.D. TECHNIQUE: The risks, benefits, and alternatives to the procedure were explained to the patient. The specific risks of bleeding, infection, and damage to bowel were detailed and accepted. Witnessed informed consent was obtained. The abdomen was ultrasonographically surveyed. An appropriate pocket of fluid was identified at the right lower quadrant. The skin were cleaned and prepped in the usual sterile fashion. Using ultrasound guidance, the peritoneal cavity was accessed with a 5-Thai paracentesis needle/catheter system. The trocar was removed. A total of 6050 ml of casie-colored fluid were removed from the peritoneal cavity. The catheter was removed and a sterile dressing was applied. The procedure was well tolerated. US/Paracentesis with US IMPRESSION: Ultrasound guided paracentesis. Electronically Signed: Raciel Wills MD at 11:20 EDT ,
[2021-05-19 10:23] VITALS: BP 107/68; BP 112/60; BP 96/53; PULSE 69; PULSE 77; PULSE 91; RESP 12; RESP 16; TEMP 36.6; O2SAT 100; O2SAT 95; O2SAT 97
[2021-05-19] MEDS: Lidocaine 2% (20 ml mdv) 20 ML Vial INFILT (10:30)
[2021-05-19] MEDS: 0.9% Saline Lock 10 ML Syringe IV ×2 (10:51→11:10)
[2021-05-19 11:06] VITALS: BP 109/58; PULSE 63; RESP 16; TEMP 36.2; O2SAT 100; BMI 27.1
[2021-05-19] MEDS: Albumin Human 25% (100 mL) 25 GM/100 ML BAG IV ×2 (11:10→12:34)
[2021-05-19 14:27] VITALS: BP 115/59; RESP 16; TEMP 36.7
== END 2021-05-19 23:59 | disposition home or self-care (01) ==
LOC: US 10:07 → MEDOUTP 10:58
PROVIDERS: PCP Family Medicine
DX: K74.60 Unspecified cirrhosis of liver (principal)
CPT/HCPCS: 96365; 96366 ×2; 49083; P9047; A4216

== ENCOUNTER 2021-05-26 10:01 | Outpatient (CLI) | payer MEDICAID, SELFPAY ==
--- NOTE | 2021-05-26 10:08 | US_ITS ---
PROCEDURE: Ultrasound guided paracentesis. DATE OF EXAMINATION: 05/26/2021. INDICATION: Male, 46 years old. Ascites. PHYSICIAN: Raciel Wills M.D. TECHNIQUE: The risks, benefits, and alternatives to the procedure were explained to the patient. The specific risks of bleeding, infection, and damage to bowel were detailed and accepted. Witnessed informed consent was obtained. The abdomen was ultrasonographically surveyed. An appropriate pocket of fluid was identified at the right lower quadrant. The skin were cleaned and prepped in the usual sterile fashion. Using ultrasound guidance, the peritoneal cavity was accessed with a 5-Cuban paracentesis needle/catheter system. The trocar was removed. A total of 4800 ml of casie-colored fluid were removed from the peritoneal cavity. The catheter was removed and a sterile dressing was applied. The procedure was well tolerated. US/Paracentesis with US IMPRESSION: Ultrasound guided paracentesis. Electronically Signed: Raciel Wills MD at 11:12 EDT ,
[2021-05-26 10:19] VITALS: BP 113/57; BP 115/59; BP 115/61; PULSE 63; PULSE 69; PULSE 70; RESP 16; O2SAT 100; O2SAT 98
[2021-05-26] MEDS: Lidocaine 2% (20 ml mdv) 20 ML Vial INFILT (10:24)
== END 2021-05-26 23:59 | disposition home or self-care (01) ==
PROVIDERS: PCP Family Medicine
DX: K74.60 Unspecified cirrhosis of liver (principal)
CPT/HCPCS: 49083; A4216

== ENCOUNTER 2021-05-26 14:27 | Emergency (ER) | payer MEDICAID, SELFPAY ==
[2021-05-26 14:32] VITALS: BP 93/51; PULSE 70; RESP 16; TEMP 36.7; O2SAT 100; BMI 27.9
[2021-05-26 15:16] VITALS: BP 95/56
--- NOTE | 2021-05-26 15:18 | EX.ED.DYSGE1 ---
HPI <SALEEM Escalante - Last Filed: 05/26/21 18:11> History of Present Illness Chief Complaint: Hypotension Narrative Narrative: 46-year-old male with history of cirrhosis of the liver who receives paracentesis weekly, he is currently not on a liver transplant secondary to relapsing. Patient is currently sober for the last 4 months. Patient had paracentesis today, they were able to get out 4.8 L, this is not abnormal for him. Patient states that after this is happened he was on his way home when he developed lower back pain, abdominal pain. Patient also had a near syncopal episode with blood pressures with systolic in the 60s at home. Patient states he continues to feel lethargic, feels dizzy and is here for evaluation. Denies any fevers chills nausea vomiting. Patient is concerned because he never has pain after his paracentesis PFS <SALEEM Escalante - Last Filed: 05/26/21 18:11> [facility] [place] Medical History (Updated 05/26/21 @ 18:09 by SALEEM Escalante) Abdominal ascites Adult failure to thrive Alcohol abuse Alcohol use Alcoholic liver disease Alcoholism Anasarca Anemia, macrocytic Anxiety Ascites Back pain Cardiology follow-up encounter Cirrhosis of liver Cirrhosis, alcoholic Depression Gastric reflux History of abdominal paracentesis History of echocardiogram History of edema History of irregular heartbeat History of stress test HTN (hypertension) Irregular heart beat Liver disease Shortness of breath on exertion Smoker Smoker Substance abuse Thrombocytopenia Thrombocytopenia Home Medications atenolol 25 mg PO DAILY 07/30/14 [History Last Taken Unknown] omeprazole 40 mg capsule,delayed release 40 mg PO BID #60 cap 04/13/21 [Rx Last Taken Unknown] furosemide 40 mg PO BID 04/17/21 [History Last Taken Unknown] ciprofloxacin HCl 750 mg tablet 750 mg PO .weekly #12 tab 05/18/21 [Rx Last Taken Unknown] lactulose 20 g PO BID 05/19/21 [History Last Taken Unknown] spironolactone 50 mg PO DAILY 05/19/21 [History Last Taken Unknown] hydroxyzine HCl [Atarax] 05/26/21 [History Last Taken Unknown] metronidazole [Flagyl] 500 mg PO BID 05/26/21 [History Last Taken Unknown] midodrine 5 mg PO TID 05/26/21 [History Last Taken Unknown] sertraline [Zoloft] 25 mg PO DAILY 05/26/21 [History Last Taken Unknown] sucralfate [Carafate] 10 ml PO BID 05/26/21 [History Last Taken Unknown] Allergy/AdvReac Type Severity Reaction Status Date / Time Sulfa (Sulfonamide Allergy Unknown Verified 05/18/21 09:15 Antibiotics) Surgical History History of tonsillectomy and adenoidectomy Social History household members: family Smoking Status: Heavy Smoker (>10/day) alcohol intake: former details: Patient states has not had a drink in 3 days substance use type: amphetamines ROS <SALEEM Escalante - Last Filed: 05/26/21 18:11> ROS ED ROS Narrative Constitutional: Negative for fever, chills, weight loss or gain, weakness Eyes: Negative for vision loss, vision change, double vision ENT: Negative for any hearing changes, ringing in the ears, discharge, pain Nose: Negative for any congestion, runny nose, sinus pain, allergies Throat: Negative for any sore throat, swelling, voice changes, Cardiovascular: Negative for any chest pain, tightness, palpitations, racing heartbeat Respiratory: Negative for any cough, sputum production, hemoptysis, shortness of breath, shortness of breath on exertion, Gastrointestinal: Negative for any nausea, vomiting, diarrhea, constipation, blood in stool, blood in vomit. Positive for abdominal pain : Negative for any urinary frequency, incontinence, dysuria, retention, blood in urine Muscle skeletal: Negative for any muscle joint pain, stiffness, myalgias, arthralgias, neck pain, back pain Neurological: Negative for any headache, numbness or tingling. Positive for dizziness, near syncope Skin: Negative for any rashes, lumps, itching, abrasions, lacerations Psychiatric: Negative for any depression, anxiety, stress, suicidal ideation, homicidal ideation Hematologic: Negative for any easy bruising, excessive bruising, easy bleeding Allergies: Negative for any eczema, hives, rash EXAM <SALEEM Escalante - Last Filed: 05/26/21 18:11> Physical Exam Narrative Exam Narrative: Patient appears to be in no distress, patient is alert and orient x4 Const Vital Signs: 05/26/21 14:32 05/26/21 15:16 05/26/21 15:40 Temperature 98.0 F Temperature Source Oral Pulse Rate 70 Respiratory Rate 16 Respiratory Effort Normal Non-Labored Blood Pressure 93/51 L 95/56 L Blood Pressure Mean 65 69 Blood Pressure Source Blood Pressure Position Blood Pressure Location Pulse Ox 100 Oxygen Delivery Method Room Air 05/26/21 16:00 05/26/21 17:18 05/26/21 17:29 Temperature 97.8 F 97.8 F Temperature Source Oral Oral Pulse Rate 71 75 Respiratory Rate 19 H 16 Respiratory Effort Blood Pressure 91/51 L 109/52 L 93/56 L Blood Pressure Mean 64 71 68 Blood Pressure Source Monitor Monitor Blood Pressure Position Semi-Fowlers Semi-Fowlers Blood Pressure Location Right Arm Right Arm Pulse Ox 96 100 Oxygen Delivery Method Room Air Room Air 05/26/21 17:47 Temperature 97.8 F Temperature Source Pulse Rate 78 Respiratory Rate 16 Respiratory Effort Blood Pressure 93/56 L Blood Pressure Mean 68 Blood Pressure Source Blood Pressure Position Blood Pressure Location Pulse Ox 100 Oxygen Delivery Method Positive well nourished and well developed General Appearance ED: well developed HEENT Reports dry mucous membranes Mouth ED: Yes dry mucous membranes Mouth: dry mucous membranes Eyes PERRL Eyes Narrative: Patient does have slight yellowness to his eyes this is consistent with cirrhosis General Eye ED: Yes scleral icterus Neck no lymphadenopathy and supple Chest Wall inspection of chest normal Resp normal respiratory effort and clear to auscultation bilaterally Cardio regular rate Cardio Narrative: Patient has a 4/6 systolic murmur GI Palpation: soft and tender RLQ (Patient's pain to the right lower quadrant to the right flank which is where his catheter is placed to have a paracentesis) Back/Spine no CVA tenderness Extremity normal to inspection Neuro oriented x3 and CN's II-XII intact bilaterally Sensorium / Orientation: alert Motor Exam: strength 5/5 throughout Psych mental status grossly normal Skin Skin Narrative: Jaundice however this could be chronic secondary to chronic cirrhosis General Skin Exam: jaundice <Dr. Corey Moffett, DO - Last Filed: 05/26/21 19:41> Physical Exam Const Vital Signs: 05/26/21 14:32 05/26/21 15:16 05/26/21 15:40 Temperature 98.0 F Temperature Source Oral Pulse Rate 70 Respiratory Rate 16 Respiratory Effort Normal Non-Labored Blood Pressure 93/51 L 95/56 L Blood Pressure Mean 65 69 Blood Pressure Source Blood Pressure Position Blood Pressure Location Pulse Ox 100 Oxygen Delivery Method Room Air 05/26/21 16:00 05/26/21 17:18 05/26/21 17:29 Temperature 97.8 F 97.8 F Temperature Source Oral Oral Pulse Rate 71 75 Respiratory Rate 19 H 16 Respiratory Effort Blood Pressure 91/51 L 109/52 L 93/56 L Blood Pressure Mean 64 71 68 Blood Pressure Source Monitor Monitor Blood Pressure Position Semi-Fowlers Semi-Fowlers Blood Pressure Location Right Arm Right Arm Pulse Ox 96 100 Oxygen Delivery Method Room Air Room Air 05/26/21 17:47 Temperature 97.8 F Temperature Source Pulse Rate 78 Respiratory Rate 16 Respiratory Effort Blood Pressure 93/56 L Blood Pressure Mean 68 Blood Pressure Source Blood Pressure Position Blood Pressure Location Pulse Ox 100 Oxygen Delivery Method [facility] <SALEEM Escalante - Last Filed: 05/26/21 18:11> [facility] Narrative Medical decision making narrative: Patient arrives to the emergency department in mild distress secondary to hypotension, weakness. Patient presents to the emerge department for syncopal episode after having a paracentesis which occurred today which she gets every week. Patient did receive a full work-up, patient's CBC shows anemia that is new, patient's hemoglobin is 6.7, he was 10.5, two weeks ago. Patient did receive a CT of the abdomen pelvis, this showed hemoperitoneum with blood products/hematoma in the dependent pelvis. This is likely from his paracentesis today. Patient did receive albumin, patient troponin was negative. LFTs were elevated. Patient was typed and screened, and ordered blood products. We did speak with surgery who recommended they ship the patient to a facility to better suit her needs. Patient was rectalized, negative for any active duc red bleeding. Patient did receive 1 L normal saline, patient's blood pressure remains soft at 93 systolic. Patient is alert and oriented x4, did receive a dose of fentanyl IV. Patient will need to be transferred to [facility] for a surgery consult. Patient was stool occult positive. Patient was life flighted to the accepting facility. Lab Data Labs: Laboratory Results - last 24 hr 05/26/21 05/26/21 05/26/21 15:35 15:35 15:35 WBC 5.9 RBC 1.84 L Hgb 6.7 L Hct 20.1 L MCV 109.2 H MCH 36.4 H MCHC 33.3 RDW Std Deviation 66.2 H RDW Coeff of Andrei 16.9 H Plt Count 71 L MPV 11.2 Immature Gran % (Auto) 1.200 H Neut % (Auto) 75.9 H Lymph % (Auto) 10.8 L [place] % (Auto) 11.3 H Eos % (Auto) 0.5 Baso % (Auto) 0.3 Absolute Neuts (auto) 4.4 Absolute Lymphs (auto) 0.63 L Nucleated RBC % 0 Differential Comment SCANNED Anisocytosis 1+ PT 26.2 H INR 2.5 Sodium 136 Potassium 3.5 Chloride 107 Carbon Dioxide 22.0 Anion Gap 7 BUN 13 Creatinine 1.07 Estim Creat Clear Calc 85.35 Est GFR (MDRD) Af Amer 95 Est GFR (MDRD) Non-Af 79 BUN/Creatinine Ratio 12.1 Glucose 256 H Calcium 7.5 L Total Bilirubin 3.20 H Direct Bilirubin 0.93 H AST 26 ALT 11 L Alkaline Phosphatase 125 H Troponin I High Sens 3 Total Protein 5.0 L Albumin 1.9 L Globulin 3.1 Lipase 333 Blood Type Antibody Screen Crossmatch 05/26/21 05/26/21 16:30 16:40 WBC RBC Hgb Hct MCV MCH MCHC RDW Std Deviation RDW Coeff of Andrei Plt Count MPV Immature Gran % (Auto) Neut % (Auto) Lymph % (Auto) [place] % (Auto) Eos % (Auto) Baso % (Auto) Absolute Neuts (auto) Absolute Lymphs (auto) Nucleated RBC % Differential Comment Anisocytosis PT INR Sodium Potassium Chloride Carbon Dioxide Anion Gap BUN Creatinine Estim Creat Clear Calc Est GFR (MDRD) Af Amer Est GFR (MDRD) Non-Af BUN/Creatinine Ratio Glucose Calcium Total Bilirubin Direct Bilirubin AST ALT Alkaline Phosphatase Troponin I High Sens Total Protein Albumin Globulin Lipase Blood Type Cancelled O POSITIVE Antibody Screen Cancelled NEGATIVE Crossmatch See Detail See Detail Radiography Diagnostic Testing: Clinical Impression(s) from Imaging Studies Abdomen/Pelvis CT 05/26/21 15:35 IMPRESSION: Hemoperitoneum with blood products/hematoma in the dependent pelvis. Electronically Signed: Ethan Christianson MD ([place]oks) at 16:36 EDT , <Dr. Corey Moffett, DO - Last Filed: 05/26/21 19:41> MDM MDM Narrative Medical decision making narrative: 46-year-old male seen in conjunction with nurse practitioner for chief complaint of hypotension. Patient had paracentesis today which she has weekly. He normally gets albumin with his paracentesis when he is a take out more than 5 L however he only took out 4.8 today so they have withheld this. Patient did take his 25 mg atenolol this morning as well. He is complaining of pain at the site where he had the paracentesis. He has not had any leakage from the site. Patient initially given a liter of IV fluids prior to arrival and was given additional liter. Since he did not receive albumin today he was given albumin. Upon obtaining blood work it was noted that his hemoglobin was 6.7 which is a substantial drop from 10.5 on the 13th. Patient not noting any black or bloody stools and had recent upper endoscopy which did not show any bleeding ulcers. Concern immediately shifted to hemoperitoneum. Patient was taken to CT where it was identified that he had hemoperitoneum on CT. Patient given 25 mg of fentanyl for pain because of his low blood pressure. Type screen and crossmatch for 2 units given the anemia. It is noted that his INR is 2.5 is not anticoagulated. LFTs are elevated however his history of cirrhosis. EKG was obtained to evaluate hypotension and on my interpretation this is a normal sinus rhythm with articulate of 71 bpm without sign of ischemic change or dysrhythmia. High-sensitivity troponin is 3. I do not believe this is a cardiac source of hypotension. [facility] was called because we have to presume that the patient is still bleeding into his abdomen. There was a delay in being able to administer typed and screened blood so he was given a unit of trauma blood. Discussed with Dr. Louis who recommended transferring to a tertiary facility that had IR capability and full blood products. Patient was then discussed with [facility] and was accepted. Patient remained clinically stable and his blood pressure did improve at 109/52. He is alert and awake and talking. Full report given to [facility] at the bedside. Patient is transported in improved condition. Impression: 1. Hemoperitoneum 2. Acute blood loss anemia 3. Elevated INR 4. Thrombocytopenia 5. Hypotension 6. History of cirrhosis 7. History of paracentesis Lab Data Labs: Laboratory Results - last 24 hr 05/26/21 05/26/21 05/26/21 15:35 15:35 15:35 WBC 5.9 RBC 1.84 L Hgb 6.7 L Hct 20.1 L MCV 109.2 H MCH 36.4 H MCHC 33.3 RDW Std Deviation 66.2 H RDW Coeff of Andrei 16.9 H Plt Count 71 L MPV 11.2 Immature Gran % (Auto) 1.200 H Neut % (Auto) 75.9 H Lymph % (Auto) 10.8 L [place] % (Auto) 11.3 H Eos % (Auto) 0.5 Baso % (Auto) 0.3 Absolute Neuts (auto) 4.4 Absolute Lymphs (auto) 0.63 L Nucleated RBC % 0 Differential Comment SCANNED Anisocytosis 1+ PT 26.2 H INR 2.5 Sodium 136 Potassium 3.5 Chloride 107 Carbon Dioxide 22.0 Anion Gap 7 BUN 13 Creatinine 1.07 Estim Creat Clear Calc 85.35 Est GFR (MDRD) Af Amer 95 Est GFR (MDRD) Non-Af 79 BUN/Creatinine Ratio 12.1 Glucose 256 H Calcium 7.5 L Total Bilirubin 3.20 H Direct Bilirubin 0.93 H AST 26 ALT 11 L Alkaline Phosphatase 125 H Troponin I High Sens 3 Total Protein 5.0 L Albumin 1.9 L Globulin 3.1 Lipase 333 Blood Type Antibody Screen Crossmatch 05/26/21 05/26/21 16:30 16:40 WBC RBC Hgb Hct MCV MCH MCHC RDW Std Deviation RDW Coeff of Andrei Plt Count MPV Immature Gran % (Auto) Neut % (Auto) Lymph % (Auto) [place] % (Auto) Eos % (Auto) Baso % (Auto) Absolute Neuts (auto) Absolute Lymphs (auto) Nucleated RBC % Differential Comment Anisocytosis PT INR Sodium Potassium Chloride Carbon Dioxide Anion Gap BUN Creatinine Estim Creat Clear Calc Est GFR (MDRD) Af Amer Est GFR (MDRD) Non-Af BUN/Creatinine Ratio Glucose Calcium Total Bilirubin Direct Bilirubin AST ALT Alkaline Phosphatase Troponin I High Sens Total Protein Albumin Globulin Lipase Blood Type Cancelled O POSITIVE Antibody Screen Cancelled NEGATIVE Crossmatch See Detail See Detail Radiography Diagnostic Testing: Clinical Impression(s) from Imaging Studies Abdomen/Pelvis CT 05/26/21 15:35 IMPRESSION: Hemoperitoneum with blood products/hematoma in the dependent pelvis. Electronically Signed: Ethan Christianson MD ([place]oks) at 16:36 EDT , <Omid Ramirez NP-Selena - Last Filed: 05/26/21 18:11> Critical Care Time Critical Care Time: Yes Critical care time (excluding procedures): 30-74 minutes (40) Discharge Plan Triage Chief Complaint: Hypotension ED Midlevel Provider: Omid Ramirez ED Provider: Corey Moffett Dx/Rx/DC Orders Clinical Impression: Traumatic hemoperitoneum, Hypotension, GI (gastrointestinal bleed) Prescriptions: No Action ciprofloxacin HCl 750 mg tablet 750 mg PO .weekly Qty: 12 RF: 3 atenolol 50 MG tablet 25 mg PO DAILY RF: 0 furosemide 40 mg tablet 40 mg PO BID RF: 0 spironolactone 50 mg tablet 50 mg PO DAILY RF: 0 lactulose 20 gram/30 mL solution 20 g PO BID RF: 0 sertraline [Zoloft] 25 mg Tablet 25 mg PO DAILY RF: 0 hydroxyzine HCl [Atarax] 25 mg Tablet RF: 0 sucralfate [Carafate] 100 mg/mL suspension 10 ml PO BID RF: 0 midodrine 5 mg tablet 5 mg PO TID RF: 0 metronidazole [Flagyl] 500 mg Tablet 500 mg PO BID RF: 0 omeprazole 40 mg capsule,delayed release(DR/EC) 40 mg PO BID Qty: 60 RF: 3 Primary Care Provider: Elio Ojeda Referrals: Elio Ojeda MD [Primary Care Provider] - Disposition Disposition: Transfer to Another Type HCF Discharge Date/Time: 05/26/21 17:40
--- NOTE | 2021-05-26 15:34 | EKG12_ITS ---
Test Reason : Blood Pressure : / mmHG Vent. Rate : 071 BPM Atrial Rate : 071 BPM P-R Int : 188 ms QRS Dur : 126 ms QT Int : 452 ms P-R-T Axes : -03 -27 026 degrees QTc Int : 491 ms Normal sinus rhythm Non-specific intra-ventricular conduction block Abnormal ECG Confirmed by ROAS SILVERMAN, LASHA ([id number]), society editor JERRI VAZQUEZ ([id number]) on 05/27/2021 2:48:51 PM Referred By: KATIE Confirmed By:LASHA LEE MD
--- NOTE | 2021-05-26 15:35 | CT_ITS ---
STUDY: CT ABDOMEN AND PELVIS WITH CONTRAST REASON FOR EXAM: Male, 46 years old. Abdominal pain RADIATION DOSAGE (If Supplied By Facility): CTDIvol = ( 13.56 ) mGy, DLP = ( 928.81 ) mGycm TECHNIQUE: Transaxial images were obtained from the dome of the diaphragm to the symphysis pubis without oral contrast. IV 100mL Isovue-300 was administered. Sagittal and coronal images were reconstructed. Individualized dose optimization techniques were used for this CT. COMPARISON: 05/09/2021 FINDINGS: Mild atelectasis in the lung bases. The visualized portions of the heart are within normal limits. Ascites throughout the abdomen, pelvis and extending into the bilateral inguinal canal/upper scrotum. There is hyperdensity in the dependent portion of pelvis. Nodular contours of the liver compatible with cirrhosis. Recanalized periumbilical vein. Normal gallbladder and extrahepatic biliary system. There is moderate splenomegaly. Reactive, enlarged lymph nodes of the upper abdomen without dominant nivia mass. Normal pancreas. Normal bilateral adrenal glands. Normal right kidney. Normal left kidney. Normal visualized stomach. Normal small intestine. Normal colon. The appendix is visualized and appears normal. There is diffuse atherosclerotic calcification of the abdominal aorta, without a demonstrated aneurysm. Normal inferior vena cava. Normal retroperitoneum. Normal urinary bladder. Normal abdominal wall. Normal osseous structures. CT/Abdomen/Pelvis W IV Cont ONLY IMPRESSION: Hemoperitoneum with blood products/hematoma in the dependent pelvis. Electronically Signed: Ethan Christianson MD ([place]) at 16:36 EDT ,
[2021-05-26] MEDS: 0.9% Normal Saline 1,000 ML 1000 ML IV (15:47)
[2021-05-26] MEDS: fentaNYL 100 MCG/2 ML Ampul 50 MCG IV (15:47)
[2021-05-26 16:00] VITALS: BP 91/51
[2021-05-26 16:05] LABS: AST(SGOT) 26 U/L (15-37); Absolute Lymphocyte Count 0.63 X10^3/uL (0.83-4.51); Absolute Neutrophil Count 4.4 X10^3/uL (2.0-7.7); Alanine Aminotransfer ALT/SGPT 11 U/L (16-61); Albumin, Serum 1.9 g/dL (3.2-5.0); Alkaline Phosphatase 125 U/L (45-117); Anion Gap 7 (5-15); BUN 13 mg/dL (7-18); BUN/Creat Ratio 12.1 RATIO (10-20); Basophil# 0.02 X10^3/uL; Basophil% 0.3 % (0-1); Bilirubin, Direct 0.93 mg/dL (0.00-0.30); Calcium,Total 7.5 mg/dL (8.5-10.1); Chloride 107 mmol/L (98-107); Creatinine, Serum 1.07 mg/dL (0.70-1.30); EST Glomerular Filtration Rate 79 mL/min (>60); Eosinophil# 0.03 X10^3/uL; Eosinophils% 0.5 % (0-5); Est Glom Filt Rate - Afr Amer 95 mL/min (>60); Estimated Creatinine Clearance 85.35 ml/min; Globulin 3.1 g/dL (2.2-4.2); Glucose 256 mg/dL (74-106); Hematocrit 20.1 % (40-54); Hemoglobin 6.7 g/dL (13.0-16.5); Lipase 333 U/L (73-393); Lymphocyte # 0.63 X10^3/ul (0.83-4.51); Lymphocyte % 10.8 % (19-41); Mean Corp Hgb Conc 33.3 g/dL (32-36); Mean Corpuscular Hgb 36.4 pg (27.0-32.0); Mean Corpuscular Volume 109.2 fL (80-94); Mean Platelet Vol. 11.2 fl (6.2-12.0); Monocyte# 0.66 X10^3/uL; Monocyte% 11.3 % (0-10); NRBC Flagged by Analyzer 0 % (0-5); Neutrophil # 4.44 X10^3/uL (2.7-7.7); Neutrophil % 75.9 % (47-70); POSITIVE COUNT YES; POSITIVE MORPHOLOGY YES; Platelet Count 71 K/mm3 (150-450); Potassium 3.5 mmol/L (3.5-5.1); RBC Distribution Width CV 16.9 % (11.6-14.6); RBC Distribution Width SD 66.2 fl (35.1-43.9); Red Blood Count 1.84 M/mm3 (4.6-6.2); Sodium Level 136 mmol/L (136-145); Troponin-I HS 3 pg/mL (3.0-78.0); White Blood Count 5.9 K/mm3 (4.4-11.0)
[2021-05-26 16:06] LABS: Differential Indicated SCAN CRITERIA MET
[2021-05-26 16:45] LABS: Anisocytosis 1+; Differential Comment SCANNED
[2021-05-26 16:46] LABS: International Normalized Ratio 2.5; Prothrombin Time (Protime)PT. 26.2 SECONDS (11.7-14.9)
--- NOTE | 2021-05-26 16:51 | NURSING ---
CALLED [facility]IRAN[facility] TO INITIATE TRANSFER
--- NOTE | 2021-05-26 17:03 | NURSING ---
ETA IS 15 MIN AIR
[2021-05-26] MEDS: Albumin Human 25% (100 mL) 25 GM/100 ML BAG IV (17:05)
[2021-05-26 17:18] VITALS: BP 109/52; PULSE 71; RESP 19; TEMP 36.6; O2SAT 96
--- NOTE | 2021-05-26 17:18 | ED.RN ---
trauma blood up and running. 2nd line attempted by nurse. consent for transfer signed per pt and consent for blood gone over and given.
--- NOTE | 2021-05-26 17:23 | ED.RN ---
[facility] here and report given. family and pt updated.
[2021-05-26 17:29] VITALS: BP 93/56; PULSE 75; RESP 16; TEMP 36.6; O2SAT 100
[2021-05-26 17:47] VITALS: BP 93/56; PULSE 78; RESP 16; TEMP 36.6; O2SAT 100
--- NOTE | 2021-05-26 18:26 | CM.ED ---
SW Note Referral Source: Case Find Referral Reason: Patient is being lifeflighted to [facility], [place] SW met with patient's mother, Caroline Tobar. SW provided emotional support. SW provided patient's mother with address of [facility], [place]. Patient was life flighted to [facility], [place]. Plan: Emotional Support eLila [place]
== END 2021-05-26 17:40 | disposition other institution (70) ==
PROVIDERS: Nurse Practitioner; Emergency Provider Student in an Organized Health Care Education/Training Program; PCP Family Medicine; Visit Provider Student in an Organized Health Care Education/Training Program
DX: S36.899A Unspecified injury of other intra-abdominal organs, initial encounter (principal); K70.31 Alcoholic cirrhosis of liver with ascites; F10.20 Alcohol dependence, uncomplicated; D69.6 Thrombocytopenia, unspecified; I95.9 Hypotension, unspecified; K92.2 Gastrointestinal hemorrhage, unspecified; D62 Acute posthemorrhagic anemia; R79.1 Abnormal coagulation profile; F17.200 Nicotine dependence, unspecified, uncomplicated; F41.9 Anxiety disorder, unspecified; F32.A Depression, unspecified; K21.9 Gastro-esophageal reflux disease without esophagitis; I10 Essential (primary) hypertension; Z79.899 Other long term (current) drug therapy
CPT/HCPCS: 49083; 74177; 80048; 80076; 82274; 83690; 84484; 85025; 85610; 86850; 86900; 86901; 86920; 86922; 93005; 96361; 96365; 96375; 99285; J7030; J7040; P9016; P9047; Q9967; A4216

== ENCOUNTER 2021-06-02 09:50 | Outpatient (CLI) | payer MEDICAID, SELFPAY ==
--- NOTE | 2021-06-02 09:52 | US_ITS ---
PROCEDURE: Ultrasound guided paracentesis. DATE OF EXAMINATION: 06/02/2021. INDICATION: Male, 46 years old. Ascites. PHYSICIAN: Raciel Wills M.D. TECHNIQUE: The risks, benefits, and alternatives to the procedure were explained to the patient. The specific risks of bleeding, infection, and damage to bowel were detailed and accepted. Witnessed informed consent was obtained. The abdomen was ultrasonographically surveyed. An appropriate pocket of fluid was identified at the left lower quadrant. The skin were cleaned and prepped in the usual sterile fashion. Using ultrasound guidance, the peritoneal cavity was accessed with a 5-Hong Konger paracentesis needle/catheter system. The trocar was removed. A total of 7950 ml of bloody fluid were removed from the peritoneal cavity. The catheter was removed and a sterile dressing was applied. The procedure was well tolerated. US/Paracentesis with US IMPRESSION: Ultrasound guided paracentesis. Electronically Signed: Raciel Wills MD at 12:03 EDT ,
[2021-06-02 10:01] VITALS: BP 101/56; BP 108/61; BP 114/58; BP 115/64; BP 122/61; BP 127/80; PULSE 61; PULSE 65; PULSE 71; PULSE 73; PULSE 78; RESP 16; RESP 18; TEMP 36.9; O2SAT 100; O2SAT 99
[2021-06-02] MEDS: Lidocaine 2% (20 ml mdv) 20 ML Vial INFILT (10:15)
[2021-06-02] MEDS: Albumin Human 25% (100 mL) 25 GM/100 ML BAG IV ×2 (11:07→12:39)
--- NOTE | 2021-06-02 11:12 | NURSING ---
Email sent to case management stating Last week he was flown to [facility] about 5 hours after his paracentesis procedure. His CT showed blood in his pelvis and he said his hemoglobin dropped to 3 something. He reports getting 5 units of blood and 2-3 platelet transfusions while there. He said they told him he wasn't a candidate for TIPS because his liver was hard as a rock. He also told me that [facility] mentioned he would benefit from a pleurX catheter, they skirted around his asking if he could be put on the transplant list. I feel like he got bits and pieces of a LOT that happened while at [facility]. DAVID Blanco then asked CM to make sure Dr. Back received notes of all that happened during pt's visit to [facility].
[2021-06-02] MEDS: Albumin Human 25% (50 mL) 12.5 GM/50 ML IV.SOLN IV (14:22)
[2021-06-02 14:26] VITALS: BP 97/48; PULSE 63; RESP 16; TEMP 36.1; O2SAT 100
[2021-06-02] MEDS: 0.9% Saline Lock 10 ML Syringe IV (15:05)
[2021-06-02 15:09] VITALS: BP 104/54; PULSE 67; RESP 12; TEMP 36.7; O2SAT 100
== END 2021-06-02 23:59 | disposition home or self-care (01) ==
LOC: US 09:51 → MEDOUTP 11:01
PROVIDERS: PCP Family Medicine
DX: K74.60 Unspecified cirrhosis of liver (principal)
CPT/HCPCS: 96365; 96366 ×3; 49083; P9047; A4216

== ENCOUNTER 2021-06-09 10:02 | Outpatient (CLI) | payer MEDICAID, SELFPAY ==
--- NOTE | 2021-06-09 10:03 | US_ITS ---
PROCEDURE: Ultrasound guided paracentesis. DATE OF EXAMINATION: 06/09/2021. INDICATION: Male, 46 years old. Ascites. PHYSICIAN: Raciel Wills M.D. TECHNIQUE: The risks, benefits, and alternatives to the procedure were explained to the patient. The specific risks of bleeding, infection, and damage to bowel were detailed and accepted. Witnessed informed consent was obtained. The abdomen was ultrasonographically surveyed. An appropriate pocket of fluid was identified at the right lower quadrant. The skin were cleaned and prepped in the usual sterile fashion. Using ultrasound guidance, the peritoneal cavity was accessed with a 5-Namibian paracentesis needle/catheter system. The trocar was removed. A total of 6050 ml of casie-colored fluid were removed from the peritoneal cavity. The catheter was removed and a sterile dressing was applied. The procedure was well tolerated. US/Paracentesis with US IMPRESSION: Ultrasound guided paracentesis. Electronically Signed: Raciel Wills MD at 11:33 EDT ,
[2021-06-09] MEDS: Lidocaine 2% (20 ml mdv) 20 ML Vial INFILT (10:27)
[2021-06-09 10:28] VITALS: BP 106/80; BP 109/82; BP 118/71; PULSE 69; PULSE 73; PULSE 84; RESP 16; RESP 18; TEMP 37.3; O2SAT 100; O2SAT 97; O2SAT 99
[2021-06-09 11:13] VITALS: BMI 27.6
[2021-06-09] MEDS: 0.9% NaCl Peripheral Flush Adult/Peds IV (11:16)
[2021-06-09] MEDS: Albumin Human 25% (100 mL) 25 GM/100 ML BAG IV ×2 (11:19→12:46)
[2021-06-09 14:40] VITALS: BP 115/56; PULSE 69; O2SAT 100
== END 2021-06-09 23:59 | disposition home or self-care (01) ==
LOC: US 10:03 → MEDOUTP 11:07
PROVIDERS: PCP Family Medicine; Referring Provider Internal Medicine Gastroenterology; Visit Provider Internal Medicine Gastroenterology
DX: K74.60 Unspecified cirrhosis of liver (principal)
CPT/HCPCS: 96365; 96366 ×3; 49083; P9047; A4216

== ENCOUNTER 2021-06-16 09:57 | Outpatient (CLI) | payer MEDICAID, SELFPAY ==
--- NOTE | 2021-06-16 09:59 | US_ITS ---
PROCEDURE: Ultrasound guided paracentesis. INDICATION: Male, 46 years old. CIRRHOSIS PHYSICIAN: Ollie Verduzco MD INFORMED CONSENT: The risks, benefits, and alternatives to the procedure were explained to the patient. The specific risks of bleeding, infection, and damage to bowel were detailed and accepted. Witnessed informed consent was obtained. TECHNIQUES: The abdomen was ultrasonographically surveyed. An appropriate pocket of fluid was identified at the right lower quadrant. The skin was cleaned and prepped in the usual sterile fashion. Using ultrasound guidance, the peritoneal cavity was accessed with a 5-Italian paracentesis needle/catheter system. The trocar was removed. A total of 5250 ml of straw-colored ascitic fluid was removed from the peritoneal cavity. The catheter was removed and a sterile dressing was applied. The procedure was well tolerated. The patient did receive albumin during the procedure. # of Images: 18 US/Paracentesis with US IMPRESSION: Ultrasound guided paracentesis. Electronically Signed: Leland Verduzco MD at 11:45 EDT ,
[2021-06-16 10:20] VITALS: BP 116/65; BP 120/61; BP 128/67; BP 129/72; PULSE 60; PULSE 65; PULSE 72; RESP 16; RESP 18; O2SAT 100; O2SAT 98; O2SAT 99
[2021-06-16] MEDS: Lidocaine 2% (20 ml mdv) 20 ML Vial INFILT (10:27)
[2021-06-16 11:07] VITALS: BMI 27.8
[2021-06-16] MEDS: Albumin Human 25% (100 mL) 25 GM/100 ML BAG IV (11:28)
[2021-06-16] MEDS: 0.9% Saline Lock 10 ML Syringe IV (11:28)
[2021-06-16] MEDS: Albumin Human 25% (50 mL) 12.5 GM/50 ML IV.SOLN IV (12:53)
[2021-06-16 13:53] VITALS: BP 118/75; PULSE 78
--- NOTE | 2021-06-23 08:08 | CASEMGMT ---
DAVID MARTIN Care Coordination f/u: Call to pt's # yesterday. Pt's mom, Caroline, answered. Caroline states pt has been doing a litter better on his dietary restrictions, but then states, It's hard. He's getting tired of eating the same things. Caroline made aware that DAVID MARTIN obtained information re: pt's insurance and Nutrition Therapy would be covered by pt's insurance and inquired if she feels pt would be interested in this. She stated she was not home and would talk w/pt about it once she sees him. DAVID MARTIN spoke w/Melissa, mid level project manager, this AM. She states she has already received a referral for Medical Nutrition Therapy from Dr Back. She states she left a message for patient on June 13 but has not received a call back. She states she will reach out to pt or pt's mom again today re: referral and will let them know that referral had been made by Dr Back already. Dave MANZO RN, CM
== END 2021-06-16 23:59 | disposition home or self-care (01) ==
LOC: US 09:58 → MEDOUTP 11:04
PROVIDERS: PCP Family Medicine
DX: K74.60 Unspecified cirrhosis of liver (principal)
CPT/HCPCS: 96365; 96366; 49083; P9047; A4216

== ENCOUNTER → 2021-06-23 | Outpatient (CLI) | payer MEDICAID, SELFPAY ==
--- NOTE | 2021-06-23 10:02 | US_ITS ---
PROCEDURE: Ultrasound guided paracentesis. DATE OF EXAMINATION: 06/23/2021. INDICATION: Male, 46 years old. Ascites. PHYSICIAN: Raciel Wills M.D. TECHNIQUE: The risks, benefits, and alternatives to the procedure were explained to the patient. The specific risks of bleeding, infection, and damage to bowel were detailed and accepted. Witnessed informed consent was obtained. The abdomen was ultrasonographically surveyed. An appropriate pocket of fluid was identified at the right lower quadrant. The skin were cleaned and prepped in the usual sterile fashion. Using ultrasound guidance, the peritoneal cavity was accessed with a 5-Argentine paracentesis needle/catheter system. The trocar was removed. A total of 4850 ml of casie-colored fluid were removed from the peritoneal cavity. The catheter was removed and a sterile dressing was applied. The procedure was well tolerated. US/Paracentesis with US IMPRESSION: Ultrasound guided paracentesis. Electronically Signed: Raciel Wills MD at 12:26 EDT ,
[2021-06-23 10:21] VITALS: BP 119/75; BP 121/70; BP 125/75; BP 128/75; PULSE 58; PULSE 59; PULSE 60; PULSE 72; RESP 14; RESP 18; TEMP 37.2; O2SAT 100; O2SAT 98
[2021-06-23] MEDS: Lidocaine 2% (20 ml mdv) 20 ML Vial INFILT (11:29)
[2021-06-23 11:41] VITALS: BP 116/70; PULSE 56; RESP 16; TEMP 36.9; O2SAT 100; BMI 27.6
[2021-06-23] MEDS: Albumin Human 25% (100 mL) 25 GM/100 ML BAG IV ×2 (12:01→13:26)
[2021-06-23] MEDS: 0.9% Saline Lock 10 ML Syringe IV (12:02)
[2021-06-23 15:14] VITALS: BP 109/57; PULSE 82; RESP 16; TEMP 36.9; O2SAT 100
== END | disposition home or self-care (01) ==
LOC: US 09:59
PROVIDERS: PCP Family Medicine
DX: K74.60 Unspecified cirrhosis of liver (principal)
CPT/HCPCS: 96365; 96366 ×2; 49083; J7050; P9047

== ENCOUNTER → 2021-06-30 | Outpatient (CLI) | payer MEDICAID, SELFPAY ==
--- NOTE | 2021-06-30 10:33 | US_ITS ---
PROCEDURE: Ultrasound guided paracentesis. DATE OF EXAMINATION: 06/30/2021. INDICATION: Male, 46 years old. Ascites. PHYSICIAN: Raciel Wills M.D. TECHNIQUE: The risks, benefits, and alternatives to the procedure were explained to the patient. The specific risks of bleeding, infection, and damage to bowel were detailed and accepted. Witnessed informed consent was obtained. The abdomen was ultrasonographically surveyed. An appropriate pocket of fluid was identified at the right lower quadrant. The skin were cleaned and prepped in the usual sterile fashion. Using ultrasound guidance, the peritoneal cavity was accessed with a 5-Namibian paracentesis needle/catheter system. The trocar was removed. A total of 4950 ml of casie-colored fluid were removed from the peritoneal cavity. The catheter was removed and a sterile dressing was applied. The procedure was well tolerated. US/Paracentesis with US IMPRESSION: Ultrasound guided paracentesis. Electronically Signed: Raciel Wills MD at 12:12 EDT ,
[2021-06-30 10:51] VITALS: BP 102/49; BP 108/61; BP 114/70; PULSE 69; PULSE 77; RESP 16; TEMP 36.7; O2SAT 96; O2SAT 98; O2SAT 99
== END | disposition home or self-care (01) ==
PROVIDERS: PCP Family Medicine; Referring Provider Internal Medicine Gastroenterology; Visit Provider Internal Medicine Gastroenterology
DX: K74.60 Unspecified cirrhosis of liver (principal)
CPT/HCPCS: 49083

== ENCOUNTER → 2021-07-07 | Outpatient (CLI) | payer MEDICAID, SELFPAY ==
--- NOTE | 2021-07-07 09:58 | US_ITS ---
PROCEDURE: Ultrasound guided paracentesis. DATE OF EXAMINATION: 07/07/2021. INDICATION: Male, 46 years old. Ascites. PHYSICIAN: Raciel Wills M.D. TECHNIQUE: The risks, benefits, and alternatives to the procedure were explained to the patient. The specific risks of bleeding, infection, and damage to bowel were detailed and accepted. Witnessed informed consent was obtained. The abdomen was ultrasonographically surveyed. An appropriate pocket of fluid was identified at the right lower quadrant. The skin were cleaned and prepped in the usual sterile fashion. Using ultrasound guidance, the peritoneal cavity was accessed with a 5-Turkmen paracentesis needle/catheter system. The trocar was removed. A total of 4800 ml of casie-colored fluid were removed from the peritoneal cavity. The catheter was removed and a sterile dressing was applied. The procedure was well tolerated. US/Paracentesis with US IMPRESSION: Ultrasound guided paracentesis. Electronically Signed: Raciel Wills MD at 11:52 EDT ,
[2021-07-07 10:33] VITALS: BP 111/69; BP 118/70; BP 123/78; BP 128/70; PULSE 59; PULSE 64; PULSE 67; PULSE 74; RESP 18; TEMP 36.6; TEMP 36.7; O2SAT 98; O2SAT 99
[2021-07-07] MEDS: Lidocaine 2% (20 ml mdv) 20 ML Vial INFILT (10:43)
== END | disposition home or self-care (01) ==
PROVIDERS: PCP Family Medicine; Referring Provider Internal Medicine Gastroenterology; Visit Provider Internal Medicine Gastroenterology
DX: K74.60 Unspecified cirrhosis of liver (principal)
CPT/HCPCS: 49083

== ENCOUNTER → 2021-07-14 | Outpatient (CLI) | payer MEDICAID, SELFPAY ==
--- NOTE | 2021-07-14 09:55 | US_ITS ---
PROCEDURE: Ultrasound guided paracentesis. DATE OF EXAMINATION: 07/14/2021. INDICATION: Male, 46 years old. Ascites. PHYSICIAN: Raciel Wills M.D. TECHNIQUE: The risks, benefits, and alternatives to the procedure were explained to the patient. The specific risks of bleeding, infection, and damage to bowel were detailed and accepted. Witnessed informed consent was obtained. The abdomen was ultrasonographically surveyed. An appropriate pocket of fluid was identified at the right lower quadrant. The skin were cleaned and prepped in the usual sterile fashion. Using ultrasound guidance, the peritoneal cavity was accessed with a 5-Venezuelan paracentesis needle/catheter system. The trocar was removed. A total of 3150 ml of casie-colored fluid were removed from the peritoneal cavity. The catheter was removed and a sterile dressing was applied. The procedure was well tolerated. US/Paracentesis with US IMPRESSION: Ultrasound guided paracentesis. Electronically Signed: Raciel Wills MD at 11:00 EDT ,
[2021-07-14 10:11] VITALS: BP 102/61; BP 108/70; PULSE 61; PULSE 66; RESP 14; RESP 16; O2SAT 99
[2021-07-14] MEDS: Lidocaine 2% (20 ml mdv) 20 ML Vial INFILT (10:11)
== END | disposition home or self-care (01) ==
PROVIDERS: PCP Family Medicine; Referring Provider Internal Medicine Gastroenterology; Visit Provider Internal Medicine Gastroenterology
DX: K74.60 Unspecified cirrhosis of liver (principal)
CPT/HCPCS: 49083

== ENCOUNTER → 2021-07-21 | Outpatient (CLI) | payer MEDICAID, SELFPAY ==
--- NOTE | 2021-07-21 09:59 | US_ITS ---
PROCEDURE: Ultrasound guided paracentesis. DATE OF EXAMINATION: 07/21/2021. INDICATION: Male, 46 years old. Ascites. PHYSICIAN: Zeke Valencia DO TECHNIQUE: The risks, benefits, and alternatives to the procedure were explained to the patient. The specific risks of bleeding, infection, and damage to bowel were detailed and accepted. Witnessed informed consent was obtained. The abdomen was ultrasonographically surveyed. An appropriate pocket of fluid was identified at the right lower quadrant. The skin were cleaned and prepped in the usual sterile fashion. Using ultrasound guidance, the peritoneal cavity was accessed with a 5-Jordanian paracentesis needle/catheter system. The trocar was removed. A total of 4950 ml of slightly blood-tinged yellow ascites fluid was removed from the peritoneal cavity and discarded. The catheter was removed and a sterile dressing was applied. The procedure was well tolerated. Patient was discharged home in stable condition. US/Paracentesis with US IMPRESSION: Ultrasound guided paracentesis. Electronically Signed: Zeke Valencia, at 13:32 EDT ,
[2021-07-21 10:25] VITALS: BP 117/68; BP 123/66; BP 126/78; PULSE 70; PULSE 73; PULSE 74; RESP 16; RESP 18; TEMP 36.2; O2SAT 98
[2021-07-21] MEDS: Lidocaine 2% (20 ml mdv) 20 ML Vial INFILT (10:25)
== END | disposition home or self-care (01) ==
PROVIDERS: PCP Family Medicine; Referring Provider Internal Medicine Gastroenterology; Visit Provider Internal Medicine Gastroenterology
DX: K74.60 Unspecified cirrhosis of liver (principal)
CPT/HCPCS: 49083

== ENCOUNTER → 2021-07-28 | Outpatient (CLI) | payer MEDICAID, SELFPAY ==
--- NOTE | 2021-07-28 10:12 | US_ITS ---
PROCEDURE: Ultrasound guided paracentesis. DATE OF EXAMINATION: 07/28/2021. INDICATION: Male, 46 years old. Ascites. PHYSICIAN: Raciel Wills M.D. TECHNIQUE: The risks, benefits, and alternatives to the procedure were explained to the patient. The specific risks of bleeding, infection, and damage to bowel were detailed and accepted. Witnessed informed consent was obtained. The abdomen was ultrasonographically surveyed. An appropriate pocket of fluid was identified at the right lower quadrant. The skin were cleaned and prepped in the usual sterile fashion. Using ultrasound guidance, the peritoneal cavity was accessed with a 5-St Helenian paracentesis needle/catheter system. The trocar was removed. A total of 4950 ml of casie-colored fluid were removed from the peritoneal cavity. The catheter was removed and a sterile dressing was applied. The procedure was well tolerated. US/Paracentesis with US IMPRESSION: Ultrasound guided paracentesis. Electronically Signed: Raciel Wills MD at 11:45 EDT ,
[2021-07-28 10:19] LABS: Absolute Lymphocyte Count 0.86 X10^3/uL (0.83-4.51); Absolute Neutrophil Count 2.9 X10^3/uL (2.0-7.7); Basophil# 0.02 X10^3/uL; Basophil% 0.4 % (0-1); Eosinophil# 0.16 X10^3/uL; Eosinophils% 3.5 % (0-5); Hematocrit 34.1 % (40-54); Hemoglobin 11.6 g/dL (13.0-16.5); Lymphocyte # 0.86 X10^3/ul (0.83-4.51); Lymphocyte % 19.1 % (19-41); Mean Corpuscular Hgb 34.2 pg (27.0-32.0); Mean Corpuscular Volume 100.6 fL (80-94); Mean Platelet Vol. 10.8 fl (6.2-12.0); Monocyte# 0.54 X10^3/uL; NRBC Flagged by Analyzer 0 % (0-5); Neutrophil # 2.92 X10^3/uL (2.7-7.7); Neutrophil % 64.8 % (47-70); POSITIVE COUNT YES; Platelet Count 82 K/mm3 (150-450); RBC Distribution Width CV 13.1 % (11.6-14.6); RBC Distribution Width SD 48.4 fl (35.1-43.9); Red Blood Count 3.39 M/mm3 (4.6-6.2); White Blood Count 4.5 K/mm3 (4.4-11.0)
[2021-07-28 10:20] VITALS: BP 107/74; BP 118/73; BP 121/68; BP 122/74; PULSE 69; PULSE 72; PULSE 79; PULSE 81; RESP 18; TEMP 36.6; TEMP 37; O2SAT 98; O2SAT 99
[2021-07-28] MEDS: Lidocaine 2% (20 ml mdv) 20 ML Vial INFILT (10:30)
[2021-07-28 10:31] LABS: International Normalized Ratio 1.5; Prothrombin Time (Protime)PT. 17.8 SECONDS (11.7-14.9)
[2021-07-28 10:42] LABS: ALB/GLOB Ratio 0.4 RATIO (0.9-2.4); AST(SGOT) 31 U/L (15-37); Alanine Aminotransfer ALT/SGPT 19 U/L (16-61); Albumin, Serum 2.3 g/dL (3.2-5.0); Alkaline Phosphatase 209 U/L (45-117); Anion Gap 5 (5-15); BUN 16 mg/dL (7-18); BUN/Creat Ratio 18.3 RATIO (10-20); Calcium,Total 8.1 mg/dL (8.5-10.1); Chloride 107 mmol/L (98-107); Creatinine, Serum 0.88 mg/dL (0.70-1.30); EST Glomerular Filtration Rate 99 mL/min (>60); Est Glom Filt Rate - Afr Amer 120 mL/min (>60); Globulin 5.3 g/dL (2.2-4.2); Glucose 120 mg/dL (74-106); Potassium 3.2 mmol/L (3.5-5.1); Protein, Total 7.6 g/dL (6.4-8.2); Sodium Level 138 mmol/L (136-145)
== END | disposition home or self-care (01) ==
PROVIDERS: PCP Family Medicine; Referring Provider Internal Medicine Gastroenterology; Visit Provider Internal Medicine Gastroenterology
DX: K74.60 Unspecified cirrhosis of liver (principal)
CPT/HCPCS: 36415; 49083; 80053; 82140; 85025; 85610

== ENCOUNTER → 2021-08-05 | Outpatient (CLI) | payer MEDICAID, SELFPAY ==
--- NOTE | 2021-08-05 13:34 | US_ITS ---
PROCEDURE: ULTRASOUND GUIDED PARACENTESIS CLINICAL HISTORY: Male, 46 years old. CIRRHOSIS CONSENT: PROCEDURE: Ultrasound guided paracentesis. DATE OF EXAMINATION: 08/05/2021. INDICATION: Male, 46 years old. Ascites. PHYSICIAN: Zeke Valencia DO TECHNIQUE: The risks, benefits, and alternatives to the procedure were explained to the patient. The specific risks of bleeding, infection, and damage to bowel were detailed and accepted. Witnessed informed consent was obtained. The abdomen was ultrasonographically surveyed. An appropriate pocket of fluid was identified at the right lower quadrant. The skin were cleaned and prepped in the usual sterile fashion. Using ultrasound guidance, the peritoneal cavity was accessed with a 5-Vatican Citizen paracentesis needle/catheter system. The trocar was removed. A total of 4500 ml of clear yellow ascites fluid was removed from the peritoneal cavity and discarded. The catheter was removed and a sterile dressing was applied. The procedure was well tolerated. Patient was discharged home in stable condition. US/Paracentesis with US IMPRESSION: Ultrasound guided paracentesis. Electronically Signed: Zeke Valencia, at 15:53 EDT ,
[2021-08-05 13:52] VITALS: BP 98/62; BP 99/57; BP 99/62; PULSE 59; PULSE 68; RESP 16; TEMP 37.4; O2SAT 93; O2SAT 94; O2SAT 97
[2021-08-05] MEDS: Lidocaine 2% (20 ml mdv) 20 ML Vial INFILT (13:55)
== END | disposition home or self-care (01) ==
PROVIDERS: PCP Family Medicine; Referring Provider Internal Medicine Gastroenterology; Visit Provider Internal Medicine Gastroenterology
DX: K74.60 Unspecified cirrhosis of liver (principal)
CPT/HCPCS: 49083

== ENCOUNTER → 2021-08-11 | Outpatient (CLI) | payer MEDICAID, SELFPAY ==
--- NOTE | 2021-08-11 10:00 | US_ITS ---
PROCEDURE: Ultrasound guided paracentesis. DATE OF EXAMINATION: 08/11/2021. INDICATION: Male, 46 years old. Ascites. PHYSICIAN: Raciel Wills M.D. TECHNIQUE: The risks, benefits, and alternatives to the procedure were explained to the patient. The specific risks of bleeding, infection, and damage to bowel were detailed and accepted. Witnessed informed consent was obtained. The abdomen was ultrasonographically surveyed. An appropriate pocket of fluid was identified at the right lower quadrant. The skin were cleaned and prepped in the usual sterile fashion. Using ultrasound guidance, the peritoneal cavity was accessed with a 5-Kosovan paracentesis needle/catheter system. The trocar was removed. A total of 4900 ml of casie-colored fluid were removed from the peritoneal cavity. The catheter was removed and a sterile dressing was applied. The procedure was well tolerated. US/Paracentesis with US IMPRESSION: Ultrasound guided paracentesis. Electronically Signed: Raciel Wills MD at 11:07 EDT ,
[2021-08-11 10:14] VITALS: BP 112/74; BP 118/71; BP 123/89; PULSE 76; PULSE 78; PULSE 85; RESP 16; TEMP 37.4; O2SAT 95; O2SAT 97
[2021-08-11] MEDS: Lidocaine 2% (20 ml mdv) 20 ML Vial INFILT (10:17)
== END | disposition home or self-care (01) ==
PROVIDERS: PCP Family Medicine; Referring Provider Internal Medicine Gastroenterology; Visit Provider Internal Medicine Gastroenterology
DX: R18.8 Other ascites (principal)
CPT/HCPCS: 49083

== ENCOUNTER 2021-08-18 10:34 | Outpatient (RCR) | payer MEDICAID, SELFPAY | END 2021-08-25 23:59 | LOC: NS 10:34 | PROVIDERS: PCP Family Medicine; Visit Provider Internal Medicine Gastroenterology | DX: Z71.3 Dietary counseling and surveillance (principal); K70.31 Alcoholic cirrhosis of liver with ascites | CPT/HCPCS: 97802 ==

== ENCOUNTER → 2021-08-18 | Outpatient (CLI) | payer MEDICAID, SELFPAY ==
--- NOTE | 2021-08-17 16:21 | CASEMGMT ---
Addendum entered by Brii South 08/17/21 16:42: Mom had also stated pt needed cardiac clearance before anything else but she did not go into further detail. She state, I can't drive to [place] and I'm paying someone to take him up there. Original Note: DAVID MARTIN Care Coordination Note: Call placed to pt. ADVID MARTIN spoke w/both pt and his mom, Caroline, who also got on the phone during the call. DAVID MARTIN inquired if pt has spoken w/the manager [employer] for nutrition education. Pt stated, I had an appt but it was cx'd. DAVID MARTIN inquired of reason for cancellation of appt. Pt then stated, I was denied everything. DAVID MARTIN had informed pt in May that nutrition consult is covered by his insurance and pt and mom was made aware of this again at this time. Mom stated, Things are not going the best. He says he's just got everything on his mind. She and pt both mentioned that pt has had a lot of appts in [place] to see a it communications specialist and other doctors. Mom states it has been overwhelming for them and Housing Court Judge was put on hold, as they have been so busy with the appts and traveling. DAVID MARTIN was going to offer to assistance and support, but mom stated she needed to get off of the phone. DAVID MARTIN placed call to Melissa in dietary. She states pt did have an appt scheduled last week. She states she confirmed w/pt the appt and time, but then he did not show up to the appt. Melissa states they can touch base w/pt and mom tomorrow in OP pavilion if he ends up needing Albumin infusion. VM left w/radiology re: same. Dave MANZO RN, CM
--- NOTE | 2021-08-18 09:53 | US_ITS ---
PROCEDURE: ULTRASOUND GUIDED PARACENTESIS CLINICAL HISTORY: Male, 46 years old. CIRRHOSIS CONSENT: PROCEDURE: Ultrasound guided paracentesis. DATE OF EXAMINATION: 08/18/2021. INDICATION: Male, 46 years old. Ascites. PHYSICIAN: Zeke Valencia DO TECHNIQUE: The risks, benefits, and alternatives to the procedure were explained to the patient. The specific risks of bleeding, infection, and damage to bowel were detailed and accepted. Witnessed informed consent was obtained. The abdomen was ultrasonographically surveyed. An appropriate pocket of fluid was identified at the right upper quadrant. The skin were cleaned and prepped in the usual sterile fashion. Using ultrasound guidance, the peritoneal cavity was accessed with a 5-Romanian paracentesis needle/catheter system. The trocar was removed. A total of 6100 ml of clear yellow ascites fluid was removed from the peritoneal cavity and discarded. The catheter was removed and a sterile dressing was applied. The procedure was well tolerated. Patient was discharged home in stable condition. US/Paracentesis with US IMPRESSION: Ultrasound guided paracentesis. Electronically Signed: Zeke Valencia, at 13:20 EDT ,
[2021-08-18 10:05] VITALS: BP 118/70; BP 124/81; PULSE 66; PULSE 71; PULSE 90; RESP 16; RESP 18; RESP 20; O2SAT 97; O2SAT 98
[2021-08-18] MEDS: Lidocaine 2% (20 ml mdv) 20 ML Vial INFILT (10:20)
== END | disposition home or self-care (01) ==
PROVIDERS: PCP Family Medicine; Referring Provider Internal Medicine Gastroenterology; Visit Provider Internal Medicine Gastroenterology
DX: K70.31 Alcoholic cirrhosis of liver with ascites (principal); Z71.3 Dietary counseling and surveillance
CPT/HCPCS: 49083; 97802; A4216

== ENCOUNTER → 2021-08-25 | Outpatient (CLI) | payer MEDICAID, SELFPAY ==
--- NOTE | 2021-08-25 09:55 | US_ITS ---
PROCEDURE: Ultrasound guided paracentesis. DATE OF EXAMINATION: 08/25/2021. INDICATION: Male, 46 years old. Ascites. PHYSICIAN: Raciel Wills M.D. TECHNIQUE: The risks, benefits, and alternatives to the procedure were explained to the patient. The specific risks of bleeding, infection, and damage to bowel were detailed and accepted. Witnessed informed consent was obtained. The abdomen was ultrasonographically surveyed. An appropriate pocket of fluid was identified at the right lower quadrant. The skin were cleaned and prepped in the usual sterile fashion. Using ultrasound guidance, the peritoneal cavity was accessed with a 5-Rwandan paracentesis needle/catheter system. The trocar was removed. A total of 5150 ml of casie-colored fluid were removed from the peritoneal cavity. The catheter was removed and a sterile dressing was applied. The procedure was well tolerated. US/Paracentesis with US IMPRESSION: Ultrasound guided paracentesis. Electronically Signed: Raciel Wills MD at 11:57 EDT ,
[2021-08-25 10:13] VITALS: BP 100/61; BP 113/65; BP 114/65; BP 115/59; PULSE 74; PULSE 79; PULSE 80; PULSE 84; RESP 16; TEMP 36.9; O2SAT 97; O2SAT 98
[2021-08-25] MEDS: Lidocaine 2% (20 ml mdv) 20 ML Vial INFILT (10:17)
--- NOTE | 2021-08-25 15:30 | CASEMGMT ---
DAVID MARTIN care coordination note: Late entry for 08/25/21: Pt @ [facility] earlier today for paracentesis. DAVID MARTIN met w/pt while in procedure room and offered assistance and support w/coordination of appts and OP f/u. Pt asked for DAVID MARTIN to talk w/his mom, who was in waiting room. DAVID MARTIN met w/pt's mom, Caroline, in separate room for confidentiality. Caroline states pt is continuing to go to [facility] for testing to determine if he is a candidate for a liver transplant. His next appts are scheduled there on Nov 04. Caroline states she is unable to drive to [place] so she pays her grand-daughter to drive them up there. Caroline states she was informed pt's K+ was abnormal recently and is not aware of any f/u appts w/either Dr Ojeda or Dr aBck. Caroline also reports that pt's pain has been worsening and states he has pain /. DAVID MARTIN inquired if she has notified pt's doctor's or Palliative care about the increase in pain and she states has not done so yet. She states pt does have an appt w/Palliative care coming up in August. Caroline voices much appreciation for the education she has received from angel luis Wright, and states she has a good understanding of what pt is allowed to have. Caroline denies having any other concerns at this time. Caroline provided w/george HERNANDEZ CM contact # and DAVID Gan CM, contact # for her to call for any further concerns or assistance needed. She voices appreciation. After meeting w/Caroline, DAVID MARTIN placed calls to Dr Back's office. Pt has an appt scheduled w/Dr Back on 09/08 @ 0800. Call also placed to Palliative and spoke w/Ruma. Pt's appt is for 09/20 @ 12:30. Ruma notified that pt's mother reports increase in his pain. She states they will f/u with pt and mother re: same. DAVID MARTIN placed call to Caroline. She was notified of appt dates/times and that Palliative will be contacting them to address pain issues. She voices appreciation. Anishauvalerie MANZO RN, CM
== END | disposition home or self-care (01) ==
PROVIDERS: PCP Family Medicine; Referring Provider Internal Medicine Gastroenterology; Visit Provider Internal Medicine Gastroenterology
DX: K74.60 Unspecified cirrhosis of liver (principal)
CPT/HCPCS: 49083

== ENCOUNTER → 2021-09-01 | Outpatient (CLI) | payer MEDICAID, SELFPAY ==
--- NOTE | 2021-09-01 09:56 | US_ITS ---
PROCEDURE: Ultrasound guided paracentesis. DATE OF EXAMINATION: 09/01/2021. INDICATION: Male, 46 years old. Ascites. PHYSICIAN: Raciel Wills M.D. TECHNIQUE: The risks, benefits, and alternatives to the procedure were explained to the patient. The specific risks of bleeding, infection, and damage to bowel were detailed and accepted. Witnessed informed consent was obtained. The abdomen was ultrasonographically surveyed. An appropriate pocket of fluid was identified at the right lower quadrant. The skin were cleaned and prepped in the usual sterile fashion. Using ultrasound guidance, the peritoneal cavity was accessed with a 5-Chinese paracentesis needle/catheter system. The trocar was removed. A total of 4950 ml of casie-colored fluid were removed from the peritoneal cavity. The catheter was removed and a sterile dressing was applied. The procedure was well tolerated. US/Paracentesis with US IMPRESSION: Ultrasound guided paracentesis. Electronically Signed: Raciel Wills MD at 11:13 EDT ,
[2021-09-01 10:13] VITALS: BP 101/48; BP 98/50; PULSE 58; PULSE 67; RESP 18; O2SAT 98; O2SAT 99
[2021-09-01] MEDS: Lidocaine 2% (20 ml mdv) 20 ML Vial INFILT (10:17)
== END | disposition home or self-care (01) ==
PROVIDERS: PCP Family Medicine; Referring Provider Internal Medicine Gastroenterology; Visit Provider Internal Medicine Gastroenterology
DX: K74.60 Unspecified cirrhosis of liver (principal)
CPT/HCPCS: 49083

== ENCOUNTER → 2021-09-08 | Outpatient (CLI) | payer MEDICAID, SELFPAY ==
--- NOTE | 2021-09-08 09:58 | US_ITS ---
PROCEDURE: Ultrasound guided paracentesis. DATE OF EXAMINATION: 09/08/2021. INDICATION: Male, 46 years old. Ascites. PHYSICIAN: Raciel Wills M.D. TECHNIQUE: The risks, benefits, and alternatives to the procedure were explained to the patient. The specific risks of bleeding, infection, and damage to bowel were detailed and accepted. Witnessed informed consent was obtained. The abdomen was ultrasonographically surveyed. An appropriate pocket of fluid was identified at the right lower quadrant. The skin were cleaned and prepped in the usual sterile fashion. Using ultrasound guidance, the peritoneal cavity was accessed with a 5-Burundian paracentesis needle/catheter system. The trocar was removed. A total of 2450 ml of casie-colored fluid were removed from the peritoneal cavity. The catheter was removed and a sterile dressing was applied. The procedure was well tolerated. US/Paracentesis with US IMPRESSION: Ultrasound guided paracentesis. Electronically Signed: Raciel Wills MD at 11:05 EDT ,
[2021-09-08 10:09] VITALS: BP 106/66; BP 114/67; PULSE 84; PULSE 85; RESP 20; TEMP 36.4; O2SAT 100; O2SAT 99
[2021-09-08] MEDS: Lidocaine 2% (5ml sdv) 5 ML VIAL.MPF (10:10)
== END | disposition home or self-care (01) ==
PROVIDERS: PCP Family Medicine; Referring Provider Internal Medicine Gastroenterology; Visit Provider Internal Medicine Gastroenterology
DX: K74.60 Unspecified cirrhosis of liver (principal)
CPT/HCPCS: 49083; A4216

== ENCOUNTER → 2021-09-15 | Outpatient (CLI) | payer MEDICAID, SELFPAY ==
--- NOTE | 2021-09-15 09:57 | US_ITS ---
PROCEDURE: Ultrasound guided paracentesis. DATE OF EXAMINATION: 09/15/2021. INDICATION: Male, 46 years old. Ascites. PHYSICIAN: Raciel Wills M.D. TECHNIQUE: The risks, benefits, and alternatives to the procedure were explained to the patient. The specific risks of bleeding, infection, and damage to bowel were detailed and accepted. Witnessed informed consent was obtained. The abdomen was ultrasonographically surveyed. An appropriate pocket of fluid was identified at the right lower quadrant. The skin were cleaned and prepped in the usual sterile fashion. Using ultrasound guidance, the peritoneal cavity was accessed with a 5-Honduran paracentesis needle/catheter system. The trocar was removed. A total of 4370 ml of casie-colored fluid were removed from the peritoneal cavity. The catheter was removed and a sterile dressing was applied. The procedure was well tolerated. US/Paracentesis with US IMPRESSION: Ultrasound guided paracentesis. Electronically Signed: Raciel Wills MD at 10:56 EDT ,
[2021-09-15 10:02] VITALS: BP 104/67; BP 104/68; BP 105/57; BP 110/63; PULSE 78; PULSE 81; PULSE 84; RESP 18; TEMP 36.9; O2SAT 97; O2SAT 98; O2SAT 99
[2021-09-15] MEDS: Lidocaine 2% (5ml sdv) 5 ML VIAL.MPF INFILT (10:10)
== END | disposition home or self-care (01) ==
PROVIDERS: PCP Family Medicine; Referring Provider Internal Medicine Gastroenterology; Visit Provider Internal Medicine Gastroenterology
DX: K74.60 Unspecified cirrhosis of liver (principal)
CPT/HCPCS: 49083

== ENCOUNTER → 2021-09-29 | Outpatient (CLI) | payer MEDICAID, SELFPAY ==
--- NOTE | 2021-09-29 08:02 | US_ITS ---
PROCEDURE: ULTRASOUND GUIDED PARACENTESIS CLINICAL HISTORY: Male, 46 years old with ASCITES CONSENT: PROCEDURE: Ultrasound guided paracentesis. INDICATION: Male, 46 years old. ASCITES PHYSICIAN: Ollie Verduzco MD INFORMED CONSENT: The risks, benefits, and alternatives to the procedure were explained to the patient. The specific risks of bleeding, infection, and damage to bowel were detailed and accepted. Witnessed informed consent was obtained. TECHNIQUES: The abdomen was ultrasonographically surveyed. An appropriate pocket of fluid was identified at the right lower quadrant. The skin was cleaned and prepped in the usual sterile fashion. Using ultrasound guidance, the peritoneal cavity was accessed with a 5-Azeri paracentesis needle/catheter system. The trocar was removed. A total of 7100 ml of straw-colored ascitic fluid was removed from the peritoneal cavity. The catheter was removed and a sterile dressing was applied. The procedure was well tolerated. The patient did receive albumin during the procedure. # of Images: 17 US/Paracentesis with US IMPRESSION: Ultrasound guided paracentesis. Electronically Signed: Leland Verduzco MD at 10:14 EDT ,
[2021-09-29] MEDS: Lidocaine 2% (10 ml mdv) 10 ML Vial INFILT (08:15)
[2021-09-29 08:18] VITALS: BP 105/59; BP 113/56; BP 118/66; BP 124/62; PULSE 74; PULSE 77; PULSE 83; PULSE 95; RESP 16; RESP 18; O2SAT 100; O2SAT 98; O2SAT 99
[2021-09-29 09:15] VITALS: BP 99/60; PULSE 74; RESP 14; TEMP 36.2; O2SAT 100; BMI 27.1
[2021-09-29] MEDS: 0.9% NaCl Peripheral Flush Adult/Peds IV (09:29)
[2021-09-29] MEDS: Albumin Human 25% (100 mL) 25 GM/100 ML BAG IV ×2 (09:29→10:57)
[2021-09-29 13:08] VITALS: BP 108/59; PULSE 77; O2SAT 100
== END | disposition home or self-care (01) ==
LOC: US 08:01 → MEDOUTP 09:11
PROVIDERS: PCP Family Medicine; Referring Provider Internal Medicine Gastroenterology; Visit Provider Internal Medicine Gastroenterology
DX: K74.60 Unspecified cirrhosis of liver (principal)
CPT/HCPCS: 96365; 96366; 49083; P9047; A4216

== ENCOUNTER → 2021-10-06 | Outpatient (CLI) | payer MEDICAID, SELFPAY ==
--- NOTE | 2021-10-06 09:48 | US_ITS ---
PROCEDURE: Ultrasound guided paracentesis. DATE OF EXAMINATION: 10/06/2021. INDICATION: Male, 46 years old. Ascites. PHYSICIAN: Raciel Wills M.D. TECHNIQUE: The risks, benefits, and alternatives to the procedure were explained to the patient. The specific risks of bleeding, infection, and damage to bowel were detailed and accepted. Witnessed informed consent was obtained. The abdomen was ultrasonographically surveyed. An appropriate pocket of fluid was identified at the right lower quadrant. The skin were cleaned and prepped in the usual sterile fashion. Using ultrasound guidance, the peritoneal cavity was accessed with a 5-Panamanian paracentesis needle/catheter system. The trocar was removed. A total of 8800 ml of casie-colored fluid were removed from the peritoneal cavity. The catheter was removed and a sterile dressing was applied. The procedure was well tolerated. US/Paracentesis with US IMPRESSION: Ultrasound guided paracentesis. Electronically Signed: Raciel Wills MD at 11:58 EDT ,
[2021-10-06 10:19] VITALS: BP 114/63; BP 118/65; BP 132/64; PULSE 82; PULSE 85; PULSE 93; RESP 14; RESP 16; TEMP 36.7; O2SAT 97; O2SAT 99
[2021-10-06 10:44] LABS: Erythrocyte Sedimentation Rate 38 mm/hr (0-20)
[2021-10-06 10:45] LABS: International Normalized Ratio 1.7; Prothrombin Time (Protime)PT. 19.3 SECONDS (11.7-14.9)
[2021-10-06 10:48] LABS: Absolute Lymphocyte Count 1.01 X10^3/uL (0.83-4.51); Absolute Neutrophil Count 4.9 X10^3/uL (2.0-7.7); Basophil# 0.02 X10^3/uL; Basophil% 0.3 % (0-1); Eosinophil# 0.12 X10^3/uL; Eosinophils% 1.7 % (0-5); Hematocrit 30.1 % (40-54); Hemoglobin 10.1 g/dL (13.0-16.5); Lymphocyte # 1.01 X10^3/ul (0.83-4.51); Lymphocyte % 14.3 % (19-41); Mean Corp Hgb Conc 33.6 g/dL (32-36); Mean Corpuscular Hgb 33.9 pg (27.0-32.0); Mean Platelet Vol. 11.1 fl (6.2-12.0); Monocyte# 0.93 X10^3/uL; Monocyte% 13.2 % (0-10); NRBC Flagged by Analyzer 0 % (0-5); Neutrophil # 4.94 X10^3/uL (2.7-7.7); Neutrophil % 69.8 % (47-70); POSITIVE COUNT YES; Platelet Count 82 K/mm3 (150-450); RBC Distribution Width CV 16.3 % (11.6-14.6); RBC Distribution Width SD 60.1 fl (35.1-43.9); Red Blood Count 2.98 M/mm3 (4.6-6.2); White Blood Count 7.1 K/mm3 (4.4-11.0)
[2021-10-06 11:08] LABS: ALB/GLOB Ratio 0.5 RATIO (0.9-2.4); AST(SGOT) 33 U/L (15-37); Alanine Aminotransfer ALT/SGPT 20 U/L (16-61); Albumin, Serum 2.3 g/dL (3.2-5.0); Alkaline Phosphatase 150 U/L (45-117); Anion Gap 7 (5-15); BUN 14 mg/dL (7-18); BUN/Creat Ratio 14.9 RATIO (10-20); Calcium,Total 7.9 mg/dL (8.5-10.1); Chloride 99 mmol/L (98-107); Creatinine, Serum 0.94 mg/dL (0.70-1.30); EST Glomerular Filtration Rate 91 mL/min (>60); Est Glom Filt Rate - Afr Amer 111 mL/min (>60); Globulin 5.1 g/dL (2.2-4.2); Glucose 104 mg/dL (74-106); LDH 359 U/L (87-241); Potassium 3.6 mmol/L (3.5-5.1); Protein, Total 7.4 g/dL (6.4-8.2); Sodium Level 133 mmol/L (136-145)
[2021-10-06 11:21] VITALS: BP 121/61; PULSE 77; RESP 16; TEMP 36.2; O2SAT 97
[2021-10-06] MEDS: Albumin Human 25% (100 mL) 25 GM/100 ML BAG IV ×3 (11:26→14:37)
[2021-10-06] MEDS: 0.9% Saline Lock 10 ML Syringe IV (11:30)
[2021-10-06 16:35] VITALS: BP 107/52; PULSE 72; RESP 16; TEMP 36.3; O2SAT 100
== END | disposition home or self-care (01) ==
PROVIDERS: PCP Family Medicine; Referring Provider Internal Medicine Gastroenterology; Visit Provider Internal Medicine Gastroenterology
DX: K74.60 Unspecified cirrhosis of liver (principal)
CPT/HCPCS: 96365; 96366; 36415; 49083; 80053; 82140; 83615; 85025; 85610; 85652; 86140; J7050; P9047

== ENCOUNTER 2021-10-10 08:34 | Emergency (ER) | payer MEDICAID, SELFPAY ==
[2021-10-10 08:36] VITALS: BP 103/61; PULSE 73; RESP 13; TEMP 36.3; O2SAT 100; BMI 31.4
--- NOTE | 2021-10-10 08:49 | EKG12_ITS ---
Test Reason : cp Blood Pressure : / mmHG Vent. Rate : 069 BPM Atrial Rate : 069 BPM P-R Int : 180 ms QRS Dur : 108 ms QT Int : 442 ms P-R-T Axes : -10 -37 003 degrees QTc Int : 473 ms Normal sinus rhythm Left axis deviation Abnormal ECG Confirmed by ALVIN SILVERMAN, JONES ([id number]), offline editor JERRI VAZQUEZ ([id number]) on 10/12/2021 9:38:16 AM Referred By: Ruiz Confirmed By:JONES ESQUIVEL MD
--- NOTE | 2021-10-10 08:49 | RAD_ITS ---
STUDY: X-RAY CHEST REASON FOR EXAM: Male, 46 years old. chest pain TECHNIQUE: Single AP portable view of the chest. COMPARISON: 02/01/2021 FINDINGS: The lungs are clear and expanded. There is no demonstrated pleural abnormality. Normal size heart. Normal mediastinum and arturo. Normal visualized pulmonary arteries. Normal visualized aortic arch and descending thoracic aorta. Normal visualized thoracic spine. Normal visualized ribs, clavicles, and shoulders. There is no demonstrated abnormality of the visualized soft tissue structures of the upper abdomen. RAD/Chest 1 View (Portable) IMPRESSION: Normal x-ray examination of the chest. Electronically Signed: Rodney Hilario MD at 9:26 EDT ,
--- NOTE | 2021-10-10 09:04 | EDS_ITS ---
HPI History of Present Illness Chief Complaint: Chest Pain Detail of Chief Complaint: Left-sided chest pain Informant: patient and family Onset/Context/Timing Onset: Hours (0400) Activity at onset: sudden Timing: Continuous Quality: Positive for Aching Location: Left Parasternal Current Severity: Mild Maximum Severity: Moderate Worsened By: Nothing Relieved By: Nothing Associated Symptoms: Negative for Nausea, Vomiting, Diaphoresis, Dyspnea, Cough, Fever, Lightheadedness, Acid Reflux or Palpitations Narrative Narrative: Patient is a 46-year-old male with history of liver disease due to alcohol use. He undergoes paracentesis weekly on . He states he was awakened from sleep at 0400 with constant left-sided chest pain. There is no radiation. There is no associated symptoms. Patient denies history of coronary disease. Patient states he is on a transplant list for his liver. He does have jaundice. He denies history of VTE. He does endorse bruising easily. He states his blood pressure is normally low with a systolic varying between 80-60. He denies black or maroon-colored stool. He denies change in the color of his urine. Prior Similar Symptoms: No Recent Illness/Hospitalization: No CVD Risk Factors: Positive for Hypertension and Smoking; Negative for Diabetes, Hypercholesterolemia or Family History 1' </=55 PE Risk Factors: Negative for Recent Travel/Surgery, Recent Immobilization, Prior DVT or PE, Cancer or OCP + Smoking + >/=35 TAD Risk Factors: Positive for Hypertension; Negative for Marfan's Syndrome or Family History PFSH FOR[facility]LY [facility], [facility] Medical History Abdominal ascites Adult failure to thrive Alcohol abuse Alcohol use Alcoholic liver disease Alcoholism Anasarca Anemia, macrocytic Anxiety Ascites Back pain Cardiology follow-up encounter Cirrhosis of liver Cirrhosis, alcoholic Depression Gastric reflux History of abdominal paracentesis History of echocardiogram History of edema History of irregular heartbeat History of stress test HTN (hypertension) Irregular heart beat Liver disease Shortness of breath on exertion Smoker Smoker Substance abuse Thrombocytopenia Thrombocytopenia Home Medications atenolol 50 mg tablet 25 mg PO DAILY HTN 07/30/14 [History Last Taken Unknown] sertraline 25 mg tablet (Zoloft) 25 mg PO DAILY 05/26/21 [History Last Taken Unknown] ciprofloxacin HCl 750 mg tablet 750 mg PO .weekly #12 tabs 08/25/21 [Rx Last Taken Unknown] furosemide 40 mg tablet See Rx Instructions .Route .COMPLEX #60 TABLETS 08/25/21 [Rx Last Taken Unknown] lactulose 20 gram/30 mL oral solution 20 g (30 mL) PO BID #1,200 mL 08/25/21 [Rx Last Taken Unknown] omeprazole 40 mg capsule,delayed release See Rx Instructions .Route .COMPLEX #60 caps 08/25/21 [Rx Last Taken Unknown] spironolactone 50 mg tablet 50 mg PO DAILY #30 tabs 08/25/21 [Rx Last Taken Unknown] trazodone 50 mg tablet See Rx Instructions .Route .COMPLEX #30 tabs 08/25/21 [Rx Last Taken Unknown] midodrine 10 mg tablet 10 mg PO TID #90 tabs 09/12/21 [Rx Last Taken Unknown] cyclobenzaprine 5 mg tablet 5 mg PO TID 10/10/21 [History Last Taken Unknown] rifaximin 550 mg tablet (Xifaxan) 550 mg PO BID 10/10/21 [History Last Taken Unknown] Allergy/AdvReac Type Severity Reaction Status Date / Time Sulfa (Sulfonamide Allergy Unknown Verified 10/10/21 08:41 Antibiotics) Surgical History History of tonsillectomy and adenoidectomy Social History household members: family Smoking Status: Heavy Smoker (>10/day) alcohol intake: former details: Patient states has not had a drink in 3 days substance use type: amphetamines ROS ROS ED Constitutional Constitutional ED: Denies chills, fever(s), subjective, sweats or weight loss Eyes Eyes: Denies none, blurry vision or change in vision ENT ENT ED: Denies ear pain, rhinorrhea or sore throat Cardiovascular Cardiovascular: Reports as per HPI; Denies orthopnea or paroxysmal nocturnal dyspnea Respiratory/Chest Respiratory/Chest: Denies cough, dyspnea, dyspnea on exertion, orthopnea or paroxysmal nocturnal dyspnea Gastrointestinal Gastrointestinal: Reports other Details: Ascites due to alcoholic liver disease ; Denies abdominal pain, constipation, diarrhea, melena, nausea or vomiting Genitourinary Genitourinary ED: Denies dysuria, hematuria or urinary frequency Musculoskeletal Musculoskeletal: Denies arthralgias, back pain, myalgias or neck pain Integumentary Denies abscess, Abrasions or rash Neurologic Neurologic: Reports weakness; Denies headache(s) or paresthesias Endocrine Endocrinology: Denies cold intolerance or heat intolerance Hematologic/Lymphatic Hematologic/Lymphatic: Reports easy bruising; Denies easy bleeding or lymphadenopathy EXAM Physical Exam Const Vital Signs: 10/10/21 08:36 10/10/21 08:41 10/10/21 08:52 Temperature 97.3 F L Temperature Source Temporal Pulse Rate 73 Respiratory Rate 13 Respiratory Effort Normal Blood Pressure 103/61 Blood Pressure Mean 75 Pulse Ox 100 Oxygen Delivery Method Room Air Room Air 10/10/21 09:40 10/10/21 10:06 10/10/21 11:07 Temperature Temperature Source Pulse Rate 67 69 17 L Respiratory Rate 14 18 16 Respiratory Effort Blood Pressure 108/66 115/64 114/70 Blood Pressure Mean 80 81 84 Pulse Ox 98 97 97 Oxygen Delivery Method Room Air Room Air Room Air Positive well nourished and well developed; Negative for contractures Constitutional Narrative: Patient appears jaundiced. He has numerous bruises. General Appearance ED: well developed and NAD; Negative for contractures HEENT Reports TM's clear and dry mucous membranes HEENT Narrative: Uvula is midline. There is no erythema exudate the posterior pharynx. normocephalic and atraumatic Tympanic Membrane ED: Yes TM's clear Mouth ED: Yes dry mucous membranes Mouth: dry mucous membranes Eyes PERRL and EOMs intact bilaterally General Eye ED: Yes scleral icterus; Negative for pale conjunctiva Neck no lymphadenopathy, supple and no JVD Chest Wall inspection of chest normal and palpation of chest normal Resp normal respiratory effort and clear to auscultation bilaterally Cardio regular rate, regular rhythm, S1 normal heart sound, S2 normal heart sound and no murmurs GI normal to inspection, nondistended, normoactive bowel sounds, soft to palpation, non-tender, non-distended and no masses; Negative for hepatosplenomegaly GI Narrative: There is a fluid wave noted. Back/Spine no CVA tenderness and no thoracic nor lumbar tenderness Extremity normal to inspection Neuro oriented x3, CN's II-XII intact bilaterally and no sensory deficits noted Sensorium / Orientation: awake and alert Motor Exam: strength 5/5 throughout Psych Attitude: agitated Mood & Affect: depressed Skin no rashes or lesions noted and No no wounds General Skin Exam: jaundice MDM MDM MDM Narrative Medical decision making narrative: With complaint of chest discomfort will obtain EKG, blood work to assess for cardiac etiology versus other causes. Chest x-ray was obtained to evaluate for pulmonary causes. Lab Data Attestation: I reviewed the patient's lab results. Lab results narrative: CBC is remarkable for anemia and thrombocytopenia. Electrolyte panel is unremarkable. First troponin is 12. 2-hour troponin was ordered. 2-hour troponin 17. Delta is 5. Patient will be discharged to home. Labs: Laboratory Results - last 24 hr 10/10/21 10/10/21 10/10/21 08:53 08:53 11:15 WBC 6.1 RBC 2.65 L Hgb 9.0 L Hct 27.0 L MCV 101.9 H MCH 34.0 H MCHC 33.3 RDW Std Deviation 61.5 H RDW Coeff of Andrei 16.8 H Plt Count 79 L MPV 11.2 Immature Gran % (Auto) 0.500 Neut % (Auto) 69.6 Lymph % (Auto) 13.7 L [place] % (Auto) 14.2 H Eos % (Auto) 1.5 Baso % (Auto) 0.5 Absolute Neuts (auto) 4.2 Absolute Lymphs (auto) 0.83 Nucleated RBC % 0 Sodium 134 L Potassium 3.5 Chloride 103 Carbon Dioxide 25.0 Anion Gap 6 BUN 23 H Creatinine 1.11 Estim Creat Clear Calc 79.59 Est GFR (MDRD) Af Amer 91 Est GFR (MDRD) Non-Af 75 BUN/Creatinine Ratio 20.7 H Glucose 112 H Calcium 7.8 L Troponin I High Sens 12 17 Radiography Chest X-Ray - ED: 1 View and Read by ED Physician (Chronic changes are noted. Inspiratory volume is limited. Cardiac silhouette and size unremarkable. Perihilar region unremarkable. Osseous structures are unremarkable. This was independently reviewed and interpreted by me.([id number])) Diagnostic Testing: Clinical Impression(s) from Imaging Studies Chest X-Ray 10/10/21 08:49 IMPRESSION: Normal x-ray examination of the chest. Electronically Signed: Rodney Hilario MD at 9:26 EDT , EKG Initial EKG: Attestation: I personally reviewed and interpreted this EKG as follows: Interpretation: Sinus Rhythm (Rate is 69. [place] to left. This is the only abnormality. IA interval is 180 ms. QS duration 108 ms. QT duration 442 ms. There are no ischemic changes with 5 hours of continuous pain.) Discharge Plan Triage Chief Complaint: Chest Pain ED Provider: Blake Melchor Dx/Rx/DC Orders Clinical Impression: Left-sided chest pain, Cirrhosis of liver, Jaundice, Thrombocytopenia, Anemia in chronic illness Instructions: ED Chest Pain, Noncardiac, ED Chest Pain, Uncertain Cause Prescriptions: No Action midodrine 10 mg tablet 10 mg PO TID Qty: 90 1RF Rx Instructions: do not give last dose of day after 6PM or within 4 hrs of bedtime atenolol 50 MG tablet 25 mg PO DAILY Label Comments: heart/blood pressure sertraline [Zoloft] 25 mg Tablet 25 mg PO DAILY cyclobenzaprine 5 mg Tablet 5 mg PO TID Xifaxan 550 mg Tablet 550 mg PO BID lactulose 20 gram/30 mL solution 20 g PO BID Qty: 1200 5RF Rx Instructions: titrate until 2-3 loose stools daily trazodone 50 mg tablet See Rx Instructions .ROUTE .COMPLEX Qty: 30 5RF Dose Instruction: 1 TABLET BY MOUTH ONCE DAILY AT BEDTIME NEEDED FOR SLEEP Rx Instructions: 1 TABLET BY MOUTH ONCE DAILY AT BEDTIME NEEDED FOR SLEEP spironolactone 50 mg tablet 50 mg PO DAILY Qty: 30 5RF omeprazole 40 mg capsule,delayed release(DR/EC) See Rx Instructions .ROUTE .COMPLEX Qty: 60 5RF Dose Instruction: TAKE 1 CAPSULE BY MOUTH TWICE A DAY Rx Instructions: TAKE 1 CAPSULE BY MOUTH TWICE A DAY furosemide 40 mg tablet See Rx Instructions .ROUTE .COMPLEX Qty: 60 5RF Dose Instruction: TAKE 1 TABLET BY MOUTH TWICE A DAY Rx Instructions: TAKE 1 TABLET BY MOUTH TWICE A DAY ciprofloxacin HCl 750 mg tablet 750 mg PO .weekly Qty: 12 5RF Primary Care Provider: Elio Ojeda Referrals: Elio Ojeda MD [Primary Care Provider] - 5-7 Days Disposition Disposition: Home, Self Care
[2021-10-10 09:05] LABS: Absolute Lymphocyte Count 0.83 X10^3/uL (0.83-4.51); Absolute Neutrophil Count 4.2 X10^3/uL (2.0-7.7); Basophil# 0.03 X10^3/uL; Basophil% 0.5 % (0-1); Eosinophil# 0.09 X10^3/uL; Eosinophils% 1.5 % (0-5); Lymphocyte # 0.83 X10^3/ul (0.83-4.51); Lymphocyte % 13.7 % (19-41); Mean Corp Hgb Conc 33.3 g/dL (32-36); Mean Corpuscular Volume 101.9 fL (80-94); Mean Platelet Vol. 11.2 fl (6.2-12.0); Monocyte# 0.86 X10^3/uL; Monocyte% 14.2 % (0-10); NRBC Flagged by Analyzer 0 % (0-5); Neutrophil # 4.21 X10^3/uL (2.7-7.7); Neutrophil % 69.6 % (47-70); POSITIVE COUNT YES; Platelet Count 79 K/mm3 (150-450); RBC Distribution Width CV 16.8 % (11.6-14.6); RBC Distribution Width SD 61.5 fl (35.1-43.9); Red Blood Count 2.65 M/mm3 (4.6-6.2); White Blood Count 6.1 K/mm3 (4.4-11.0)
[2021-10-10 09:23] LABS: Anion Gap 6 (5-15); BUN 23 mg/dL (7-18); BUN/Creat Ratio 20.7 RATIO (10-20); Calcium,Total 7.8 mg/dL (8.5-10.1); Chloride 103 mmol/L (98-107); Creatinine, Serum 1.11 mg/dL (0.70-1.30); EST Glomerular Filtration Rate 75 mL/min (>60); Est Glom Filt Rate - Afr Amer 91 mL/min (>60); Estimated Creatinine Clearance 79.59 ml/min; Glucose 112 mg/dL (74-106); Potassium 3.5 mmol/L (3.5-5.1); Sodium Level 134 mmol/L (136-145); Troponin-I HS (w/2H Reflex) 12 pg/mL (3.0-78.0)
[2021-10-10 09:40] VITALS: BP 108/66; PULSE 67; RESP 14; O2SAT 98
[2021-10-10 10:06] VITALS: BP 115/64; PULSE 69; RESP 18; O2SAT 97
[2021-10-10 10:58] LABS: Reflex Troponin-HS? (from REC) Y
[2021-10-10 11:07] VITALS: BP 114/70; PULSE 17; RESP 16; O2SAT 97
[2021-10-10 11:39] LABS: Troponin-I HS 17 pg/mL (3.0-78.0)
[2021-10-10] MEDS: oxyCODONE 5 MG Tablet PO (12:01)
[2021-10-10 12:04] VITALS: BP 102/64; PULSE 78; RESP 14; O2SAT 100
== END 2021-10-10 12:11 | disposition home or self-care (01) ==
PROVIDERS: Emergency Provider Emergency Medicine; PCP Family Medicine; Visit Provider Emergency Medicine
DX: R07.9 Chest pain, unspecified (principal); K70.30 Alcoholic cirrhosis of liver without ascites; D69.6 Thrombocytopenia, unspecified; D63.8 Anemia in other chronic diseases classified elsewhere; F17.200 Nicotine dependence, unspecified, uncomplicated; I10 Essential (primary) hypertension; F10.10 Alcohol abuse, uncomplicated; F32.A Depression, unspecified; K21.9 Gastro-esophageal reflux disease without esophagitis; Z79.899 Other long term (current) drug therapy; F41.9 Anxiety disorder, unspecified
CPT/HCPCS: 84484; 85025; 93005; 71045; 99285; 80048

== ENCOUNTER 2021-10-11 21:26 | Inpatient (IN) | payer MEDICAID, SELFPAY ==
[2021-10-11 21:27] VITALS: BP 128/74; PULSE 97; RESP 22; TEMP 37; O2SAT 98; BMI 31.9
--- NOTE | 2021-10-11 22:04 | EKG12_ITS ---
Test Reason : DYSRHYTHMIA Blood Pressure : / mmHG Vent. Rate : 087 BPM Atrial Rate : 087 BPM P-R Int : 182 ms QRS Dur : 106 ms QT Int : 414 ms P-R-T Axes : 009 -35 002 degrees QTc Int : 498 ms Normal sinus rhythm Left axis deviation Prolonged QT Abnormal ECG Confirmed by ROSA SILVERMAN, LASHA ([id number]), photograph editor JERRI VAZQUEZ ([id number]) on 10/13/2021 10:08:54 AM Referred By: OLIMPIA Confirmed By:LASHA LEE MD
[2021-10-11 22:41] LABS: Absolute Lymphocyte Count 0.83 X10^3/uL (0.83-4.51); Absolute Neutrophil Count 7.2 X10^3/uL (2.0-7.7); Basophil# 0.01 X10^3/uL; Basophil% 0.1 % (0-1); Eosinophil# 0.01 X10^3/uL; Eosinophils% 0.1 % (0-5); Hematocrit 24.8 % (40-54); Hemoglobin 8.4 g/dL (13.0-16.5); Lymphocyte # 0.83 X10^3/ul (0.83-4.51); Lymphocyte % 9.1 % (19-41); Mean Corp Hgb Conc 33.9 g/dL (32-36); Mean Corpuscular Hgb 34.6 pg (27.0-32.0); Mean Corpuscular Volume 102.1 fL (80-94); Mean Platelet Vol. 11.1 fl (6.2-12.0); Monocyte# 0.95 X10^3/uL; Monocyte% 10.5 % (0-10); NRBC Flagged by Analyzer 0 % (0-5); Neutrophil # 7.22 X10^3/uL (2.7-7.7); Neutrophil % 79.4 % (47-70); POSITIVE COUNT YES; Platelet Count 70 K/mm3 (150-450); RBC Distribution Width CV 16.8 % (11.6-14.6); RBC Distribution Width SD 62.8 fl (35.1-43.9); Red Blood Count 2.43 M/mm3 (4.6-6.2); White Blood Count 9.1 K/mm3 (4.4-11.0)
[2021-10-11 22:54] LABS: Differential Indicated SCAN CRITERIA MET
[2021-10-11 23:02] LABS: AST(SGOT) 28 U/L (15-37); Alanine Aminotransfer ALT/SGPT 12 U/L (16-61); Albumin, Serum 2.3 g/dL (3.2-5.0); Alkaline Phosphatase 105 U/L (45-117); Anion Gap 9 (5-15); BUN 19 mg/dL (7-18); BUN/Creat Ratio 17.8 RATIO (10-20); Bilirubin, Direct 1.72 mg/dL (0.00-0.30); Chloride 102 mmol/L (98-107); Creatinine, Serum 1.07 mg/dL (0.70-1.30); EST Glomerular Filtration Rate 79 mL/min (>60); Est Glom Filt Rate - Afr Amer 95 mL/min (>60); Estimated Creatinine Clearance 82.57 ml/min; Glucose 109 mg/dL (74-106); Lipase 212 U/L (73-393); Potassium 3.7 mmol/L (3.5-5.1); Protein, Total 6.3 g/dL (6.4-8.2); Sodium Level 132 mmol/L (136-145)
[2021-10-11 23:08] VITALS: TEMP 37
[2021-10-11 23:14] LABS: Differential Comment SCANNED
[2021-10-11 23:32] LABS: Lactic Acid 3.1 mmol/L (0.4-1.9)
--- NOTE | 2021-10-11 23:52 | EX.ED.DYSGE1 ---
HPI History of Present Illness Chief Complaint: Abd Pain Informant: patient and family Narrative Narrative: Patient is a 46-year-old male with complex medical history including alcoholic cirrhosis of the liver with recurrent ascites as well as thrombocytopenia and anemia of chronic disease presenting with increased abdominal discomfort, leg swelling, nausea, vomiting and fever. Patient had temperature of 102.8 at the house today. He was throwing up and he retried to eat. Denies any melena or hematemesis. Notes he receives paracentesis every . Was recently told by director corporate sales that his electrolytes are off so his mom did buy him Gatorade and he has been drinking that. He notices that since then he has had increased welling of his legs. Patient is on weekly prophylactic ciprofloxacin. Denies any sick contacts. No other complaints at this time. Of note patient was seen in our ER yesterday for chest pain. He states his chest pain has since resolved. [facility] Medical History Abdominal ascites Adult failure to thrive Alcohol abuse Alcohol use Alcoholic liver disease Alcoholism Anasarca Anemia, macrocytic Anxiety Ascites Back pain Cardiology follow-up encounter Cirrhosis of liver Cirrhosis, alcoholic Depression Gastric reflux History of abdominal paracentesis History of abdominal paracentesis History of echocardiogram History of edema History of irregular heartbeat History of stress test HTN (hypertension) Irregular heart beat Liver disease Shortness of breath on exertion Smoker Smoker Substance abuse Thrombocytopenia Thrombocytopenia Home Medications atenolol 50 mg tablet 25 mg PO DAILY HTN 07/30/14 [History Last Taken Unknown] sertraline 25 mg tablet (Zoloft) 25 mg PO DAILY 05/26/21 [History Last Taken Unknown] ciprofloxacin HCl 750 mg tablet 750 mg PO .weekly #12 tabs 08/25/21 [Rx Last Taken Unknown] furosemide 40 mg tablet See Rx Instructions .Route .COMPLEX #60 TABLETS 08/25/21 [Rx Last Taken Unknown] lactulose 20 gram/30 mL oral solution 20 g (30 mL) PO BID #1,200 mL 08/25/21 [Rx Last Taken Unknown] omeprazole 40 mg capsule,delayed release See Rx Instructions .Route .COMPLEX #60 caps 08/25/21 [Rx Last Taken Unknown] spironolactone 50 mg tablet 50 mg PO DAILY #30 tabs 08/25/21 [Rx Last Taken Unknown] trazodone 50 mg tablet See Rx Instructions .Route .COMPLEX #30 tabs 08/25/21 [Rx Last Taken Unknown] midodrine 10 mg tablet 10 mg PO TID #90 tabs 09/12/21 [Rx Last Taken Unknown] cyclobenzaprine 5 mg tablet 5 mg PO TID 10/10/21 [History Last Taken Unknown] rifaximin 550 mg tablet (Xifaxan) 550 mg PO BID 10/10/21 [History Last Taken Unknown] Allergy/AdvReac Type Severity Reaction Status Date / Time Sulfa (Sulfonamide Allergy Unknown Verified 10/11/21 21:27 Antibiotics) Surgical History History of tonsillectomy and adenoidectomy Social History household members: family Smoking Status: Heavy Smoker (>10/day) alcohol intake: former details: Patient states has not had a drink in 3 days substance use type: amphetamines ROS ROS ED Constitutional Constitutional ED: Reports chills and fever(s) Eyes Eyes: Denies change in vision ENT ENT ED: Denies rhinorrhea or sore throat Cardiovascular Cardiovascular: Denies chest pain or palpitations Respiratory/Chest Respiratory/Chest: Denies cough or dyspnea Gastrointestinal Gastrointestinal: Reports abdominal pain, nausea and vomiting; Denies constipation or diarrhea Genitourinary Genitourinary ED: Denies dysuria Musculoskeletal Musculoskeletal: Denies arthralgias Integumentary Reports other Details: Jaundice ; Denies rash Neurologic Neurologic: Reports paresthesias; Denies headache(s) or weakness Psychiatric Psychiatric: Denies anxiety Hematologic/Lymphatic Hematologic/Lymphatic: Reports easy bleeding and easy bruising EXAM Physical Exam Const Vital Signs: 10/11/21 21:27 10/11/21 23:08 Temperature 98.6 F 98.6 F Temperature Source Oral Oral Pulse Rate 97 Respiratory Rate 22 H Blood Pressure 128/74 H Blood Pressure Mean 92 Pulse Ox 98 Oxygen Delivery Method Room Air Constitutional Narrative: Chronically ill-appearing General Appearance ED: NAD HEENT Reports dry mucous membranes Negative for trauma Mouth ED: Yes dry mucous membranes Mouth: dry mucous membranes Eyes PERRL and EOMs intact bilaterally General Eye ED: Yes scleral icterus Neck supple and no JVD Chest Wall inspection of chest normal and palpation of chest normal Resp normal respiratory effort and clear to auscultation bilaterally Cardio regular rhythm and no murmurs Rate: tachycardic GI GI Narrative: Positive fluid wave Inspection: abdominal distention Palpation: soft; Negative for tender or guarding Extremity Extremity Narrative: 2+ pitting pedal edema General Extremety ED: Yes edema; Negative for tenderness General Extremity: edema Neuro oriented x3 and no sensory deficits noted Sensorium / Orientation: alert Motor Exam: general weakness Psych mental status grossly normal Skin no wounds General Skin Exam: jaundice MDM MDM MDM Narrative Medical decision making narrative: Patient is evaluated for abdominal discomfort in the setting of recurrent ascites from cirrhosis of the liver as well as fever at home and vomiting/inability to take his medications. Physical exam is largely unremarkable. Labs show a lot of chronic but mostly stable changes. He does have a slightly downtrending hemoglobin of 8.4 and his ammonia is chronically elevated at 84. His bilirubin is 7.6 today. His lactate is elevated at 3.1 and his urinalysis does show positive nitrates with 1+ bacteria and 0-5 white blood cells however patient does often have nitrates in his urinalysis. EKG shows a slightly prolonged QTC but no acute changes. Patient a cardiac evaluation yesterday and does not complain of any chest pain at this time. He is not exquisitely peritoneal in the emergency room. Case discussed with his GI doctor, Dr. Back, who states that we should have a high suspicion for SBP and treat him as if he does especially because of his recurrent paracentesis. Patient is given Zosyn in the emergency room as well as Reglan and morphine for symptom control. He will be admitted to the hospital service. Patient remains afebrile and hemodynamically stable in the emergency room. Lab Data Attestation: I reviewed the patient's lab results. Labs: Laboratory Results - last 24 hr 10/11/21 10/11/21 10/11/21 21:36 21:36 21:36 WBC 9.1 RBC 2.43 L Hgb 8.4 L Hct 24.8 L MCV 102.1 H MCH 34.6 H MCHC 33.9 RDW Std Deviation 62.8 H RDW Coeff of Andrei 16.8 H Plt Count 70 L MPV 11.1 Immature Gran % (Auto) 0.800 Neut % (Auto) 79.4 H Lymph % (Auto) 9.1 L [place] % (Auto) 10.5 H Eos % (Auto) 0.1 Baso % (Auto) 0.1 Absolute Neuts (auto) 7.2 Absolute Lymphs (auto) 0.83 Nucleated RBC % 0 Differential Comment SCANNED Sodium 132 L Potassium 3.7 Chloride 102 Carbon Dioxide 21.0 Anion Gap 9 BUN 19 H Creatinine 1.07 Estim Creat Clear Calc 82.57 Est GFR (MDRD) Af Amer 95 Est GFR (MDRD) Non-Af 79 BUN/Creatinine Ratio 17.8 Glucose 109 H Lactic Acid Calcium 8.0 L Total Bilirubin 7.60 H Direct Bilirubin 1.72 H AST 28 ALT 12 L Alkaline Phosphatase 105 Ammonia 84.0 H Total Protein 6.3 L Albumin 2.3 L Globulin 4.0 Lipase 212 Urine Color Urine Clarity Urine pH Ur Specific [place] Urine Protein Urine Glucose (UA) Urine Ketones Urine Occult Blood Urine Nitrite Urine Bilirubin Urine Urobilinogen Ur Leukocyte Esterase Urine RBC Urine WBC Ur Squamous Epith Cells Urine Bacteria Urine Mucus 10/11/21 10/12/21 21:36 00:03 WBC RBC Hgb Hct MCV MCH MCHC RDW Std Deviation RDW Coeff of Andrei Plt Count MPV Immature Gran % (Auto) Neut % (Auto) Lymph % (Auto) [place] % (Auto) Eos % (Auto) Baso % (Auto) Absolute Neuts (auto) Absolute Lymphs (auto) Nucleated RBC % Differential Comment Sodium Potassium Chloride Carbon Dioxide Anion Gap BUN Creatinine Estim Creat Clear Calc Est GFR (MDRD) Af Amer Est GFR (MDRD) Non-Af BUN/Creatinine Ratio Glucose Lactic Acid 3.1 H* Calcium Total Bilirubin Direct Bilirubin AST ALT Alkaline Phosphatase Ammonia Total Protein Albumin Globulin Lipase Urine Color Brenda Urine Clarity Cloudy Urine pH 6.0 Ur Specific [place] 1.020 Urine Protein 30 H Urine Glucose (UA) Normal Urine Ketones 5 H Urine Occult Blood 10 H Urine Nitrite Positive H Urine Bilirubin 3 H Urine Urobilinogen 8 H Ur Leukocyte Esterase 25 H Urine RBC 0-5 SEEN Urine WBC 0-5 SEEN Ur Squamous Epith Cells 0-5 SEEN Urine Bacteria 1+ Urine Mucus 2+ Rhythm Strip Rhythm Strip: Sinus Rhythm Rate: 87 Ectopy: None EKG Initial EKG: Attestation: I personally reviewed and interpreted this EKG as follows: Interpretation: Sinus Rhythm Comments: Normal sinus rhythm at a rate of 87 Left axis deviation Prolonged QTC of [address] segments Discharge Plan Triage Chief Complaint: Abd Pain ED Provider: Joselin Baldwin Dx/Rx/DC Orders Clinical Impression: SBP (spontaneous bacterial peritonitis), Cirrhosis of liver, Jaundice, Hyperammonemia, Abdominal ascites, Thrombocytopenia, Anemia in chronic illness, Vomiting, Unable to take medication Prescriptions: No Action midodrine 10 mg tablet 10 mg PO TID Qty: 90 1RF Rx Instructions: do not give last dose of day after 6PM or within 4 hrs of bedtime atenolol 50 MG tablet 25 mg PO DAILY Label Comments: heart/blood pressure sertraline [Zoloft] 25 mg Tablet 25 mg PO DAILY cyclobenzaprine 5 mg Tablet 5 mg PO TID Xifaxan 550 mg Tablet 550 mg PO BID lactulose 20 gram/30 mL solution 20 g PO BID Qty: 1200 5RF Rx Instructions: titrate until 2-3 loose stools daily trazodone 50 mg tablet See Rx Instructions .ROUTE .COMPLEX Qty: 30 5RF Dose Instruction: 1 TABLET BY MOUTH ONCE DAILY AT BEDTIME NEEDED FOR SLEEP Rx Instructions: 1 TABLET BY MOUTH ONCE DAILY AT BEDTIME NEEDED FOR SLEEP spironolactone 50 mg tablet 50 mg PO DAILY Qty: 30 5RF omeprazole 40 mg capsule,delayed release(DR/EC) See Rx Instructions .ROUTE .COMPLEX Qty: 60 5RF Dose Instruction: TAKE 1 CAPSULE BY MOUTH TWICE A DAY Rx Instructions: TAKE 1 CAPSULE BY MOUTH TWICE A DAY furosemide 40 mg tablet See Rx Instructions .ROUTE .COMPLEX Qty: 60 5RF Dose Instruction: TAKE 1 TABLET BY MOUTH TWICE A DAY Rx Instructions: TAKE 1 TABLET BY MOUTH TWICE A DAY ciprofloxacin HCl 750 mg tablet 750 mg PO .weekly Qty: 12 5RF Primary Care Provider: Elio Ojeda Referrals: Elio Ojeda MD [Primary Care Provider] - Disposition Disposition: Acute Care Hospital [facility]
[2021-10-12] VITALS (9 sets, daily range): BP systolic 94–121; BP diastolic 45–74; PULSE 60–79; RESP 15–24; TEMP 36.7–37.1; O2SAT 93–99; BMI 29.5
--- NOTE | 2021-10-12 | IMM_PTH ---
PATIENT: MAX ODONNELL III LOC: MS3 U#:[id number] AGE/SX: 46/M ROOM: [facility] RE10/12/[address]: Dr. Edwin Medina DO : 1975 BED: 1 DIS: 10/13/2021 SPEC #: [id number] RECD: 10/13/21 11:06 STATUS: FRANCES REQ #: [id number] ALCIRA: 10/12/21 00:[address]: Edwin Medina DEPT: IMMUNOHISTOCHEMISTRY RECD BY: Dariana Pinzon ENTERED: 10/13/21 11:08 SP TYPE: IMMUNO OTHR DR: MD Dr. Elio Montilla MD Dr. Rahsaan Friend, DO Tissues: Abdomen, NOS Procedures: Hilton Ret (add) CK20 (add) CK5-6 (add) CK7 (add) MACRO (add) P53 (add) Pankeratin (initial) P40 (add) [facility]YS[facility] [address] [address] SPECIMEN INFORMATION: Tissue Source: Abdominal fluid Clinical Info: Ascites Specimen Number: [id number] CPT code: 29355, 28124 x7 METHODOLOGY: Deparaffinized sections of prefer/formalin-fixed tissue or PAP/DQ stained slides are incubated with monoclonal/polyclonal antibodies/oligonucleotide probes. Localization is made via biotin free immunoperoxidase method. Appropriate controls are performed and reacted as expected. Results on target cell population are indicated in the following table: RESULTS: ANTIBODY / CLONE RESULT AE1-3 (AE1/AE3/PCK26) negative CK7 (OV-TL12/30) negative CK20 (KS20.8) negative Macro (HAM-56) positive CALRET (polyclonal) positive CK5-6 (D5 & 1684) negative P40 (BC28) negative P53 (DO-7) negative These tests were developed and their performance characteristics determined by [facility]. They may not have been cleared or approved by the U.[place]. Food and Drug Administration. The FDA has determined that such clearance or approval is not necessary. The above immunohistochemical/dualISH markers are ordered and reviewed by the Pathologist. INTERPRETATION: Ascitis fluid (cell block): -Negative for malignant cells AM:cc 10/14/21
[2021-10-12 00:11] LABS: Color, Urine Amber (Yellow); Glucose, Dipstick Normal (Normal); Ketone-Dipstick 5 mg/dl (Negative); Leukocyte Esterase-Dipstick 25 /ul (Negative); Nitrite-Dipstick Positive (Negative); Occult Blood-Urine 10 /ul (Negative); Protein-Dipstick 30 mg/dl (Negative); Urine Clarity Cloudy (Clear); Urine Urobilinogen 8 mg/dl (Normal)
[2021-10-12 00:13] LABS: Urine Bilirubin Dipstick 3 mg/dL (Negative)
[2021-10-12] MEDS: Metoclopramide 10 MG/2 ML Vial 5 MG IV (00:28)
[2021-10-12 00:29] LABS: Bacteria 1+ /hpf (None Seen); Mucous, Urine 2+ /hpf (<or=2+); Red Blood Cells-Urine 0-5 SEEN /hpf (0-5); Squamous Epithelial Cells - UA 0-5 SEEN /hpf (0-5); White Blood Cells 0-5 SEEN /hpf (0-5)
[2021-10-12] MEDS: Morphine 2 MG/ML Syringe IV (00:29)
--- NOTE | 2021-10-12 00:57 | HP.PCM.HOS_ITS ---
HPI - General General Date of Admission: 10/12/21 Date of Service: 10/12/21 Chief Complaint: Nausea and vomiting HPI Narrative MAX ODONNELL, is a 46 M with a significant history of alcoholic cirrhosis and ascites with every paracentesis who presents to the emergency department with persistent nausea and vomiting x2 days. On the day of presentation reportedly patient had home temperature of over 102 Fahrenheit. Also he reports swelling in right side of his abdomen and swelling of his leg. He has chronic jaundiced. Of note patient presented also to the emergency department a day before his presentation with chest pain and other related symptoms. He was discharged home. [facility] Medical History Abdominal ascites Adult failure to thrive Alcohol abuse Alcohol use Alcoholic liver disease Alcoholism Anasarca Anemia, macrocytic Anxiety Ascites Back pain Cardiology follow-up encounter Cirrhosis of liver Cirrhosis, alcoholic Depression Gastric reflux History of abdominal paracentesis History of abdominal paracentesis History of echocardiogram History of edema History of irregular heartbeat History of stress test HTN (hypertension) Irregular heart beat Liver disease Shortness of breath on exertion Smoker Smoker Substance abuse Thrombocytopenia Thrombocytopenia Home Medications atenolol 50 mg tablet 25 mg PO DAILY HTN 07/30/14 [History Last Taken Unknown] sertraline 25 mg tablet (Zoloft) 25 mg PO DAILY 05/26/21 [History Last Taken Unknown] ciprofloxacin HCl 750 mg tablet 750 mg PO .weekly #12 tabs 08/25/21 [Rx Last Taken Unknown] furosemide 40 mg tablet See Rx Instructions .Route .COMPLEX #60 TABLETS 08/25/21 [Rx Last Taken Unknown] lactulose 20 gram/30 mL oral solution 20 g (30 mL) PO BID #1,200 mL 08/25/21 [Rx Last Taken Unknown] omeprazole 40 mg capsule,delayed release See Rx Instructions .Route .COMPLEX #60 caps 08/25/21 [Rx Last Taken Unknown] spironolactone 50 mg tablet 50 mg PO DAILY #30 tabs 08/25/21 [Rx Last Taken Unknown] trazodone 50 mg tablet See Rx Instructions .Route .COMPLEX #30 tabs 08/25/21 [Rx Last Taken Unknown] midodrine 10 mg tablet 10 mg PO TID #90 tabs 09/12/21 [Rx Last Taken Unknown] cyclobenzaprine 5 mg tablet 5 mg PO TID 10/10/21 [History Last Taken Unknown] rifaximin 550 mg tablet (Xifaxan) 550 mg PO BID 10/10/21 [History Last Taken Unknown] Allergy/AdvReac Type Severity Reaction Status Date / Time Sulfa (Sulfonamide Allergy Unknown Verified 10/11/21 21:27 Antibiotics) Surgical History History of tonsillectomy and adenoidectomy Social History household members: family Smoking Status: Heavy Smoker (>10/day) alcohol intake: former details: Patient states has not had a drink in 3 days substance use type: amphetamines ROS ROS Narrative Pertinent positives and pertinent negatives as noted in HPI. All other systems were reviewed and are negative. Vital Signs Vital Signs Vital Signs: 10/11/21 21:27 10/11/21 23:08 10/12/21 00:41 Temperature 98.6 F 98.6 F 98.8 F Temperature Source Oral Oral Oral Pulse Rate 97 79 Respiratory Rate 22 H 15 Blood Pressure 128/74 H 107/74 Blood Pressure Mean 92 85 Pulse Ox 98 98 Oxygen Delivery Method Room Air Room Air Weight Weight: 95.3 kg Body Mass Index (BMI) 31.9 Physical Exam Narrative Physical exam: General: Well-nourished, well-developed. Head: Normocephalic, atraumatic, no tenderness Eyes: Scleral icterus. Vision is grossly intact. EOMI ENT, no trauma, moist mucous membranes, no rhinorrhea Neck: Nontender, full range of motion, no spinal tenderness, deformities, step- off CVS: Regular rate and rhythm. S1-S2 present. Murmur 4 out of 6 present. Respiratory : clear to auscultation bilaterally, chest wall nontender, no wheezing Abdomen: Soft, nontender, distended, normal bowel sounds, no masses : Deferred Back: Nontender, no CVA tenderness, no midline spinal tenderness, deformities, step-offs Extremities: Bilateral lower extremity edema. No cyanosis. Skin: Jaundiced, no trauma, abrasions Neuro: Alert, oriented, cranial nerves II through XII grossly intact. Psychiatry: Normal mood. Normal affect. Not depressed. Not anxious. Results Medical Records Data Attestation: I reviewed the patient's medical records Lab / Micro Data Attestation: I reviewed the patient's lab results. Result Diagrams: 10/11/21 21:36 10/11/21 21:36 Labs: Laboratory Results - last 24 hr 10/11/21 21:36: WBC 9.1, RBC 2.43 L, Hgb 8.4 L, Hct 24.8 L, MCV 102.1 H, MCH 34.6 H, MCHC 33.9, RDW Std Deviation 62.8 H, RDW Coeff of Andrei 16.8 H, Plt Count 70 L, MPV 11.1, Immature Gran % (Auto) 0.800, Neut % (Auto) 79.4 H, Lymph % (Auto) 9.1 L, [place] % (Auto) 10.5 H, Eos % (Auto) 0.1, Baso % (Auto) 0.1, Absolute Neuts (auto) 7.2, Absolute Lymphs (auto) 0.83, Nucleated RBC % 0, Differential Comment SCANNED 10/11/21 21:36: Sodium 132 L, Potassium 3.7, Chloride 102, Carbon Dioxide 21.0, Anion Gap 9, BUN 19 H, Creatinine 1.07, Estim Creat Clear Calc 82.57, Est GFR (MDRD) Af Amer 95, Est GFR (MDRD) Non-Af 79, BUN/Creatinine Ratio 17.8, Glucose 109 H, Calcium 8.0 L, Total Bilirubin 7.60 H, Direct Bilirubin 1.72 H, AST 28, ALT 12 L, Alkaline Phosphatase 105, Total Protein 6.3 L, Albumin 2.3 L, Globulin 4.0, Lipase 212 10/11/21 21:36: Ammonia 84.0 H 10/11/21 21:36: Lactic Acid 3.1 H* 10/12/21 00:03: Urine Color Brenda, Urine Clarity Cloudy, Urine pH 6.0, Ur Specific [place] 1.020, Urine Protein 30 H, Urine Glucose (UA) Normal, Urine Ketones 5 H, Urine Occult Blood 10 H, Urine Nitrite Positive H, Urine Bilirubin 3 H, Urine Urobilinogen 8 H, Ur Leukocyte Esterase 25 H, Urine RBC 0-5 SEEN, Urine WBC 0-5 SEEN, Ur Squamous Epith Cells 0-5 SEEN, Urine Bacteria 1+, Urine Mucus 2+ Micro: Microbiology 10/11/21 22:55 Nasal Secretion SARS-CoV-2 Antigen (Rapid) - Final Rhythm Strip Rhythm Strip: Sinus Rhythm Rate: 87 Ectopy: None Assessment & Plan Assessment/Plan (1) SBP (spontaneous bacterial peritonitis): (2) Hyperammonemia: PLAN: Plan SBP Nausea, vomiting and fever. Emergency doctor discussed the case with gastroenterology who recommended patient be treated for SBP. Zosyn started emergency department and continued Paracentesis with ascites fluid studies ordered. Patient reports been able to tolerate clear liquids. Clear liquids ordered. Check PT/INR. GI consult Acute on chronic hyponatremia Likely secondary to vomiting. Trend CMP. Pseudo hypocalcemia Chronic On presentation albumin was 2.3. Calcium was 8.0. Corrected calcium is 9.4 Trend CMP. Chronic cirrhosis Worsening With elevated total bilirubin of 7.60 above baseline. Aldactone and Lasix continued. Supplement potassium. Midodrine continued. Hold home ciprofloxacin. Atenolol continued. Hyperammonemia Ammonia level of 84. Resume home lactulose. Trend ammonia level. Lactic acidosis Likely secondary to poor clearing Trend. Prolonged QTc interval QTC of 498 on EKG. Avoid QTC prolongation drugs. Tobacco abuse Counseled Nicotine patch ordered. DVT prophylaxis Platelet of 70. We will avoid chemical prophylaxis. SCDs ordered. Charges/Coding Visit Charges OBSV E&M: 97601 Initial observation care L3
--- NOTE | 2021-10-12 02:03 | US_ITS ---
PROCEDURE: ULTRASOUND GUIDED PARACENTESIS CLINICAL HISTORY: Male, 46 years old. Ascites with possible SBP PHYSICIAN: Ollie Verduzco MD INFORMED CONSENT: The risks, benefits, and alternatives to the procedure were explained to the patient. The specific risks of bleeding, infection, and damage to bowel were detailed and accepted. Witnessed informed consent was obtained. TECHNIQUES: The abdomen was ultrasonographically surveyed. An appropriate pocket of fluid was identified at the right/left lower quadrant. The skin was cleaned and prepped in the usual sterile fashion. Using ultrasound guidance, the peritoneal cavity was accessed with a 5-Lao paracentesis needle/catheter system. The trocar was removed. A total of 8700 ml of straw-colored ascitic fluid was removed from the peritoneal cavity. The catheter was removed and a sterile dressing was applied. The procedure was well tolerated. The patient did receive albumin after the procedure. # of Images: 10 US/Paracentesis with US IMPRESSION: Ultrasound guided paracentesis. Electronically Signed: Leland Verduzco MD at 15:50 EDT ,
[2021-10-12 03:04] LABS: Reflex Lactate? Y
[2021-10-12 03:37] LABS: Absolute Lymphocyte Count 0.95 X10^3/uL (0.83-4.51); Absolute Neutrophil Count 5.4 X10^3/uL (2.0-7.7); Basophil# 0.01 X10^3/uL; Basophil% 0.1 % (0-1); Eosinophil# 0.04 X10^3/uL; Eosinophils% 0.6 % (0-5); Hematocrit 22.9 % (40-54); Hemoglobin 7.7 g/dL (13.0-16.5); Lymphocyte # 0.95 X10^3/ul (0.83-4.51); Lymphocyte % 13.3 % (19-41); Mean Corp Hgb Conc 33.6 g/dL (32-36); Mean Corpuscular Hgb 34.2 pg (27.0-32.0); Mean Corpuscular Volume 101.8 fL (80-94); Mean Platelet Vol. 10.4 fl (6.2-12.0); Monocyte% 9.8 % (0-10); NRBC Flagged by Analyzer 0 % (0-5); Neutrophil # 5.41 X10^3/uL (2.7-7.7); Neutrophil % 75.6 % (47-70); POSITIVE COUNT YES; Platelet Count 56 K/mm3 (150-450); RBC Distribution Width CV 16.6 % (11.6-14.6); RBC Distribution Width SD 61.3 fl (35.1-43.9); Red Blood Count 2.25 M/mm3 (4.6-6.2); White Blood Count 7.2 K/mm3 (4.4-11.0)
[2021-10-12 03:48] LABS: Prothrombin Time (Protime)PT. 22.1 SECONDS (11.7-14.9)
[2021-10-12 04:21] LABS: ALB/GLOB Ratio 0.6 RATIO (0.9-2.4); AST(SGOT) 24 U/L (15-37); Alanine Aminotransfer ALT/SGPT 12 U/L (16-61); Albumin, Serum 2.1 g/dL (3.2-5.0); Alkaline Phosphatase 88 U/L (45-117); Anion Gap 7 (5-15); BUN 22 mg/dL (7-18); BUN/Creat Ratio 20.8 RATIO (10-20); Calcium,Total 7.7 mg/dL (8.5-10.1); Chloride 102 mmol/L (98-107); Creatinine, Serum 1.06 mg/dL (0.70-1.30); EST Glomerular Filtration Rate 79 mL/min (>60); Est Glom Filt Rate - Afr Amer 96 mL/min (>60); Estimated Creatinine Clearance 86.15 ml/min; Globulin 3.8 g/dL (2.2-4.2); Glucose 121 mg/dL (74-106); Lactic Acid 2.1 mmol/L (0.4-1.9); Potassium 3.7 mmol/L (3.5-5.1); Protein, Total 5.9 g/dL (6.4-8.2); Sodium Level 133 mmol/L (136-145)
[2021-10-12] MEDS: 0.9% Saline Lock 10 ML Syringe IV ×4 (06:06→16:27)
--- NOTE | 2021-10-12 07:07 | PN.HOSP_ITS ---
Subjective Subjective Expresses being upset with his complaints being disregarded. He was in the ED 10/10 and sent home to return the following day. He expressed frustration with Dr. Friend not following up on labs with him. He states that [facility] is subpar and will go to [place]. Objective Data Objective Data Vital Signs: Vital Signs Temp Pulse Resp BP Pulse Ox O2 Del Method 36.8 C 77 18 108/63 99 Room Air 10/12/21 02:09 10/12/21 02:09 10/12/21 02:09 10/12/21 02:09 10/12/21 02:09 10/12/21 02:09 Oxygen Delivery Method Room Air Weight: 90.5 kg Body Mass Index (BMI) 29.5 Intake & Output: Intake and Output for Last 24 Hours 10/10/21 10/11/21 10/12/21 23:59 23:59 23:59 Intake Total 270.5 / 270.5 Balance 270.5 / 270.5 Lab / Micro Data Result Diagrams: 10/12/21 03:23 10/12/21 03:23 Labs: Laboratory Results - last 24 hr 10/11/21 21:36: WBC 9.1, RBC 2.43 L, Hgb 8.4 L, Hct 24.8 L, MCV 102.1 H, MCH 34.6 H, MCHC 33.9, RDW Std Deviation 62.8 H, RDW Coeff of Nadrei 16.8 H, Plt Count 70 L, MPV 11.1, Immature Gran % (Auto) 0.800, Neut % (Auto) 79.4 H, Lymph % (Auto) 9.1 L, [place] % (Auto) 10.5 H, Eos % (Auto) 0.1, Baso % (Auto) 0.1, Absolute Neuts (auto) 7.2, Absolute Lymphs (auto) 0.83, Nucleated RBC % 0, Differential Comment SCANNED 10/11/21 21:36: Sodium 132 L, Potassium 3.7, Chloride 102, Carbon Dioxide 21.0, Anion Gap 9, BUN 19 H, Creatinine 1.07, Estim Creat Clear Calc 82.57, Est GFR (MDRD) Af Amer 95, Est GFR (MDRD) Non-Af 79, BUN/Creatinine Ratio 17.8, Glucose 109 H, Calcium 8.0 L, Total Bilirubin 7.60 H, Direct Bilirubin 1.72 H, AST 28, ALT 12 L, Alkaline Phosphatase 105, Total Protein 6.3 L, Albumin 2.3 L, Globulin 4.0, Lipase 212 10/11/21 21:36: Ammonia 84.0 H 10/11/21 21:36: Lactic Acid 3.1 H* 10/12/21 00:03: Urine Color Brenda, Urine Clarity Cloudy, Urine pH 6.0, Ur Specific [place] 1.020, Urine Protein 30 H, Urine Glucose (UA) Normal, Urine Ketones 5 H, Urine Occult Blood 10 H, Urine Nitrite Positive H, Urine Bilirubin 3 H, Urine Urobilinogen 8 H, Ur Leukocyte Esterase 25 H, Urine RBC 0-5 SEEN, Urine WBC 0-5 SEEN, Ur Squamous Epith Cells 0-5 SEEN, Urine Bacteria 1+, Urine Mucus 2+ 10/12/21 03:23: WBC 7.2, RBC 2.25 L, Hgb 7.7 L, Hct 22.9 L, MCV 101.8 H, MCH 34.2 H, MCHC 33.6, RDW Std Deviation 61.3 H, RDW Coeff of Andrei 16.6 H, Plt Count 56 L, MPV 10.4, Immature Gran % (Auto) 0.600, Neut % (Auto) 75.6 H, Lymph % (Auto) 13.3 L, [place] % (Auto) 9.8, Eos % (Auto) 0.6, Baso % (Auto) 0.1, Absolute Neuts (auto) 5.4, Absolute Lymphs (auto) 0.95, Nucleated RBC % 0 10/12/21 03:23: PT 22.1 H, INR 2.0 10/12/21 03:23: Sodium 133 L, Potassium 3.7, Chloride 102, Carbon Dioxide 24.0, Anion Gap 7, BUN 22 H, Creatinine 1.06, Estim Creat Clear Calc 86.15, Est GFR (MDRD) Af Amer 96, Est GFR (MDRD) Non-Af 79, BUN/Creatinine Ratio 20.8 H, Gluco se 121 H, Calcium 7.7 L, Total Bilirubin 8.10 H, AST 24, ALT 12 L, Alkaline Phosphatase 88, Total Protein 5.9 L, Albumin 2.1 L, Globulin 3.8, Albumin/Globulin Ratio 0.6 L 10/12/21 03:23: Lactic Acid 2.1 H* Micro: Microbiology 10/11/21 22:55 Nasal Secretion SARS-CoV-2 Antigen (Rapid) - Final Rhythm Strip Rhythm Strip: Sinus Rhythm Rate: 87 Ectopy: None Physical Exam Const Constitutional Narrative: alert. does repeat some his stories, but appeared appropriate. Did go on tangents referring non-specific individuals at [employer]. When I encouraged him not to refer to people directly as that, he became visbibly angry accusing me of impinging upon his first amendment rights. He began shaking his head and fists and told me to get away from him. Cardio Cardio Narrative: protuberant and large. Extremity Extremity Narrative: trace LE edema. Assessment & Plan Assessment/Plan (1) SBP (spontaneous bacterial peritonitis): PLAN: Suspected based on Nausea, vomiting and transient fever. Emergency doctor discussed the case with gastroenterology who recommended patient be treated for SBP. Zosyn started emergency department and continued Paracentesis with ascites fluid studies ordered. Patient reports been able to tolerate clear liquids. Clear liquids ordered. Check PT/INR. Discussed with Dr. Back. Given the patient's belligerent behavior, will hold off on consultation for today. (2) Hyperammonemia: PLAN: Ammonia level of 84. Continue lactulose and rifaximin. Trend ammonia level. (3) Anemia, macrocytic: PLAN: Hg dropped from 9 to 7.7. No indication to transfuse Monitor (4) Cirrhosis, alcoholic: PLAN: Chronic cirrhosis Worsening With elevated total bilirubin of 7.60 above baseline. Aldactone and Lasix continued. Supplement potassium. Midodrine continued. Hold home ciprofloxacin. Atenolol continued. MELD 23 (3 month mortality 19.6%) Child-Aguero C (1-year survival 45%, 2-year survival 35%) Discussed with Dr. Back. Patient was not a candidate for liver transplant in the state [facility] due to the fact that he would not get vaccinated. Could consider [place] drain for palliation rather than repeat paracentesis. Did advise fluid restriction. Patient stated that he would be drinking around 2 L of fluid today. Told him that we have needed to de-escalate that significantly. (5) Behavior concern: PLAN: For my standpoint we were having a productive conversation but when the patient was using vulgar terms about miscellaneous staff, I advised him not to use that terminology when addressing. He became enraged stating that I was impinging upon his first amendment rights. I did tell him that he is able to say anything that he wants but if he wants people to work with him and listen to him he show show at least some semblance of respect when addressing people. Patient was visibly shaking with rage and refused to talk to me any further and kicked me out of the room. Patient was tolerated get away from her. He did not threaten me in any way nor did he attempt to throw a punch at me. Patient had appear to be appropriate so do not feel that this is due to hepatic encephalopathy despite his ammonia being elevated but appears to be in this range chronically. Suspect the patient has underlying psychiatric disorders or personality disorder. Did inform patient's nurse, charge nurse and nursing grease refining supervisor. Patient before he became angry at me was offered the opportunity to talk to the patient liaison but he declined. PLAN: Plan Acute on chronic hyponatremia Likely secondary to vomiting. Trend CMP. Pseudo hypocalcemia Chronic On presentation albumin was 2.3. Calcium was 8.0. Corrected calcium is 9.4 Trend CMP. Lactic acidosis Likely secondary to poor clearing Trend. Prolonged QTc interval QTC of 498 on EKG. Avoid QTC prolongation drugs. Tobacco abuse Counseled Nicotine patch ordered. DVT prophylaxis Platelet of 70. We will avoid chemical prophylaxis. SCDs ordered. Greater than 40 minutes of which greater than 50% of time was discussed with the patient at bedside about his concerns for not being notified of lab tests and explaining what we can do in regards to managing his ascites. Charges/Coding Visit Charges Inpatient E&M: 90907 Subs Hosp L3
[2021-10-12] MEDS: rifAXIMin 550 MG Tablet PO ×2 (08:29→21:48)
[2021-10-12] MEDS: Lactulose 20 GM/30 ML UDC PO ×2 (08:30→21:47)
[2021-10-12] MEDS: Sertraline 50 MG Tablet 25 MG PO (08:30)
[2021-10-12] MEDS: Furosemide 40 MG Tablet PO ×2 (08:31→21:49)
[2021-10-12] MEDS: Midodrine HCl 5 MG Tablet 10 MG PO ×3 (08:31→16:28)
[2021-10-12] MEDS: Spironolactone 50 MG Tablet PO (08:31)
[2021-10-12] MEDS: Atenolol 25 MG Tablet PO (08:31)
[2021-10-12] MEDS: Pantoprazole Sodium 40 MG Tablet PO ×2 (08:31→21:49)
[2021-10-12] MEDS: Potassium Chloride Oral Tablet 20 MEQ PO (08:31)
--- NOTE | 2021-10-12 11:05 | FLU_PTH ---
PATIENT: MAX ODONNELL III LOC: MS3 U#:[id number] AGE/SX: 46/M ROOM: CA321 RE10/12/[address]: Dr. Edwin Medina DO : 1975 BED: 1 DIS: 10/13/2021 SPEC #: [id number] RECD: 10/12/21 11:33 STATUS: FRANCES REQ #: [id number] ALCIRA: 10/12/21 11:[address]: Edwin Medina DEPT: CYTOLOGY RECD BY: Phyllis Schwarz ENTERED: 10/12/21 12:51 SP TYPE: Fluid OTHR DR: MD Dr. Elio Montilla MD Dr. Rahsaan Friend, DO Tissues: Abdominal cavity, NOS Procedures: Special Stain Group II Surgery Specimen Level IV Cytospin Fluid HEADER OPERATION: Paracentesis PRE-OP DIAGNOSIS: Ascites TISSUE SUBMITTED: Abdominal fluid DIAGNOSIS CYTOLOGY Ascites fluid for cytology(cytospins & cell block): Negative for malignant cells. See Comment. AM:am 10/14/2021 COMMENT Immunohistochemistry ([id number]) supports the diagnosis. CYTOLOGY STUDY Slides are reviewed. CYTOLOGY GROSS Received is 90 ml of dark yellow cloudy fluid labeled with the patient's name and and designated per the requisition as abdominal fluid. Submitted for cytology preparation including cell block. /CW:marianna 10/12/21 TC:3 CPT: 62899,92546
[2021-10-12] MEDS: Lidocaine 2% (10 ml mdv) 10 ML Vial INFILT (11:15)
--- NOTE | 2021-10-12 11:16 | CASEMGMT ---
Addendum entered by Brii South 10/12/21 12:10: Mom did inquire if pt a candidate for hospice. She was made aware, if pt still wishes to pursue liver transplant, then he would not be a candidate for hospice. She states she is sure he still wishes to pursue a transplant. She was made aware, if it is determined he is not a candidate for a transplant or if pt decides he does not wish to pursue that any longer, then hospice could be an option and to discuss this w/his PCP or Palliative care. She voices understanding. Original Note: RN CM DIRECTOR CONSUMER CM to room to meet with patient and mother, who is at bedside, for initial transition planning/care coordination assessment. Pt and mother known by this RN CM. Pt irritable and swearing, stating he wants to smoke and asked his mom if she has his cigarettes. Pt also stating he wants to go home today. Pt getting ready to leave room for paracentesis and agreeable to RN CM discussing his care/discharge planning w/his mother. Care providers, pharmacy, and demographics verified/updated at this time. After pt left the room for procedure, mom voiced being frustrated w/pt today d/t him being crabby and hateful towards her. She states he does not get that way very often to her, but when he does, she states she will step away from him for awhile and states he will usually apologize to her a few hours later. She states he is often in pain and thinks that may be why he is so irritable today. She states he will usually calm down once he is medicated and pain gets more under control. She states she has a good support system @ home and often turns to God/prays often. PCP: Dr Ojeda Specialists: Dr Back-GI. Dr Herr-cardiology. Pt has been going to [facility] Main campus to see if he is a candidate for liver transplant. Next appt is Nov 04 for cardiology testing/clearance. Pt is also active w[facility]. Call placed to Palliative Care. VM left to notify them of pt's admission. Preferred Pharmacy: [facility] Insurance: [place] [employer] Prescription Benefit: Yes Living Will/HPOA: Has both LW and HPOA, who is his mother, Caroline. 1st alternative is his sister, Shayla. Both LW and HPOA are on file in e-chart. LNOK: Mother, Caroline. Sister, Shayla. Mom states pt has 6 adult children. Living Arrangements: Has been living w/his mom, Caroline, since Dec/Jan of last year. [facility]. Pt independent w/ADL's, but is becoming more weak. Mom able to assist w/care if needed. She states he is unable to walk very far and unable to do stairs now. Mom does home mgmt tasks. Transportation: Mom for most things. Cousin, Lupe, will take pt and his mom to [facility] appts. DME: walker, rollator, BSC, electric scooter, hospital bed. HHC/SNF: No history of either. Mom states he will not allow HHC or therapy to work w/him. Plan: Home w/family support and discharge plans in place. Dave MANZO RN CM
[2021-10-12] MEDS: Morphine 2 MG/ML Syringe 1 MG IV (12:21)
[2021-10-12] MEDS: Albumin Human 25% (100 mL) 25 GM/100 ML BAG IV ×2 (12:55→14:40)
[2021-10-12 14:15] LABS: Auto B Fluid Analyzer BKGD Ct COUNTS W/IN LIMITS (W/IN LIMITS); Source- Body Fluid PERITONEAL FLUID
[2021-10-12 14:16] LABS: Appearance/Body Fluid CLEAR; Body Fluid Total Cells Counted 0.351 10^3/ul; Color/Body Fluid YELLOW; Red Cell Count/Body Fluid 207 /mm3
[2021-10-12 14:17] LABS: Body Fluid QC Type(s) BF1Q; Lymphocytes 3 %; Mesothelial Cells 21 %; Neutrophil (Segs) 76 %; White Blood Count/Body Fluid 0.332 10^3/uL
[2021-10-12] MEDS: oxyCODONE 5 MG Tablet PO (16:32)
[2021-10-13] MEDS: Morphine 2 MG/ML Syringe 1 MG IV (01:16)
[2021-10-13 03:53] VITALS: BP 113/63; PULSE 67; RESP 16; TEMP 36.8; O2SAT 98
[2021-10-13 04:49] LABS: Absolute Lymphocyte Count 0.86 X10^3/uL (0.83-4.51); Absolute Neutrophil Count 3.7 X10^3/uL (2.0-7.7); Basophil# 0.01 X10^3/uL; Basophil% 0.2 % (0-1); Eosinophil# 0.12 X10^3/uL; Eosinophils% 2.3 % (0-5); Hematocrit 24.8 % (40-54); Hemoglobin 8.7 g/dL (13.0-16.5); Lymphocyte # 0.86 X10^3/ul (0.83-4.51); Lymphocyte % 16.3 % (19-41); Mean Corp Hgb Conc 35.1 g/dL (32-36); Mean Corpuscular Hgb 35.8 pg (27.0-32.0); Mean Corpuscular Volume 102.1 fL (80-94); Mean Platelet Vol. 10.3 fl (6.2-12.0); Monocyte# 0.61 X10^3/uL; Monocyte% 11.6 % (0-10); NRBC Flagged by Analyzer 0 % (0-5); Neutrophil # 3.65 X10^3/uL (2.7-7.7); POSITIVE COUNT YES; Platelet Count 63 K/mm3 (150-450); RBC Distribution Width CV 16.4 % (11.6-14.6); Red Blood Count 2.43 M/mm3 (4.6-6.2); White Blood Count 5.3 K/mm3 (4.4-11.0)
[2021-10-13 04:58] LABS: International Normalized Ratio 1.8; Prothrombin Time (Protime)PT. 20.7 SECONDS (11.7-14.9)
[2021-10-13 05:07] LABS: ALB/GLOB Ratio 0.7 RATIO (0.9-2.4); AST(SGOT) 18 U/L (15-37); Alanine Aminotransfer ALT/SGPT 15 U/L (16-61); Albumin, Serum 2.5 g/dL (3.2-5.0); Alkaline Phosphatase 108 U/L (45-117); Anion Gap 5 (5-15); BUN 16 mg/dL (7-18); BUN/Creat Ratio 17.7 RATIO (10-20); Calcium,Total 7.5 mg/dL (8.5-10.1); Chloride 102 mmol/L (98-107); EST Glomerular Filtration Rate 96 mL/min (>60); Est Glom Filt Rate - Afr Amer 116 mL/min (>60); Estimated Creatinine Clearance 101.47 ml/min; Globulin 3.6 g/dL (2.2-4.2); Glucose 120 mg/dL (74-106); Potassium 2.8 mmol/L (3.5-5.1); Protein, Total 6.1 g/dL (6.4-8.2); Sodium Level 135 mmol/L (136-145)
--- NOTE | 2021-10-13 07:23 | PN.HOSP_ITS ---
Subjective Subjective Feels better. Much better mood after paracentesis as his pain is improved. Apologetic for his behavior yesterday. Objective Data Objective Data Vital Signs: Vital Signs Temp Pulse Resp BP Pulse Ox O2 Del Method 36.8 C 67 16 113/63 98 Room Air 10/13/21 03:53 10/13/21 03:53 10/13/21 03:53 10/13/21 03:53 10/13/21 03:53 10/13/21 03:53 Oxygen Delivery Method [4] Room Air Oxygen Delivery Method [3] Room Air Oxygen Delivery Method [2] Room Air Oxygen Delivery Method [1 ( Room Air Initial Baseline)] Oxygen Delivery Method Room Air Weight: 83.9 kg Body Mass Index (BMI) 29.5 Intake & Output: Intake and Output for Last 24 Hours 10/11/21 10/12/21 10/13/21 23:59 23:59 23:59 Intake Total 1321.0 / 1321.0 450 / 450 Output Total 8700 / 8700 Balance -7379.0 / -7379.0 450 / 450 Medical Nutrition Assessment Dietitian: Malnutrition Criteria Met Start: 10/12/21 14:13 Freq: Status: Active Protocol: Document 10/12/21 14:05 AG (Rec: 10/12/21 14:14 [id number]) Nutrition Malnutrition Evidence of Malnutrition Exists Yes Malnutrition (severe): Chronic Evidenced By Suboptimal Energy Intake ( Severe),Weight Loss (Severe), Physical Changes (Moderate) Clinical Problem Chronic Disease or Condition Related Malnutrition Etiology chronic, severe malnutrition related to inadequate energy intake w/ increased energy needs d/t cirrhosis Signs/Symptoms as evidenced by estimated PO intake meeting <75% of estimated energy needs; unintentional wt loss of 42.5# /18% x 9 months; moderate muscle wasting/fat loss in upper extremities- arms, triceps, clavcile, acromion areas. Status Active Problem Recommendation Dietitian Recommendations/Changes continue cardiac diet w/ fluid restriction; will defer ONS at this time given fluid restriction, pt instructed to consume more protein at meals. Daily wts. Lab / Micro Data Result Diagrams: 10/13/21 04:33 10/13/21 04:33 Labs: Laboratory Results - last 24 hr 10/12/21 11:05: Fluid Source PERITONEAL FLUID, Fluid Color YELLOW, Fluid Appearance CLEAR, Fluid WBC 0.332, Fluid RBC 207, Fluid Tot Cell Count 0.351, F luid Neutrophils 76, Fluid Lymphocytes 3, Fld Mesothelial Cells 21, Fl Pathologist Comment May follow, Fluid Comment 2 SEE COMMENT 10/13/21 04:33: WBC 5.3, RBC 2.43 L, Hgb 8.7 L, Hct 24.8 L, MCV 102.1 H, MCH 35.8 H, MCHC 35.1, RDW Std Deviation 61.0 H, RDW Coeff of Andrei 16.4 H, Plt Count 63 L, MPV 10.3, Immature Gran % (Auto) 0.600, Neut % (Auto) 69.0, Lymph % (Auto) 16.3 L, [place] % (Auto) 11.6 H, Eos % (Auto) 2.3, Baso % (Auto) 0.2, Absolute Ne uts (auto) 3.7, Absolute Lymphs (auto) 0.86, Nucleated RBC % 0 10/13/21 04:33: PT 20.7 H, INR 1.8 10/13/21 04:33: Sodium 135 L, Potassium 2.8 L, Chloride 102, Carbon Dioxide 28.0, Anion Gap 5, BUN 16, Creatinine 0.90, Estim Creat Clear Calc 101.47, Est GFR (MDRD) Af Amer 116, Est GFR (MDRD) Non-Af 96, BUN/Creatinine Ratio 17.7, Glucose 120 H, Calcium 7.5 L, Total Bilirubin 5.20 H, AST 18, ALT 15 L, Alkaline Phosphatase 108, Total Protein 6.1 L, Albumin 2.5 L, Globulin 3.6, Albumin/Globulin Ratio 0.7 L Micro: Microbiology 10/12/21 11:05 Fluid - Ascites Gram Stain - Final 10/11/21 22:55 Nasal Secretion SARS-CoV-2 Antigen (Rapid) - Final Radiography Diagnostic Testing: Radiology Impression Paracentesis Ultrasound 10/12/21 02:03 IMPRESSION: Ultrasound guided paracentesis. Electronically Signed: Leland Verduzco MD at 15:50 EDT Reading Location ID and State: [facility] / [place] Tel , Service support , Rhythm Strip Rhythm Strip: Sinus Rhythm Rate: 87 Ectopy: None Physical Exam Const alert and no apparent distress Resp normal respiratory effort and no retractions Cardio regular rate, regular rhythm, S1 normal heart sound and S2 normal heart sound GI GI Narrative: distended, soft. NT. Assessment & Plan Assessment/Plan (1) SBP (spontaneous bacterial peritonitis): PLAN: Suspected based on Nausea, vomiting and transient fever. Emergency doctor discussed the case with gastroenterology who recommended patient be treated for SBP. Zosyn started emergency department and continued Paracentesis with ascites fluid studies performed 10/12, Cx pending. WBCs 332/uL Pt was receiving prophylactic cipro for paracenteses. Will discharge with oral ciprofloxacin 500 BID. If fails this (presumably due to antibiotic resistance given prior FQN exposure) may need readmitted for 5 days of pip/tazo or cefotaxime (2) Hyperammonemia: PLAN: Ammonia level of 84. Continue lactulose and rifaximin. Trend ammonia level. (3) Anemia, macrocytic: PLAN: Hg stable Monitor (4) Cirrhosis, alcoholic: PLAN: Chronic cirrhosis Worsening With elevated total bilirubin of 7.60 above baseline. Aldactone and Lasix continued. Supplement potassium. Midodrine continued. Hol d home ciprofloxacin. Atenolol continued. MELD 23 (3 month mortality 19.6%) Child-Aguero C (1-year survival 45%, 2-year survival 35%) Discussed with Dr. Back on 10/12. Patient was not a candidate for liver transplant in the [facility] due to the fact that he would not get vaccinated. Did advise fluid restriction. Patient stated that he would be drinking around 2 L of fluid today. Told him that we have needed to de-escalate that significantly. 10/13: Did addressed with the patient that he may not be a candidate for transplant if he is not going to want any vaccinations. He states that he would be open to getting the COVID-vaccine I did tell him that he may feel little rundown from getting the COVID-vaccine. He said that he would rather follow-up with his primary care provider to have it administered there or go to a pharmacy. Advised him to get his influenza vaccine when it does become available. Patient states that he has a follow-up appointment on the with a reimbursement liaison there as part of his transplant work-up at [facility]. We will prescribe him a short course of oxycodone. Previously advised that he is not a candidate for acetaminophen or NSAIDs given his cirrhosis. I did tell the patient that if for what ever reason that he decides not to get a transplant or his condition deteriorates where he may not be a candidate, that may be time to consider hospice and possible [place] drain placement. He states that he is not ready for that at this time. (5) Behavior concern: PLAN: 10/12: For my standpoint we were having a productive conversation but when the patient was using vulgar terms about miscellaneous staff, I advised him not to use that terminology when addressing. He became enraged stating that I was impinging upon his first amendment rights. I did tell him that he is able to say anything that he wants but if he wants people to work with him and listen to him he show show at least some semblance of respect when addressing people. Patient was visibly shaking with rage and refused to talk to me any further and kicked me out of the room. Patient was tolerated get away from her. He did not threaten me in any way nor did he attempt to throw a punch at me. Patient had appear to be appropriate so do not feel that this is due to hepatic encephalopathy despite his ammonia being elevated but appears to be in this range chronically. Suspect the patient has underlying psychiatric disorders or personality disord er. Did inform patient's nurse, charge nurse and nursing clothing room supervisor. Patient before he became angry at me was offered the opportunity to talk to the patient liaison but he declined. 10/13: Improved. Pt apologetic. States that he was short because of his pain. PLAN: Plan Acute on chronic hyponatremia Likely secondary to vomiting. Trend CMP. Pseudo hypocalcemia Chronic On presentation albumin was 2.3. Calcium was 8.0. Corrected calcium is 9.4 Trend CMP. Lactic acidosis Likely secondary to poor clearing Trend. Prolonged QTc interval QTC of 498 on EKG. Avoid QTC prolongation drugs. Tobacco abuse Counseled Nicotine patch ordered. DVT prophylaxis Platelet of 70. We will avoid chemical prophylaxis. SCDs ordered.
[2021-10-13 07:35] VITALS: O2SAT 96
[2021-10-13 08:23] VITALS: PULSE 70
[2021-10-13 08:33] VITALS: BP 103/67; PULSE 70; RESP 20; TEMP 36.9; O2SAT 97
[2021-10-13 08:36] LABS: Pathologist Comment/Body Fluid Reviewed
--- NOTE | 2021-10-13 09:14 | DCINST_ITS ---
Discharge Instructions Diet Discharge Diet: Low fat / Low cholesterol and - (1200 ml fluid per day. Low salt diet. ) Activity Discharge Activity: Return to Normal Activity Dressing / Incision Call your doctor if you observe: - (worsening abdominal pain. ) Follow Up Care Please Follow Up With: ultrasound When: 10/20/2021 10 AM. Then follow up at infusion center at 11AM for albumin. Test Results: Test results from this visit will be discussed in further detail at your follow- up appointment, if applicable. Discharge Plan Admission Admit Date/Time: 10/12/21 00:39 Primary Reason for Your Visit: Spontaneous bacterial peritonitis Attending Provider: Edwin Medina Primary Care Provider: Elio Ojeda Consulting Providers: Leland Back ; Tesfaye Mcelroy Discharge Orders/Prescriptions Prescriptions: New spironolactone 50 mg Tablet 100 mg PO DAILY Qty: 30 0RF potassium chloride [Klor-Con M20] 20 mEq Tablet,Er Particles/Crystals 20 meq PO BREAKFAST Qty: 7 0RF ciprofloxacin HCl 500 mg tablet 500 mg PO BID Qty: 10 0RF oxycodone 5 mg tablet 5 mg PO Q6H PRN (Reason: pain (scale score 7-10)) 3 Days Qty: 12 0RF gabapentin 100 mg capsule 100 mg PO TID Qty: 30 0RF Continued midodrine 10 mg tablet 10 mg PO TID Qty: 90 1RF Rx Instructions: do not give last dose of day after 6PM or within 4 hrs of bedtime atenolol 50 MG tablet 25 mg PO DAILY Label Comments: heart/blood pressure sertraline [Zoloft] 25 mg Tablet 25 mg PO DAILY Xifaxan 550 mg Tablet 550 mg PO BID furosemide 40 mg tablet 40 mg PO BID Label Comments: TAKE 1 TABLET BY MOUTH TWICE A DAY ciprofloxacin HCl 750 mg tablet 750 mg PO WE Label Comments: TAKE 1 TABLET BY MOUTH WEEKLY trazodone 50 mg tablet 50 mg PO QHS PRN PRN (Reason: Sleep) Label Comments: 1 TABLET BY MOUTH ONCE DAILY AT BEDTIME NEEDED FOR SLEEP omeprazole 40 mg capsule,delayed release(DR/EC) 40 mg PO BID Label Comments: TAKE 1 CAPSULE BY MOUTH TWICE A DAY lactulose 20 gram/30 mL solution 20 g PO BID Qty: 1200 5RF Rx Instructions: titrate until 2-3 loose stools daily Discontinued spironolactone 50 mg tablet 50 mg PO DAILY Qty: 30 5RF Referrals / Follow Up: Elio Ojeda MD [Primary Care Provider] - Within 2 Weeks FriendLeland DO [Med Staff - Active Staff] - 12/05/21 3:30 pm Disposition Disposition (needs filled in before D/C Order can be placed): Home, Self Care
[2021-10-13] MEDS: Midodrine HCl 5 MG Tablet 10 MG PO (09:19)
[2021-10-13] MEDS: Potassium Chloride Oral Tablet 20 MEQ PO (09:19)
[2021-10-13] MEDS: oxyCODONE 5 MG Tablet PO (09:24)
--- NOTE | 2021-10-13 09:27 | PCM.DC.SUM ---
Providers Date of Admission: 10/12/21 Primary Care Physician: Dr. Elio Ojeda MD Consultations 10/12/21 02:03 Consult: Gastroenterology Routine Consulting Provider: Leland Back Reason for Consult: sbp EMERGENT Consult: No MD Notified: Yes Date Notified: 10/12/21 Time Notified: 06:17 Method of Notification: Text Reason For Visit: SBP Diagnosis Discharge Diagnosis (1) SBP (spontaneous bacterial peritonitis): Status: Acute Code(s): K65.2 - Spontaneous bacterial peritonitis Plan: Suspected based on Nausea, vomiting and transient fever. Emergency doctor discussed the case with gastroenterology who recommended patient be treated for SBP. Zosyn started emergency department and continued Paracentesis with ascites fluid studies performed 10/12, Cx pending. WBCs 332/uL Pt was receiving prophylactic cipro for paracenteses. Will discharge with oral ciprofloxacin 500 BID. If fails this (presumably due to antibiotic resistance given prior FQN exposure) may need readmitted for 5 days of pip/tazo or cefotaxime (2) Hyperammonemia: Status: Acute Code(s): E72.20 - Disorder of urea cycle metabolism, unspecified Plan: Ammonia level of 84. Continue lactulose and rifaximin. Trend ammonia level. (3) Anemia, macrocytic: Status: Acute Code(s): D53.9 - Nutritional anemia, unspecified Plan: Hg stable Monitor (4) Cirrhosis, alcoholic: Status: Acute Code(s): K70.30 - Alcoholic cirrhosis of liver without ascites Plan: Chronic cirrhosis Worsening With elevated total bilirubin of 7.60 above baseline. Aldactone and Lasix continued. Supplement potassium. Midodrine continued. Hold home ciprofloxacin. Atenolol continued. MELD 23 (3 month mortality 19.6%) Child-Aguero C (1-year survival 45%, 2-year survival 35%) Discussed with Dr. Back on 10/12. Patient was not a candidate for liver transplant in the state [facility] due to the fact that he would not get vaccinated. Did advise fluid restriction. Patient stated that he would be drinking around 2 L of fluid today. Told him that we have needed to de-escalate that significantly. 10/13: Did addressed with the patient that he may not be a candidate for transplant if he is not going to want any vaccinations. He states that he would be open to getting the COVID-vaccine I did tell him that he may feel little rundown from getting the COVID-vaccine. He said that he would rather follow-up with his primary care provider to have it administered there or go to a pharmacy. Advised him to get his influenza vaccine when it does become available. Patient states that he has a follow-up appointment on the ninth with a global process owner there as part of his transplant work-up at [facility]. We will prescribe him a short course of oxycodone. Previously advised that he is not a candidate for acetaminophen or NSAIDs given his cirrhosis. I did tell the patient that if for what ever reason that he decides not to get a transplant or his condition deteriorates where he may not be a candidate, that may be time to consider hospice and possible [place] drain placement. He states that he is not ready for that at this time. (5) Behavior concern: Status: Acute Code(s): R46.89 - Other symptoms and signs involving appearance and behavior Plan: 10/12: For my standpoint we were having a productive conversation but when the patient was using vulgar terms about miscellaneous staff, I advised him not to use that terminology when addressing. He became enraged stating that I was impinging upon his first amendment rights. I did tell him that he is able to say anything that he wants but if he wants people to work with him and listen to him he show show at least some semblance of respect when addressing people. Patient was visibly shaking with rage and refused to talk to me any further and kicked me out of the room. Patient was tolerated get away from her. He did not threaten me in any way nor did he attempt to throw a punch at me. Patient had appear to be appropriate so do not feel that this is due to hepatic encephalopathy despite his ammonia being elevated but appears to be in this range chronically. Suspect the patient has underlying psychiatric disorders or personality disorder. Did inform patient's nurse, charge nurse and nursing land management supervisor. Patient before he became angry at me was offered the opportunity to talk to the patient liaison but he declined. 10/13: Improved. Pt apologetic. States that he was short because of his pain. Plan Acute on chronic hyponatremia Likely secondary to vomiting. Trend CMP. Pseudo hypocalcemia Chronic On presentation albumin was 2.3. Calcium was 8.0. Corrected calcium is 9.4 Trend CMP. Lactic acidosis Likely secondary to poor clearing Trend. Prolonged QTc interval QTC of 498 on EKG. Avoid QTC prolongation drugs. Tobacco abuse Counseled Nicotine patch ordered. DVT prophylaxis Platelet of 70. We will avoid chemical prophylaxis. SCDs ordered. Medications at Discharge Home Medications atenolol 50 mg tablet 25 mg PO DAILY HTN 07/30/14 sertraline 25 mg tablet (Zoloft) 25 mg PO DAILY depression 05/26/21 lactulose 20 gram/30 mL oral solution 20 g (30 mL) PO BID #1,200 mL 08/25/21 midodrine 10 mg tablet 10 mg PO TID #90 tabs 09/12/21 rifaximin 550 mg tablet (Xifaxan) 550 mg PO BID cirrhosis 10/10/21 ciprofloxacin HCl 750 mg tablet 750 mg PO WE pre-paracentesis 10/12/21 furosemide 40 mg tablet 40 mg PO BID diuretic 10/12/21 omeprazole 40 mg capsule,delayed release 40 mg PO BID GERD 10/12/21 trazodone 50 mg tablet 50 mg PO QHS PRN PRN Sleep 10/12/21 ciprofloxacin HCl 500 mg tablet 500 mg PO BID #10 tabs 10/13/21 gabapentin 100 mg capsule 100 mg PO TID #30 caps 10/13/21 oxycodone 5 mg tablet 5 mg PO Q6H PRN pain (scale score 7-10) 3 days #12 tabs 10/13/21 potassium chloride 20 mEq tablet,extended release(part/cryst) (Klor-Con M) 20 meq PO BREAKFAST #7 tabs 10/13/21 spironolactone 50 mg tablet 100 mg PO DAILY #30 tabs 10/13/21 Hospital Course Operations None Procedures Paracentesis Summary of Care Provided Minutes Spent on Discharge: 35 Medical Records Data Medical Nutrition Assessment Dietitian: Malnutrition Criteria Met Start: 10/12/21 14:13 Freq: Status: Active Protocol: Document 10/12/21 14:05 (Rec: 10/12/21 14:14 [id number]) Nutrition Malnutrition Evidence of Malnutrition Exists Yes Malnutrition (severe): Chronic Evidenced By Suboptimal Energy Intake ( Severe),Weight Loss (Severe), Physical Changes (Moderate) Clinical Problem Chronic Disease or Condition Related Malnutrition Etiology chronic, severe malnutrition related to inadequate energy intake w/ increased energy needs d/t cirrhosis Signs/Symptoms as evidenced by estimated PO intake meeting <75% of estimated energy needs; unintentional wt loss of 42.5# /18% x 9 months; moderate muscle wasting/fat loss in upper extremities- arms, triceps, clavcile, acromion areas. Status Active Problem Recommendation Dietitian Recommendations/Changes continue cardiac diet w/ fluid restriction; will defer ONS at this time given fluid restriction, pt instructed to consume more protein at meals. Daily wts. Weight / BMI Weight Weight: 83.9 kg Body Mass Index (BMI) 29.5 ABG / Lab / Microbiology Data Result Diagrams: 10/13/21 04:33 10/13/21 04:33 Laboratory: Laboratory Results - last 24 hr 10/12/21 11:05: Fluid Source PERITONEAL FLUID, Fluid Color YELLOW, Fluid Appearance CLEAR, Fluid WBC 0.332, Fluid RBC 207, Fluid Tot Cell Count 0.351, Fluid Neutrophils 76, Fluid Lymphocytes 3, Fld Mesothelial Cells 21, Fl Pathologist Comment Reviewed, Fluid Comment 2 SEE COMMENT 10/13/21 04:33: WBC 5.3, RBC 2.43 L, Hgb 8.7 L, Hct 24.8 L, MCV 102.1 H, MCH 35.8 H, MCHC 35.1, RDW Std Deviation 61.0 H, RDW Coeff of Andrei 16.4 H, Plt Count 63 L, MPV 10.3, Immature Gran % (Auto) 0.600, Neut % (Auto) 69.0, Lymph % (Auto) 16.3 L, [place] % (Auto) 11.6 H, Eos % (Auto) 2.3, Baso % (Auto) 0.2, Absolute Neuts (auto) 3.7, Absolute Lymphs (auto) 0.86, Nucleated RBC % 0 10/13/21 04:33: PT 20.7 H, INR 1.8 10/13/21 04:33: Sodium 135 L, Potassium 2.8 L, Chloride 102, Carbon Dioxide 28.0, Anion Gap 5, BUN 16, Creatinine 0.90, Estim Creat Clear Calc 101.47, Est GFR (MDRD) Af Amer 116, Est GFR (MDRD) Non-Af 96, BUN/Creatinine Ratio 17.7, Glucose 120 H, Calcium 7.5 L, Total Bilirubin 5.20 H, AST 18, ALT 15 L, Alkaline Phosphatase 108, Total Protein 6.1 L, Albumin 2.5 L, Globulin 3.6, Albumin/Globulin Ratio 0.7 L Microbiology: Microbiology 10/12/21 11:05 Fluid - Ascites Gram Stain - Final 10/11/21 22:55 Nasal Secretion SARS-CoV-2 Antigen (Rapid) - Final Radiography Diagnostic Testing: Radiology Impression Paracentesis Ultrasound 10/12/21 02:03 IMPRESSION: Ultrasound guided paracentesis. Electronically Signed: Leland Verduzco MD at 15:50 EDT Reading Location ID and State: [facility] / [place] Tel , Service support , D/C Instructions Discharge Diet: Low fat / Low cholesterol and - (1200 ml fluid per day. Low salt diet. ) Call your doctor if you observe: - (worsening abdominal pain. ) Please Follow Up With: ultrasound When: 10/20/2021 10 AM. Then follow up at infusion center at 11AM for albumin. Meaningful Use Info Meaningful Use Diagnoses (Choose all that apply): None applicable Discharge Plan Admission Admit Date/Time: 10/12/21 00:39 Primary Reason for Your Visit: Spontaneous bacterial peritonitis Attending Provider: Edwin Medina Primary Care Provider: Elio Ojeda Consulting Providers: Leland Back ; Tesfaye Mcelroy Discharge Orders/Prescriptions Prescriptions: New spironolactone 50 mg Tablet 100 mg PO DAILY Qty: 30 0RF potassium chloride [Klor-Con M20] 20 mEq Tablet,Er Particles/Crystals 20 meq PO BREAKFAST Qty: 7 0RF ciprofloxacin HCl 500 mg tablet 500 mg PO BID Qty: 10 0RF oxycodone 5 mg tablet 5 mg PO Q6H PRN (Reason: pain (scale score 7-10)) 3 Days Qty: 12 0RF gabapentin 100 mg capsule 100 mg PO TID Qty: 30 0RF Continued midodrine 10 mg tablet 10 mg PO TID Qty: 90 1RF Rx Instructions: do not give last dose of day after 6PM or within 4 hrs of bedtime atenolol 50 MG tablet 25 mg PO DAILY Label Comments: heart/blood pressure sertraline [Zoloft] 25 mg Tablet 25 mg PO DAILY Xifaxan 550 mg Tablet 550 mg PO BID furosemide 40 mg tablet 40 mg PO BID Label Comments: TAKE 1 TABLET BY MOUTH TWICE A DAY ciprofloxacin HCl 750 mg tablet 750 mg PO WE Label Comments: TAKE 1 TABLET BY MOUTH WEEKLY trazodone 50 mg tablet 50 mg PO QHS PRN PRN (Reason: Sleep) Label Comments: 1 TABLET BY MOUTH ONCE DAILY AT BEDTIME NEEDED FOR SLEEP omeprazole 40 mg capsule,delayed release(DR/EC) 40 mg PO BID Label Comments: TAKE 1 CAPSULE BY MOUTH TWICE A DAY lactulose 20 gram/30 mL solution 20 g PO BID Qty: 1200 5RF Rx Instructions: titrate until 2-3 loose stools daily Discontinued spironolactone 50 mg tablet 50 mg PO DAILY Qty: 30 5RF Referrals / Follow Up: Elio Ojeda MD [Primary Care Provider] - Within 2 Weeks Leland Back DO [Med Staff - Active Staff] - 12/05/21 3:30 pm Disposition Disposition (needs filled in before D/C Order can be placed): Home, Self Care Charges/Coding Visit Charges Inpatient E&M: 80773 Disch Hosp
== END 2021-10-13 09:43 | disposition home or self-care (01) | DRG 248 ==
LOC: ED 10-12 00:46 → MS3 10-12 06:53
PROVIDERS: Admitting Provider Hospitalist; Emergency Provider Emergency Medicine; PCP Family Medicine
DX: K65.2 Spontaneous bacterial peritonitis (principal); E43 Unspecified severe protein-calorie malnutrition; E72.20 Disorder of urea cycle metabolism, unspecified; D69.6 Thrombocytopenia, unspecified; D63.8 Anemia in other chronic diseases classified elsewhere; E87.1 Hypo-osmolality and hyponatremia; E83.51 Hypocalcemia; K70.31 Alcoholic cirrhosis of liver with ascites; E87.2 Acidosis; F10.10 Alcohol abuse, uncomplicated; K21.9 Gastro-esophageal reflux disease without esophagitis; I10 Essential (primary) hypertension; F41.9 Anxiety disorder, unspecified; F17.200 Nicotine dependence, unspecified, uncomplicated; F32.A Depression, unspecified; Z79.899 Other long term (current) drug therapy; Z68.29 Body mass index [BMI] 29.0-29.9, adult; R46.89 Other symptoms and signs involving appearance and behavior; R94.31 Abnormal electrocardiogram [ECG] [EKG]
CPT/HCPCS: 36415; 49083; 71045; 80048; 80053; 80076; 81001; 82140; 83605; 83690; 84484; 85025; 85610; 87070; 87075; 87077; 87086; 87088; 87186; 87205; 87811; 88108; 88305; 88313; 88341; 88342; 89050; 93005; 99285; 99406; J7050; P9047; A4216; J3490

== ENCOUNTER 2021-10-20 09:55 | Outpatient (CLI) | payer MEDICAID, SELFPAY ==
--- NOTE | 2021-10-20 09:57 | US_ITS ---
PROCEDURE: Ultrasound guided paracentesis. DATE OF EXAMINATION: 10/20/2021. INDICATION: Male, 46 years old. Ascites. PHYSICIAN: Raciel Wills M.D. TECHNIQUE: The risks, benefits, and alternatives to the procedure were explained to the patient. The specific risks of bleeding, infection, and damage to bowel were detailed and accepted. Witnessed informed consent was obtained. The abdomen was ultrasonographically surveyed. An appropriate pocket of fluid was identified at the right lower quadrant. The skin were cleaned and prepped in the usual sterile fashion. Using ultrasound guidance, the peritoneal cavity was accessed with a 5-Mauritian paracentesis needle/catheter system. The trocar was removed. A total of 8150 ml of casie-colored fluid were removed from the peritoneal cavity. The catheter was removed and a sterile dressing was applied. The procedure was well tolerated. US/Paracentesis with US IMPRESSION: Ultrasound guided paracentesis. Electronically Signed: Raciel Wills MD at 11:14 EDT ,
[2021-10-20 10:15] VITALS: BP 106/64; BP 107/71; BP 111/58; BP 113/68; BP 116/69; PULSE 63; PULSE 65; PULSE 66; PULSE 69; PULSE 73; RESP 16; TEMP 36.7; O2SAT 100
[2021-10-20] MEDS: Lidocaine 2% (10 ml mdv) 10 ML Vial INFILT (10:18)
[2021-10-20] MEDS: Albumin Human 25% (100 mL) 25 GM/100 ML BAG IV ×2 (11:31→12:53)
[2021-10-20 11:32] VITALS: BP 110/56; PULSE 56; RESP 16; TEMP 36.6; O2SAT 100; BMI 27.8
[2021-10-20] MEDS: Albumin Human 25% (50 mL) 12.5 GM/50 ML IV.SOLN IV (14:38)
[2021-10-20 15:41] VITALS: BP 110/57; PULSE 65; O2SAT 100
== END 2021-10-20 23:59 | disposition home or self-care (01) ==
LOC: US 09:56
PROVIDERS: PCP Family Medicine; Referring Provider Internal Medicine Gastroenterology; Visit Provider Internal Medicine Gastroenterology
DX: K74.60 Unspecified cirrhosis of liver (principal)
CPT/HCPCS: 96365; 96366; 49083; J7050; P9047; A4216

== ENCOUNTER 2021-10-25 15:45 | Emergency (ER) | payer MEDICAID, SELFPAY ==
[2021-10-25 15:46] VITALS: BP 94/51; PULSE 67; RESP 18; TEMP 36.8; O2SAT 97; BMI 28.6
[2021-10-25 17:00] LABS: Absolute Lymphocyte Count 0.86 X10^3/uL (0.83-4.51); Absolute Neutrophil Count 8.9 X10^3/uL (2.0-7.7); Basophil# 0.01 X10^3/uL; Basophil% 0.1 % (0-1); Eosinophil# 0.01 X10^3/uL; Eosinophils% 0.1 % (0-5); Hematocrit 28.7 % (40-54); Hemoglobin 9.6 g/dL (13.0-16.5); Lymphocyte # 0.86 X10^3/ul (0.83-4.51); Lymphocyte % 7.7 % (19-41); Mean Corp Hgb Conc 33.4 g/dL (32-36); Mean Corpuscular Hgb 34.7 pg (27.0-32.0); Mean Corpuscular Volume 103.6 fL (80-94); Mean Platelet Vol. 11.4 fl (6.2-12.0); Monocyte# 1.28 X10^3/uL; Monocyte% 11.5 % (0-10); NRBC Flagged by Analyzer 0 % (0-5); Neutrophil # 8.86 X10^3/uL (2.7-7.7); Neutrophil % 79.8 % (47-70); POSITIVE COUNT YES; Platelet Count 90 K/mm3 (150-450); RBC Distribution Width CV 15.9 % (11.6-14.6); RBC Distribution Width SD 57.9 fl (35.1-43.9); Red Blood Count 2.77 M/mm3 (4.6-6.2); White Blood Count 11.1 K/mm3 (4.4-11.0)
[2021-10-25 17:09] LABS: Differential Indicated SCAN CRITERIA MET
[2021-10-25 17:11] VITALS: BP 92/43; PULSE 57; RESP 18; O2SAT 98
[2021-10-25 17:12] LABS: Anion Gap 9 (5-15); BUN 45 mg/dL (7-18); Calcium,Total 8.4 mg/dL (8.5-10.1); Chloride 99 mmol/L (98-107); EST Glomerular Filtration Rate 30 mL/min (>60); Est Glom Filt Rate - Afr Amer 36 mL/min (>60); Estimated Creatinine Clearance 36.53 ml/min; Glucose 85 mg/dL (74-106); Potassium 4.1 mmol/L (3.5-5.1); Sodium Level 131 mmol/L (136-145)
[2021-10-25 17:34] LABS: Anisocytosis 1+; Hypochromasia 1+; Macrocytosis 1+; Platelet Estimate MOD DEC (ADEQ); Red Cell Morphology N CHROM NORMAL (NORM C&C)
[2021-10-25 17:57] LABS: Mucous, Urine 0 SEEN /hpf (<or=2+); Red Blood Cells-Urine 0 SEEN /hpf (0-5); White Blood Cells 0 SEEN /hpf (0-5)
[2021-10-25 18:03] LABS: Color, Urine Yellow (Yellow); Glucose, Dipstick Normal (Normal); Ketone-Dipstick Negative (Negative); Leukocyte Esterase-Dipstick 25 /ul (Negative); Nitrite-Dipstick Positive (Negative); Occult Blood-Urine 10 /ul (Negative); Protein-Dipstick 30 mg/dl (Negative); Specific Gravity, Urine 1.025 (1.002-1.030); Urine Clarity Clear (Clear); Urine Urobilinogen 4 mg/dl (Normal)
[2021-10-25 18:15] LABS: Urine Bilirubin Dipstick 3 mg/dL (Negative)
[2021-10-25 18:16] LABS: Bacteria 1+ /hpf (None Seen); Squamous Epithelial Cells - UA 5-10 SEEN /hpf (0-5)
[2021-10-25 18:17] LABS: Hyaline Cast 25-50 SEEN /lpf (0-5)
--- NOTE | 2021-10-25 18:22 | EDS_ITS ---
HPI History of Present Illness Chief Complaint: Abd Pain Onset/Context/Timing Current Severity: Moderate Narrative Narrative: 46-year-old male here with lower abdominal pain for last 2 days. Pain is located over the lower abdomen. Denies any urinary complaints. Pain is nonradiating history of cirrhosis, alcoholism, anemia. No report of hematemesis, notes the pain is constant, severe without alleviating factors. Denies any melena or hematochezia. Denies any fever. He is accompanied by his family who state he does look a bit more yellow than usual. Patient denies any fever. Old chart reviewed: Recent hospitalization for SBP discharge on ciprofloxacin. Per discharge summary patient is unvaccinated and this has prevented him from getting on the transplant list. [facility] Medical History (Updated 10/25/21 @ 21:[address] Vish Loaz DO) Abdominal ascites Adult failure to thrive Alcohol abuse Alcohol use Alcoholic liver disease Alcoholism Anasarca Anemia in chronic illness Anemia, macrocytic Anxiety Ascites Back pain Cardiology follow-up encounter Cirrhosis of liver Cirrhosis, alcoholic Depression Gastric reflux Gastric ulcer History of abdominal paracentesis History of abdominal paracentesis History of echocardiogram History of edema History of irregular heartbeat History of stress test HTN (hypertension) Hyperammonemia Hypertension Irregular heart beat Jaundice Jaundice Liver disease Shortness of breath on exertion Smoker Smoker Substance abuse Thrombocytopenia Thrombocytopenia Thrombocytopenia Home Medications atenolol 50 mg tablet 25 mg PO DAILY HTN 07/30/14 [History Last Taken 10/09/21] sertraline 25 mg tablet (Zoloft) 25 mg PO DAILY depression 05/26/21 [History Last Taken 10/09/21] lactulose 20 gram/30 mL oral solution 20 g (30 mL) PO BID #1,200 mL 08/25/21 [Rx Last Taken 10/09/21] midodrine 10 mg tablet 10 mg PO TID #90 tabs 09/12/21 [Rx Last Taken 10/09/21] rifaximin 550 mg tablet (Xifaxan) 550 mg PO BID cirrhosis 10/10/21 [History Last Taken 10/09/21] ciprofloxacin HCl 750 mg tablet 750 mg PO WE pre-paracentesis 10/12/21 [History Last Taken 10/05/21] furosemide 40 mg tablet 40 mg PO BID diuretic 10/12/21 [History Last Taken 10/09/21] omeprazole 40 mg capsule,delayed release 40 mg PO BID GERD 10/12/21 [History Last Taken 10/09/21] trazodone 50 mg tablet 50 mg PO QHS PRN PRN Sleep 10/12/21 [History Last Taken Unknown] ciprofloxacin HCl 500 mg tablet 500 mg PO BID #10 tabs 10/13/21 [Rx Last Taken Unknown] gabapentin 100 mg capsule 100 mg PO TID #30 caps 10/13/21 [Rx Last Taken Unknown] oxycodone 5 mg tablet 5 mg PO Q6H PRN pain (scale score 7-10) 3 days #12 tabs 10/13/21 [Rx Last Taken Unknown] potassium chloride 20 mEq tablet,extended release(part/cryst) (Klor-Con M) 20 meq PO BREAKFAST #7 tabs 10/13/21 [Rx Last Taken Unknown] spironolactone 50 mg tablet 100 mg PO DAILY #30 tabs 10/13/21 [Rx Last Taken Unknown] oxycodone 10 mg tablet 10 mg PO Q6H PRN pain 3 days #12 tabs 10/25/21 [Rx Last Taken Unknown] Allergy/AdvReac Type Severity Reaction Status Date / Time Sulfa (Sulfonamide Allergy Unknown Verified 10/25/21 15:48 Antibiotics) Surgical History History of tonsillectomy and adenoidectomy Social History household members: family Smoking Status: Heavy Smoker (>10/day) alcohol intake: former details: Patient states has not had a drink in 3 days substance use type: amphetamines ROS ROS ED Eyes Eyes: Denies other visual disturbances ENT ENT ED: Denies ear pain Cardiovascular Cardiovascular: Denies chest pain Respiratory/Chest Respiratory/Chest: Denies dyspnea Gastrointestinal Gastrointestinal: Reports abdominal pain and nausea; Denies melena or vomiting Genitourinary Genitourinary ED: Denies dysuria Musculoskeletal Musculoskeletal: Denies joint pain Integumentary Denies rash Neurologic Neurologic: Denies dizziness, focal weakness, numbness, syncope or weakness Psychiatric Psychiatric: Denies homicidal ideation or suicidal ideation EXAM Physical Exam Const Vital Signs: 10/25/21 15:46 10/25/21 17:11 10/25/21 18:53 Temperature 98.3 F Temperature Source Temporal Pulse Rate 67 57 L 59 L Respiratory Rate 18 18 16 Blood Pressure 94/51 L 92/43 L 102/59 L Blood Pressure Mean 65 59 73 Pulse Ox 97 98 95 Oxygen Delivery Method Room Air Room Air Room Air 10/25/21 20:51 Temperature Temperature Source Pulse Rate 59 L Respiratory Rate 16 Blood Pressure 93/47 L Blood Pressure Mean 62 Pulse Ox 94 Oxygen Delivery Method Room Air Positive cachectic Constitutional Narrative: Jaundice noted General Appearance ED: cachectic Nutritional Appearance: cachectic Eyes General Eye ED: Yes scleral icterus GI GI Narrative: Distended, lower abdominal TTP, positive fluid wave, hepatomegaly noted no spider angiomata. Inspection: abdominal distention Back/Spine General Back: Negative for CVA tenderness Neuro oriented x3 Sensorium / Orientation: alert MDM MDM MDM Narrative Medical decision making narrative: 46-year-old male here for lower abdominal pain in the setting of history of cirrhosis recent hospitalization for SBP. No fever noted the patient is nontoxic-appearing he had no fever here. He did appear jaundiced I was concerned for decompensated liver cirrhosis, UTI, SBP. Discussed risk and benefits of paracentesis today patient refused paracentesis stating he just had one a few days ago and does not feel he needs another. I did undertake a laboratory evaluation which showed evidence of systemic inflammation, stable anemia, stable hepatic metabolic and synthetic function no obvious coagulopathy noted. I did note worsening kidney function baseline. Patient denied any vomiting or other volume loss. I suspect a component of hepatorenal syndrome. I did offer the patient ongoing evaluation and hospitalization however he refused. He is alert and orient x3 had capacity make his own medical decision chose to be discharged home to undergo further evaluation by his GI doctor. On reevaluation the patient was more comfortable after pain medicine. Patient has upcoming appointment in 5 days with his GI doctor as well as appointments at a tertiary care facility to undergo evaluation for liver transplant. I encourage patient to keep these appointments. Told patient return if symptoms were to change or worsened. Provided pain medicine for home-going. Shared decision making: I had a long discussion with the patient and or visitors regarding risk/benefits of further testing or admission. They decided to forego any further testing or admission. They are aware of of the risk/benefits inherent in this decision and have voiced understanding. Lab Data Attestation: I reviewed the patient's lab results. Labs: Laboratory Results - last 24 hr 08/30/22 08/30/22 08/30/22 16:40 16:40 17:50 WBC 11.1 H RBC 2.77 L Hgb 9.6 L Hct 28.7 L MCV 103.6 H MCH 34.7 H MCHC 33.4 RDW Std Deviation 57.9 H RDW Coeff of Andrei 15.9 H Plt Count 90 L MPV 11.4 Immature Gran % (Auto) 0.800 Neut % (Auto) 79.8 H Lymph % (Auto) 7.7 L [place] % (Auto) 11.5 H Eos % (Auto) 0.1 Baso % (Auto) 0.1 Absolute Neuts (auto) 8.9 H Absolute Lymphs (auto) 0.86 Nucleated RBC % 0 Platelet Estimate MOD DEC RBC Morphology N CHROM Hypochromasia 1+ Anisocytosis 1+ Macrocytosis 1+ PT INR APTT Sodium 131 L Potassium 4.1 Chloride 99 Carbon Dioxide 23.0 Anion Gap 9 BUN 45 H Creatinine 2.50 H Estim Creat Clear Calc 36.53 Est GFR (MDRD) Af Amer 36 L Est GFR (MDRD) Non-Af 30 L BUN/Creatinine Ratio 18.0 Glucose 85 Calcium 8.4 L Total Bilirubin Direct Bilirubin AST ALT Alkaline Phosphatase Ammonia Total Protein Albumin Globulin Lipase Urine Color Yellow Urine Clarity Clear Urine pH 5.0 Ur Specific [place] 1.025 Urine Protein 30 H Urine Glucose (UA) Normal Urine Ketones Negative Urine Occult Blood 10 H Urine Nitrite Positive H Urine Bilirubin 3 H Urine Urobilinogen 4 H Ur Leukocyte Esterase 25 H Urine RBC 0 SEEN Urine WBC 0 SEEN Ur Squamous Epith Cells 5-10 SEEN Urine Bacteria 1+ Hyaline Casts 25-50 SEEN Urine Mucus 0 SEEN 10/25/21 10/25/21 10/25/21 19:05 19:05 19:05 WBC RBC Hgb Hct MCV MCH MCHC RDW Std Deviation RDW Coeff of Andrei Plt Count MPV Immature Gran % (Auto) Neut % (Auto) Lymph % (Auto) [place] % (Auto) Eos % (Auto) Baso % (Auto) Absolute Neuts (auto) Absolute Lymphs (auto) Nucleated RBC % Platelet Estimate RBC Morphology Hypochromasia Anisocytosis Macrocytosis PT 24.7 H INR 2.3 APTT 39.3 H Sodium 130 L Potassium 4.4 Chloride 100 Carbon Dioxide 22.0 Anion Gap 8 BUN 44 H Creatinine 2.48 H Estim Creat Clear Calc 36.82 Est GFR (MDRD) Af Amer 36 L Est GFR (MDRD) Non-Af 30 L BUN/Creatinine Ratio 17.7 Glucose 75 Calcium 8.2 L Total Bilirubin 6.70 H Direct Bilirubin 2.31 H AST 19 ALT 12 L Alkaline Phosphatase 79 Ammonia < 10.0 L Total Protein 6.2 L Albumin 2.3 L Globulin 3.9 Lipase 161 Urine Color Urine Clarity Urine pH Ur Specific [place] Urine Protein Urine Glucose (UA) Urine Ketones Urine Occult Blood Urine Nitrite Urine Bilirubin Urine Urobilinogen Ur Leukocyte Esterase Urine RBC Urine WBC Ur Squamous Epith Cells Urine Bacteria Hyaline Casts Urine Mucus Discharge Plan Triage Chief Complaint: Abd Pain ED Provider: Vish Loza Dx/Rx/DC Orders Clinical Impression: Cirrhosis of liver, THOMPSON (acute kidney injury) Instructions: Cirrhosis of Liver Dc Prescriptions: New oxycodone 10 mg tablet 10 mg PO Q6H PRN (Reason: pain) 3 Days Qty: 12 0RF No Action midodrine 10 mg tablet 10 mg PO TID Qty: 90 1RF Rx Instructions: do not give last dose of day after 6PM or within 4 hrs of bedtime atenolol 50 MG tablet 25 mg PO DAILY Label Comments: heart/blood pressure sertraline [Zoloft] 25 mg Tablet 25 mg PO DAILY Xifaxan 550 mg Tablet 550 mg PO BID furosemide 40 mg tablet 40 mg PO BID Label Comments: TAKE 1 TABLET BY MOUTH TWICE A DAY ciprofloxacin HCl 750 mg tablet 750 mg PO WE Label Comments: TAKE 1 TABLET BY MOUTH WEEKLY trazodone 50 mg tablet 50 mg PO QHS PRN PRN (Reason: Sleep) Label Comments: 1 TABLET BY MOUTH ONCE DAILY AT BEDTIME NEEDED FOR SLEEP omeprazole 40 mg capsule,delayed release(DR/EC) 40 mg PO BID Label Comments: TAKE 1 CAPSULE BY MOUTH TWICE A DAY spironolactone 50 mg Tablet 100 mg PO DAILY Qty: 30 0RF potassium chloride [Klor-Con M20] 20 mEq Tablet,Er Particles/Crystals 20 meq PO BREAKFAST Qty: 7 0RF ciprofloxacin HCl 500 mg tablet 500 mg PO BID Qty: 10 0RF oxycodone 5 mg tablet 5 mg PO Q6H PRN (Reason: pain (scale score 7-10)) 3 Days Qty: 12 0RF gabapentin 100 mg capsule 100 mg PO TID Qty: 30 0RF lactulose 20 gram/30 mL solution 20 g PO BID Qty: 1200 5RF Rx Instructions: titrate until 2-3 loose stools daily Primary Care Provider: Elio Ojeda Referrals: Elio Ojeda MD [Primary Care Provider] - Activity Restrictions/Additional Instructions: Please follow-up with your GI doctor at your already scheduled appointment. Please return if your symptoms change or worsen. Disposition Disposition: Home, Self Care
[2021-10-25] MEDS: Ondansetron 4 MG/2 ML Vial IV (18:50)
[2021-10-25] MEDS: Morphine 4 MG/ML Syringe IV (18:50)
[2021-10-25 18:53] VITALS: BP 102/59; PULSE 59; RESP 16; O2SAT 95
[2021-10-25 19:17] LABS: International Normalized Ratio 2.3; Prothrombin Time (Protime)PT. 24.7 SECONDS (11.7-14.9)
[2021-10-25 19:18] LABS: Partial Thromboplast Time 39.3 Seconds (24.1-36.2)
[2021-10-25 19:52] LABS: AST(SGOT) 19 U/L (15-37); Alanine Aminotransfer ALT/SGPT 12 U/L (16-61); Albumin, Serum 2.3 g/dL (3.2-5.0); Alkaline Phosphatase 79 U/L (45-117); Ammonia < 10.0 umol/L (11-32); Anion Gap 8 (5-15); BUN 44 mg/dL (7-18); BUN/Creat Ratio 17.7 RATIO (10-20); Bilirubin, Direct 2.31 mg/dL (0.00-0.30); Calcium,Total 8.2 mg/dL (8.5-10.1); Chloride 100 mmol/L (98-107); Creatinine, Serum 2.48 mg/dL (0.70-1.30); EST Glomerular Filtration Rate 30 mL/min (>60); Est Glom Filt Rate - Afr Amer 36 mL/min (>60); Estimated Creatinine Clearance 36.82 ml/min; Globulin 3.9 g/dL (2.2-4.2); Glucose 75 mg/dL (74-106); Lipase 161 U/L (73-393); Potassium 4.4 mmol/L (3.5-5.1); Protein, Total 6.2 g/dL (6.4-8.2); Sodium Level 130 mmol/L (136-145)
[2021-10-25 20:51] VITALS: BP 93/47; PULSE 59; RESP 16; O2SAT 94
== END 2021-10-25 21:27 | disposition home or self-care (01) ==
PROVIDERS: Emergency Provider Emergency Medicine; PCP Family Medicine; Visit Provider Emergency Medicine
DX: K70.31 Alcoholic cirrhosis of liver with ascites (principal); N17.9 Acute kidney failure, unspecified; D64.9 Anemia, unspecified; F17.200 Nicotine dependence, unspecified, uncomplicated; I10 Essential (primary) hypertension; F41.9 Anxiety disorder, unspecified; K21.9 Gastro-esophageal reflux disease without esophagitis; F32.A Depression, unspecified; Z87.19 Personal history of other diseases of the digestive system; Z79.899 Other long term (current) drug therapy; Z87.891 Personal history of nicotine dependence
CPT/HCPCS: 80048; 80076; 81001; 82140; 83690; 85025; 85610; 85730; 96361; 96374; 96375; 99283; J7040; A4216; J2405

== ENCOUNTER → 2021-10-27 | Outpatient (CLI) | payer MEDICAID, SELFPAY ==
--- NOTE | 2021-10-27 10:34 | US_ITS ---
PROCEDURE: Ultrasound guided paracentesis. DATE OF EXAMINATION: 10/27/2021. INDICATION: Male, 46 years old. Ascites. PHYSICIAN: Raciel Wills M.D. TECHNIQUE: The risks, benefits, and alternatives to the procedure were explained to the patient. The specific risks of bleeding, infection, and damage to bowel were detailed and accepted. Witnessed informed consent was obtained. The abdomen was ultrasonographically surveyed. An appropriate pocket of fluid was identified at the right lower quadrant. The skin were cleaned and prepped in the usual sterile fashion. Using ultrasound guidance, the peritoneal cavity was accessed with a 5-Honduran paracentesis needle/catheter system. The trocar was removed. A total of 7150 ml of casie-colored fluid were removed from the peritoneal cavity. The catheter was removed and a sterile dressing was applied. The procedure was well tolerated. US/Paracentesis with US IMPRESSION: Ultrasound guided paracentesis. Electronically Signed: Raciel Wills MD at 12:28 EDT ,
[2021-10-27 10:56] VITALS: BP 105/54; BP 108/55; PULSE 54; PULSE 56; RESP 18; RESP 20; TEMP 36.6; O2SAT 97; O2SAT 98
[2021-10-27] MEDS: Lidocaine 2% (10 ml mdv) 10 ML Vial INFILT (10:56)
== END | disposition home or self-care (01) ==
PROVIDERS: PCP Family Medicine; Referring Provider Internal Medicine Gastroenterology; Visit Provider Internal Medicine Gastroenterology
DX: K74.60 Unspecified cirrhosis of liver (principal)
CPT/HCPCS: 49083; A4216

== ENCOUNTER → 2021-11-03 | Outpatient (CLI) | payer MEDICAID, SELFPAY ==
--- NOTE | 2021-11-03 10:58 | US_ITS ---
PROCEDURE: Ultrasound guided paracentesis. DATE OF EXAMINATION: 11/03/2021. INDICATION: Male, 46 years old. Ascites. PHYSICIAN: Raciel Wills M.D. TECHNIQUE: The risks, benefits, and alternatives to the procedure were explained to the patient. The specific risks of bleeding, infection, and damage to bowel were detailed and accepted. Witnessed informed consent was obtained. The abdomen was ultrasonographically surveyed. An appropriate pocket of fluid was identified at the right lower quadrant. The skin were cleaned and prepped in the usual sterile fashion. Using ultrasound guidance, the peritoneal cavity was accessed with a 5-Egyptian paracentesis needle/catheter system. The trocar was removed. A total of 4400 ml of casie-colored fluid were removed from the peritoneal cavity. The catheter was removed and a sterile dressing was applied. The procedure was well tolerated. US/Paracentesis with US IMPRESSION: Ultrasound guided paracentesis. Electronically Signed: Raciel Wills MD at 12:29 EDT ,
[2021-11-03 11:19] VITALS: BP 102/62; BP 105/52; BP 107/54; PULSE 68; PULSE 74; PULSE 76; RESP 18; TEMP 36.6; O2SAT 100; O2SAT 99
== END | disposition home or self-care (01) ==
PROVIDERS: PCP Family Medicine; Referring Provider Internal Medicine Gastroenterology; Visit Provider Internal Medicine Gastroenterology
DX: K74.60 Unspecified cirrhosis of liver (principal)
CPT/HCPCS: 49083

== ENCOUNTER → 2021-11-10 | Outpatient (CLI) | payer MEDICAID, SELFPAY ==
--- NOTE | 2021-11-10 09:57 | US_ITS ---
PROCEDURE: Ultrasound guided paracentesis. DATE OF EXAMINATION: 11/10/2021.. INDICATION: Male, 46 years old. Ascites. PHYSICIAN: Raciel Wills M.D. TECHNIQUE: The risks, benefits, and alternatives to the procedure were explained to the patient. The specific risks of bleeding, infection, and damage to bowel were detailed and accepted. Witnessed informed consent was obtained. The abdomen was ultrasonographically surveyed. An appropriate pocket of fluid was identified at the right lower quadrant. The skin were cleaned and prepped in the usual sterile fashion. Using ultrasound guidance, the peritoneal cavity was accessed with a 5-Amharic paracentesis needle/catheter system. The trocar was removed. A total of 6300 ml of casie-colored fluid were removed from the peritoneal cavity. The catheter was removed and a sterile dressing was applied. The procedure was well tolerated. US/Paracentesis with US IMPRESSION: Ultrasound guided paracentesis. Electronically Signed: Raciel Wills MD at 11:15 EDT ,
[2021-11-10 10:14] VITALS: BP 100/50; BP 101/49; BP 102/49; BP 108/58; BP 109/57; BP 94/48; PULSE 58; PULSE 60; PULSE 61; PULSE 62; RESP 16; TEMP 36.4; O2SAT 100; O2SAT 98; O2SAT 99
[2021-11-10] MEDS: Lidocaine 2% (10 ml mdv) 10 ML Vial INFILT (10:16)
== END | disposition home or self-care (01) ==
PROVIDERS: PCP Family Medicine; Referring Provider Internal Medicine Gastroenterology; Visit Provider Internal Medicine Gastroenterology
DX: K74.60 Unspecified cirrhosis of liver (principal)
CPT/HCPCS: 49083; J7050; P9047

== ENCOUNTER → 2021-11-17 | Outpatient (CLI) | payer MEDICAID, SELFPAY ==
--- NOTE | 2021-11-17 09:44 | US_ITS ---
PROCEDURE: ULTRASOUND GUIDED PARACENTESIS CLINICAL HISTORY: Male, 46 years old. ASCITES PHYSICIAN: Ollie Verduzco MD INFORMED CONSENT: The risks, benefits, and alternatives to the procedure were explained to the patient''s mother. The specific risks of bleeding, infection, and damage to bowel were detailed and accepted. informed consent was obtained. TECHNIQUES: The abdomen was ultrasonographically surveyed. An appropriate pocket of fluid was identified at the right/left lower quadrant. The skin was cleaned and prepped in the usual sterile fashion. Using ultrasound guidance, the peritoneal cavity was accessed with a 5-Czech paracentesis needle/catheter system. The trocar was removed. A total of 4900 ml of straw-colored ascitic fluid was removed from the peritoneal cavity. The catheter was removed and a sterile dressing was applied. The procedure was well tolerated. The patient did not receive albumin during the procedure. # of Images: 20 US/Paracentesis with US IMPRESSION: Ultrasound guided paracentesis. Electronically Signed: Leland Verduzco MD at 11:27 EDT ,
[2021-11-17 10:15] VITALS: BP 119/66; BP 128/70; BP 128/77; BP 138/77; PULSE 73; PULSE 75; PULSE 76; PULSE 78; RESP 16; TEMP 36.4; O2SAT 96; O2SAT 97
[2021-11-17] MEDS: Lidocaine 2% (10 ml mdv) 10 ML Vial INFILT (10:15)
== END | disposition home or self-care (01) ==
PROVIDERS: PCP Family Medicine; Referring Provider Internal Medicine Gastroenterology; Visit Provider Internal Medicine Gastroenterology
DX: K74.60 Unspecified cirrhosis of liver (principal)
CPT/HCPCS: 49083; A4216